=== PATIENT | male | born 1960 | race Caucasian/White ===

== ENCOUNTER 2024-07-13 08:33 | Outpatient (CLI) | payer MEDICARE, MEDICAID, SELFPAY ==
[2024-07-13 08:59] LABS: Hematocrit 37.2 % (37.0-46.0); Hemoglobin 11.9 g/dL (12.4-15.3); Mean Corpuscular Hemoglobin 30.4 pg (27.0-31.0); Mean Corpuscular Volume 95.1 fL (78.0-102.0); Mean Platelet Volume 9.7 fl (8.7-11.0); Platelet Count Result 242 K/mm3 (150-420); Red Blood Count 3.91 M/mm3 (4.70-6.10); Red Cell Distribution Width 12.3 % (11.6-14.4); White Blood Count 8.4 K/mm3 (4.8-10.8)
--- OUTSIDE RECORDS SUMMARY | 2024-07-13 08:59 | XMS_ITS | CONTINUITY OF CARE DOCUMENT ---
Author Name jalyn gunderson Address Unknown Organization [facility] Address [address] [place] [address] Phone [phone] Care Team Providers Care Veterinarian Small Animal Name Role Phone jalyn gunderson Unavailable Unavailable
--- OUTSIDE RECORDS SUMMARY | 2024-07-13 09:00 | XMS_ITS | Clinical Summary ---
Author Organization [facility] Address [address] [place] [address] Care Team Providers Care Senior It Architect Name Role Phone Ino Tracy MD Unavailable None, Provider Primary Care Provider Unavaila ble Allergies Active Allergy Reactions Criticality Noted Date Comments Aspirin Nausea and Vomiting 06/20/2018 Cephalexin Hives 06/20/2018 Penicillin V Anaphylaxis High 06/20/2018 Medications omeprazole 20 MG capsule Take 1 capsule (20 mg total) by mouth daily. 02/24/20 20 Active traZODone 150 MG tablet Take 1 tablet (150 mg total) by mouth nightly at bedtime. 02/24/20 20 Active glipiZIDE (GLUCOTROL) 5 MG tablet Take 1 tablet (5 mg total) by mouth every morning before breakfast. Active vitamin D3 (CHOLECALCIFEROL) 25 mcg tablet Take 3 tablets (75 mcg total) by mouth daily. Active isosorbide mononitrate ER (IMDUR) 30 MG 24 hr tablet Take 1 tablet (30 mg total) by mouth daily. Active latanoprost (XALATAN) 0.005 % ophthalmic solution Place 1 drop into both eyes nightly at bedtime. Active loratadine (CLARITIN) 10 MG tablet Take 1 tablet (10 mg total) by mouth daily. Active tiZANidine (ZANAFLEX) 4 MG tablet Take 1 tablet (4 mg total) by mouth nightly at bedtime. Active metoprolol succinate ER (TOPROL-XL) 25 MG 24 hr tablet Take 1 tablet (25 mg total) by mouth daily. 30 tablet 05/31/19 24 Active ipratropium-albut stacy (DUONEB) 0.5-2.5 (3) MG/3ML Solution Take 3 mLs by nebulization every 4 (four) hours as needed (shortness of breath). 360 mL 05/30/19 24 Active potassium chloride CR (KLOR-CON M) 10 MEQ tablet Take 1 tablet (10 mEq total) by mouth every other day. 05/31/19 24 Active atorvastatin (LIPITOR) 80 MG tablet Take 1 tablet (80 mg total) by mouth nightly at bedtime. 30 tablet 06/21/19 24 Active lisinopril (PRINIVIL) 10 MG tablet Take 1 tablet (10 mg total) by mouth daily. 30 tablet 06/22/19 24 Active nitroglycerin (NITROSTAT) 0.[address] 1 tablet (0.4 mg total) under the tongue every 5 (five) minutes as needed for Chest Pain. Maximum of 3 doses.THEN CALL 911 25 tablet 2 06/26/19 24 Active HUMALOG KWIKPEN 100 UNIT/ML injection (PEN) Inject 2 Units into the skin 3 (three) times daily before meals. 08/22/19 24 Active albuterol sulfate HFA (VENTOLIN HFA) 108 (90 Base) MCG/ACT inhalerIndication s:Chronic obstructive pulmonary disease, unspecified COPD type ([facility]) Inhale 2 puffs into the lungs every 6 (six) hours as needed for Wheezing. 18 g 5 12/18/19 24 Active ARIPiprazole (ABILIFY) 5 MG tabletIndications :Paranoid schizophrenia ([facility] HHS/HCC) Take 1 tablet (5 mg total) by mouth nightly at bedtime. 30 tablet 2 12/18/19 24 Active busPIRone (BUSPAR) 10 MG tabletIndications :Paranoid schizophrenia ([facility] HHS/HCC) Take 1 tablet (10 mg total) by mouth 2 (two) times daily. 90 tablet 3 12/18/19 24 Active calcium carbonate (TUMS) 500 MG chewable tabletIndications :Gastroesophageal reflux disease without esophagitis Chew 2 tablets (1,000 mg total) by mouth 2 (two) times daily as needed for Heartburn. 90 tablet 3 12/18/19 24 Active Additional Information Patient taking differently:2 tablet OralEvery 6 hours PRN, Heartburn, Reported on 02/22/2024 diclofenac sodium (VOLTAREN) 1 % gelIndications:Ch ronic right shoulder pain,Pain in joint, forearm, right Apply 4 g topically 4 (four) times daily as needed (pain). 100 g 2 12/18/19 24 Active DULoxetine (CYMBALTA) 20 MG capsuleIndication s:Paranoid schizophrenia (CMS/HCC HHS/HCC) Take 1 capsule (20 mg total) by mouth daily. Takes 20 mg + 60 mg = 80 mg TDD. 60 capsule 2 12/18/19 24 Active DULoxetine (CYMBALTA) 60 MG capsuleIndication s:Paranoid schizophrenia (CMS/HCC HHS/HCC) Take 1 capsule (60 mg total) by mouth daily. Takes 60 mg + 20 mg = 80 mg TDD 60 capsule 2 12/18/19 24 Active famotidine (PEPCID) 40 MG tabletIndications :Gastroesophageal reflux disease without esophagitis Take 1 tablet (40 mg total) by mouth nightly at bedtime. 90 tablet 3 12/18/19 24 Active Fluticasone-Umecl idin-Vilant (TRELEGY ELLIPTA) 200-62.5-25 MCG/ACT AEROSOL POWDER, BREATH ACTIVATEDIndicati ons:Chronic obstructive pulmonary disease, unspecified COPD type (CMS/HCC HHS/HCC) Inhale 1 puff into the lungs daily. Rinse and spit after use 90 each 3 12/18/19 24 Active furosemide (LASIX) 40 MG tabletIndications :Essential hypertension Take 1 tablet (40 mg total) by mouth daily. 30 tablet 12/31/19 24 Active guaiFENesin (ROBITUSSIN) 100 MG/5ML solution Take 10 mLs (200 mg total) by mouth every 6 (six) hours as needed for Cough. Active clopidogrel (PLAVIX) 75 MG tabletIndications :Hyperlipidemia, mixed TAKE 1 TABLET(75 MG) BY MOUTH DAILY 90 tablet 3 01/22/20 24 Active gabapentin (NEURONTIN) 600 MG tabletIndications :Chronic pain syndrome Take 1 tablet (600 mg total) by mouth 3 (three) times daily. 90 tablet 2 01/24/20 24 Active ondansetron (ZOFRAN) 4 MG tablet Take 1 tablet (4 mg total) by mouth every 8 (eight) hours as needed for Nausea. 20 tablet 02/08/20 24 Active dipyridamole-aspi rin (AGGRENOX) 25-200 MG 12 hr capsule Take 1 capsule by mouth 2 (two) times daily. Active HYDROcodone-aceta minophen (NORCO) 5-325 MG tabletIndications :Chronic Pain Indications: Chronic Pain TAKE 1 TABLET BY MOUTH FOUR TIMES DAILY AT 5AM, 12PM, 5PM, 11PM 12 tablet 02/25/20 24 Active LORazepam (ATIVAN) 0.5 MG tabletIndications :Anxiety Take 1 tablet (0.5 mg total) by mouth 2 (two) times daily as needed for Anxiety. 10 tablet 02/26/20 24 Active Active Problems Problem Noted Date Diagnosed Date Bipolar I disorder, most rec ent episode depressed ([facility]) 03/19/2024 Diastolic heart failure ([facility]) 2024 Paresis of lower extremity ([facility]) 11/2024 Sepsis ([facility]) 02/22/2024 COVID-19 01/15/2024 Erectile dysfunction, unspecified erectile dysfu nction type 10/22/2023 Primary osteoarthritis of right shoulder 024 Primary osteoarthritis of right wrist 10/07/2023 Nodule of lower lobe of right lung 10/07/2023 Pain in joint, forearm, right 10/01/2023 Chronic right shoulder pain 10/01/2023 Wheelchair dependence 10/01/2023 Hypertriglyceridemia 08/16/2023 Low HDL (under 40) 08/16/2023 Hypercalcemia 07/26/2023 Stage 3b chronic kidney disease (CKD) 07/26/2023 Acute sinusitis, recurrence not specified, unspecified location 07/19/2023 DAVID (acute kidney injury) 07/10/2023 Nicotine dependence, cigarettes, in remission Class 1 obesity due to exces s calories with serious comorbidity and body mass index (BMI) of 30.0 to 30.9 in adult 07/09/2023 Diabetic peripheral neuropathy ([facility]) 07/09/2023 Hyperlipidemia, mixed 06/26/2023 COPD (chronic obstructive pu lmonary disease) ([facility]) 06/19/2023 NSTEMI (non-ST elevated myoc ardial infarction) ([facility]) 05/27/2023 Acute respiratory failure with hypoxia ([facility]) 05/19/2023 Pancreatitis ([facility]) 05/06/2021 COPD exacerbation ([facility]) 09/25/2020 Chronic respiratory failure with hypoxia ([facility]) 06/28/2020 Atherosclerosis of aorta 01/06/2020 Moderate episode of recurrent major depressive d isorder 09/25/2018 History of stroke 09/25/2018 Paranoid schizophrenia ([facility]) 019 Tobacco user 01/16/2018 Anxiety 10/08/2017 Rheumatoid arthritis ([facility]) 8 Trochanteric bursitis of right hip 09/23/2017 Bipolar disorder ([facility]) 09/23/2017 Gastroesophageal reflux disease without esophagi tis 02/21/2017 Essential hypertension 02/15/2017 Hernia, inguinal 02/15/2017 Diabetes mellitus ([facility]) 02/15/2017 Fibromyalgia 02/15/2017 Chronic pain syndrome 02/15/2017 Arteriosclerosis of coronary artery 02/15/2017 Encounters Date Type Department Care Team Description 06/16/2024 Orders Only [facility] Family Medicine [address] [id number] Adeel Jones MD 04/28/2024 Scan [facility] HE[facility] INFO SRVCS Scanned, Doc Med Group from Last 3 Months Immunizations Immunization Administration Dates Next Due Fluzone High Dose (IIV, trivalent, 0.5mL) 2023 Influenza Adult (Generic) 12/15/2019,11/18/2018, 02/27/2018 MODERNA COVID-19 BIVALENT (1 2+), MRNA, LNP-S, PF 12/18/2021 PFIZER COVID-19 (ORIGINAL FO RMULATION, PURPLE CAP) mRNA, LNP-S, PF, 30 MCG/0.3 ML DOSE 11/02/2020,08/03/2020 Pneumococcal (Prevnar 20) 07/09/2023 Family History Medical History Relation Comments Heart Attack Father Heart Attack Maternal Grandmother COPD Mother Sleep Apnea Mother Heart Attack Paternal Grandmother Relation Status Comments Father (Age 38) Maternal Grandmother Mother Paternal Grandmother Social History Tobacco Use Types Packs/Day Years Used Date Smoking Tobacco: Former Cigarettes 0.5 50 Q uit: 06/04/2023 Smokeless Tobacco: Never Tobacco Cessation:Counseling Given: Yes Comments:Patient smoking 2-3 cigarettes a day 09/03/2023. Alcohol Use Standard Drinks/Week Comments No 0 (1 standard drink = 0.6 oz pur e alcohol) B1300 Health Literacy Answer Date Recor ded How often do you need to hav e someone help you when you read instructions, pamphlets, or other written material from your doctor or pharmacy? Never 01/15/2024 [facility] Utilities Answer Date Recorded In the past 12 months has e brands4friends, gas, oil, or water Runner threatened to shut off services in your home? No 02/22/2024 Humiliation, Afraid, Rape, and Kick questionnair e Answer Date Recorded Within the last year, have y ou been afraid of your partner or ex-partner? No 02/22/2024 Within the last year, have y ou been humiliated or emotionally abused in other ways by your partner or ex-partner? No Within the last year, have y ou been kicked, hit, slapped, or otherwise physically hurt by your partner or ex-partner? No 02/22/2024 Within the last year, have y ou been raped or forced to have any kind of sexual activity by your partner or ex-partner? No 02/22/2024 Social Connection and Isolation Panel [NHANES] A nswer Date Recorded In a typical week, how many times do you talk on the phone with family, friends, or neighbors? Twice a week 01/15/2024 How often do you get together with friends or re latives? Never 01/15/2024 How often do you attend buddhist or restorationist serv ices? Never 01/15/2024 Do you belong to any clubs o r organizations such as buddhist groups, unions, fraternal or athletic groups, or school groups? No 01/15/2024 How often do you attend meet ings of the clubs or organizations you belong to? Never 01/15/2024 Are you , , di vorced, , never , or living with a partner? 01/15/2024 AUDIT-C Answer Date Recorded Q1: How often do you have a drink containing alc ohol? Never 01/15/2024 Average Number of Drinks Not on file 024 Q3: How often do you have si x or more drinks on one occasion? Never 01/15/2024 Overall Financial Resource Strain (CARDIA) Answe r Date Recorded How hard is it for you to pa y for the very basics like food, housing, medical care, and heating? Not very hard 02/22/2024 PHQ-2 Answer Date Recorded Patient Health Questionnaire-2 Score 0 12/31/2023 [facility] [place] [facility] - Occupational Stress Questionnaire Answer Date Recorded Do you feel stress - tense, restless, nervous, or anxious, or unable to sleep at night because your mind is troubled all the time - these days? Only a little 01/15/2024 Exercise Vital Sign Answer Date Recorde d On average, how many days pe r week do you engage in moderate to strenuous exercise (like a brisk walk)? 0 days 09/26/2020 On average, how many minutes do you engage in exercise at this level? 0 min 09/26/2020 Hunger Vital Sign Answer Date Recorded Within the past 12 months, y ou worried that your food would run out before you got the money to buy more. Never true 02/22/20 24 Within the past 12 months, t he food you bought just didn't last and you didn't have money to get more. Never true 02/22/2024 PRAPARE - Transportation Answer Date Re corded In the past 12 months, has l ack of transportation kept you from medical appointments or from getting medications? No 02/08 In the past 12 months, has l ack of transportation kept you from meetings, work, or from getting things needed for daily living? No 02/22/2024 Housing Stability Vital Sign Answer Shahab e Recorded In the last 12 months, was t here a time when you were not able to pay the mortgage or rent on time? No 05/27/2023 In the last 12 months, how many places have you lived? 2 05/27/2023 In the last 12 months, was t here a time when you did not have a steady place to sleep or slept in a intermediate (including now)? No 05/27/2023 Housing Stability Vital Sign Answer Shahab e Recorded In the last 12 months, was t here a time when you were not able to pay the mortgage or rent on time? No 02/22/2024 In the past 12 months, how m any times have you moved where you were living? 2 02/22/2024 At any time in the past 12 [facility], were you homeless or living in a intermediate (including now)? No 02/22/2024 Sex and Gender Information Value Date Recorded Sex Assigned at Male 09/26/2020 2:43 AM CDT Legal Sex Male 11:34 PM CDT Gender Identity Male 09/26/2020 2:43 AM CDT Sexual Orientation Straight 09/26/2020 2: 43 AM CDT Last Filed Vital Signs Vital Sign Reading Time Taken Comments Blood Pressure 119/66 03/10/2024 1:46 PM COMPUTER NUMERICAL CONTROL MACHINIST Pulse 89 03/10/2024 1:46 PM COMPUTER NUMERICAL CONTROL MACHINIST Temperature 36.7 C (98 F) 03/10/2024 1:46 PM COMPUTER NUMERICAL CONTROL MACHINIST Respiratory Rate 20 03/10/2024 1:46 PM COMPUTER NUMERICAL CONTROL MACHINIST Oxygen Saturation 97% 03/10/2024 1:46 PM COMPUTER NUMERICAL CONTROL MACHINIST Inhaled Oxygen Concentration - - Weight 86.2 kg (190 lb) 03/10/2024 1:46 PM COMPUTER NUMERICAL CONTROL MACHINIST Height 172.7 cm (5' 8 ) 03/10/2024 1:46 PM COMPUTER NUMERICAL CONTROL MACHINIST Body Mass Index 28.89 03/10/2024 1:46 PM COMPUTER NUMERICAL CONTROL MACHINIST Plan of Treatment Upcoming Encounters Date Type Department Care Team (Late st Contact Info) Description 09/09/2024 2:00 PM CDT Office Visit [facility], [facility] [address] [place], [place] [phone] Sisi Woods MD [facility]. [facility] [address] [place], [place] [id number] Health Maintenance Due Date Last Done Comments Colorectal Cancer Screening Colonoscopy (10 Years) 1958 Diabetes: Retinopathy Eye Exam 1976 DTaP, Tdap and Td Vaccines (1 - Tdap) 1977 Zoster Vaccines (1 of 2) 2008 RSV Immunization or 60+ Years (1 - Risk 60-74 years 1-dose series) 2018 Annual Medicare Wellness Visit 2023 COVID-19 Vaccine (4 - season) 2023 12/18/2021, 11/02/2020, 08/03/2020 PHQ-2 (Physician [place]) 03/11/2024 12/31/2023 Hemoglobin A1C 05/11/2024 11/12/2023, 06/0 06/2023, 05/27/2023, Additional history exists Lipid Panel 09/23/2024 09/24/2023, 06/0 06/2023, 05/27/2023, Additional history exists Kidney Health Evaluation 09/30/2024 10/01/2023 Lung Cancer Screening 02/24/2025 02/25/2024 , 02/22/2024, 10/01/2023, Additional history exists Pneumococcal Vaccine: 50+ Years Completed 07/09/2023 Hepatitis C Completed 08/13/2023 AAA SCREENING Completed 02/25/2024, 02/08, 02/08/2024, Additional history exists Meningococcal B Vaccine Aged Out No l onger eligible based on patient's age to complete this topic Meningococcal Vaccine Aged Out No mecca lopez eligible based on patient's age to complete this topic RSV Immunizations Under 20 Months Aged Out No longer eligible based on patient's age to complete this topic Goals Goal Patient Goal Type Associated Problems Recent Progress Patient-Stated? 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 Procedure Name Priority Date/Time Associated Diagnosis Comments CT CHEST WO CON STAT 02/25/2024 3:02 PM COMPUTER NUMERICAL CONTROL MACHINIST HEMOGLOBIN, GLYCOSYLATED Routine 11/12/2023 11:24 AM CDT Type 2 diabetes mellitus with stage 3b chronic kidney disease, with long-term current use of insulin LIPID PANEL Routine 09/24/2023 HEPATITIS C ANTIBODY Routine 08/13/2023 11:56 AM CDT Encounter for hepatitis C screening test for low risk patient from Last 3 Months or Most Recently Relevant to Health Maintenance Results * CT CHEST WO CON (02/25/2024 3:02 PM COMPUTER NUMERICAL CONTROL MACHINIST) Anatomical Region Laterality Modality Chest Computed Tomogra phy 02/25/2024 3:43 PM COMPUTER NUMERICAL CONTROL MACHINIST Impressions 02/25/2024 4:02 PM COMPUTER NUMERICAL CONTROL MACHINIST IMPRESSION:===== 1. Increasing but minimal left pleural effusion with subtle left lower lobe consolidation suspected. Findings could be due to aspiration of secretions on mainstem bronchus are seen on present exam as was present on prior study. Slight increase in subtle nodular densities and groundglass opacities in the left lower lobe also likely due to inflammatory changes. 2. Subtle increase in size of solitary mediastinal lymph node which is still subcentimeter. Findings could be reactive. Follow-up could be considered however. 3. 2 right lower lobe pulmonary nodules warranting follow-up in 3 months. 4. Additional findings as described above. Referred By: Interpreted By: Don Stewart MD, 02/25/2024 3:43 PM Narrative 02/25/2024 4:02 PM COMPUTER NUMERICAL CONTROL MACHINIST [facility] [address], [place] [address] EXAMINATION: CT Chest without contrast EXAM DATE/TIME: 02/25/2024 2:57 PM REASON FOR EXAM: abnormal cxr COMPARISON: Chest x-ray from today state and multiple exams for 02/22/2024 TECHNIQUE: Computed tomography of the chest was obtained without administration of intravenous contrast according to routine protocol. A dose lowering technique was used for this procedure, which may include, but is not limited to, dose reduction technique, automated exposure control, iterative reconstruction, ALARA (As Low As Reasonably Achievable), or Image Gently techniques FINDINGS: Lung Parenchyma/Pleura: Minimal left pleural effusion is seen. Subtle atelectasis or consolidation left lower lobe is noted. These findings are new as compared with prior study. Slight decrease in right lower lobe pulmonary densities seen as compared prior exam. No evidence of right pleural effusion is noted. Secretions in the left mainstem bronchus are noted. Findings could be due to aspiration. Secretions left basilar markings are noted on prior study also. Subtle nodular densities in the left lower lobe such as on image 105 are seen. Minimal increased vague groundglass opacity in this area is also suspected. These findings are minimally increased as compared with prior study. 7 mm right lower lobe pulmonary nodule on image 99 is stable from most recent prior study. 8mm nodule on image 106 is also unchanged from prior exam. Continued follow-up in 3 months is recommended. Mediastinum/Kaylan: 8mm lymph node on image 41 of axial series 2 is intervally increased from prior study where it measures 6 mm. Vascular structures: Coronary artery calcifications are seen versus possible coronary stent. Aortic calcifications also noted. Pericardium effusion and/or thickening is unchanged from prior study. Thyroid gland and supraclavicular region: Unremarkable Axillae: No enlarged lymph nodes. Superficial tissues: Unremarkable Visualized Upper abdominal structures:Pancreatic calcifications are suggestive chronic pancreatitis. Ductal dilatation is seen similar prior exam. Musculoskeletal:Diffuse degenerative changes of the thoracic spine. Indwelling catheters: None ===== Procedure Note Don Stewart MD - 02/25/[address] [address] EXAMINATION: CT Chest without contrast EXAM DATE/TIME: 02/25/2024 2:57 PM REASON FOR EXAM: abnormal cxr COMPARISON: Chest x-ray from today state and multiple exams for02/22/2024 TECHNIQUE: Computed tomography of the chest was obtained withoutadministration of intravenous contrast according to routine protocol. Adose lowering technique was used for this procedure, which may include,but is not limited to, dose reduction technique, automated exposurecontrol, iterative reconstruction, ALARA (As Low As ReasonablyAchievable), or Image Gently techniques FINDINGS: Lung Parenchyma/Pleura: Minimal left pleural effusion is seen. Subtleatelectasis or consolidation left lower lobe is noted. These findings arenew as compared with prior study. Slight decrease in right lower lobepulmonary densities seen as compared prior exam. No evidence of rightpleural effusion is noted. Secretions in the left mainstem bronchus arenoted. Findings could be due to aspiration. Secretions left basilarmarkings are noted on prior study also. Subtle nodular densities in theleft lower lobe such as on image 105 are seen. Minimal increased vaguegroundglass opacity in this area is also suspected. These findings areminimally increased as compared with prior study. 7 mm right lower lobe pulmonary nodule on image 99 is stable from mostrecent prior study. 8mm nodule on image 106 is also unchanged from priorexam. Continued follow-up in 3 months is recommended. Mediastinum/Kaylan: 8mm lymph node on image 41 of axial series 2 isintervally increased from prior study where it measures 6 mm. Vascular structures: Coronary artery calcifications are seen versuspossible coronary stent. Aortic calcifications also noted. Pericardium effusion and/or thickening is unchanged from prior study. Thyroid gland and supraclavicular region: Unremarkable Axillae: No enlarged lymph nodes. Superficial tissues: Unremarkable Visualized Upper abdominal structures:Pancreatic calcifications aresuggestive chronic pancreatitis. Ductal dilatation is seen similar priorexam. Musculoskeletal:Diffuse degenerative changes of the thoracic spine. Indwelling catheters: None ===== IMPRESSION:===== 1. Increasing but minimal left pleural effusion with subtle left lowerlobe consolidation suspected. Findings could be due to aspiration ofsecretions on mainstem bronchus are seen on present exam as was present onprior study. Slight increase in subtle nodular densities and groundglassopacities in the left lower lobe also likely due to inflammatorychanges. 2. Subtle increase in size of solitary mediastinal lymph node which isstill subcentimeter. Findings could be reactive. Follow-up could beconsidered however. 3. 2 right lower lobe pulmonary nodules warranting follow-up in 3months. 4. Additional findings as described above. Referred By: Interpreted By: Don Stewart MD, 02/25/2024 3:43 PM us John T Cordero MD CT Final Result * A1C (BACK OFFICE) (11/12/2023 11:24 AM CDT) HGB A1C 6.6 % GREGORY MENDEZ 11/12/2023 11:2 4 AM CDT Adeel Jones MD LABORATORY Final Result Performing Organization Address City/State/[facility] Co de Phone Number GREGORY MENDEZ [address] [place] [address], * LIPID PANEL (09/24/2023) Pathologist [facility] CHOLESTEROL 120 HDL 30 TRIGLYCERIDES 175 LDL (CALCULATED) 55 09/24/2023 Default History Genericprovider LABORATORY Final Result * HEPATITIS C ANTIBODY ([facility] ONLY) (08/13/2023 11:56 AM CDT) Pathologist [facility] HEPATITIS C AB NON-REACTI VE NON-REACT SRINIVASAN 08/13/2023 9:58 PM CDT [facility] Comment: ANTIBODIES TO HCV NOT DETECTED. DOES NOT EXCLUDE THE POSSIBILITY OF EXPOSURE TO HCV. 08/13/2023 11:5 6 AM CDT Adeel Jones MD LABORATORY Final Result Performing Organization Address City/[facility] Co de Phone Number [facility] [address] [place] [address], [place] [phone] from Last 3 Months or Most Recently Relevant to Health Maintenance Insurance MEDICAID [facility] Advance Directives Documents on File Type Date Recorded Patient Responder Expl anation Advance Directives and Living Will 05/10/2021 09/30/20 SIGNED POLS T FORM Advance Directives and Living Will 10/10/2017 1:54 PM POLST FORM 05/24/17 Advance Directives and Living Will 10/07/2017 SADVANCE DIRECTIVES * Full Code (Latest Code Status on File) Date Activated Date Inactivated Comments 02/22/2024 12:35 PM 02/26/2024 5:21 PM * Full Code Date Activated Date Inactivated Comments 01/15/2024 4:03 AM 01/19/2024 5:00 PM * Full Code Date Activated Date Inactivated Comments 07/10/2023 4:04 AM 07/11/2023 1:47 PM * Full Code Date Activated Date Inactivated Comments 06/18/2023 10:15 PM 06/21/2023 2:07 PM * Full Code Date Activated Date Inactivated Comments 05/28/2023 2:56 PM 05/30/2023 3:13 PM Care Teams Senior It Architect Relationship Specialty Start Date End Date None, Provider, PCP - General UNKNOWN PHYSICIAN SPECIALTY 03/10/24 Ino Tracy MD [address] [place] [address] Nigel Backup Operator INTERVENTIONAL CARDIOLOGY 01/02/18
--- OUTSIDE RECORDS SUMMARY | 2024-07-13 09:00 | XMS_ITS | Encounter Summary ---
Author Organization [facility] Address [address] [place] [address] Care Team Providers Care Glazier Structural Glass Name Role Phone Ino Tracy MD Unavailable Adeel Jones MD Primary Care Provider [phone] None, Provider Primary Care Provider Unavaila ble Encounter Details Date Type Department Care Team (Late st Contact Info) Description 09/25/2023 [facility] [id number] Tash Nava MA Social History Tobacco Use Types Packs/Day Years Used Date Smoking Tobacco: Former Cigarettes 0.5 50 Q uit: 06/04/2023 Smokeless Tobacco: Never Comments:Patient smoking 2-3 cigarettes a day 09/03/2023. Alcohol Use Standard Drinks/Week Comments No 0 (1 standard drink = 0.6 oz pur e alcohol) [facility] Utilities Answer Date Recorded In the past 12 months has e electric, gas, oil, or water company threatened to shut off services in your home? No 07/10/2023 Humiliation, Afraid, Rape, and Kick questionnair e Answer Date Recorded Within the last year, have y ou been afraid of your partner or ex-partner? No 07/10/2023 Within the last year, have y ou been humiliated or emotionally abused in other ways by your partner or ex-partner? No Within the last year, have y ou been kicked, hit, slapped, or otherwise physically hurt by your partner or ex-partner? No 07/10/2023 Within the last year, have y ou been raped or forced to have any kind of sexual activity by your partner or ex-partner? No 07/10/2023 Social Connection and Isolation Panel [NHANES] A nswer Date Recorded In a typical week, how many times do you talk on the phone with family, friends, or neighbors? Twice a week 06/18/2023 How often do you get together with friends or re latives? Never 06/18/2023 How often do you attend christianity or voodoo serv ices? Never 06/18/2023 Do you belong to any clubs o r organizations such as christianity groups, unions, fraternal or athletic groups, or school groups? No 06/18/2023 How often do you attend meet ings of the clubs or organizations you belong to? Never 06/18/2023 Are you , , di vorced, , never , or living with a partner? 06/18/2023 AUDIT-C Answer Date Recorded Q1: How often do you have a drink containing alc ohol? Never 06/18/2023 Average Number of Drinks Not on file 024 Q3: How often do you have si x or more drinks on one occasion? Never 06/18/2023 Overall Financial Resource Strain (CARDIA) Answe r Date Recorded How hard is it for you to pa y for the very basics like food, housing, medical care, and heating? Not hard at all 07/10/2023 PHQ-2 Answer Date Recorded Patient Health Questionnaire-2 Score 0 08/13/2023 [employer] of Occupat ional Health - Occupational Stress Questionnaire Answer Date Recorded Do you feel stress - tense, restless, nervous, or anxious, or unable to sleep at night because your mind is troubled all the time - these days? Only a little 06/18/2023 Exercise Vital Sign Answer Date Recorde d [...] the money to buy more. Never true 07/10/19 24 Within the past 12 months, t he food you bought just didn't last and you didn't have money to get more. Never true 07/10/2023 PRAPARE - Transportation Answer Date Re corded In the past 12 months, has l ack of transportation kept you from medical appointments or from getting medications? Yes 03/2023 In the past 12 months, has l ack of transportation kept you from meetings, work, or from getting things needed for daily living? No 07/10/2023 Housing Stability Vital Sign Answer Shahab e [...] place to sleep or slept in a custodial (including now)? No 05/27/2023 Housing Stability Vital Sign Answer Shahab e Recorded In the last 12 months, was t here a time when you were not able to pay the mortgage or rent on time? No 07/10/2023 In the past 12 months, how m any times have you moved where you were living? 2 07/10/2023 At any time in the past 12 m [facility], were you homeless or living in a custodial (including now)? No 07/10/2023 Sex and Gender Information Value Date Recorded Sex Assigned at Male 09/26/2020 2:43 AM CDT Legal Sex Male 11:34 PM CDT Gender Identity Male 09/26/2020 2:43 AM CDT Sexual Orientation Straight 09/26/2020 2: 43 AM CDT documented as of this encounter Functional Status * Are you deaf or do you have serious difficulty hearing Answer Date of Assessment Author Status Yes 07/10/2023 1:54 PM CDT Elena Reed RN Active * Are you blind or do you have serious difficulty seeing, even when wearing glasses? Answer Date of Assessment Author Status No 07/10/2023 1:54 PM CDT Elena Reed RN Active * Do you have serious difficulty walking or climbing stairs? Answer Date of Assessment Author Status Yes 07/10/2023 1:54 PM CDT Elena Reed RN Active * Do you have difficulty dressing or bathing? Answer Date of Assessment Author Status No 07/10/2023 1:54 PM CDT Elena Reed RN Active * Because of a physical, mental, or emotional condition, do you have difficulty doing errands alone such as visiting a doctor's office or shopping? Answer Date of Assessment Author Status No 07/10/2023 1:54 PM CDT Elena Reed RN Active documented as of this encounter Mental Status * Because of a physical, mental, or emotional condition, do you have serious difficulty concentrating, remembering, or making decisions? Answer Entry Date Author Status No 07/10/2023 1:54 PM CDT Elena Reed RN Active documented in this encounter Plan of Treatment Upcoming Encounters Date Type Department Care Team (Late st Contact Info) Description 09/09/2024 2:00 PM CDT Office [facility] [address] [place], [place] [phone] Sisi Woods MD [facility]. [facility] [address] [place], [place] [phone] documented as of this encounter Goals Goal Patient Goal Type Associated Problems Recent Progress Patient-Stated? Author Discharge Patient/family verbalizes understanding regarding the need for SNF placement General No Kati Calhoun, PRINT PRODUCER Monitor - able to maintain pain control Lifestyle No Reno Hall, RN documented as of this encounter Procedures Procedure Name Priority Date/Time Associated Diagnosis Comments COMPREHENSIVE METABOLIC PANEL Routine 09/24/2023 LIPID PANEL Routine 09/24/2023 documented in this encounter Results * (ABNORMAL) COMPREHENSIVE METABOLIC PANEL (09/24/2023) SODIUM S/P/B 139 POTASSIUM S/P/B 4.9 CO2 23` CHLORIDE S/P/B 106 GLUCOSE 99 mg/dL CALCIUM S/P/B 10.3 BUN 45 CREATININE S/P/B 2.1(A) 0.7 - 1.3 GFR ESTIMATE 32 ALKALINE PHOSPHATASE S/P/B 85 ALT 20 AST 15 BILIRUBIN TOTAL S/P/B 0.3 ALBUMIN S/P/B 3.9 3.5 - 5.0 TOTAL PROTEIN S/P/B 6.2 09/24/2023 us Default History Genericprovider LABORATORY Edited Result - Final * LIPID PANEL (09/24/2023) CHOLESTEROL 120 HDL 30 TRIGLYCERIDES 175 LDL (CALCULATED) 55 09/24/2023 us Default History Genericprovider LABORATORY Final Result documented in this encounter Visit Diagnoses Not on filedocumented in this encounter Additional Health Concerns Infection Onset Date Last Indicated Resolved Time COVID-19 Rule Out 01/01/2024 01/01/2024 01/01/2024 8:18 AM CDT COVID-19 Rule Out 01/15/2024 01/15/2024 01/15/2024 1:30 AM SUPERINTENDENT METERS COVID-19 Confirmed 01/15/2024 01/15/2024 12:33 AM SUPERINTENDENT METERS COVID-19 Rule Out 02/22/2024 02/22/2024 02/22/2024 10:15 AM SUPERINTENDENT METERS COVID-19 Rule Out 02/25/2024 02/25/2024 02/25/2024 11:15 AM SUPERINTENDENT METERS documented as of this encounter Care Teams Glazier Structural Glass Relationship Specialty Start Date End Date Adeel Jones MD [address] [place] [phone] PCP - General FAMILY PRACTICE 05/19/23 03/09/24 None, Provider, PCP - General UNKNOWN PHYSICIAN SPECIALTY 03/10/24 Ino Tracy MD [facility]. [facility] [address] [place] [address] [place] INTERVENTIONAL CARDIOLOGY 01/02/18 documented as of this encounter
[2024-07-13 09:25] LABS: Hemoglobin A1C 6.6 % (<5.7)
[2024-07-13 10:05] LABS: Alanine Aminotransferase 28 U/L (16-63); Albumin Level 3.2 g/dL (3.4-5.0); Alkaline Phosphatase 162 U/L (46-116); Anion Gap 10 mmol/L (4-12); Aspartate Amino Transferase 14 U/L (15-37); Bilirubin Direct 0.1 mg/dL (0-0.2); Bilirubin,Total 0.4 mg/dL (0.00-1.00); Blood Urea Nitrogen 21 mg/dL (7-18); Calcium 9.8 mg/dL (8.5-10.1); Carbon Dioxide 26 mmol/L (21-32); Chloride 101 mmol/L (98-108); Cholesterol 120 mg/dL (0-200); Estimated Glomerular Filt Rate 44; Ferritin 83 ng/mL (26-388); Glucose 130 mg/dL (70-99); HDL Direct 49 mg/dL (40-60); Iron 34 ug/dL (65-175); LDL Cholesterol Calculated 62 mg/dL (<130); Osmolality Calculated 289 mOsm/kg (285-295); Percent Iron Saturation 13 % (12-57); Potassium 4.3 mmol/L (3.5-5.1); Sodium 137 mmol/L (136-145); Triglycerides 46 mg/dL (0-150)
== END 2024-07-13 08:34 | disposition home or self-care (01) ==
PROVIDERS: PCP Family Medicine; Visit Provider Family Medicine
DX: F20.9 Schizophrenia, unspecified (principal); M06.9 Rheumatoid arthritis, unspecified; M79.7 Fibromyalgia; E78.5 Hyperlipidemia, unspecified; I51.9 Heart disease, unspecified; I50.9 Heart failure, unspecified; J44.9 Chronic obstructive pulmonary disease, unspecified; E11.9 Type 2 diabetes mellitus without complications
CPT/HCPCS: 36415; 80048; 80061; 80076; 82728; 83036; 83540; 83550; 85027

== ENCOUNTER 2024-07-15 15:41 | Outpatient (NON) | payer MEDICARE, MEDICAID, SELFPAY ==
--- OUTSIDE RECORDS SUMMARY | 2024-07-15 15:45 | XMS_ITS | Clinical Summary ---
Author Organization [facility] Address [address] [place] [address] Care Team Providers Care Rn International Name Role Phone Ino Tracy MD Unavailable [...] s:Chronic obstructive pulmonary disease, unspecified COPD type ([facility]) Inhale 2 puffs into the lungs every 6 (six) hours as needed for Wheezing. 18 g 5 12/18/19 24 Active ARIPiprazole (ABILIFY) 5 MG tabletIndications :Paranoid schizophrenia ([facility] HHS/HCC) Take 1 tablet (5 mg total) by mouth nightly at bedtime. 30 tablet 2 12/18/19 24 Active busPIRone (BUSPAR) 10 MG tabletIndications :Paranoid schizophrenia ([facility] HHS/HCC) Take 1 tablet (10 mg total) [...] I disorder, most rec ent episode depressed ([facility]) 03/19/2024 Diastolic heart failure ([facility]) 2024 Paresis of lower extremity ([facility]) 11/2024 Sepsis ([facility]) 02/22/2024 COVID-19 01/15/2024 Erectile dysfunction, unspecified erectile [...] 30.9 in adult 07/09/2023 Diabetic peripheral neuropathy ([facility]) 07/09/2023 Hyperlipidemia, mixed 06/26/2023 COPD (chronic obstructive pu lmonary disease) ([facility]) 06/19/2023 NSTEMI (non-ST elevated myoc ardial infarction) ([facility]) 05/27/2023 Acute respiratory failure with hypoxia ([facility]) 05/19/2023 Pancreatitis ([facility]) 05/06/2021 COPD exacerbation ([facility]) 09/25/2020 Chronic respiratory failure with hypoxia ([facility]) 06/28/2020 Atherosclerosis of aorta 01/06/2020 Moderate episode of recurrent major depressive d isorder 09/25/2018 History of stroke 09/25/2018 Paranoid schizophrenia ([facility]) 019 Tobacco user 01/16/2018 Anxiety 10/08/2017 Rheumatoid arthritis ([facility]) 8 Trochanteric bursitis of right hip 09/23/2017 Bipolar disorder ([facility]) 09/23/2017 Gastroesophageal reflux disease without esophagi tis 02/21/2017 Essential hypertension 02/15/2017 Hernia, inguinal 02/15/2017 Diabetes mellitus ([facility]) 02/15/2017 Fibromyalgia 02/15/2017 Chronic pain syndrome 02/15/2017 Arteriosclerosis of coronary artery 02/15/2017 Encounters Date Type Department Care Team Description 06/16/[address] [facility] Family Medicine [address] [address] Adeel Jones MD 04/28/2024 [facility] [...] from your doctor or pharmacy? Never 01/15/2024 [facility] Utilities Answer Date Recorded In the past 12 months has e [employer], gas, oil, or water [employer] threatened to shut off services in your [...] Never 01/15/2024 How often do you attend anglican or anabaptist serv ices? Never 01/15/2024 Do you belong to any clubs o r organizations such as anglican groups, unions, fraternal or athletic groups, or [...] Recorded Patient Health Questionnaire-2 Score 0 12/31/2023 [facility] [place] [employer] of Occupat ional Health - Occupational Stress [...] place to sleep or slept in a longterm (including now)? No 05/27/2023 Housing Stability Vital Sign Answer Shahab e Recorded In the last 12 months, was t here a time when you were not able to pay the mortgage or rent on time? No 02/22/2024 In the past 12 months, how m any times have you moved where you were living? 2 02/22/2024 At any time in the past 12 m [facility], were you homeless or living in a longterm (including now)? No 02/22/2024 Sex and Gender Information Value Date Recorded Sex Assigned at Male 09/26/2020 2:43 AM CDT Legal Sex Male 11:34 PM CDT Gender Identity Male 09/26/2020 2:43 AM CDT Sexual Orientation Straight 09/26/2020 2: 43 AM CDT Last Filed Vital Signs Vital Sign Reading Time Taken Comments Blood Pressure 119/66 03/10/2024 1:46 PM SOUS CHEF KITCHEN MANAGER Pulse 89 03/10/2024 1:46 PM SOUS CHEF KITCHEN MANAGER Temperature 36.7 C (98 F) 03/10/2024 1:46 PM SOUS CHEF KITCHEN MANAGER Respiratory Rate 20 03/10/2024 1:46 PM SOUS CHEF KITCHEN MANAGER Oxygen Saturation 97% 03/10/2024 1:46 PM SOUS CHEF KITCHEN MANAGER Inhaled Oxygen Concentration - - Weight 86.2 kg (190 lb) 03/10/2024 1:46 PM SOUS CHEF KITCHEN MANAGER Height 172.7 cm (5' 8 ) 03/10/2024 1:46 PM SOUS CHEF KITCHEN MANAGER Body Mass Index 28.89 03/10/2024 1:46 PM SOUS CHEF KITCHEN MANAGER Plan of Treatment Upcoming Encounters Date Type Department Care Team (Late st Contact Info) Description 09/09/2024 2:00 PM CDT Office Visit [facility] [address] [place], [place] [phone] Sisi Woods MD [facility]. [facility] [address] [place], [place] [phone] Health Maintenance Due Date Last Done Comments Colorectal Cancer Screening Colonoscopy (10 Years) 1958 Diabetes: Retinopathy Eye Exam 1976 DTaP, Tdap and Td Vaccines (1 - Tdap) 1977 Zoster Vaccines (1 of 2) 2008 RSV Immunization or 60+ Years (1 - Risk 60-74 years 1-dose series) 2018 Annual Medicare Wellness Visit 2023 COVID-19 Vaccine (4 - season) 2023 12/18/2021, 11/02/2020, 08/03/2020 PHQ-2 (Physician Inupiat) 03/11/2024 12/31/2023 Hemoglobin A1C 05/11/2024 11/12/2023, 06/0 [...] at home upon discharge Lifestyle Reno Morrow, deposition reporter Procedure Name Priority Date/Time Associated Diagnosis Comments CT CHEST WO CON STAT 02/25/2024 3:02 PM SOUS CHEF KITCHEN MANAGER HEMOGLOBIN, GLYCOSYLATED Routine 11/12/2023 11:24 AM CDT [...] CT CHEST WO CON (02/25/2024 3:02 PM SOUS CHEF KITCHEN MANAGER) Anatomical Region Laterality Modality Chest Computed Tomogra phy 02/25/2024 3:43 PM SOUS CHEF KITCHEN MANAGER Impressions 02/25/2024 4:02 PM SOUS CHEF KITCHEN MANAGER IMPRESSION:===== 1. Increasing but minimal left pleural [...] 02/25/2024 3:43 PM Narrative 02/25/2024 4:02 PM SOUS CHEF KITCHEN MANAGER [facility] [address] [place], [place] [address] EXAMINATION: CT Chest without contrast EXAM DATE/TIME: [...] Procedure Note Don Stewart MD - 02/25/[address] [address] EXAMINATION: CT Chest without contrast EXAM DATE/TIME: [...] MD LABORATORY Final Result Performing Organization Address City/State/[facility] Co de Phone Number GREGORY MENDEZ [address] [place] [address], * LIPID PANEL (09/24/2023) Pathologist [facility] CHOLESTEROL 120 HDL 30 TRIGLYCERIDES 175 LDL (CALCULATED) 55 09/24/2023 Default History Genericprovider LABORATORY Final Result * HEPATITIS C ANTIBODY ([facility] ONLY) (08/13/2023 11:56 AM CDT) Pathologist [facility] HEPATITIS C AB NON-REACTI VE NON-REACT SRINIVASAN 08/13/2023 9:58 PM CDT [facility] Comment: ANTIBODIES TO HCV NOT DETECTED. DOES NOT EXCLUDE THE POSSIBILITY OF EXPOSURE TO HCV. 08/13/2023 11:5 6 AM CDT Adeel Jones MD LABORATORY Final Result Performing Organization Address City/[facility] Co de Phone Number [facility] [address] [place] [address], [place] [phone] from Last 3 Months or Most Recently Relevant to Health Maintenance Insurance MEDICAID [facility] Advance Directives Documents on File Type Date Recorded Patient Paste Up Artist Expl anation Advance Directives and Living Will [...] 2:56 PM 05/30/2023 3:13 PM Care Teams Rn International Relationship Specialty Start Date End Date None, Provider, PCP - General UNKNOWN PHYSICIAN SPECIALTY 03/10/24 Ino Tracy MD [address] [place] [address] Nigel Fuel Attendant INTERVENTIONAL CARDIOLOGY 01/02/18
--- OUTSIDE RECORDS SUMMARY | 2024-07-15 15:45 | XMS_ITS | Encounter Summary ---
Author Organization [facility] Address [address] [place] [address] Care Team Providers Care Pig Conveyor Operator Name Role Phone Ino Tracy MD Unavailable Adeel Jones MD Primary Care Provider [phone] None, Provider Primary Care Provider Unavaila ble Encounter Details Date Type Department Care Team (Late st Contact Info) Description 09/25/2023 Abstract [place] [facility] [id number] Tash Nava MA Social History Tobacco Use Types Packs/Day Years Used Date Smoking Tobacco: Former Cigarettes 0.5 50 Q uit: 06/04/2023 Smokeless Tobacco: Never Comments:Patient smoking 2-3 cigarettes a day 09/03/2023. Alcohol Use Standard Drinks/Week Comments No 0 (1 standard drink = 0.6 oz pur e alcohol) [facility] Utilities Answer Date Recorded In the [...] Never 06/18/2023 How often do you attend yazdanism or gnosticism serv ices? Never 06/18/2023 Do you belong to any clubs o r organizations such as yazdanism groups, unions, fraternal or athletic groups, or [...] Recorded Patient Health Questionnaire-2 Score 0 08/13/2023 [facility] of Occupat ional Health - Occupational Stress [...] place to sleep or slept in a residential (including now)? No 05/27/2023 Housing Stability Vital Sign Answer Shahab e Recorded In the last 12 months, was t here a time when you were not able to pay the mortgage or rent on time? No 07/10/2023 In the past 12 months, how m any times have you moved where you were living? 2 07/10/2023 At any time in the past 12 m [facility], were you homeless or living in a residential (including now)? No 07/10/2023 Sex and Gender [...] Description 09/09/2024 2:00 PM CDT Office Visit [facility] [address] [place], [place] [phone] Sisi Woods MD [facility]. [facility] [address] [place], [place] [phone] documented as of this encounter Goals Goal Patient Goal Type Associated Problems Recent Progress Patient-Stated? Author Discharge Patient/family verbalizes understanding regarding the need for SNF placement General No Kati Calhoun, ROADMASTER Monitor - able to maintain pain control [...] Rule Out 01/15/2024 01/15/2024 01/15/2024 1:30 AM SEMI CONDUCTOR ASSEMBLER COVID-19 Confirmed 01/15/2024 01/15/2024 12:33 AM SEMI CONDUCTOR ASSEMBLER COVID-19 Rule Out 02/22/2024 02/22/2024 02/22/2024 10:15 AM SEMI CONDUCTOR ASSEMBLER COVID-19 Rule Out 02/25/2024 02/25/2024 02/25/2024 11:15 AM SEMI CONDUCTOR ASSEMBLER documented as of this encounter Care Teams Pig Conveyor Operator Relationship Specialty Start Date End Date Adeel Jones MD [address] [place] [phone] PCP - General FAMILY PRACTICE 05/19/23 03/09/24 None, Provider, PCP - General UNKNOWN PHYSICIAN SPECIALTY 03/10/24 Ino Tracy MD [facility]. [facility] [address] [place] [address] [place] [employer] INTERVENTIONAL CARDIOLOGY 01/02/18 documented as of this encounter
--- OUTSIDE RECORDS SUMMARY | 2024-07-15 15:45 | XMS_ITS | CONTINUITY OF CARE DOCUMENT ---
Author Name jalyn gunderson Address Unknown Organization [facility] Address [address] [facility] [place] [address] Phone [phone] Care Team Providers Care Upholstery Cutter Name Role Phone jalyn gunderson Unavailable Unavailable
[2024-07-15 16:10] LABS: Creatinine Urine 128.11 mg/dL (40-278); MALB Creatinine Ratio 10.1 mg/g (0-30); Microalbumin Urine Random < 13.0 mg/L
== END 2024-07-15 15:42 | disposition home or self-care (01) ==
LOC: CHSLAB 15:43
PROVIDERS: PCP Family Medicine; Visit Provider Family Medicine
DX: F20.9 Schizophrenia, unspecified (principal); M06.9 Rheumatoid arthritis, unspecified; M79.7 Fibromyalgia; E78.5 Hyperlipidemia, unspecified; I51.9 Heart disease, unspecified
CPT/HCPCS: 82043

== ENCOUNTER 2024-07-19 18:02 | Emergency (ER) | payer MEDICARE, MEDICAID, SELFPAY ==
[2024-07-19] VITALS (15 sets, daily range): BP systolic 113–147; BP diastolic 52–91; PULSE 80–98; RESP 20; TEMP 38.2; O2SAT 97–100
--- NOTE | ~2024-07-19 | CT_ITS ---
CT diagnostic chest wo con Ordering provider: Amos Reese MD History: 64 years Male with . cough. SHORTNESS OF BREATH, FEVER, HX OF COPD. . Comparison: None. Technique: CT chest without IV contrast.Radiation reduction technique utilized. The dose-length produ ct was 219.76 mGy-cm FINDINGS: VISUALIZED THORACIC INLET: Normal. MEDIASTINUM: Aorta/coronary arteries: Mild atheromatous disease. Heart/other: The heart is not enlarged. Trace of pericardial effusion is noted. Lymph nodes: No mediastinal or hilar adenopathy. LUNGS: 7 mm nodule in the right lower lobe medially. 6 months follow-up CT advised. No pulmonary mass es. No infiltrates or effusions. No pneumothorax. Underlying emphysematous changes. VISUALIZED UPPER ABDOMEN: the visualized upper abdomen is normal. MUSCULOSKELETAL: Soft tissues: The superficial soft tissues are normal. Bones: Age appropriate degenerative changes of the spine. IMPRESSION: 1. No acute cardiopulmonary pathology. 2. 7 mm Nodule in the right lower lobe medially. [address] follow-up advised. 3. Underlying emphysematous changes. Reviewed, dictated and finalized at location A. IMPRESSION: 1. No acute cardiopulmonary pathology. 2. 7 mm Nodule in the right lower lobe medially. [address] follow-up advised . 3. Underlying emphysematous changes.
--- NOTE | ~2024-07-19 | XR_ITS ---
XR chest 1V portable Ordering provider: Amos Reese MD History: 64 years Male with . Fever/cough . Comparison: None. FINDINGS: MEDIASTINUM: The cardiac silhouette is not enlarged. Prominent fiorella. LUNGS: No infiltrates, effusions or pneumothorax. emphysematous changes. OTHER: No free air under the diaphragm. Degenerative changes of the spine. IMPRESSION: No acute cardiopulmonary pathology. Underlying emphysematous changes. Reviewed, dictated and finalized at location A.
--- OUTSIDE RECORDS SUMMARY | 2024-07-19 18:05 | XMS_ITS | Clinical Summary ---
Author Organization [facility] Address [address] [place] [address] Care Team Providers Care Sheet Tailer Name Role Phone Ino Tracy MD Unavailable [...] daily. 30 tablet 05/31/19 24 Active ipratropium-albut stcay (DUONEB) 0.5-2.5 (3) MG/3ML Solution Take 3 [...] s:Chronic obstructive pulmonary disease, unspecified COPD type ([facility]) Inhale 2 puffs into the lungs every 6 (six) hours as needed for Wheezing. 18 g 5 12/18/19 24 Active ARIPiprazole (ABILIFY) 5 MG tabletIndications :Paranoid schizophrenia ([facility] HHS/HCC) Take 1 tablet (5 mg total) by mouth nightly at bedtime. 30 tablet 2 12/18/19 24 Active busPIRone (BUSPAR) 10 MG tabletIndications :Paranoid schizophrenia ([facility] HHS/HCC) Take 1 tablet (10 mg total) [...] I disorder, most rec ent episode depressed ([facility]) 03/19/2024 Diastolic heart failure ([facility]) 2024 Paresis of lower extremity ([facility]) 11/2024 Sepsis ([facility]) 02/22/2024 COVID-19 01/15/2024 Erectile dysfunction, unspecified erectile [...] 30.9 in adult 07/09/2023 Diabetic peripheral neuropathy ([facility]) 07/09/2023 Hyperlipidemia, mixed 06/26/2023 COPD (chronic obstructive pu lmonary disease) ([facility]) 06/19/2023 NSTEMI (non-ST elevated myoc ardial infarction) ([facility]) 05/27/2023 Acute respiratory failure with hypoxia ([facility]) 05/19/2023 Pancreatitis ([facility]) 05/06/2021 COPD exacerbation ([facility]) 09/25/2020 Chronic respiratory failure with hypoxia ([facility]) 06/28/2020 Atherosclerosis of aorta 01/06/2020 Moderate episode of recurrent major depressive d isorder 09/25/2018 History of stroke 09/25/2018 Paranoid schizophrenia ([facility]) 019 Tobacco user 01/16/2018 Anxiety 10/08/2017 Rheumatoid arthritis ([facility]) 8 Trochanteric bursitis of right hip 09/23/2017 Bipolar disorder ([facility]) 09/23/2017 Gastroesophageal reflux disease without esophagi tis 02/21/2017 Essential hypertension 02/15/2017 Hernia, inguinal 02/15/2017 Diabetes mellitus ([facility]) 02/15/2017 Fibromyalgia 02/15/2017 Chronic pain syndrome 02/15/2017 Arteriosclerosis of coronary artery 02/15/2017 Encounters Date Type Department Care Team Description 06/16/2024 Orders Only [facility] Family Medicine [address] [id number] Adeel Jones MD 04/28/2024 Scan [facility] [...] from your doctor or pharmacy? Never 01/15/2024 [facility] Utilities Answer Date Recorded In the past 12 months has e [place], gas, oil, or water [employer] threatened to shut off services in your [...] Never 01/15/2024 How often do you attend religion or buddhism serv ices? Never 01/15/2024 Do you belong to any clubs o r organizations such as religion groups, unions, fraternal or athletic groups, or [...] Recorded Patient Health Questionnaire-2 Score 0 12/31/2023 [facility] of Occupat ional Health - Occupational Stress [...] place to sleep or slept in a [place] facility (including now)? No 05/27/2023 Housing Stability Vital Sign Answer Shahab e Recorded In the last 12 months, was t here a time when you were not able to pay the mortgage or rent on time? No 02/22/2024 In the past 12 months, how m any times have you moved where you were living? 2 02/22/2024 At any time in the past 12 m [facility], were you homeless or living in a [place] health [place] facility (including now)? No 02/22/2024 Sex and Gender Information Value Date Recorded Sex Assigned at Male 09/26/2020 2:43 AM CDT Legal Sex Male 11:34 PM CDT Gender Identity Male 09/26/2020 2:43 AM CDT Sexual Orientation Straight 09/26/2020 2: 43 AM CDT Last Filed Vital Signs Vital Sign Reading Time Taken Comments Blood Pressure 119/66 03/10/2024 1:46 PM DIE TRIPPER Pulse 89 03/10/2024 1:46 PM DIE TRIPPER Temperature 36.7 C (98 F) 03/10/2024 1:46 PM DIE TRIPPER Respiratory Rate 20 03/10/2024 1:46 PM DIE TRIPPER Oxygen Saturation 97% 03/10/2024 1:46 PM DIE TRIPPER Inhaled Oxygen Concentration - - Weight 86.2 kg (190 lb) 03/10/2024 1:46 PM DIE TRIPPER Height 172.7 cm (5' 8 ) 03/10/2024 1:46 PM DIE TRIPPER Body Mass Index 28.89 03/10/2024 1:46 PM DIE TRIPPER Plan of Treatment Upcoming Encounters Date Type Department Care Team (Late st Contact Info) Description 09/09/2024 2:00 PM CDT Office Visit [facility], [facility] [address] [place], [place] [phone] Sisi Woods MD [facility]. 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 Increasing but minimal left pleural [...] 02/25/2024 3:43 PM Narrative 02/25/2024 4:02 PM DIE TRIPPER [facility] [address] [place], [place] [address] EXAMINATION: CT Chest without contrast EXAM DATE/TIME: [...] Procedure Note Don Stewart MD - 02/25/[address] [address] EXAMINATION: CT Chest without contrast EXAM DATE/TIME: [...] MD LABORATORY Final Result Performing Organization Address City/State/[facility] Co de Phone Number GREGORY MENDEZ [address] [place] [address], * LIPID PANEL (09/24/2023) Pathologist [facility] CHOLESTEROL 120 HDL 30 TRIGLYCERIDES 175 LDL (CALCULATED) 55 09/24/2023 Default History Genericprovider LABORATORY Final Result * HEPATITIS C ANTIBODY ([facility] ONLY) (08/13/2023 11:56 AM CDT) Pathologist [facility] HEPATITIS C AB NON-REACTI VE NON-REACT SRINIVASAN 08/13/2023 9:58 PM CDT [facility] Comment: ANTIBODIES TO HCV NOT DETECTED. DOES NOT EXCLUDE THE POSSIBILITY OF EXPOSURE TO HCV. 08/13/2023 11:5 6 AM CDT Adeel Jones MD LABORATORY Final Result Performing Organization Address City/[facility] Co de Phone Number [facility] [address] [place] [address], [place] [phone] from Last 3 Months or Most Recently Relevant to Health Maintenance Insurance MEDICAID [facility] Advance Directives Documents on File Type Date Recorded Patient Fire Regulator Expl anation Advance Directives and Living Will [...] 2:56 PM 05/30/2023 3:13 PM Care Teams Sheet Tailer Relationship Specialty Start Date End Date None, Provider, PCP - General UNKNOWN PHYSICIAN SPECIALTY 03/10/24 Ino Tracy MD [id number] [place] [address] Nigel Wet Room Supervisor INTERVENTIONAL CARDIOLOGY 01/02/18
--- OUTSIDE RECORDS SUMMARY | 2024-07-19 18:05 | XMS_ITS | CONTINUITY OF CARE DOCUMENT ---
Author Name jalyn gunderson Address Unknown Organization [facility] Address [address] [place] [address] Phone [phone] Care Team Providers Care Land Leases And Rentals Manager Name Role Phone jalyn gunderson Unavailable Unavailable
--- OUTSIDE RECORDS SUMMARY | 2024-07-19 18:05 | XMS_ITS | Encounter Summary ---
Author Organization [facility] Address [address] [place] [address] Care Team Providers Care Curtain Cutter Hand Name Role Phone Ino Tracy MD Unavailable Adeel Jones MD Primary Care Provider [phone] None, Provider Primary Care Provider Unavaila ble Encounter Details Date Type Department Care Team (Late st Contact Info) Description 09/25/2023 Abstract [facility] [phone] Tash Nava MA Social History Tobacco Use Types Packs/Day Years Used Date Smoking Tobacco: Former Cigarettes 0.5 50 Q uit: 06/04/2023 Smokeless Tobacco: Never Comments:Patient smoking 2-3 cigarettes a day 09/03/2023. Alcohol Use Standard Drinks/Week Comments No 0 (1 standard drink = 0.6 oz pur e alcohol) [facility] Utilities Answer Date Recorded In the [...] How often do you attend christianity or amish serv ices? Never 06/18/2023 Do you belong [...] Recorded Patient Health Questionnaire-2 Score 0 08/13/2023 [facility] of Occupat ional Health - Occupational Stress [...] place to sleep or slept in a assisted (including now)? No 05/27/2023 Housing Stability Vital Sign Answer Shahab e Recorded In the last 12 months, was t here a time when you were not able to pay the mortgage or rent on time? No 07/10/2023 In the past 12 months, how m any times have you moved where you were living? 2 07/10/2023 At any time in the past 12 m [facility], were you homeless or living in a assisted (including now)? No 07/10/2023 Sex and Gender [...] Description 09/09/2024 2:00 PM CDT Office Visit [facility] [address] [place], [place] [phone] Sisi Woods MD [facility]. [facility] [address] [place], [place] [phone] documented as of this encounter Goals Goal Patient Goal Type Associated Problems Recent Progress Patient-Stated? Author Discharge Patient/family verbalizes understanding regarding the need for SNF placement General No Kati Calhoun, CUTTER OUT Monitor - able to maintain pain control [...] Rule Out 01/15/2024 01/15/2024 01/15/2024 1:30 AM EDGER LINER COVID-19 Confirmed 01/15/2024 01/15/2024 12:33 AM EDGER LINER COVID-19 Rule Out 02/22/2024 02/22/2024 02/22/2024 10:15 AM EDGER LINER COVID-19 Rule Out 02/25/2024 02/25/2024 02/25/2024 11:15 AM EDGER LINER documented as of this encounter Care Teams Curtain Cutter Hand Relationship Specialty Start Date End Date Adeel Jones MD [address] [place] [phone] PCP - General FAMILY PRACTICE 05/19/23 03/09/24 None, Provider, PCP - General UNKNOWN PHYSICIAN SPECIALTY 03/10/24 Ino Tracy MD [facility]. [facility] [address] [place] [address] [place] Hand Fur Cleaner INTERVENTIONAL CARDIOLOGY 01/02/18 documented as of this encounter
--- NOTE | 2024-07-19 18:08 | ED_ITS ---
HPI - Fever General Chief Complaint: Fever Stated Complaint: uri Time Seen by Provider: 07/19/24 18:07 Source: patient Mode of arrival: EMS Limitations: no limitations History of Present Illness HPI Narrative: Patient is a 64-year-old male with fever and not feeling well with arthralgias and myalgias but did have a COVID vaccine 2 days ago. He has COPD and is having some cough and congestion as well. He is on 2-3 L of nasal cannula oxygen chronically. MD elicited complaint: fever and malaise Pertinent past history: other ( COPD, diabetes, GERD, hypertension, CAD) Onset (ago): day(s) ( 1) Context: other ( [facility] and recently got a COVID vaccine 2 days ago and now having fever and myalgias and a cough and congestion.) Exacerbating factors: nothing Relieving factors: nothing Associated symptoms: chills, rigors, myalgias, cough and shortness of breath Treatments prior to arrival fever: none Related Data Home Medications ?Medication ?Instructions ?Recorded ?Confirmed ?Last Taken ?Type albuterol 90 mcg-budesonide 80 2 inh inhalation 6XD PRN shortness 07/19/24 Unknown History mcg/actuation HFA aerosol inhaler of breath (Airsupra) aripiprazole 10 mg tablet (Abilify) 10 mg PO DAILY 07/19/24 Unknown History aspirin 81 mg tablet,delayed 81 mg PO DAILY 07/19/24 Unknown History release (Ecotrin Low Strength) atorvastatin 80 mg tablet (Lipitor) 80 mg PO DAILY 07/19/24 Unknown History buspirone 10 mg tablet 10 mg PO BID 07/19/24 Unknown History clopidogrel 75 mg tablet 75 mg PO DAILY 07/19/24 Unknown History duloxetine 20 mg capsule,delayed 20 mg PO DAILY 07/19/24 Unknown History release (Cymbalta) duloxetine 60 mg capsule,delayed 60 mg PO DAILY 07/19/24 Unknown History release (Cymbalta) ferrous sulfate 325 mg (65 mg 325 mg PO DAILY 07/19/24 Unknown History iron) tablet (Feosol) fluticasone fur. 200 mcg-umeclid 1 inh inhalation DAILY 07/19/24 Unknown History 62.5 mcg-vilant 25 mcg inhalat.powder (Trelegy Ellipta) fluticasone propionate 50 2 spray intranasal DAILY 07/19/24 Unknown History mcg/actuation nasal spray,suspension (24 Hour Allergy Relief) furosemide 40 mg tablet 40 mg PO BID 07/19/24 Unknown History gabapentin 600 mg tablet 1,200 mg PO TID 07/19/24 Unknown History glipizide 10 mg tablet 10 mg PO DAILY 07/19/24 Unknown History insulin glargine 100 unit/mL (3 18 unit subcut QPM 07/19/24 Unknown History mL) subcutaneous pen (Basaglar KwikPen U-100 Insulin) insulin lispro 100 unit/mL 4 unit subcut QACBREAK 07/19/24 Unknown History subcutaneous solution (Humalog U-100 Insulin) ipratropium 0.5 mg-albuterol 3 mg 3 ml inhalation Q6H PRN shortness 07/19/24 Unknown History (2.5 mg base)/3 mL nebulization of breath or wheezing soln isosorbide dinitrate 30 mg tablet 30 mg PO DAILY 07/19/24 Unknown History latanoprost 0.005 % eye drops 1 drp EACH EYE QPM 07/19/24 Unknown History lisinopril 10 mg tablet 10 mg PO DAILY 07/19/24 Unknown History loratadine 10 mg tablet (Allergy 10 mg PO DAILY 07/19/24 Unknown History Relief (loratadine)) lorazepam 0.5 mg tablet (Ativan) 0.5 mg PO Q12H PRN anxiety 07/19/24 Unknown History pantoprazole 20 mg tablet,delayed 20 mg PO QAM 07/19/24 Unknown History release roflumilast 500 mcg tablet 500 mcg PO DAILY 07/19/24 Unknown History (Daliresp) tizanidine 4 mg tablet 4 mg PO DAILY 07/19/24 Unknown History tramadol 50 mg tablet 50 mg PO Q6H PRN pain 07/19/24 Unknown History trazodone 100 mg tablet 200 mg PO HS 07/19/24 Unknown History Allergies Allergy/AdvReac Type Severity Reaction Status Date / Time cephalexin Allergy Mild Unknown Verified 07/19/24 18:36 Penicillins Allergy Mild Unknown Verified 07/19/24 18:36 Review of Systems 2 Review of Systems: All systems reviewed & are unremarkable except as noted in HPI and below Constitutional: Constitutional: Reports no additional constitutional complaints Eyes: Eyes: Reports no additional eye complaints ENT: Reports system reviewed and no additional complaints, except as documented Cardiovascular: Cardiovascular: Reports no additional cardiovascular complaints Respiratory: Respiratory: Reports no additional respiratory complaints Gastrointestinal: Gastrointestinal: Reports no additional gastrointestinal complaints Genitourinary: Genitourinary: Reports no additional male genitourinary complaints Musculoskeletal: Musculoskeletal: Reports no additional musculoskeletal complaints Integumentary/Breasts: Skin/Breast: Reports system reviewed and no additional complaints, except as docu Neurologic: Reports system reviewed and no additional complaints, except as documented Psychiatric: Psychiatric: Reports no additional psychiatric complaints Endocrine: Endocrine: Reports no additional endocrine complaints Hematologic/Lymphatic: Hematologic/Lymphatic: Reports no additional hematologic/lymphatic complaints Allergic/Immunologic: Allergic/Immunologic: Reports no additional allergic/immunologic complaints Exam 2 Const: General: healthy appearing Nutritional Appearance: well nourished Orientation/consciousness: patient oriented x3 Limitations: no limitations HENMT: Head: normal to inspection Ears: external ears normal F kasey/Nose/Sinus: Normal external nose present Eyes: Conjunctivae: conjunctivae normal Pupils: Equal, round and reactive pupils present EOM: EOMs intact bilaterally Neck: Neck: normal visual inspection Chest: Chest palpation & inspection: normal inspection of the chest Resp: Effort & Inspection: normal respiratory effort and not labored A uscultation: clear to auscultation bilaterally, rhonchi and diminished lung sounds Cardio: Rate: regular rate Rhythm: regular rhythm Heart sounds: no murmurs GI: Inspection: non-distended GI Palp: Yes Soft to palpation and No Tenderness to palpation present (GI) Auscultation: normal bowel sounds : General: Yes bladder normal to palpation Back/Spine/Pelvis: Back: no CVA tenderness Skin: General skin exam: normal color Rashes: no rashes Wounds: no wounds Neuro: General: patient oriented x3 Cranial nerves: Yes Nystagmus not present Speech: normal speech Gait exam (Neuro): Normal gait present Extrem: General: normal to inspection Psych: Appearance: grossly normal Mental Status: mental status grossly normal Affect: normal affect Attitude: cooperative Course Vital Signs Vital signs: Vital Signs Temperature 38.2 C H 07/19/24 18:03 Pulse Rate 80 07/19/24 18:03 Respiratory Rate 20 07/19/24 18:03 Blood Pressure 147/76 H 07/19/24 18:03 Pulse Oximetry 98 07/19/24 18:03 Oxygen Delivery Nasal Cannula 07/19/24 18:03 Oxygen Flow Rate 3 07/19/24 18:03 Temperature 38.2 C H 07/19/24 18:03 Pulse Rate 91 07/19/24 19:01 Respiratory Rate 20 07/19/24 19:01 Blood Pressure 113/52 L 07/19/24 19:01 Pulse Oximetry 97 07/19/24 19:01 Oxygen Delivery Nasal Cannula 07/19/24 19:01 Oxygen Flow Rate 2 07/19/24 19:01 MDM - Fever MDM Narrative Medical decision making narrative: Patient is a 64-year-old male [facility] with fever and myalgias and arthralgias as well as a cough and congestion. COVID shot vaccine 2 days ago. Lab Data Attestation: I reviewed the patient's lab results. 07/19/24 18:47 07/19/24 18:47 Labs: Lab Results 07/19/24 Range/Units 18:47 WBC 10.8 (4.8-10.8) K/mm3 RBC 3.96 L (4.70-6.10) M/mm3 Hgb 12.2 L (12.4-15.3) g/dL Hct 37.4 (37.0-46.0) % MCV 94.4 (78.0-102.0) fL MCH 30.8 (27.0-31.0) pg MCHC 32.6 (32-36) g/dL RDW 12.1 (11.6-14.4) % Plt Count 182 (150-420) K/mm3 MPV 10.1 (8.7-11.0) fl Immature Gran % (Auto) 0.4 H (0.0-0.0) % Neut % (Auto) 88.4 H (50.0-70.0) % Lymph % (Auto) 5.2 L (18.0-42.0) % [place] % (Auto) 5.3 (2.0-11.0) % Eos % (Auto) 0.1 L (1.0-6.0) % Baso % (Auto) 0.6 (0.0-1.0) % Lymph # (Auto) 0.56 L (1.10-4.50) K/mm3 [place] # (Auto) 0.57 (0.10-0.90) K/mm3 Eos # (Auto) 0.01 L (0.02-0.50) K/mm3 Baso # (Auto) 0.06 (0.00-0.10) K/mm3 Abs Immat Gran (auto) 0.04 H (0.00-0.00) K/mm3 Absolute Neuts (auto) 9.59 H (1.70-7.20) K/mm3 Absolute Nucleated RBC 0.00 (0.00-0.00) K/mm3 Nucleated RBC % 0.0 (0-0.0) % Sodium 135 L (136-145) mmol/L Potassium 4.2 (3.5-5.1) mmol/L Chloride 98 (98-108) mmol/L Carbon Dioxide 28 (21-32) mmol/L Anion Gap 9 (4-12) mmol/L BUN 17 (7-18) mg/dL Creatinine 1.63 H (0.70-1.30) mg/dL Estim Creat Clear Calc 39 ml/min Estimated GFR 43 L (59 - ) Glucose 167 H (70-99) mg/dL Calculated Osmolality 285 (285-295) mOsm/kg Lactic Acid 1.8 (0.4-2.0) mmol/L Calcium 9.5 (8.5-10.1) mg/dL Total Bilirubin 0.3 (0.00-1.00) mg/dL AST 13 L (15-37) U/L ALT 23 (16-63) U/L Alkaline Phosphatase 133 H (46-116) U/L Total Protein 7.2 (6.4-8.2) g/dL Albumin 3.2 L (3.4-5.0) g/dL Urine Color Light yellow (Yellow) Urine Appearance Clear (Clear) Urine pH 6.5 (5.0-8.0) Ur Specific [place] 1.010 (1.010-1.020) Urine Protein Negative (Negative) Urine Glucose (UA) Negative (Negative) Urine Ketones Negative (Negative) Ur Blood (Man) Negative (Negative) Urine Nitrate Negative (Negative) Urine Bilirubin Negative (Negative) Urine Urobilinogen 0.2 (0.2-1.0) mg/dL Leukocyte Esterase Rfl Negative (Negative) [place]INGA/UL Influenza A (RT-PCR) Negative (Negative) Influenza B (RT-PCR) Negative (Negative) RSV (RT-PCR) Negative (Negative) SARS-CoV-2 RNA (RT-PCR) Negative (Negative) Imaging Data Attestation: I personally reviewed and interpreted this imaging study as follows: Radiologist's impression: chest x-ray is negative for acute process and shows chronic COPD CT scan of the chest shows IMPRESSION: 1. No acute cardiopulmonary pathology. 2. 7 mm Nodule in the right lower lobe medially. [address] follow-up advised. 3. Underlying emphysematous changes. Discharge Plan Discharge Clinical Impression: Fever after COVID-19 vaccination COPD (chronic obstructive pulmonary disease) Qualifiers: COPD type: unspecified COPD Qualified Code(s): J44.9 - Chronic obstructive pulmonary disease, unspecified CRI (chronic renal insufficiency) Qualifiers: Chronic kidney disease stage: unspecified stage Qualified Code(s): N18.9 - Chronic kidney disease, unspecified Patient Disposition: Home Condition: Stable Instructions: SARS-COV-2 (By injection), Fever in Adults (ED) Patient Language: Amharic Prescriptions: No Action Airsupra 90-80 mcg/actuation HFA aerosol inhaler 2 inh inhalation 6XD PRN (Reason: shortness of breath) aripiprazole [Abilify] 10 mg tablet 10 mg PO DAILY aspirin [Ecotrin Low Strength] 81 mg tablet,delayed release (DR/EC) 81 mg PO DAILY atorvastatin [Lipitor] 80 mg tablet 80 mg PO DAILY buspirone 10 mg tablet 10 mg PO BID clopidogrel 75 mg tablet 75 mg PO DAILY duloxetine [Cymbalta] 20 mg capsule,delayed release(DR/EC) 20 mg PO DAILY duloxetine [Cymbalta] 60 mg capsule,delayed release(DR/EC) 60 mg PO DAILY ferrous sulfate [Feosol] 325 mg (65 mg iron) tablet 325 mg PO DAILY fluticasone propionate [24 Hour Allergy Relief] 50 mcg/actuation spray,suspension 2 spray intranasal DAILY Rx Instructions: administer into each nostril furosemide 40 mg tablet 40 mg PO BID gabapentin 600 mg tablet 1,200 mg PO TID glipizide 10 mg tablet 10 mg PO DAILY insulin lispro [Humalog U-100 Insulin] 100 unit/mL solution 4 unit subcut QACBREAK Patient Comments: BEFORE MEALS HOLD IF BS LESS THAN 100 insulin glargine [Basaglar KwikPen U-100 Insulin] 100 unit/mL (3 mL) insulin pen 18 unit subcut QPM ipratropium-albuterol 0.5 mg-3 mg(2.5 mg base)/3 mL solution for nebulization 3 ml inhalation Q6H PRN (Reason: shortness of breath or wheezing) isosorbide dinitrate 30 mg tablet 30 mg PO DAILY Rx Instructions: allow nitrate-free interval of 12-14 hrs per 24-hr period latanoprost 0.005 % drops 1 drp EACH EYE QPM lisinopril 10 mg tablet 10 mg PO DAILY loratadine [Allergy Relief (loratadine)] 10 mg tablet 10 mg PO DAILY lorazepam [Ativan] 0.5 mg tablet 0.5 mg PO Q12H PRN (Reason: anxiety) pantoprazole 20 mg tablet,delayed release (DR/EC) 20 mg PO QAM roflumilast [Daliresp] 500 mcg tablet 500 mcg PO DAILY tizanidine 4 mg tablet 4 mg PO DAILY tramadol 50 mg tablet 50 mg PO Q6H PRN (Reason: pain) trazodone 100 mg tablet 200 mg PO HS Trelegy Ellipta 200-62.5-25 mcg blister with device 1 inh inhalation DAILY Follow-up/Referrals: Jamarcus Solis MD [Primary Care Provider] - Time of Disposition: 22:28
--- OUTSIDE RECORDS SUMMARY | 2024-07-19 18:33 | XMS_ITS | CONTINUITY OF CARE DOCUMENT ---
Author Name jalyn gunderson Address Unknown Organization [facility] Address [address] [place] [address] Phone [phone] Care Team Providers Care Risk Analyst Name Role Phone jalyn gunderson Unavailable Unavailable
--- OUTSIDE RECORDS SUMMARY | 2024-07-19 18:33 | XMS_ITS | Encounter Summary ---
Author Organization [facility] Address [address] [place] [address] Care Team Providers Care Packaging Operator Name Role Phone Ino Tracy MD Unavailable Adeel Jones MD Primary Care Provider [phone] None, Provider Primary Care Provider Unavaila ble Encounter Details Date Type Department Care Team (Late st Contact Info) Description 09/25/2023 Abstract [facility] [id number] Tash Nava MA Social History Tobacco Use Types Packs/Day Years Used Date Smoking Tobacco: Former Cigarettes 0.5 50 Q uit: 06/04/2023 Smokeless Tobacco: Never Comments:Patient smoking 2-3 cigarettes a day 09/03/2023. Alcohol Use Standard Drinks/Week Comments No 0 (1 standard drink = 0.6 oz pur e alcohol) [facility] Utilities Answer Date Recorded In the past [...] Never 06/18/2023 How often do you attend confucianism or pentecostal serv ices? Never 06/18/2023 Do you belong to any clubs o r organizations such as confucianism groups, unions, fraternal or athletic groups, or [...] Recorded Patient Health Questionnaire-2 Score 0 08/13/2023 [facility] of Occupat ional Health - Occupational Stress [...] place to sleep or slept in a half-way (including now)? No 05/27/2023 Housing Stability Vital Sign Answer Shahab e Recorded In the last 12 months, was t here a time when you were not able to pay the mortgage or rent on time? No 07/10/2023 In the past 12 months, how m any times have you moved where you were living? 2 07/10/2023 At any time in the past 12 m [facility], were you homeless or living in a half-way (including now)? No 07/10/2023 Sex and Gender [...] Description 09/09/2024 2:00 PM CDT Office Visit [facility], [facility] [address] [place], [place] [phone] Sisi Woods MD [facility]. [facility] [address] [place], [place] [phone] documented as of this encounter Goals Goal Patient Goal Type Associated Problems Recent Progress Patient-Stated? Author Discharge Patient/family verbalizes understanding regarding the need for SNF placement General No Kati Calhoun, AWARD MACHINE OPERATOR Monitor - able to maintain pain control [...] Rule Out 01/15/2024 01/15/2024 01/15/2024 1:30 AM MAINTENANCE CLERK COVID-19 Confirmed 01/15/2024 01/15/2024 12:33 AM MAINTENANCE CLERK COVID-19 Rule Out 02/22/2024 02/22/2024 02/22/2024 10:15 AM MAINTENANCE CLERK COVID-19 Rule Out 02/25/2024 02/25/2024 02/25/2024 11:15 AM MAINTENANCE CLERK documented as of this encounter Care Teams Packaging Operator Relationship Specialty Start Date End Date Adeel Jones MD [address] [place] [phone] PCP - General FAMILY PRACTICE 05/19/23 03/09/24 None, Provider, PCP - General UNKNOWN PHYSICIAN SPECIALTY 03/10/24 Ino Tracy MD [facility]. [facility] [address] [place] [address] [employer] Technician INTERVENTIONAL CARDIOLOGY 01/02/18 documented as of this encounter
--- OUTSIDE RECORDS SUMMARY | 2024-07-19 18:33 | XMS_ITS | Clinical Summary ---
Author Organization [facility] Address [address] [place] [address] Care Team Providers Care Vocational Nurse Name Role Phone Ino Tracy MD Unavailable [...] s:Chronic obstructive pulmonary disease, unspecified COPD type ([facility]) Inhale 2 puffs into the lungs every 6 (six) hours as needed for Wheezing. 18 g 5 12/18/19 24 Active ARIPiprazole (ABILIFY) 5 MG tabletIndications :Paranoid schizophrenia ([facility] HHS/HCC) Take 1 tablet (5 mg total) by mouth nightly at bedtime. 30 tablet 2 12/18/19 24 Active busPIRone (BUSPAR) 10 MG tabletIndications :Paranoid schizophrenia ([facility] HHS/HCC) Take 1 tablet (10 mg [...] I disorder, most rec ent episode depressed ([facility]) 03/19/2024 Diastolic heart failure ([facility]) 2024 Paresis of lower extremity ([facility]) 11/2024 Sepsis ([facility]) 02/22/2024 COVID-19 01/15/2024 Erectile dysfunction, unspecified [...] 30.9 in adult 07/09/2023 Diabetic peripheral neuropathy ([facility]) 07/09/2023 Hyperlipidemia, mixed 06/26/2023 COPD (chronic obstructive pu lmonary disease) ([facility]) 06/19/2023 NSTEMI (non-ST elevated myoc ardial infarction) ([facility]) 05/27/2023 Acute respiratory failure with hypoxia ([facility]) 05/19/2023 Pancreatitis ([facility]) 05/06/2021 COPD exacerbation ([facility]) 09/25/2020 Chronic respiratory failure with hypoxia ([facility]/ [facility]) 06/28/2020 Atherosclerosis of aorta 01/06/2020 Moderate episode of recurrent major depressive d isorder 09/25/2018 History of stroke 09/25/2018 Paranoid schizophrenia ([facility]) 019 Tobacco user 01/16/2018 Anxiety 10/08/2017 Rheumatoid arthritis ([facility]) 8 Trochanteric bursitis of right hip 09/23/2017 Bipolar disorder ([facility]) 09/23/2017 Gastroesophageal reflux disease without esophagi tis 02/21/2017 Essential hypertension 02/15/2017 Hernia, inguinal 02/15/2017 Diabetes mellitus ([facility]) 02/15/2017 Fibromyalgia 02/15/2017 Chronic pain syndrome 02/15/2017 Arteriosclerosis of coronary artery 02/15/2017 Encounters Date Type Department Care Team Description 06/16/2024 Orders Only [facility] Family Medicine [address] [phone] Adeel Jones MD 04/28/2024 Scan [facility] [...] from your doctor or pharmacy? Never 01/15/2024 [facility] Utilities Answer Date Recorded In the past 12 months has e [employer], gas, oil, or water [employer] threatened to shut off services in your [...] Never 01/15/2024 How often do you attend islam or islam serv ices? Never 01/15/2024 Do you belong to any clubs o r organizations such as islam groups, unions, fraternal or athletic groups, or [...] Recorded Patient Health Questionnaire-2 Score 0 12/31/2023 [facility] of Occupat ional Health - Occupational Stress [...] place to sleep or slept in a jail (including now)? No 05/27/2023 Housing Stability Vital Sign Answer Shahab e Recorded In the last 12 months, was t here a time when you were not able to pay the mortgage or rent on time? No 02/22/2024 In the past 12 months, how m any times have you moved where you were living? 2 02/22/2024 At any time in the past 12 m [facility], were you homeless or living in a jail (including now)? No 02/22/2024 Sex and Gender Information Value Date Recorded Sex Assigned at Male 09/26/2020 2:43 AM CDT Legal Sex Male 11:34 PM CDT Gender Identity Male 09/26/2020 2:43 AM CDT Sexual Orientation Straight 09/26/2020 2: 43 AM CDT Last Filed Vital Signs Vital Sign Reading Time Taken Comments Blood Pressure 119/66 03/10/2024 1:46 PM SWITCHING CLERK Pulse 89 03/10/2024 1:46 PM SWITCHING CLERK Temperature 36.7 C (98 F) 03/10/2024 1:46 PM SWITCHING CLERK Respiratory Rate 20 03/10/2024 1:46 PM SWITCHING CLERK Oxygen Saturation 97% 03/10/2024 1:46 PM SWITCHING CLERK Inhaled Oxygen Concentration - - Weight 86.2 kg (190 lb) 03/10/2024 1:46 PM SWITCHING CLERK Height 172.7 cm (5' 8 ) 03/10/2024 1:46 PM SWITCHING CLERK Body Mass Index 28.89 03/10/2024 1:46 PM SWITCHING CLERK Plan of Treatment Upcoming Encounters Date Type Department Care Team (Late st Contact Info) Description 09/09/2024 2:00 PM CDT Office Visit [facility], [facility] [address] [place], [place] [phone] Sisi Woods MD [facility]. 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 Increasing but minimal left pleural [...] 02/25/2024 3:43 PM Narrative 02/25/2024 4:02 PM SWITCHING CLERK [facility] [address] [place], [place] [address] EXAMINATION: CT Chest without contrast EXAM DATE/TIME: [...] Procedure Note Don Stewart MD - 02/25/[address] [address] EXAMINATION: CT Chest without contrast EXAM DATE/TIME: [...] MD LABORATORY Final Result Performing Organization Address City/State/[facility] Co de Phone Number GREGORY MENDEZ [address] [place] [address], * LIPID PANEL (09/24/2023) Pathologist [facility] CHOLESTEROL 120 HDL 30 TRIGLYCERIDES 175 LDL (CALCULATED) 55 09/24/2023 Default History Genericprovider LABORATORY Final Result * HEPATITIS C ANTIBODY ([facility] ONLY) (08/13/2023 11:56 AM CDT) Pathologist [facility] HEPATITIS C AB NON-REACTI VE NON-REACT SRINIVASAN 08/13/2023 9:58 PM CDT [facility] Comment: ANTIBODIES TO HCV NOT DETECTED. DOES NOT EXCLUDE THE POSSIBILITY OF EXPOSURE TO HCV. 08/13/2023 11:5 6 AM CDT Adeel Jones MD LABORATORY Final Result Performing Organization Address City/[facility] Co de Phone Number [facility] [address] [place] [address], [place] [phone] from Last 3 Months or Most Recently Relevant to Health Maintenance Insurance MEDICAID [facility] Advance Directives Documents on File Type Date Recorded Patient Box Lining Machine Operator Expl anation Advance Directives and Living Will [...] 2:56 PM 05/30/2023 3:13 PM Care Teams Vocational Nurse Relationship Specialty Start Date End Date None, Provider, PCP - General UNKNOWN PHYSICIAN SPECIALTY 03/10/24 Ino Tracy MD [address] [place] [address] [employer] Occupational Therapist INTERVENTIONAL CARDIOLOGY 01/02/18
[2024-07-19 19:07] LABS: Basophils Absolute Auto 0.06 K/mm3 (0.00-0.10); Basophils Percent Auto 0.6 % (0.0-1.0); Eosinophils Absolute Auto 0.01 K/mm3 (0.02-0.50); Eosinophils Percent Auto 0.1 % (1.0-6.0); Hematocrit 37.4 % (37.0-46.0); Hemoglobin 12.2 g/dL (12.4-15.3); Immature Granulocyte Absolute 0.04 K/mm3 (0.00-0.00); Immature Granulocyte Percent A 0.4 % (0.0-0.0); Lymphocytes Absolute Auto 0.56 K/mm3 (1.10-4.50); Lymphocytes Percent Auto 5.2 % (18.0-42.0); Mean Corpuscular HGB Conc 32.6 g/dL (32-36); Mean Corpuscular Hemoglobin 30.8 pg (27.0-31.0); Mean Corpuscular Volume 94.4 fL (78.0-102.0); Mean Platelet Volume 10.1 fl (8.7-11.0); Monocytes Absolute Auto 0.57 K/mm3 (0.10-0.90); Monocytes Percent Auto 5.3 % (2.0-11.0); Neutrophils Absolute Auto 9.59 K/mm3 (1.70-7.20); Neutrophils Percent Auto 88.4 % (50.0-70.0); Platelet Count Result 182 K/mm3 (150-420); Red Blood Count 3.96 M/mm3 (4.70-6.10); Red Cell Distribution Width 12.1 % (11.6-14.4); White Blood Count 10.8 K/mm3 (4.8-10.8)
[2024-07-19 19:25] LABS: Lactic Acid Reflex 1.8 mmol/L (0.4-2.0)
[2024-07-19] MEDS: traMADol HCL (*CRX) 50 MG TABLET 100 MG PO (19:26)
[2024-07-19 19:28] LABS: Alanine Aminotransferase 23 U/L (16-63); Albumin Level 3.2 g/dL (3.4-5.0); Alkaline Phosphatase 133 U/L (46-116); Anion Gap 9 mmol/L (4-12); Aspartate Amino Transferase 13 U/L (15-37); Bilirubin,Total 0.3 mg/dL (0.00-1.00); Blood Urea Nitrogen 17 mg/dL (7-18); Calcium 9.5 mg/dL (8.5-10.1); Carbon Dioxide 28 mmol/L (21-32); Chloride 98 mmol/L (98-108); Estimated CRCL calculation 39 ml/min; Estimated Glomerular Filt Rate 43; Glucose 167 mg/dL (70-99); Osmolality Calculated 285 mOsm/kg (285-295); Potassium 4.2 mmol/L (3.5-5.1); Sodium 135 mmol/L (136-145); Total Protein 7.2 g/dL (6.4-8.2)
[2024-07-19 19:44] LABS: Influenza A QL RT-PCR Negative (Negative); Influenza B QL RT-PCR Negative (Negative); RSV RNA, RT-PCR Negative (Negative); SARS-CoV-2 RNA PCR Negative (Negative)
[2024-07-19 19:56] LABS: Add Urine Microscopic? NO; Appearance Urine Clear (Clear); Bilirubin Urine Negative (Negative); Blood Urine Negative (Negative); Color Urine Light Yellow (Yellow); Glucose Urine UA Negative (Negative); Ketones Urine Negative (Negative); Leukocyte Esterase Ur Negative LEU/UL (Negative); Nitrate Urine Negative (Negative); Protein Urine Negative (Negative); Urobilinogen Urine 0.2 mg/dL (0.2-1.0); pH Urine 6.5 (5.0-8.0)
--- NOTE | 2024-07-19 22:42 | PC.NURSE ---
Called report to pt's nurse, Aixa, at [facility]. Tech will be over to take pt back.
== END 2024-07-19 23:03 | disposition home or self-care (01) ==
PROVIDERS: Emergency Provider Emergency Medicine; PCP Family Medicine
DX: R50.83 Postvaccination fever (principal); T50.B95A Adverse effect of other viral vaccines, initial encounter; E11.22 Type 2 diabetes mellitus with diabetic chronic kidney disease; I12.9 Hypertensive chronic kidney disease with stage 1 through stage 4 chronic kidney disease, or unspecified chronic kidney disease; N18.9 Chronic kidney disease, unspecified; J44.9 Chronic obstructive pulmonary disease, unspecified; I25.10 Atherosclerotic heart disease of native coronary artery without angina pectoris; Z20.822 Contact with and (suspected) exposure to COVID-19; Z79.899 Other long term (current) drug therapy; Z79.82 Long term (current) use of aspirin; Z79.4 Long term (current) use of insulin
CPT/HCPCS: 36415; 71045; 71250; 80053; 81003; 83605; 85025; 87040; 87637; 99284; A9270

== ENCOUNTER 2024-07-27 08:58 | Outpatient (CLI) | payer MEDICARE, MEDICAID, SELFPAY ==
--- OUTSIDE RECORDS SUMMARY | 2024-07-27 09:16 | XMS_ITS | CONTINUITY OF CARE DOCUMENT ---
Author Name jalyn gunderson Address Unknown Organization [facility] Address [address] [place] [address] Phone [phone] Care Team Providers Care Flatwork Ironer Name Role Phone jalyn gunderson Unavailable Unavailable
--- OUTSIDE RECORDS SUMMARY | 2024-07-27 09:16 | XMS_ITS | Continuity of Care Document ---
Author Organization [facility] Address [address] [place] [address] Phone Care Team Providers Care Coding Validator Name Role Phone Maame Becerra Unavailable Unavailable Procedures Procedure Date Eye Exam & Treatment Optic Nerve Head Eval Advance Directives Directive Yes / No Effective Date File Name No Information Encounters Encounter Description Practice Location Reason(s) For Visit Diagnoses Date Provider Providers Copied on Encounter [facility], [address] [place], [place], [id number], [place] tel:[phone] [address] [facility] No Information [address] Mariam Isabel. [address] [address] , [address], [place], [address], [place]. tel:[phone] Family History Family Member Type Diagnosis Age At Onset No Information Payers Payer name Insurance type Covered constitution party ID Authoriza tion(s) Medicare [facility] [id number] Social History Type Description Quantity Date Captured [...]
--- OUTSIDE RECORDS SUMMARY | 2024-07-27 09:16 | XMS_ITS | Encounter Summary ---
Author Organization [facility] Address [address] [place] [address] Care Team Providers Care Assisted Living Executive Director Name Role Phone Ino Tracy MD Unavailable Adeel Jones MD Primary Care Provider [phone] None, Provider Primary Care Provider Unavaila ble Encounter Details Date Type Department Care Team (Late st Contact Info) Description 09/25/2023 Abstract [facility] [phone] Tash Nava MA Social History Tobacco Use Types Packs/Day Years Used Date Smoking Tobacco: Former Cigarettes 0.5 50 Q uit: 06/04/2023 Smokeless Tobacco: Never Comments:Patient smoking 2-3 cigarettes a day 09/03/2023. Alcohol Use Standard Drinks/Week Comments No 0 (1 standard drink = 0.6 oz pur e alcohol) [facility] Utilities Answer Date Recorded In the [...] Never 06/18/2023 How often do you attend baptist or sabianist serv ices? Never 06/18/2023 Do you belong to any clubs o r organizations such as baptist groups, unions, fraternal or athletic groups, or [...] Recorded Patient Health Questionnaire-2 Score 0 08/13/2023 [facility] of Occupat ional Health - Occupational [...] place to sleep or slept in a skilled nursing (including now)? No 05/27/2023 Housing Stability Vital Sign Answer Shahab e Recorded In the last 12 months, was t here a time when you were not able to pay the mortgage or rent on time? No 07/10/2023 In the past 12 months, how m any times have you moved where you were living? 2 07/10/2023 At any time in the past [address] [facility], were you homeless or living in a skilled nursing (including now)? No 07/10/2023 Sex and Gender [...] Description 09/09/2024 2:00 PM CDT Office Visit [facility], [facility] [address] [place], [place] [phone] Sisi Woods MD [facility]. [facility] [address] [place], [place] [phone] documented as of this encounter Goals Goal Patient Goal Type Associated Problems Recent Progress Patient-Stated? Author Discharge Patient/family verbalizes understanding regarding the need for SNF placement General No Kati Calhoun, STEMMER MACHINE Monitor - able to maintain pain control [...] Rule Out 01/15/2024 01/15/2024 01/15/2024 1:30 AM SUPERVISOR SEWING DEPARTMENT COVID-19 Confirmed 01/15/2024 01/15/2024 12:33 AM SUPERVISOR SEWING DEPARTMENT COVID-19 Rule Out 02/22/2024 02/22/2024 02/22/2024 10:15 AM SUPERVISOR SEWING DEPARTMENT COVID-19 Rule Out 02/25/2024 02/25/2024 02/25/2024 11:15 AM SUPERVISOR SEWING DEPARTMENT documented as of this encounter Care Teams Assisted Living Executive Director Relationship Specialty Start Date End Date Adeel Jones MD [address] [place] [phone] PCP - General FAMILY PRACTICE 05/19/23 03/09/24 None, Provider, PCP - General UNKNOWN PHYSICIAN SPECIALTY 03/10/24 Ino Tracy MD [facility]. [facility] [address] [place] [address] [facility] Representative INTERVENTIONAL CARDIOLOGY 01/02/18 documented as of this encounter
--- OUTSIDE RECORDS SUMMARY | 2024-07-27 09:17 | XMS_ITS | Clinical Summary ---
Author Organization [facility] Address [address] [place] [address] Care Team Providers Care Fork Lift Truck Operator Name Role Phone Ino Tracy MD [...] s:Chronic obstructive pulmonary disease, unspecified COPD type ([facility]) Inhale 2 puffs into the lungs every 6 (six) hours as needed for Wheezing. 18 g 5 12/18/19 24 Active ARIPiprazole (ABILIFY) 5 MG tabletIndications :Paranoid schizophrenia ([facility] HHS/HCC) Take 1 tablet (5 mg total) by mouth nightly at bedtime. 30 tablet 2 12/18/19 24 Active busPIRone (BUSPAR) 10 MG tabletIndications :Paranoid schizophrenia ([facility] HHS/HCC) Take 1 tablet (10 mg total) [...] I disorder, most rec ent episode depressed ([facility]) 03/19/2024 Diastolic heart failure ([facility]) 2024 Paresis of lower extremity ([facility]) 11/2024 Sepsis ([facility]) 02/22/2024 COVID-19 01/15/2024 Erectile dysfunction, unspecified erectile [...] 30.9 in adult 07/09/2023 Diabetic peripheral neuropathy ([facility]) 07/09/2023 Hyperlipidemia, mixed 06/26/2023 COPD (chronic obstructive pu lmonary disease) ([facility]) 06/19/2023 NSTEMI (non-ST elevated myoc ardial infarction) ([facility]) 05/27/2023 Acute respiratory failure with hypoxia ([facility]) 05/19/2023 Pancreatitis ([facility]) 05/06/2021 COPD exacerbation ([facility]) 09/25/2020 Chronic respiratory failure with hypoxia ([facility]/ [facility]) 06/28/2020 Atherosclerosis of aorta 01/06/2020 Moderate episode of recurrent major depressive d isorder 09/25/2018 History of stroke 09/25/2018 Paranoid schizophrenia ([facility]) 019 Tobacco user 01/16/2018 Anxiety 10/08/2017 Rheumatoid arthritis ([facility]) 8 Trochanteric bursitis of right hip 09/23/2017 Bipolar disorder ([facility]) 09/23/2017 Gastroesophageal reflux disease without esophagi tis 02/21/2017 Essential hypertension 02/15/2017 Hernia, inguinal 02/15/2017 Diabetes mellitus ([facility]) 02/15/2017 Fibromyalgia 02/15/2017 Chronic pain syndrome 02/15/2017 Arteriosclerosis of coronary artery 02/15/2017 Encounters Date Type Department Care Team Description 06/16/2024 Orders Only [facility] Family Medicine - [address] [id number] Adeel Jones MD from Last 3 Months Immunizations Immunization Administration [...] from your doctor or pharmacy? Never 01/15/2024 [facility] Utilities Answer Date Recorded In the past 12 months has [employer], gas, oil, or water [employer] threatened to shut off services in your [...] Never 01/15/2024 How often do you attend quaker or sikh serv ices? Never 01/15/2024 Do you belong to any clubs o r organizations such as quaker groups, unions, fraternal or athletic groups, or [...] Recorded Patient Health Questionnaire-2 Score 0 12/31/2023 [facility] of Occupat ional Health - Occupational Stress [...] any time in the past 12 m [facility], were you homeless or living in a residential (including now)? No 02/22/2024 Sex and Gender Information Value Date Recorded Sex Assigned at Male 09/26/2020 2:43 AM CDT Legal Sex Male 11:34 PM CDT Gender Identity Male 09/26/2020 2:43 AM CDT Sexual Orientation Straight 09/26/2020 2: 43 AM CDT Last Filed Vital Signs Vital Sign Reading Time Taken Comments Blood Pressure 119/66 03/10/2024 1:46 PM MANAGER MAC Pulse 89 03/10/2024 1:46 PM MANAGER MAC Temperature 36.7 C (98 F) 03/10/2024 1:46 PM MANAGER MAC Respiratory Rate 20 03/10/2024 1:46 PM MANAGER MAC Oxygen Saturation 97% 03/10/2024 1:46 PM MANAGER MAC Inhaled Oxygen Concentration - - Weight 86.2 kg (190 lb) 03/10/2024 1:46 PM MANAGER MAC Height 172.7 cm (5' 8 ) 03/10/2024 1:46 PM MANAGER MAC Body Mass Index 28.89 03/10/2024 1:46 PM MANAGER MAC Plan of Treatment Upcoming Encounters Date Type Department Care Team (Late st Contact Info) Description 09/09/2024 2:00 PM CDT Office Visit [facility], [facility] [address] [place], [place] [phone] Sisi Woods MD [facility]. [facility] [address], [place] [phone] Health Maintenance Due Date Last Done Comments Colorectal Cancer Screening Colonoscopy (10 Years) 1958 Diabetes: Retinopathy Eye Exam 1976 DTaP, Tdap and Td Vaccines (1 - Tdap) 1977 Zoster Vaccines (1 of 2) 2008 RSV Immunization or 60+ Years (1 - Risk 60-74 years 1-dose series) 2018 Annual Medicare Wellness Visit 2023 COVID-19 Vaccine ( - season) 2023 12/18/2021, 11/02/2020, 08/03/2020 PHQ-2 (Physician [place]) 03/11/2024 12/31/2023 Hemoglobin A1C 05/11/2024 11/12/2023, 06/0 06/2023, 05/27/2023, Additional history exists Lipid Panel 09/23/2024 09/24/2023, 060 06/2023, 05/27/2023, Additional history exists Kidney Health [...] for SNF placement General No Kati Calhoun, GR[employer] STORE ASSOCIATE Monitor - able to maintain pain control Lifestyle No [place], RN Safety Patient/family will have appropriate support at home upon discharge Lifestyle [place] 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 Increasing but minimal left pleural [...] 02/25/2024 3:43 PM Narrative 02/25/2024 4:02 PM MANAGER MAC [address] [address] EXAMINATION: CT Chest without contrast EXAM DATE/TIME: [...] Procedure Note Don Stewart MD - 02/25/[address] [address] EXAMINATION: CT Chest without contrast EXAM DATE/TIME: [...] Stewart MD, 02/25/2024 3:43 PM us John Cordero MD CT Final Result * A1C (BACK OFFICE) (11/12/2023 11:24 AM CDT) HGB A1C 6.6 % GREGORY MENDEZ 11/12/2023 11:2 4 AM CDT Adeel Jones MD LABORATORY Final Result Performing Organization Address City/[facility] Co de Phone Number GREGORY MENDEZ [address] [place] [address], * LIPID PANEL (09/24/2023) Pathologist [facility] CHOLESTEROL 120 HDL 30 TRIGLYCERIDES 175 LDL (CALCULATED) 55 09/24/2023 Default History Genericprovider LABORATORY Final Result * HEPATITIS C ANTIBODY ([facility] ONLY) (08/13/2023 11:56 AM CDT) Pathologist [facility] HEPATITIS C AB NON-REACTI VE NON-REACT SRINIVASAN 08/13/2023 9:58 PM CDT [facility] Comment: ANTIBODIES TO HCV NOT DETECTED. DOES NOT EXCLUDE THE POSSIBILITY OF EXPOSURE TO HCV. 08/13/2023 11:5 6 AM CDT Adeel Jones MD LABORATORY Final Result Performing Organization Address City/[facility] Co de Phone Number [facility] [address] [place] [address], [phone] from Last 3 Months or Most Recently Relevant to Health Maintenance Insurance [place] [id number] MEDICAID [facility] Advance Directives Documents on File Type Date Recorded Patient Environmental Health Technician Expl anation Advance Directives and Living Will [...] 2:56 PM 05/30/2023 3:13 PM Care Teams F[employer] Lift Truck Operator Relationship Specialty Start Date End Date None, Provider, PCP - General UNKNOWN PHYSICIAN SPECIALTY 03/10/24 Ino Tracy MD [facility]. [facility] [address] [place], [place] [phone] Nigel Steak Sauce Maker INTERVENTIONAL CARDIOLOGY 01/02/18
--- OUTSIDE RECORDS SUMMARY | 2024-07-27 09:17 | XMS_ITS | Continuity of Care Document ---
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 Name Role Phone Bethel Leon DO Unavailable Unava ilable Allergies, Adverse Reactions, Alerts Substance Reaction Status Criticality CEPHALEXIN MONOHYDRATE Active No In formation aspirin Active No Information PENICILLIN Active No Information Medications Medication Instructions Dosage Effective Dates (start - stop) Status Comments DALIRESP 500MCG TAKE 1 TABLET BY MOUTH DAILY - Active TRELEGY AER ELLIPTA INHALE 1 PUFF BY MOUTH EVERY DAY AT THE SAME TIME EACH DAY - Active LABETALOL 100MG TAKE 1 TABLET BY MOUTH TWICE DAILY 100 MG - Active ASA/DIPYRIDA 25-200MG TAKE 1 CAPSULE BY MOUTH TWICE DAILY - Active TRAZODONE 150MG TAKE 1 TABLET BY MOUTH EVERY DAY 150 MG - Active ALBUTEROL HFA 18GM INHALE 2 PUFFS BY MOUTH EVERY FOUR HOURS NEEDED FOR WHEEZING OR SHORTNESS OF BREATH - Active hydrocodone 10 mg-acetaminophen 325 mg tablet take 1 tablet by oral route every 4-6 hours as needed for pain, max 4 tablets a day - Active M15.9 Dr. Manjeet Leger collaborating physician please fill when eligible ONDANSETRON 4MG TAKE 1 TABLET BY MOUTH TWICE DAILY NEEDED FOR NAUSEA - Active CELECOXIB 200MG TAKE 1 CAPSULE BY MOUTH TWICE DAILY - Active Lyrica 100 mg capsule take 1 capsule by oral route 2 times every day 100 MG - Active M79.7 lorazepam 0.5 mg tablet take 1 tablet by oral route 3 times every day as needed 1 tablet - Active fill when eligible, F33.1, M15.9 CLONIDINE 0.1MG TAKE 1 TABLET BY MOUTH TWICE DAILY - Active ipratropium 0.5 mg-albuterol 3 mg (2.5 mg base)/3 mL nebulization soln 1 neb every 4-6 hours as needed for cough/SOB. - Active omeprazole 20 mg tablet,delayed release Take 2 caps twice a day - Active new dose 4.6.202 1 furosemide 20 mg tablet take 1 tablet by oral route every day as needed for swelling 20 MG - Active CYCLOBENZAPR 10MG TAKE 1 TABLET BY MOUTH EVERY 8 HOURS NEEDED FOR MUSCULAR PAIN 10 MG - Active Abilify 5 mg tablet take 1 tablet by oral route every day 5 MG - Active ROSUVASTATIN 5MG TAKE 1 TABLET BY MOUTH EVERY DAY - Active duloxetine 20 mg capsule,delayed release take one tablet daily - Active new dose 04/11/2020 multivitamin tablet take 1 tablet by oral route every day 1 tablet - Active mirtazapine 30 mg tablet take 1 tablet by oral route every day before bedtime 30 MG - Active amlodipine 5 mg tablet take 1 tablet by oral route every day 5 MG - Active melatonin 3 mg tablet One tablet at bedtime - Active Procedures Procedure Date [facility]CHRG MED/CURRENT MED MERGE BASIC METABOLIC PANEL(BMP) ROUTINE VENIPUNCTURE OFFICE [id number] BODY MASS INDEX DOCD SYST BP GE 130 - 139MM HG DIAST BP 80-89 MM HG Pt inelig neg scrn depres CBC, INC PLATELETS AND DIFFERENTIAL COMPREHEN METABOLIC PANEL CMP 1 BRAIN NATRIURETIC PEPTIDE (BNP) Apr-20-2 021 THYROID STIMULATION HORMONE(TSH) 2020 ROUTINE VENIPUNCTURE OFFICE [id number] BODY MASS INDEX DOCD SYST BP LT 130 MM HG DIAST BP 80-89 MM HG CBC, INC PLATELETS AND DIFFERENTIAL COMPREHEN METABOLIC PANEL CMP BRAIN NATRIURETIC PEPTIDE (BNP) ROUTINE VENIPUNCTURE Chest Xray, 2 Views OFFICE [id number] BODY MASS INDEX DOCD SYST BP GE 130 - 139MM HG DIAST BP 80-89 MM HG Kept Appointment No Charge Encounter Apr CBC, INC PLATELETS AND DIFFERENTIAL COMPREHEN METABOLIC PANEL CMP LIPID PANEL ROUTINE VENIPUNCTURE OFFICE [id number] BODY MASS INDEX DOCD SYST BP LT 130 MM HG DIAST BP < 80 MM HG PULSE OXIMETRY, MULTIPLE DSCHRG MED/CURRENT MED MERGE OFFICE [id number] BODY MASS INDEX DOCD SYST BP LT 130 MM HG DIAST BP < 80 MM HG DSCHRG MED/CURRENT MED MERGE CBC, INC PLATELETS AND DIFFERENTIAL COMPREHEN METABOLIC PANEL CMP 0 CREATINE KINASE, TOTAL (CPK,CK) ROUTINE VENIPUNCTURE AMYLASE C-REACTIVE PROTEIN (CRP) CBC, INC PLATELETS AND DIFFERENTIAL COMPREHEN METABOLIC PANEL CMP 0 CREATINE KINASE, TOTAL (CPK,CK) LIPASE ROUTINE VENIPUNCTURE Transitional Care- First 7 Days Of Disch arge BODY MASS INDEX DOCD SYST BP LT 130 MM HG DIAST BP < 80 MM HG DSCHRG MED/CURRENT MED MERGE FALL RISK ASSESSMENT DOC'D PRES/ABSN URINE INCON ASSESS Brief Emotional/Behavioral A ssessment, With Scoring/Doct, Per Stndrd Instrument Clin depression screen doc CBC, INC PLATELETS AND DIFFERENTIAL HEMOGLOBIN A1C HGA1C, GLYCO ROUTINE VENIPUNCTURE Admin influenza virus vac FLU VACC 4 MIRYAM 0.5mL DOSAGE OFFICE [id number] BODY MASS INDEX DOCD SYST BP LT 130 MM HG DIAST BP 80-89 MM HG TELEPHONE E&M BY A PHYSICIAN; 01-28 LILLIAN ESTEE TELEPHONE E&M BY A PHYSICIAN; 01-28 LILLIAN ESTEE OFFICE [id number]-[id number]-DIBIDFOZ OFFICE [id number]-[id number] Depression screen annual Clin depression screen doc CBC, INC PLATELETS AND DIFFERENTIAL COMPREHEN METABOLIC PANEL CMP 9 HEMOGLOBIN A1C HGA1C, GLYCO LIPID PANEL THYROID STIMULATION HORMONE(TSH) 2018 URINALYSIS, REFLEX (UA) DRUG TEST (ANY NUMBER OF DRUG CLASSES) N ROUTINE VENIPUNCTURE [place] OFFICE [id number] SYST BP LT 130 MM HG DIAST BP < 80 MM HG Advance Directives Directive Yes / No Effective Date File Name Life Support Not Answered N/A N/A Intubation [...] Diagnoses Date Provider Providers Copied on Encounter [facility], [address], [place], [place], [address] , tel: [phone] [facility] No Information 4 Marcelle Hugo. [address] [place] [address], [id number], [place]. tel:[phone] [facility], [address], [place], [place], [address] , [place] tel: [phone] [facility] No Information 1 Marcelle Hugo. [address] [place] [address], [id number], [place]. tel:[phone] Referring Provider: Bethel richardson, [address] [place] [address], [address] . tel:[phone] [facility], [address], [place], [place], [address] , [place] tel: [phone] [facility] No Information 1 Marcelle Hugo. [address] [place] [address], [id number], [place]. tel:[phone] [facility], [address], [place], [place], [address] , [place] tel: [phone] [facility] No Information 1 Marcelle Hugo. [address] [place] [address], [id number], [place]. tel:[phone] [facility], [address], [place], [place], [address] , tel: [phone] [facility] No Information 1 Marcelle Hugo. [address] [place] [address], [id number], . tel:[phone] [facility], [address], [place], [place], [address] , tel: [phone] [facility] No Information 1 Christa Friedman. [address] [place] [address], [address], . tel:[phone] [facility], [address], [place], [place], [address] , tel: [phone] [facility] No Information 1 Marcelle Hugo. [address] [place] [address], [id number], [place]. tel:[phone] [facility], [address], [place], [place], [address] , tel: [phone] [facility] No Information 1 Mesfinsam Tracey. [address] [place] [address], [id number], [place]. tel:[phone] OFFICE EUNPE-KNH-PMB SALMA [facility], [address], [place], [place], [address] , tel: [phone] [facility] Major depressive disorder (chief complaint)Hea rt failure (chief complaint)oth er (chief complaint)Chr onic Conditions (chief complaint) Chronic respiratory failure with hypoxiaChroni c HFpEFNicotine dependence, cigarettes, uncomplicated Polyosteoarth ritis, unspecifiedAt risk for polypharmacyB karie mass index (BMI) 26.0-26.9, adultMajor depressive disorder, recurrent, in partial remission 1 Marcelle Hugo. [address] [place] [address], [id number], [place]. tel:[phone] Referring Provider: Bethel richardson, [address] [place] [address], [address] . tel:[phone] [facility], [address], [place], [place], [address] , tel: [phone] [facility] No Information 1 Marcelle Hugo. [address] [place] [address], [id number], . tel:[phone] OFFICE DQIOW-GBX-ITW SALMA [facility], [address], [place], [place], [address] , tel: [phone] [facility] acute visit (chief complaint)Chr onic Conditions (chief complaint) Emphysema, unspecifiedCh ronic HFpEFPolyoste oarthritis, unspecifiedMu scle weakness (generalized) Major depressive disorder, recurrent, in partial remissionBipo lar disorder, unspecifiedWe ight lossFecal urgencyChroni c respiratory failure with hypoxia Jun-2 1 Marcelle Hugo. [address] [place] [address], [id number], . tel:[phone] Referring Provider: Bethel richardson, [address] [place] [address], [address] . tel:[phone] [facility], [address], [place], [place], [address] , tel:[phone] [facility] No Information 1 Marcelle Hugo. [address] [place] [address], [id number], [place]. tel:[phone] [facility], [address], [place], [place], [address] , [place] tel:[phone] [facility] No Information 0 1 Marcelle Hugo. [address] [place] [address], [id number], [place]. tel:[phone] OFFICE [id number]-[id number]-MNC SALMA [facility], [address], [place], [address] , tel:[phone] [facility] acute visit (chief complaint)Chr onic Conditions (chief complaint) Chronic obstructive pulmonary disease, unspecifiedLo w back painChronic pain syndromeAcute diastolic (congestive) heart failureBody mass index (BMI) 26.0-26.9, adult 1 Marcelle Hugo. [address] [place] [address], [id number], [place]. tel:[phone] Referring Provider: Bethel richardson, [address] [place] [address], [address] . tel:[phone] [facility], [address], [place], [place], [address] , tel: [phone] [facility] No Information 1 Marcelle Hugo. [address] [place] [address], [id number], [place]. tel:[phone] [facility], [address], [place], [place], [address] , [place] tel: [phone] [facility] No Information 1 Marcelle Hugo. [address] [place] [address], [id number], [place]. [phone] [facility], [address], [place], [address] , [place] tel: [phone] [facility] No Information 1 Marcelle Hugo. [address] [place] [address], [id number], [place]. tel:[phone] [facility], [address], [place], [place], [address] , [place] tel: [phone] [facility] o2 tank (chief complaint) No Information 1 Marcelle Hugo. [address] [place] [address], [id number], [place]. tel:[phone] Referring Provider: Bethel richardson, [address] [place] [address], [address] . tel:[phone] OFFICE [id number]-DUA-VFW [facility], [address], [place], [place], [address] , tel: [phone] [facility] Emphysema (chief complaint)Chr onic pain syndrome (chief complaint)Hx of acute pancreatitis (chief complaint)oth er (chief complaint)Chr onic Conditions (chief complaint) Body mass index (BMI) 27.0-27.9, adultEmphysem a, unspecifiedCh ronic obstructive pulmonary disease, unspecifiedNi cotine dependence, cigarettes, uncomplicated Bipolar disorder, unspecifiedCh ronic pain syndromePolyo steoarthritis , unspecifiedAt herosclerotic heart disease of craig coronary artery without angina pectorisMixed hyperlipidemi aHypoxemiaBod y mass index (BMI) 26.0-26.9, adult 1 Marcelle Hugo. [address] [place] [address], [id number], [place]. tel:[phone] Referring Provider: Bethel richardson, [address] [place] [address], [address] . tel:[phone] [facility], [address], [place], [place], [address] , [place] tel: [phone] [facility] No Information 1 Marcelle Hugo. [address] [place] [address], [id number], [place]. tel:[phone] OFFICE [id number]-AGI-LSO [facility], [address], [place], [place], [address] , [place] tel: [phone] [facility] Hosp. 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 [address] [place] [address], [place], [address], [place]. [phone] Referring Provider: Marsha Brock, [address] [place] [address], [place], [address] . tel:[phone] [facility], [address], [place], [place], [address] , tel: [phone] [facility] No Information 0 Marcelle Hugo. [address] [place] [address], [id number], [place]. [phone] Referring Provider: Bethel richardson, [address] [place] [address], [place], [address] . tel:[phone] [facility], [address], [place], [place], [address] , tel: [phone] [facility] No Information 0 Marcelle Hugo. [address] [place] [address], [id number], [place]. tel:[phone] [facility], [address], [place], [place], [address] , tel: [phone] [facility] Essential hypertensionA cute pancreatitis, unspecified complication status, unspecified pancreatitis typeMixed hyperlipidemi a 0 Christa Gaylin. [address] [place] [address], [place], [address], [place]. tel:[phone] Referring Provider: Bethel richardson, [address] [place] [address], [address] . tel:[phone] Transitional Care- First 7 Days Of Discharge [facility], [address], [place], [place], [address] , tel: [phone] [facility] pancreatitis (chief complaint)Chr onic Conditions (chief complaint) Body mass index (BMI) 24.0-24.9, adultAcute pancreatitis, unspecified complication status, unspecified pancreatitis typeAKI (acute kidney injury)Elevat ed LFTsPulmonary emphysema, unspecified emphysema typeIngrown toenail of both feetEssential hypertension 0 Marjorie Tracey. [address] [place] [address], [place], [place], [id number], [place]. tel:[phone] Referring Provider: Bethel richardson, [address] [place] [address], [place], [address] . tel:[phone] [facility], [address], [place], [address] , tel: [phone] [facility] No Information 0 Marcelle Hugo. [address] [place] [address], [id number], [place]. tel:[phone] Referring Provider: Bethel richardson, [address] [place] [address], [place], [address] . tel:[phone] OFFICE QULGA-GVJ-EOF SALMA [facility], [address], [place], [place], [address] , tel: [phone] [facility] acute problem (chief complaint)Chr onic Conditions (chief complaint) Chronic obstructive pulmonary disease, unspecifiedNi cotine dependence, cigarettes, uncomplicated Mixed hyperlipidemi aAtherosclero tic heart disease of craig coronary artery without angina pectorisFibro myalgiaGastro -esophageal reflux disease without esophagitisMa kobe depressive disorder, recurrent, moderatePolyo steoarthritis , unspecified 0 Marcelle Hugo. [address] [place] [address], [id number], [place]. tel:[phone] Referring Provider: Bethel richardson, [address] [place] [address], [place], [address] . tel:[phone] [facility], [address], [place], [place], [address] , [place] tel: [phone] [facility] Chronic obstructive pulmonary disease, unspecified 0 Marcelle Hugo. [address] [place] [address], [place], [place], [id number], [place]. tel:[phone] TELEPHONE E&M BY A PHYSICIAN; 11-20 MINUTES [facility], [address], [place], [place], [address] , [place] tel: [phone] [facility] Telehealth (chief complaint) Chronic obstructive pulmonary disease, unspecifiedDe pendence on wheelchair 0 Marcelle Hugo. [address] [place] [address], [place], [place], [id number], [place]. tel:[phone] Referring Provider: Bethel richardson, [address] [place] [address], [address] . tel:[phone] TELEPHONE E&M BY A PHYSICIAN; 11-20 MINUTES [facility], [address], [place], [place], [address] , [place] tel: [phone] [facility] Chronic obstructive pulmonary disease, unspecified 0 Marcelle Hugo. [address] [place] [address], [place], [place], [id number], [place]. tel:[phone] Referring Provider: Bethel richardson, [address] [place] [address], [place], [address] . tel:[phone] [facility], [address], [place], [place], [address] , [place] tel: [phone] [facility] Chronic obstructive pulmonary disease, unspecifiedAt hscl heart disease of craig coronary artery w/o ang pctrs 0 Marcelle Hugo. [address] [place] [address], [place], [place], [id number], [place]. tel:[phone] [facility], [address], [place], [address] , [place] tel: [phone] [facility] Chronic obstructive pulmonary disease, unspecified Fe- 0 Marcelle Hugo. [address] [place] [address], [id number], [place]. tel:[phone] OFFICE MQWLW-VIN-AFZ [facility], [address], [place], [place], [address] , tel: [phone] [facility] Mattress and Trapeze (chief complaint)Chr onic Conditions (chief complaint) Low back painChronic pain syndromeChron ic obstructive pulmonary disease, unspecifiedFi bromyalgiaDep endence on wheelchairMus brianda weakness (generalized) 0 Marcelle Hugo. [address] [place] [address], [id number], [place]. tel:[phone] Referring Provider: Bethel richardson, [address] [place] [address], [address] . tel:[phone] OFFICE DZIPD-AKV-ZKX [facility], [address], [place], [place], [address] , tel: [phone] [facility] 1 Month (chief complaint)Chr onic Conditions (chief complaint) Dependence on wheelchairLow back painChronic pain syndromeNicot ine dependence, cigarettes, uncomplicated Chronic obstructive pulmonary disease, unspecified Dec-2 6-201 9 Marcelle Hugo. [address] [place] [address], [id number], [place]. tel:[phone] Referring Provider: Bethel richardson, [address] [place] [address], [address] . tel:[phone] [facility], [address], [place], [place], [address] , tel: [phone] [facility] Low back pain Dec-0 2-201 9 Marcelle Hugo. [address] [place] [address], [id number], [place]. tel:[phone] OFFICE [id number]-[id number]-AEP SALMA [facility], [address], [place], [address] , tel: [phone] [facility] Chronic Pain (chief complaint)Chr onic Conditions (chief complaint) Low back painChronic pain syndromeDepen dence on wheelchairChr onic obstructive pulmonary disease, unspecifiedNi cotine dependence, cigarettes, uncomplicated shelter (current) use of opiate analgesicMixe d hyperlipidemi aGastro-esoph ageal reflux disease without esophagitisPo lyosteoarthri tis, unspecified 9 Marcelle Hugo. [address] [place] [address], [id number], [place]. tel:[phone] Referring Provider: Bethel richardson, [address] [place] [address], [address] . tel:[phone] [facility], [address], [place], [address] , tel: [phone] [facility] Chronic obstructive pulmonary disease, unspecifiedCh ronic pain syndromeLow back painDependenc e on wheelchairPer roxy history of other endocrine, nutritional and metabolic diseaseFecal urgencyAthero sclerotic heart disease of craig coronary artery without angina pectorisMild epistaxisCell ulitis of finger, rightNeed for influenza vaccination 8 Marcelle Hugo. [address] [place] [address], [id number], [place]. tel:[phone] Referring Provider: Bethel richardson, [address] [place] [address], [address] . tel:[phone] [facility], [address], [place], [place], [address] , tel: [phone] [facility] follow up (chief complaint)Chr onic Conditions (chief complaint) Atherosclerot ic heart disease of craig coronary artery without angina pectorisLow back painChronic pain syndromeFibro myalgiaMixed hyperlipidemi aGastro-esoph ageal reflux disease without esophagitisPo lyosteoarthri tis, unspecifiedTo bacco useChronic obstructive pulmonary disease, unspecified Marcelle Hugo. [address] [place] [address], [id number], . tel:[phone] Referring Provider: Bethel richardson, [address] [place] [address], [address] . tel:[phone] [facility], [address], [place], [place], [address] , tel: [phone] [facility] No Information Marcelle Hugo. [address] [place] [address], [id number], . tel:[phone] [facility], [address], [place], [place], [address] , tel: [phone] [facility] Chronic pain syndromePain of right hip jointChronic sinusitis, unspecified locationTobac co useChronic obstructive pulmonary disease, unspecified COPD typeGeneraliz ed osteoarthriti s Marcelle Hugo. [address] [place] [address], [id number], . tel:[phone] Referring Provider: Bethel richardson, [address] [place] [address], [address] . tel:[phone] Family History Family Member Type Diagnosis Age At Onset Mother Problem (finding) osteoarthritis Mother Problem (finding) hypercholesterolemia Mother Problem (finding) Diabetes mellitus Father Problem (finding) Cardiovascular disease Mother Problem (finding) hypertension Mother Problem (finding) Obesity Immunizations Vaccine Date Status Comments Fluzone Quad, split virus, 0.5mL dosage administered Source: New Immuniza tion Record Flublok, quadrivalent, preservative free, 0.5mL dosage administered Source: Other Regist ry Fluzone Quad, preservative free, split virus, 0.5mL dosage administered Source: New Immuniza tion Record Payers Payer name Insurance type Covered green party ID Rona morataya(s) [employer] MDCR PPO PLANS [id number] [place] [employer] [id number] MEDICARE [facility] [id number] [place] [facility] [id number] Social History Type Description Quantity Date Captured Comments Alcohol Use Details No Caffeine Use Details No Tobacco Use Status Ex-cigarette smoker Smoking Status Former smoker Smoking Tobacco Use Details Cigarette: Age Stopped: 63 Cigarette: 2 Cigarettes per day Sex Male Sexual Orientation Straight or heterosexual Gender Identity Male Chief Complaint And Reason For Visit No Information Reason For Referral Reason For Referral No Information Plan Of Treatment Date Type Action Status Goal Dietary management education , guidance, and counseling completed Goal Dietary management education , guidance, and counseling completed Goal Dietary management education , guidance, and counseling completed Goal Dietary management education , guidance, and counseling completed Goal Dietary management education , guidance, and counseling completed Referral Referred To: NIKI [id number] Ordered: Chest Xray, 2 Views ordered Referral Referred To: Light Weight Manual Wheelchair Ordered: Referrals: Light Weight Manual Wheelchair Appointment date/timeframe: 07/08/2020 ordered Referral Referred To: Portable Oxygen Concentrator [place], [phone] Ordered: Referrals: [facility] Appointment date/timeframe: 05/26/2020 ordered Referral Referred To: Samuel Jiménez Ordered: Referrals: Podiatry. Samuel Jiménez. Evaluation/diagnostic/treatment - Level 3 Appointment date/timeframe: 05/26/2020 ordered Referral Referred To: Shen Minor MD [facility]
[address] [place], [address] [phone] Ordered: Referrals: Pulmonology. Shen Minor MD. Evaluation/diagnostic/treatment - Level 3 ordered Referral Referred To: Home Care [phone] Ordered: Referrals: Home Care. Location: [facility]. Evaluate and treat - Level 2 ordered Referral Referred To: Nebulizer Ordered: Referrals: Referrals: Nebulizer ordered Referral Referred To: Nebulizer Ordered: Referrals: Nebulizer ordered Referral Referred To: Occupational Therapy [address] [facility] [address] [place], [phone] Ordered: Referrals: Occupational Therapy. Location: [facility]. Evaluation/diagnostic/treatment - Level 3 ordered Referral Referred To: Physical Therapy [address] [facility] [place], [address] [phone] Ordered: Referrals: Physical Therapy. Location: [facility] Physical [facility]. Evaluation/diagnostic/treatment - Level 3 ordered History Of Present Illness Encounter Date Complaint History Of Prese nt Illness Chronic Conditions *See Chronic Conditions HPI Major depressive disorder States mood has improved.Is finding ways to help his community.has a new caregiver, ivania, who is much more helpful no SI or HIstates that he is going to postpone moving for 2 weeks Heart failure Denies swelling in lower extremitiesStates breathing is at baselineno oxygen use today, states that he can go short times without oxygen other Pfizer 08/03, sec ond dose scheduled[facility] power wheelchair repaired soon.Has been taking the hydrocodone once in the morning and then around 4-5pmForgets to take evening meds about 3-4 days out of the week. acute visit Chief complaint: progressive illnesses. Not able to get himself in the showerForgetting to take his meds occasionally3-4 falls since last visit, denies injury Lack of appetite over past 1-2 weeks, difficulty cooking for himself has health worker several days a week but states that he is unable to care for himself the rest of the timehe was resistant to senior care care in the past because he did not want to sacrifice all of his income, but he states that this is what he needs to do now for his health and well beingMid back pain x2 daysBilateral hip pain, worse in rightRadiating down legsrelatively well controlled on current medicationsPrefers to stay at [facility] Denies swelling in lower extremitiesShortness of breath worse in the morningsIncreased urination Has not been taking furosemide for awhile Would like to know if he should restart furosemideDeclines COVID vaccine. Chronic Conditions *See Chronic Conditions HPI Chronic Conditions *See Chronic Conditions HPI acute visit Chief complaint: leg swelling. Symptoms started 1 weeks ago; are moderate; are improving. This is a recurrent problem. Swelling in lower extremitiesWorsening shortness of breathHas been taking furosemide as directed, ran out two days ago.Has been elevating legs at home. Avoiding salt. since he was on higher dose of furosemide he was doing better and has started to diureseLeft sided chest/rib pain x2 daysWorse with coughingClear sputum productionHas been using 2-3 liters of oxygen Oxygen at home has been around 97%discussed again that there is no need to be on this all the time since saul has normal oxygen at restHaving difficulty finding someone to repair power wheelchair.Narcotic contract signed. o2 tank pt. came in to y to check is oxygen tank that he received yesterday. He said, the tank is almost empty. Pt. had the setting on continuos 2liter. it should be on 2 litter only, Dr. Leger explain to the pt. how his tank work. He need to breath thru his nose. Pt. stated he understand. pt. said, they going to bring out more oxygen when he gets home. I walk pt. about 200 feet his heart rate was 99 and his o2 100% with 2 litter of oxygen. We walk him on our oxygen tank to save his when he gets home> I told his Aid and him if they have any problems to give us a call. They both stated they understand. other Hoarseness Chronic Conditions *See Chronic Conditions HPI Chronic pain syndrome duloxetine was decreased to 20mgLyrica 100mg bidthese were decreased due to hospitalization for AMS and suspected over-medicationStates pain is worse. Hx of acute pancreatitis Denies abdominal pain or abnormal bowel movements. Emphysema Shortness of [place] with daily activities.Light-headedness.Frequent falls. Denies injury.States home oxygen levels will drop to low 70s with minimal activity.this was demonstrated today with sudden drop in oxygen when walking with fast recoveryHas been using Proventil regularly.Smoking 4-5 cigarettes/day Hosp. F/U Pt is here with new home care worker, P[facility] for [facility]03 [facility] 03/04Admitted due to altered mental status/encephalopathyhistory of bipolar, COPD/emphysema, tobacco abuse, CAD, HTN, chronic pain/fibromyalgiaHe was walking down his apartment complex hallway confused and holding a knife. Brought to ER.CVA ruled out. No acute process on brain imaging.Neurology thought to be likely bipolar disorder with fluctuation of symptoms.Encouraged adjustment of meds to reduce risk of dizziness and confusion.Has motorized wheelchair from earlier last year and states it has broken down. [facility] wants $300 for it to be fixed. Using wheeled walker todayShelley states she will be with him 4 days a week for a few hours each day. He is wanting 1 more day of help. Chronic Conditions *See Chronic Conditions HPI Chronic Conditions *See Chronic Conditions HPI pancreatitis pt presented for hospital f/u admission : 12/29-01/01dx pancreatitis, DAVID, emphysema, elevated LFT, HTNpt arrived in ER for c/o n/v/abd pain, dx pancreatitis per [facility] : started amlodipine, labetalol changed to clonidine while in hospital, pt has been taking all at nd, will continue as bp is stableAKI: cr up to 5.2 while in hospital, down to 1.8 at dcLFT: improved prior to dcemphysema: per CT, today pt reports chronic sob, willing to return to pul, we reviewed neb use; he says compliant with trelegy, and says he was also taking another inhaler, advised to only take trelegy along with nebs and inhalerpt felt better prior to dclabs todayno other f/u planned acute problem Requests being t burak for COVID. States he is having sinus issues. Easily chilled but denies fever. Shortness of breath with mild exertion. Denies chest tightness or wheezing.Ran out of Vraylar about 3-4 weeks ago. States he has been feeling depressed since.comes in with new aide Natalie Chronic Conditions *See Chronic Conditions [facility] Telehealth This visit was c ompleted via telephone due to the restrictions of the COVID-19 pandemic. All issues as below were discussed and addressed but no physical exam was performed. If it was felt that the patient should be evaluated in clinic then they were directed there. The patient verbally consented to visit.patient still having some increased cough. has not started levaquin yet, set to be delivered today. upon further discussion, found that he has not been taking spiriva, only duonebs and serevent. restarted spiriva to take with serevent for LABA/LAMA treatment. continue duonebs. EMS eval yesterday showed clear lungs and normal oxygenation and patient has no SOB talking to me today.in regards to his wheelchair, it was picked up today and he has a loaner while they work on his. they will return his once they have repaired itPhone Time Documentation:Spent 8 minutes with patient on phone discussing health concerns.Spent 5 minutes in chart review. Mattress and Trapeze Here to dis cuss mattress and trapeze face to face. Also states his wheelchair is constantly breaking down. Patient also states he's in a lot of pain, usually in the morning. Chronic Conditions *See Chronic Conditions [facility] Chronic Conditions *See Chronic Conditions [facility] 1 Month Here for a one m [facility] follow up. Patient states he hasn't been feeling good lately. Around 3-4pm he's been hurting and in pain. Would like his 4th pain pill back. Also wondering if you think medical marijuana would help his chronic pain. Also would like a letter to get him 5 hours a day with an aid and 2 hours on Saturday and Sundays. Also states he would like a DME for a recliner chair for his apartment. States he also thinks he has some open sores in his nose. Also states he needs a good administrative and program specialist and psychiatrist. Chronic Conditions *See Chronic Conditions [facility] Chronic Pain Here today for c hronic pain. Also patient would like something for his right elbow to not use it as much.pt comes back into my care. was seen by home care - Kristi Figueroa as well as [facility] [employer] Ami Rich. did not like [facility] because they wanted to order CT for lung cancer screening and he was being threatened to be fired. since he has been seeing Kristi, he has been on TID hydrocodone and he states that this is not controlling his pain as well as QID. he had been on this with me prior. he had also had duloxetine decreased and vraylar added with little relief. he continues to smoke and does not want to quit, did not understand why they wanted to do lung cancner screening.other medications have been controlling his COPD and other systemic illnesses well. follow up Patient returns to office for follow up. Patient currently lives on hi own in independent living. He has been seen by home health and PT.I have signed for him to get assistance devices but he has not gotten these yet. He states that [facility] [employer] states insurance will not pay. I told patient that he will need to call them and have them request information from our office.In regards to his pain, he continues to have chronic pain, particularly in the right hip and low back. He states that he has seen ortho for this but they have not taken him to surgery for this. He states that he has been qualified for a power chair but has not received. He states that this was done by previous PCP Marcos Marley. I do not have these records yet.In regards to his COPD, he has only been taking the serevent once a day when he should have been taking it 2 times a day. He continues to smoke ~1ppd but states that he has gotten patches from [employer] and is planning on quitting soon. Discussed with him that he should not use other nicotine products if he is using the patches. Chronic Conditions *See Chronic Conditions HPI Functional Status Date Functional Assessmen t No Information Instructions Date Instruction Additional Infor mation Urinary Incontinence Fall Risk Prevention at this time we will continue the same medications. please work on taking them every day Status: Meeting treatment plan goals. Goals: Your goal is identify and build support systems. No barriers to goal achievement have been identified. Related to Major depressive disorder, recurrent, in partial remission Please check your me dications at home and compare to our list and let us know what is missing Related to At risk for polypharmacy Please work on a hea rt healthy, balanced diet and regular physical activity Related to Body mass index (BMI) 26.0-26.9, adult Please continue curr ent pain medications and we will follow up in a few months. Please use a cane or walker if outside the house Related to Polyosteoarthritis, unspecified Your goal is to chec k your weight daily and to avoid salty, fried, or processed foods. If your weight increases by 1-2 lbs in 24 hours or 3-5 lbs in 5 days, call the office. Monitor your legs for swelling and keep an eye on your breathing, if there are changes call the office.Status: Meeting treatment plan goals. Goals: Your goal is to check for edema or swelling in your legs. Barriers: No barriers to goal achievement have been identified. Related to Chronic HFpEF I recommend you quit smoking. If you have trouble affording the medications, you can call 3-292-CZUW-YES as they may be able to provide some at a low to no cost. Related to Nicotine dependence, cigarettes, uncomplicated Your oxygen level is good today. Please keep oxygen close by in case you get short of breath. Follow up in 2 months, sooner if needed Related to Chronic respiratory failure with hypoxia Dietary management e ducation, guidance, and counseling Related to Body mass index (BMI) 26.0-26.9, adult We will check labs for acute steve nges Related to Weight loss At this time we will continue the same medications and we may restart low dose furosemide. WStatus: Meeting treatment plan goals. Goals: Your goal is to check for edema or swelling in your legs. Barriers: No barriers to goal achievement have been identified.We will work on seeing if we can have you admitted to [facility] [place] Related to Chronic HFpEF We will continue alberto lify and mirtazepine Related to Bipolar disorder, unspecified We will continue the same inhalers and nebulizer treatments at this time. You should call if there are any changes in your lung function such as: increased cough from baseline, increased sputum production or increased shortness of breath. Related to Emphysema, unspecified Continue current pain medication s Related to Polyosteoarthritis, unspecified At this time I would like you to continue abilify 5mg and we will restart 20mg duloxetine. Please call when you get home to let me know what dose you have. Status: Not meeting treatment plan goals. Goals: Your goal is to manage your medicine. Barriers: No barriers to goal achievement have been identified. Related to Major depressive disorder, recurrent, in partial remission At this time I would like you to continue use of a cane or walker at all times Related to Muscle weakness (generalized) continue use of adult diapers Re lated to Fecal urgency Please work on using oxygen with activity Related to Chronic respiratory failure with hypoxia Please work on heart healthy t Related to Body mass index (BMI) 26.0-26.9, adult We will continue hyd rocodone at this time Related to Chronic pain syndrome At this time we will continue the same pain medications. We have decreased duloxetine and lyrica due to confusion you had in the hospital a few months ago Related to Low back pain We will continue the same inhalers and nebulizer treatments at this time. You should call if there are any changes in your lung function such as: increased cough from baseline, increased sputum production or increased shortness of breath.Continue oxygen at this time, please use 2L with activity and when at rest please try to decrease to 0 or 1LStatus: Not meeting treatment plan goals. Goals: Your goal is to live in a smoke free environment. Barriers: No barriers to goal achievement have been identified. Related to Chronic obstructive pulmonary disease, unspecified At this time we will check labs and we will continue furosemide 20mg a day. We will plan to order an echocardiogram to evaluate your heart function. We will plan to follow up in 3 months as scheduled, sooner if needed Related to Acute diastolic (congestive) heart failure Dietary management e ducation, guidance, and counseling Related to Body mass index (BMI) 26.0-26.9, adult Please work on a hea rt healthy, balanced diet Related to Body mass index (BMI) 27.0-27.9, adult At this time we will work on ordering an oxygen concentrator to use with exertion Related to Hypoxemia Continue rosuvastatin Related to Mixed hyperlipidemia You are tolerating m edications without any adverse effects. At this time we will continue current regimen. 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 You should call if there are any changes in your lung function such as: increased cough from baseline, increased sputum production or increased shortness of breath.We will work on ordering a home oxygen concentrator to use as needed Related to Chronic obstructive pulmonary disease, unspecified At this time we will continue current inhalers and nebulizer treatments. Follow up in 3 months, sooner if needed. Please continue to follow COVID precautions including: wearing a mask or face covering in public, washing your hands frequently and remaining socially distant when in public. Please do not go out unless you need to. Please contact your local health department about registering for vaccination. Related to Emphysema, unspecified I recommend you quit smoking. If you have trouble affording the medications, you can call [phone]-DTHR-YES as they may be able to provide some at a low to no cost. Related to Nicotine dependence, cigarettes, uncomplicated At this time we will continue current medications and we will continue to work on decreasing duloxetine and pregabalin Related to Bipolar disorder, unspecified At this time we will continue current medications and we will order a manual wheelchair Related to Polyosteoarthritis, unspecified At this time we will continue hydrocodone Related to Chronic pain syndrome Giving encouragement to exercise Related to Body mass index (BMI) 27.0-27.9, adult Dietary management e ducation, guidance, and counseling Related to Body mass index (BMI) 27.0-27.9, adult continue on rosuvastatin Related to Atherosclerotic heart disease of craig coronary artery without angina pectoris no change in other m edicationscall with any worsening of symptoms Related to Bipolar disorder, unspecified work on smoking less I recommend you quit smoking. If you have trouble affording the medications, you can call [phone]-CACJ-YESThey may be able to provide some at a little to no costCall with any questions or concernsno labs todayreturn as scheduled to see Dr. Leger Continue with social distancing.AVOID CROWDS, STAY 6 FEET APART FROM OTHERS OUTSIDE YOUR HOUSEHOLD, WEAR A MASK, AVOID TOUCHING YOUR FACE, AVOID UNNECESSARY TRAVEL. WASH HANDS OFTEN. CALL WITH QUESTIONS/CONCERNS Related to Nicotine dependence, cigarettes, uncomplicated as above Related to Polyo steoarthritis, unspecified we need to find a ba bon between your medications and your alertness.We to optimize your medications while also controlling your pain.I will send refill of the hydrocodoneplease let us know of any issues with feeling lethargicI will decrease the duloxetine to 40mg once a day and the lyrica to 100mg twice a daycontinue with the walker/wheelchair as needed Related to Chronic pain syndrome work on smoking less use your inhaler as prescribedif you are using your walker next visit we can complete a 6 minute walk to see if you qualify for oxygen Related to Emphysema, unspecified Giving encouragement to exercise Related to Body mass index (BMI) 25.0-25.9, adult Dietary management e ducation, guidance, and counseling Related to Body mass index (BMI) 25.0-25.9, adult Disease process continue amlodipine, clonidine and labetolol Related to Essential hypertension will send you to the foot doctorDr Jiménez: call to schedule: Related to Ingrown toenail of both feet found on CT scanstop smokinguse trelegy inhaler every daynebulizers every 4-6 hoursproventil as needed also every 4-6 hours for shortness of breathwill send you to the lung doctor at [facility] [address] [facility] to schedule an appointment Related to Pulmonary emphysema, unspecified emphysema type will recheck liver tests Related to Elevated LFTs will recheck kidney labs todaystay hydratedavoid advil, aleve, ibuprofen, motrin Related to DAVID (acute kidney injury) will recheck pancrea s labs todaycontinue clear liquids and slowly advance diet to regular foodcall if you get more nausea, vomiting, diarrhea, fever, chillscall with questionsreturn as scheduled AVOID CROWDS - REMAIN 6 FEET APART FROM PEOPLE. WEAR A MASK. AVOID TOUCHING YOUR FACE. AVOID UNNECESSARY TRAVEL. WASH HANDS OFTEN. CALL WITH QUESTIONS/CONCERNS Related to Acute pancreatitis, unspecified complication status, unspecified pancreatitis type Dietary management e ducation, guidance, and counseling Related to Body mass index (BMI) 24.0-24.9, adult Disease process Weight monitoring Related to Bod y mass index (BMI) 24.0-24.9, adult Continue use of cane and we will continue the same medications at this time Related to Polyosteoarthritis, unspecified At this time we will continue duloxetine, mirtazepine and we will start low dose aripiprazole. Follow up in 3 months, sooner if needed. Please continue to follow COVID precautions including: wearing a mask or face covering in public, washing your hands frequently and remaining socially distant when in public. Please do not go out unless you need to. Related to Major depressive disorder, recurrent, moderate You are tolerating m edications without any adverse effects. At this time we will continue current regimen. Related to Atherosclerotic heart disease of craig coronary artery without angina pectoris At this time we will continue the same medications Related to Fibromyalgia continue omeprazole Related to G jean paul-esophageal reflux disease without esophagitis continue simvastatin Related to Mixed hyperlipidemia I recommend you quit smoking. If you have trouble affording the medications, you can call [phone]-YES as they may be able to provide some at a low to no cost. Related to Nicotine dependence, cigarettes, uncomplicated We will continue the same inhalers and nebulizer treatments at this time. You should call if there are any changes in your lung function such as: increased cough from baseline, increased sputum production or increased shortness of breath.I recommend you establish care with pulmonology Related to Chronic obstructive pulmonary disease, unspecified At this time we will restart Spiriva and will continue with levofloxacin. Please continue Serevent and DuoNeb nebulizers. Related to Chronic obstructive pulmonary disease, unspecified Continue follow up w [facility] for chair maintenance. Related to Dependence on wheelchair Continue to work on home exercises as given to you by PT in the past. Related to Muscle weakness (generalized) At this time continu e using chair and we will contact [facility] about repair/replacement. Related to Dependence on wheelchair At this time we will continue the same medications Related to Fibromyalgia We will continue the same inhalers and nebulizer treatments at this time. You should call if there are any changes in your lung function such as: increased cough from baseline, increased sputum production or increased shortness of breath. Related to Chronic obstructive pulmonary disease, unspecified At this time we will continue the same medications mentioned above as well as celebrex and cyclobenzaprine. Related to Chronic pain syndrome At this time we will continue current medications - gabapentin 3600mg daily- lyrica 300mg daily- hydrocodone 10mg three times a day at this time, will increase to four times a day at next fill. Related to Low back pain Continue hydrocodone , celebrex and lyrica. Please work on daily stretching. Related to Low back pain At this time we will continue the same medications and in one month we will increase to 4 tabs a day for better control of pain. Related to Chronic pain syndrome At this time we will continue with OT evaluation at home for assessment of additional equipment in your bed for movement. Please consider moving to a home with more care provided. Related to Dependence on wheelchair I recommend you quit smoking. If you have trouble affording the medications, you can call 3-214-CRWI-YES as they may be able to provide some at a low to no cost. Related to Nicotine dependence, cigarettes, uncomplicated We will continue the same inhalers and nebulizer treatments at this time. You should call if there are any changes in your lung function such as: increased cough from baseline, increased sputum production or increased shortness of breath. Related to Chronic obstructive pulmonary disease, unspecified Continue omeprazole Related to G jean paul-esophageal reflux disease without esophagitis At this time we will continue ce lebrex Related to Polyosteoarthritis, unspecified I recommend you quit smoking. If you have trouble affording the medications, you can call 4-526-ZDAJ-YES as they may be able to provide some at a low to no cost. Related to Nicotine dependence, cigarettes, uncomplicated Continue use of wheelchair Relat ed to Dependence on wheelchair We will check urine drug screen today Related to shelter (current) use of opiate analgesic We will continue the same inhalers and nebulizer treatments at this time. You should call if there are any changes in your lung function such as: increased cough from baseline, increased sputum production or increased shortness of breath. Related to Chronic obstructive pulmonary disease, unspecified Please take all medi cations as prescribed. We will check liver function & lipid panel today. Please call if you develop myalgias. Related to Mixed hyperlipidemia As above, will obtai n records. Will not fill medications until follow up Related to Chronic pain syndrome At this time we will obtain records from the last several months and follow up in 1 month. Related to Low back pain Encouraged patient t o have a specific quit date. He is to use patches and no other nicotine replacements along with this as he will risk nicotine toxicity. Related to Tobacco use Continue celebrex at this time. Related to Polyosteoarthritis, unspecified Continue simvastatin Related to Mixed hyperlipidemia Continue omeprazole. Related to Gastro-esophageal reflux disease without esophagitis Continue duloxetine and gabapent in. Related to Fibromyalgia At this time, will c ontinue gabapentin and duloxetine. Related to Chronic pain syndrome Will continue curren t regimen. Patient is to talk to insurance about why things are not getting covered. Will discuss getting hospital bed in the future. Related to Low back pain Continue current reg imen. Patient is to have cardiology send notes. Related to Atherosclerotic heart disease of craig coronary artery without angina pectoris Fall Risk Prevention Urinary Incontinence Assessments Type Assessment Date No Information Patient Care Teams Name Effective Dates (start - stop) Status Members No Information
--- OUTSIDE RECORDS SUMMARY | 2024-07-27 09:17 | XMS_ITS | Continuity of Care Document ---
[facility] Address [address] [place] [address] Care Team Providers Care Digital Content Manager Name Role Phone Jahaira HALL, Kristin Unavailable [...] tablet (81MG) by oral route every day - Active Seroquel 400 mg Tab take [...] Date Antiplatelet Therapy Prescribed 011 [facility] Certified EMR Most Recent Systolic BP < 140 1 Most Recent Diastolic BP < 90 1 Lipid Profile Not Performed LDL Not Performed Pt Screened/Identified Tobacco User, Pt Counseled Offic/outpt [facility] Advance Directives Directive Yes / No [...] [facility], [address], [place], [place], [facility], [place] CV[facility] [place] Tobacco AbuseCAD - Council VesselHistory Of PTCA/Coronary AtherectomyBen ign HypertensionHy percholesterol emia IIa 1 Jahaira Gregorio [address], [address], [facility], [place], [place], [facility], [place]. tel:[phone] Referring Provider: Petra Rosas MD, [address] , [place], [address]. tel:[phone] Family History Family Member Type Diagnosis Age At Onset Father Problem (finding) Father Problem (finding) Myocardial infarction ( Cause Of ) Payers Payer name Insurance type Covered democrat ID Authoriza tion(s) Medicare [address] [place] [address] [id number] IDPA [id number] Social History Type Description Quantity Date Captured [...]
== END 2024-07-27 08:59 | disposition home or self-care (01) ==
LOC: CHSAUDIO 09:01
PROVIDERS: PCP Family Medicine; Visit Provider Family Medicine
DX: H90.A21 Sensorineural hearing loss, unilateral, right ear, with restricted hearing on the contralateral side (principal); H90.A32 Mixed conductive and sensorineural hearing loss, unilateral, left ear with restricted hearing on the contralateral side
CPT/HCPCS: 92557; 92567

== ENCOUNTER 2024-09-12 10:18 | Emergency (ER) | payer MEDICARE, MEDICAID, SELFPAY ==
--- NOTE | ~2024-09-12 | XR_ITS ---
CHEST RADIOGRAPH CLINICAL HISTORY: volume overload . COMPARISON: 07/19/2024 TECHNIQUE: Single portable view of the chest. FINDINGS The cardiomediastinal silhouette is unremarkable. Right basilar atelectasis is demonstrated. The remainder the lungs are clear. IMPRESSION: Right basilar atelectasis, without focal infiltrate or effusion. Reviewed, dictated and finalized at location A.
[2024-09-12 10:21] VITALS: BP 107/65; PULSE 91; RESP 20; TEMP 36.7; O2SAT 94
--- OUTSIDE RECORDS SUMMARY | 2024-09-12 10:21 | XMS_ITS | Encounter Summary ---
Author Organization [facility] Address [facility] [place] [address] Care Team Providers Care Auriculotherapist Name Role Phone Ino Tracy MD Unavailable Adeel Jones MD Primary Care Provider [phone] None, Provider Primary Care Provider Unavaila Ria Barnes MD Primary Care Provider [phone] Encounter Details Date Type Department Care Team (Late st Contact Info) Description 09/25/2023 Abstract [facility] [address] Tash Nava MA Social History Tobacco Use Types Packs/Day Years Used Date Smoking Tobacco: Former Cigarettes 0.5 50 Q uit: 06/04/2023 Smokeless Tobacco: Never Comments:Patient smoking 2-3 cigarettes a day 09/03/2023. Alcohol Use Standard Drinks/Week Comments No 0 (1 standard drink = 0.6 oz pur e alcohol) [facility] Utilities Answer Date Recorded In the past [...] Never 06/18/2023 How often do you attend methodist or bahai serv ices? Never 06/18/2023 Do you belong to any clubs o r organizations such as methodist groups, unions, fraternal or athletic groups, or [...] Recorded Patient Health Questionnaire-2 Score 0 08/13/2023 [facility] - Occupational Stress [...] place to sleep or slept in a long term (including now)? No 05/27/2023 Housing Stability Vital Sign Answer Shahab e Recorded In the last 12 months, was t here a time when you were not able to pay the mortgage or rent on time? No 07/10/2023 In the past 12 months, how m any times have you moved where you were living? 2 07/10/2023 At any time in the past 12 m [facility], were you homeless or living in a long term (including now)? No 07/10/2023 Sex and Gender [...] Status Yes 07/10/2023 1:54 PM CDT Elena Reed, RN Active * Are you blind or do you have serious difficulty seeing, even when wearing glasses? Answer Date of Assessment Author Status No 07/10/2023 1:54 PM Elena Carvajal RN Active * Do you have serious difficulty walking or climbing stairs? Answer Date of Assessment Author Status Yes 07/10/2023 1:54 PM Elena Carvajal RN Active * Do you have difficulty dressing or bathing? Answer Date of Assessment Author Status No 07/10/2023 1:54 PM Elena Carvajal RN Active * Because of a physical, mental, or emotional condition, do you have difficulty doing errands alone such as visiting a doctor's office or shopping? Answer Date of Assessment Author Status No 07/10/2023 1:54 PM Elena Carvajal RN Active documented as of this encounter Mental Status * Because of a physical, mental, or emotional condition, do you have serious difficulty concentrating, remembering, or making decisions? Answer Entry Date Author Status No 07/10/2023 1:54 PM Elena Carvajal RN Active documented in this encounter Plan of Treatment Not on file documented as of this encounter Goals Goal Patient Goal Type Associated Problems Recent Progress Patient-Stated? Author Discharge Patient/family verbalizes understanding regarding the need for SNF placement General No Kati Calhoun, WIRE GALVANIZER Monitor - able to maintain pain control Lifestyle No Reno Hall RN documented as of this encounter Procedures [...] Rule Out 01/15/2024 01/15/2024 01/15/2024 1:30 AM METAL DRESSER COVID-19 Confirmed 01/15/2024 01/15/2024 12:33 AM METAL DRESSER COVID-19 Rule Out 02/22/2024 02/22/2024 02/22/2024 10:15 AM METAL DRESSER COVID-19 Rule Out 02/25/2024 02/25/2024 02/25/2024 11:15 AM METAL DRESSER documented as of this encounter Care Teams Auriculotherapist Relationship Specialty Start Date End Date Adeel Jones MD [facility] [place] [id number] PCP - General FAMILY PRACTICE 05/19/23 03/09/24 None, MD Tulio PCP - General UNKNOWN PHYSICIAN SPECIALTY 03/10/24 09/08/24 Ria Topete MD [address] [place] [id number] PCP - General INTERNAL MEDICINE 09/09/24 Ino Tracy MD [address] [address] Nigel Music Worker INTERVENTIONAL CARDIOLOGY 01/02/18 documented as of this encounter
--- OUTSIDE RECORDS SUMMARY | 2024-09-12 10:21 | XMS_ITS | Clinical Summary ---
Author Organization [facility] Address [address] [place] [address] Care Team Providers Care Brand Strategist Name Role Phone Ino Tracy MD Unavailable Ria Topete MD Primary Care Provider [phone] Allergies Active Allergy Reactions Criticality Noted Date Comments Aspirin Nausea and Vomiting 06/20/2018 Cephalexin Hives 06/20/2018 Lisinopril Cough,Other (see comment) 09/09/2024 LOW BP Penicillin V Anaphylaxis High 06/20/2018 Medications glipiZIDE (GLUCOTROL) 5 MG tablet Take 1 tablet (5 mg total) by mouth every morning before breakfast. Active vitamin D3 (CHOLECALCIFEROL ) 25 mcg tablet Take 3 tablets (75 [...] total) by mouth nightly at bedtime. Active ipratropium-albu terol (DUONEB) 0.5-2.5 (3) MG/3ML Solution Take 3 mLs by nebulization every 4 (four) hours as needed (shortness of breath). 360 mL Active atorvastatin (LIPITOR) 80 MG tablet Take 1 tablet (80 mg total) by mouth nightly at bedtime. 30 tablet Active HUMALOG KWIKPEN 100 UNIT/ML injection (PEN) Inject 2 Units into the skin 3 (three) times daily before meals. Active albuterol sulfate HFA (VENTOLIN HFA) 108 (90 Base) MCG/ACT inhalerIndicatio ns:Chronic obstructive pulmonary disease, unspecified COPD type ([facility]CC) Inhale 2 puffs into the lungs every 6 (six) hours as needed for Wheezing. 18 g 5 Active busPIRone (BUSPAR) 10 MG tabletIndication s:Paranoid schizophrenia ([facility]/HCC) Take 1 tablet (10 mg total) by mouth 2 (two) times daily. 90 tablet 3 Active calcium carbonate (TUMS) 500 MG chewable tabletIndication s:Gastroesophage al reflux disease without esophagitis Chew 2 tablets (1,000 mg total) by mouth 2 (two) times daily as needed for Heartburn. 90 tablet 3 Active Additional Information Patient taking differently:2 tablet OralEvery 6 hours PRN, Heartburn, Reported on 02/22/2024 diclofenac sodium (VOLTAREN) 1 % gelIndications:C hronic right shoulder pain,Pain in joint, forearm, right Apply 4 g topically 4 (four) times daily as needed (pain). 100 g 2 Active DULoxetine (CYMBALTA) 20 MG capsuleIndicatio ns:Paranoid schizophrenia ([facility] H[facility]/HCC) Take 1 capsule (20 mg total) by mouth daily. Takes 20 mg + 60 mg = 80 mg TDD. 60 capsule 2 Active DULoxetine (CYMBALTA) 60 MG capsuleIndicatio ns:Paranoid schizophrenia ([facility] H[facility]/HCC) Take 1 capsule (60 mg total) by mouth daily. Takes 60 mg + 20 mg = 80 mg TDD 60 capsule 2 Active furosemide (LASIX) 40 MG tabletIndication s:Essential hypertension Take 1 tablet (40 mg total) by mouth daily. 30 tablet 024 Active clopidogrel (PLAVIX) 75 MG tabletIndication s:Hyperlipidemia , mixed TAKE 1 TABLET(75 MG) BY MOUTH DAILY 90 tablet 3 024 Active gabapentin (NEURONTIN) 600 MG tabletIndication s:Chronic pain syndrome Take 1 tablet (600 mg total) by mouth 3 (three) times daily. 90 tablet 2 024 Active ondansetron (ZOFRAN) 4 MG tablet Take 1 tablet (4 mg total) by mouth every 8 (eight) hours as needed for Nausea. 20 tablet 024 Active LORazepam (ATIVAN) 0.5 MG tabletIndication s:Anxiety Take 1 tablet (0.5 mg total) by mouth 2 (two) times daily as needed for Anxiety. 10 tablet 024 Active aspirin EC 81 MG tablet Take 1 tablet (81 mg total) by mouth daily. Active ferrous sulfate EC 325 (65 Fe) MG tablet Take 1 tablet (325 mg total) by mouth daily. Active pantoprazole EC (PROTONIX) 20 MG tablet Take 1 tablet (20 mg total) by mouth daily. Active traMADol (ULTRAM) 50 MG tablet Take 1 tablet (50 mg total) by mouth every 6 (six) hours as needed. Active ARIPiprazole (ABILIFY) 10 MG tablet Take 1 tablet (10 mg total) by mouth daily. 025 2025 Active traZODone (DESYREL) 100 MG tablet Take 2 tablets (200 mg total) by mouth nightly at bedtime. 025 Active losartan (COZAAR) 25 MG tablet Take 0.5 tablets (12.5 mg total) by mouth daily. 30 tablet 1 Active omeprazole 20 MG capsule Take 1 capsule (20 mg total) by mouth daily. 2024 Discontinued traZODone 150 MG tablet Take 1 tablet (150 mg total) by mouth nightly at bedtime. 2024 Discontinued metoprolol succinate ER (TOPROL-XL) 25 MG 24 hr tablet Take 1 tablet (25 mg total) by mouth daily. 30 tablet 024 2024 Discontinued potassium chloride CR (KLOR-CON M) 10 MEQ tablet Take 1 tablet (10 mEq total) by mouth every other day. 024 2024 Discontinued lisinopril (PRINIVIL) 10 MG tablet Take 1 tablet (10 mg total) by mouth daily. 30 tablet 024 2024 Discontinued(O rdering Physician) nitroglycerin (NITROSTAT) 0.[address] 1 tablet (0.4 mg total) under the tongue every 5 (five) minutes as needed for Chest Pain. Maximum of 3 doses.THEN CALL 911 25 tablet 2 2024 Discontinued ARIPiprazole (ABILIFY) 5 MG tabletIndication s:Paranoid schizophrenia ([facility]) Take 1 tablet (5 mg total) by mouth nightly at bedtime. 30 tablet 2 2024 Discontinued famotidine (PEPCID) 40 MG tabletIndication s:Gastroesophage al reflux disease without esophagitis Take 1 tablet (40 mg total) by mouth nightly at bedtime. 90 tablet 3 2024 Discontinued Fluticasone-Umec lidin-Vilant (TRELEGY ELLIPTA) 200-62.5-25 MCG/ACT AEROSOL POWDER, BREATH ACTIVATEDIndicat ions:Chronic obstructive pulmonary disease, unspecified COPD type ([facility]) Inhale 1 puff into the lungs daily. Rinse and spit after use 90 each 3 024 2024 Discontinued guaiFENesin (ROBITUSSIN) 100 MG/5ML solution Take 10 mLs (200 mg total) by mouth every 6 (six) hours as needed for Cough. 2024 Discontinued dipyridamole-asp irin (AGGRENOX) 25-200 MG 12 hr capsule Take 1 capsule by mouth 2 (two) times daily. 2024 Discontinued HYDROcodone-acet aminophen (NORCO) 5-325 MG tabletIndication s:Chronic Pain Indications: Chronic Pain TAKE 1 TABLET BY MOUTH FOUR TIMES DAILY AT 5AM, 12PM, 5PM, 11PM 12 tablet 2024 Discontinued Active Problems Problem Noted Date Diagnosed Date Bipolar I disorder, most rec ent episode depressed ([facility]) 03/19/2024 Diastolic heart failure ([facility]) 2024 Paresis of lower extremity ([facility]) 11/2024 Sepsis ([facility]) 02/22/2024 COVID-19 01/15/2024 Erectile dysfunction, unspecified [...] 30.9 in adult 07/09/2023 Diabetic peripheral neuropathy ([facility]) 07/09/2023 Hyperlipidemia, mixed 06/26/2023 COPD (chronic obstructive pu lmonary disease) ([facility]) 06/19/2023 NSTEMI (non-ST elevated myoc ardial infarction) ([facility]) 05/27/2023 Acute respiratory failure with hypoxia ([facility]) 05/19/2023 Pancreatitis ([facility]) 05/06/2021 COPD exacerbation ([facility]) 09/25/2020 Chronic respiratory failure with hypoxia ([facility]) 06/28/2020 Atherosclerosis of aorta 01/06/2020 Moderate episode of recurrent major depressive d isorder 09/25/2018 History of stroke 09/25/2018 Paranoid schizophrenia ([facility]) 019 Tobacco user 01/16/2018 Anxiety 10/08/2017 Rheumatoid arthritis ([facility]) 8 Trochanteric bursitis of right hip 09/23/2017 Bipolar disorder ([facility]) 09/23/2017 Gastroesophageal reflux disease without esophagi tis 02/21/2017 Essential hypertension 02/15/2017 Hernia, inguinal 02/15/2017 Diabetes mellitus ([facility]) 02/15/2017 Fibromyalgia 02/15/2017 Chronic pain syndrome 02/15/2017 Arteriosclerosis of coronary artery 02/15/2017 Encounters Date Type Department Care Team Description 09/09/2024 2:00 PM CDT Office [facility], [address] [address] Sisi Woods MD CHF; Coronary Artery Disease (Last seen 2023) 09/09/2024 Travel 06/16/2024 Orders Only [facility] - [id number] [place] [address] Adeel Jones MD from Last 3 [...] In the past 12 months has e [employer], gas, oil, or water company threatened to [...] Never 01/15/2024 How often do you attend spiritism or rastafarian serv ices? Never 01/15/2024 Do you belong to any clubs o r organizations such as spiritism groups, unions, fraternal or athletic groups, or [...] Recorded Patient Health Questionnaire-2 Score 0 12/31/2023 [facility] - Occupational Stress Questionnaire Answer Date Recorded [...] place to sleep or slept in a fci (including now)? No 05/27/2023 Housing Stability Vital Sign Answer Shahab e Recorded In the last 12 months, was t here a time when you were not able to pay the mortgage or rent on time? No 02/22/2024 In the past 12 months, how m any times have you moved where you were living? 2 02/22/2024 At any time in the past 12 m [facility], were you homeless or living in a fci (including now)? No 02/22/2024 Sex and Gender Information Value Date Recorded Sex Assigned at Male 09/26/2020 2:43 AM CDT Legal Sex Male 11:34 PM CDT Gender Identity Male 09/26/2020 2:43 AM CDT Sexual Orientation Straight 09/26/2020 2: 43 AM CDT Last Filed Vital Signs Vital Sign Reading Time Taken Comments Blood Pressure 92/50 09/09/2024 2:25 PM CDT Pulse 77 09/09/2024 1:55 PM CDT Temperature 36.7 C (98 F) 03/10/2024 1:46 PM INSIDE SALES ENGINEER Respiratory Rate 20 03/10/2024 1:46 PM INSIDE SALES ENGINEER Oxygen Saturation 99% 09/09/2024 1:55 PM CDT Inhaled Oxygen Concentration - - Weight 86.2 kg (190 lb) 03/10/2024 1:46 PM INSIDE SALES ENGINEER Height 172.7 cm (5' 8) 09/09/2024 1:55 PM CDT Body Mass Index 28.89 03/10/2024 1:46 PM INSIDE SALES ENGINEER Plan of Treatment Health Maintenance Due Date Last Done Comments Colorectal Cancer Screening Colonoscopy (10 Years) 1958 Diabetes: Retinopathy Eye Exam 1976 DTaP, Tdap and Td Vaccines (1 - Tdap) 1977 Zoster Vaccines (1 of 2) 2008 RSV Immunization or 60+ Years (1 - Risk 60-74 years 1-dose series) 2018 Annual Medicare Wellness Visit 2023 COVID-19 Vaccine ( season) 2023 12/18/2021, 11/02/2020, 08/03/2020 PHQ-2 (Physician [place]) 03/11/2024 12/31/2023 Hemoglobin A1C 05/11/2024 11/12/2023, 06/0 06/2023, 05/27/2023, Additional history exists Lipid Panel 09/23/2024 09/24/2023, 06/0 06/2023, 05/27/2023, Additional history exists Kidney Health Evaluation 09/30/2024 10/01/2023 Lung Cancer Screening 03/25/2025 03/25/2024 , 02/25/2024, 02/22/2024, Additional history exists Pneumococcal Vaccine: 50+ Years Completed 07/09/2023 Hepatitis C Completed 08/13/2023 AAA SCREENING Completed 03/25/2024, 03/11, 02/25/2024, Additional history exists Meningococcal B Vaccine Aged [...] regarding the need for SNF placement General Kati Jorgensen LCSW Monitor - able to maintain pain control Lifestyle Reno Morrow, RN Safety Patient/family will have appropriate support at home upon discharge Lifestyle Reno Morrow, radiology orderly Procedure Name Priority Date/Time Associated Diagnosis Comments CT CHEST WO CON STAT 02/25/2024 3:02 PM INSIDE SALES ENGINEER HEMOGLOBIN, GLYCOSYLATED Routine 11/12/2023 11:24 AM CDT [...] CT CHEST WO CON (02/25/2024 3:02 PM INSIDE SALES ENGINEER) Anatomical Region Laterality Modality Chest Computed Tomogra phy 02/25/2024 3:43 PM INSIDE SALES ENGINEER Impressions 02/25/2024 4:02 PM INSIDE SALES ENGINEER IMPRESSION:===== 1. Increasing but minimal left pleural [...] 02/25/2024 3:43 PM Narrative 02/25/2024 4:02 PM INSIDE SALES ENGINEER [address] [address] EXAMINATION: CT Chest without contrast EXAM DATE/TIME: 02/25/2024 2:57 PM REASON FOR EXAM: abnormal cxr COMPARISON: Chest x-ray from [facility] and multiple exams for 02/22/2024 TECHNIQUE: Computed [...] Procedure Note Don Stewart MD - 02/25/2024 [facility] [address] [place], [place] [address] EXAMINATION: CT Chest without contrast EXAM DATE/TIME: 02/25/2024 2:57 PM REASON FOR EXAM: abnormal cxr COMPARISON: Chest x-ray from [facility] and multiple exams for02/22/2024 TECHNIQUE: Computed tomography [...] By: Don Stewart MD, 02/25/2024 3:43 PM John Cordero MD CT Final Result * A1C (BACK OFFICE) (11/12/2023 11:24 AM CDT) HGB A1C 6.6 % LAURAGARNICAGREGORY MCKEON 11/12/2023 11:2 4 AM CDT Adeel Jones MD LABORATORY Final Result [facility] [address] [place] [address], * LIPID PANEL (09/24/2023) CHOLESTEROL 120 HDL 30 TRIGLYCERIDES 175 LDL (CALCULATED) 55 09/24/2023 us Default History Genericprovider LABORATORY Final Result * HEPATITIS C ANTIBODY ([facility] ONLY) (08/13/2023 11:56 AM CDT) HEPATITIS C AB NON-REACTI VE NON-REACT SRINIVASAN 08/13/2023 9:58 PM CDT [facility] Comment: ANTIBODIES TO HCV NOT DETECTED. DOES NOT EXCLUDE THE POSSIBILITY OF EXPOSURE TO HCV. 08/13/2023 11:5 6 AM CDT Adeel Jones MD LABORATORY Final Result [facility] [address] [place] [address], [id number] from Last 3 Months or Most Recently Relevant to Health Maintenance Insurance MEDICAID [facility] Advance Directives Documents on File Type Date Recorded Patient Public Health Professor Expl anation Advance Directives and Living Will [...] 2:56 PM 05/30/2023 3:13 PM Care Teams Brand Strategist Relationship Specialty Start Date End Date Ria Topete MD [address] [place] [id number] PCP - General INTERNAL MEDICINE 09/09/24 Ino Tracy MD [facility]. [facility] [address] [place] [address] [employer] Analyst INTERVENTIONAL CARDIOLOGY 01/02/18
--- NOTE | 2024-09-12 10:30 | ED_ITS ---
HPI - General Adult General Chief complaint: Unspecified Stated complaint: shaking Time Seen by Provider: 09/12/24 10:30 Source: patient Mode of arrival: wheelchair Limitations: no limitations History of Present Illness HPI narrative: 64-year-old male with a history of smoking, hypertension, COPD, chronic respiratory failure on 2 liters/minute continuous oxygen, GERD, dyslipidemia, anemia, rheumatoid arthritis, CAD/ CHF, diabetes mellitus, bipolar on aripiprazole presents to the ED with -- low blood sugars. He was noted to have a blood sugar of 57 this morning and a repeat blood sugar was noted to be 45. He got glucagon following which his blood sugar increased to 220. The patient had been on Lantus, sliding scale insulin and glipizide. Recently his glipizide has been discontinued secondary to low sugars. His blood sugar on arrival to the ED is noted to be 197. -- Tremor off and on for the past 2-3 weeks. No history of recent strokes. The patient is on aripiprazole for bipolar disorder. Onset (ago): day(s) ( Low sugars for the past 1 or 2 days) Relieving factors: none Exacerbating factors: none Associated symptoms: denies other symptoms and other ( tremor) Treatments prior to arrival: none Related Data Home Medications ?Medication ?Instructions ?Recorded ?Confirmed ?Last Taken ?Type albuterol 90 mcg-budesonide 80 2 inh inhalation 6XD PRN shortness 07/19/24 Unknown History mcg/actuation HFA aerosol inhaler of breath (Airsupra) aripiprazole 10 mg tablet (Abilify) 10 mg PO DAILY 07/19/24 Unknown History aspirin 81 mg tablet,delayed 81 mg PO DAILY 07/19/24 Unknown History release (Ecotrin Low Strength) atorvastatin 80 mg tablet (Lipitor) 80 mg PO DAILY 07/19/24 Unknown History buspirone 10 mg tablet 10 mg PO BID 07/19/24 Unknown History clopidogrel 75 mg tablet 75 mg PO DAILY 07/19/24 Unknown History duloxetine 20 mg capsule,delayed 20 mg PO DAILY 07/19/24 Unknown History release (Cymbalta) duloxetine 60 mg capsule,delayed 60 mg PO DAILY 07/19/24 Unknown History release (Cymbalta) ferrous sulfate 325 mg (65 mg 325 mg PO DAILY 07/19/24 Unknown History iron) tablet (Feosol) fluticasone fur. 200 mcg-umeclid 1 inh inhalation DAILY 07/19/24 Unknown History 62.5 mcg-vilant 25 mcg inhalat.powder (Trelegy Ellipta) fluticasone propionate 50 2 spray intranasal DAILY 07/19/24 Unknown History mcg/actuation nasal spray,suspension (24 Hour Allergy Relief) furosemide 40 mg tablet 40 mg PO BID 07/19/24 Unknown History gabapentin 600 mg tablet 1,200 mg PO TID 07/19/24 Unknown History glipizide 10 mg tablet 10 mg PO DAILY 07/19/24 Unknown History insulin glargine 100 unit/mL (3 18 unit subcut QPM 07/19/24 Unknown History mL) subcutaneous pen (Basaglar KwikPen U-100 Insulin) insulin lispro 100 unit/mL 4 unit subcut QACBREAK 07/19/24 Unknown History subcutaneous solution (Humalog U-100 Insulin) ipratropium 0.5 mg-albuterol 3 mg 3 ml inhalation Q6H PRN shortness 07/19/24 Unknown History (2.5 mg base)/3 mL nebulization of breath or wheezing soln isosorbide dinitrate 30 mg tablet 30 mg PO DAILY 07/19/24 Unknown History latanoprost 0.005 % eye drops 1 drp EACH EYE QPM 07/19/24 Unknown History lisinopril 10 mg tablet 10 mg PO DAILY 07/19/24 Unknown History loratadine 10 mg tablet (Allergy 10 mg PO DAILY 07/19/24 Unknown History Relief (loratadine)) lorazepam 0.5 mg tablet (Ativan) 0.5 mg PO Q12H PRN anxiety 07/19/24 Unknown History pantoprazole 20 mg tablet,delayed 20 mg PO QAM 07/19/24 Unknown History release roflumilast 500 mcg tablet 500 mcg PO DAILY 07/19/24 Unknown History (Daliresp) tizanidine 4 mg tablet 4 mg PO DAILY 07/19/24 Unknown History tramadol 50 mg tablet 50 mg PO Q6H PRN pain 07/19/24 Unknown History trazodone 100 mg tablet 200 mg PO HS 07/19/24 Unknown History Allergies Allergy/AdvReac Type Severity Reaction Status Date / Time cephalexin Allergy Mild Unknown Verified 09/12/24 10:21 Penicillins Allergy Mild Unknown Verified 09/12/24 10:21 Review of Systems 2 Review of Systems: All systems reviewed & are unremarkable except as noted in HPI and below Constitutional: Constitutional: Reports as per HPI and Reports no additional constitutional complaints Eyes: Eyes: Reports as per HPI and Reports no additional eye complaints ENT: Reports system reviewed and no additional complaints, except as documented and Reports as per HPI Cardiovascular: Cardiovascular: Reports as per HPI and Reports no additional cardiovascular complaints Respiratory: Respiratory: Reports as per HPI, Reports no additional respiratory complaints, Reports dyspnea on exertion and Reports wheezing Gastrointestinal: Gastrointestinal: Reports as per HPI and Reports no additional gastrointestinal complaints Genitourinary: Genitourinary: Reports no additional male genitourinary complaints and Reports as per HPI Musculoskeletal: Musculoskeletal: Reports no additional musculoskeletal complaints and Reports as per HPI Integumentary/Breasts: Skin/Breast: Reports system reviewed and no additional complaints, except as docu and Reports as per HPI Neurologic: Reports system reviewed and no additional complaints, except as documented, Reports as per HPI and Reports other ( tremor) Psychiatric: Psychiatric: Reports no additional psychiatric complaints and Reports as per HPI Endocrine: Endocrine: Reports no additional endocrine complaints and Reports as per HPI Hematologic/Lymphatic: Hematologic/Lymphatic: Reports no additional hematologic/lymphatic complaints and Reports as per HPI Allergic/Immunologic: Allergic/Immunologic: Reports no additional allergic/immunologic complaints and Reports as per HPI [facility] Past Medical History Medical History (Updated 09/12/24 @ 14:49 by Curly Mckeon MD) Rheumatoid arthritis Dyslipidemia Diabetes mellitus COPD (chronic obstructive pulmonary disease) Hypertension Bipolar 1 disorder Exam 2 Narrative: vitals stable. Const: General: cooperative and comfortable Nutritional Appearance: average body habitus Orientation/consciousness: oriented to person, oriented to place and oriented to time HENMT: Head: normal to inspection, No palpable skull fracture present, normocephalic and atraumatic Ears: hearing grossly normal bilaterally F kasey/Nose/Sinus: Normal external nose present Face and sinus: normal facial exam, sinuses nontender and face symmetric Mouth: Yes Normal oral and palatal mucosa present, Yes lip normal and Yes tongue normal Throat: posterior oropharynx normal Eyes: General: appearance normal, both eyes and all related structures V isual Diaz: normal visual diaz by confrontation Neck: Neck: normal visual inspection and full ROM Chest: Chest palpation & inspection: normal inspection of the chest Resp: Effort & Inspection: audible wheezes and prolonged expiratory phase Cardio: Jugular venous distension: no JVD Palpation: normal PMI Rate: r egular rate Rhythm: regular rhythm Heart sounds: S1 normal heart sound present and S2 normal heart sound present GI: Inspection: normal to inspection GI Palp: Yes Other GI palpation findings present ( No tenderness/rigidity /rebound.) Auscultation: normal bowel sounds : General: Yes no CVA tenderness Back/Spine/Pelvis: Back: no CVA tenderness Skin: General skin exam: normal color, no rashes or lesions noted and elasticity normal Neuro: General: oriented to person, oriented to place and oriented to time Cranial nerves: Yes CN's II-XII intact bilaterally and Yes Other cranial nerve findings present ( Tremor) Extrem: General: normal to inspection, full ROM and capillary refill normal Psych: Appearance: grossly normal and well kempt Course Course Emergency Course: recurrent hypoglycemia tremors most likely secondary to aripiprazole acute on chronic renal failure. Patient has a BUN/creatinine of 58/5.6 which is up his from his baseline of 17/1.6. secondary to diuretics hyperkalemia with a potassium of 5.1 leukocytosis with a white cell count of 15.7. Patient is afebrile with a normal lactate. UA is negative. Chest x-ray revealed CAD status post stents many years ago. Currently the patient has a normal troponin and EKG does not show any acute findings. COPD/chronic respiratory failure on home oxygen 2 liters/minute Vital Signs Vital signs: Vital Signs Temperature 36.7 C 09/12/24 10:21 Pulse Rate 91 09/12/24 10:21 Respiratory Rate 09/12/24 10:21 Blood Pressure 107/65 09/12/24 10:21 Pulse Oximetry 94 09/12/24 10:21 Oxygen Delivery Nasal Cannula 09/12/24 10:21 Oxygen Flow Rate 3 09/12/24 10:21 Temperature 36.7 C 09/12/24 10:21 Pulse Rate 91 09/12/24 10:21 Respiratory Rate 20 09/12/24 10:21 Blood Pressure 107/65 09/12/24 10:21 Pulse Oximetry 94 09/12/24 10:21 Oxygen Delivery Nasal Cannula 09/12/24 10:21 Oxygen Flow Rate 3 09/12/24 10:21 Medical Decision Making [facility] Narrative Medical decision making narrative: recurrent hypoglycemia acute on chronic renal failure drug-induced parkinsonism with tremor leukocytosis without an obvious focus of infection-- chest x-rays negative. UA is marginal. COPD/chronic respiratory failure CAD Vital Signs Vital Signs: Vital Signs Temperature 36.7 C 09/12/24 10:21 Pulse Rate 91 09/12/24 10:21 Respiratory Rate 20 09/12/24 10:21 Blood Pressure 107/65 09/12/24 10:21 Pulse Oximetry 94 09/12/24 10:21 Oxygen Delivery Nasal Cannula 09/12/24 10:21 Oxygen Flow Rate 3 09/12/24 10:21 Temperature 36.7 C 09/12/24 10:21 Pulse Rate 91 09/12/24 10:21 Respiratory Rate 20 09/12/24 10:21 Blood Pressure 107/65 09/12/24 10:21 Pulse Oximetry 94 09/12/24 10:21 Oxygen Delivery Nasal Cannula 09/12/24 10:21 Oxygen Flow Rate 3 09/12/24 10:21 Lab Data 09/12/24 11:07 09/12/24 11:07 Labs: Lab Results 09/12/24 09/12/24 09/12/24 Range/Units 10:33 11:07 12:01 WBC 15.7 H (4.8-10.8) K/mm3 RBC 3.65 L (4.70-6.10) M/mm3 Hgb 11.3 L (12.4-15.3) g/dL Hct 34.2 L (37.0-46.0) % MCV 93.7 (78.0-102.0) fL MCH 31.0 (27.0-31.0) pg MCHC 33.0 (32-36) g/dL RDW 13.0 (11.6-14.4) % Plt Count 196 (150-420) K/mm3 MPV 9.7 (8.7-11.0) fl Immature Gran % (Auto) 0.4 H (0.0-0.0) % Neut % (Auto) 85.4 H (50.0-70.0) % Lymph % (Auto) 8.5 L (18.0-42.0) % [place] % (Auto) 4.5 (2.0-11.0) % Eos % (Auto) 0.6 L (1.0-6.0) % Baso % (Auto) 0.6 (0.0-1.0) % Lymph # (Auto) 1.34 (1.10-4.50) K/mm3 [place] # (Auto) 0.70 (0.10-0.90) K/mm3 Eos # (Auto) 0.09 (0.02-0.50) K/mm3 Baso # (Auto) 0.10 (0.00-0.10) K/mm3 Abs Immat Gran (auto) 0.06 H (0.00-0.00) K/mm3 Absolute Neuts (auto) 13.39 H (1.70-7.20) K/mm3 Absolute Nucleated RBC 0.00 (0.00-0.00) K/mm3 Nucleated RBC % 0.0 (0-0.0) % Sodium 135 L (137-145) mmol/L Potassium 5.1 H (3.4-5.0) mmol/L Chloride 103 (98-107) mmol/L Carbon Dioxide 26 (22-30) mmol/L Anion Gap 6 (4-12) mmol/L BUN 58 H (9-20) mg/dL Creatinine 5.57 H (0.7-1.3) mg/dL Estim Creat Clear Calc 12 ml/min Estimated GFR 10 L (59 - ) Glucose 172 H (65-110) mg/dL POC Capillary Glucose 175 H (65-105) mg/dl Calculated Osmolality 300 H (285-295) mOsm/kg Lactic Acid 0.9 (0.4-2.0) mmol/L Calcium 9.4 (8.4-10.2) mg/dL Total Bilirubin 0.5 (0.2-1.3) mg/dL AST 19 (17-59) U/L ALT 17 (6-50) U/L Alkaline Phosphatase 112 (38-126) U/L Troponin I < 0.012 (0.000-0.034) ng/mL NT-Pro-B Natriuret Pep (19.9-100) pg/mL Total Protein 6.4 (6.3-8.2) g/dL Albumin 3.7 (3.5-5.1) g/dL Urine Color Light yellow (Yellow) Urine Appearance Clear (Clear) Urine pH 6.0 (5.0-8.0) Ur Specific K[place] 1.010 (1.010-1.020) Urine Protein Negative (Negative) Urine Glucose (UA) Negative (Negative) Urine Ketones Negative (Negative) Ur Blood (Man) Negative (Negative) Urine Nitrate Negative (Negative) Urine Bilirubin Negative (Negative) Urine Urobilinogen 0.2 (0.2-1.0) mg/dL Leukocyte Esterase Rfl 1+ H (Negative) KINGA/UL Urine RBC None seen (0-2) /hpf Urine WBC 4-6 H (0-3) /hpf Ur Squamous Epith Cells Rare (Few) /hpf Urine Bacteria None seen (None) /hpf Ur Oval Fat Bodies None (None) /lpf 09/12/24 Range/Units 12:15 WBC (4.8-10.8) K/mm3 RBC (4.70-6.10) M/mm3 Hgb (12.4-15.3) g/dL Hct (37.0-46.0) % MCV (78.0-102.0) fL MCH (27.0-31.0) pg MCHC (32-36) g/dL RDW (11.6-14.4) % Plt Count (150-420) K/mm3 MPV (8.7-11.0) fl Immature Gran % (Auto) (0.0-0.0) % Neut % (Auto) (50.0-70.0) % Lymph % (Auto) (18.0-42.0) % [place] % (Auto) (2.0-11.0) % Eos % (Auto) (1.0-6.0) % Baso % (Auto) (0.0-1.0) % Lymph # (Auto) (1.10-4.50) K/mm3 [place] # (Auto) (0.10-0.90) K/mm3 Eos # (Auto) (0.02-0.50) K/mm3 Baso # (Auto) (0.00-0.10) K/mm3 Abs Immat Gran (auto) (0.00-0.00) K/mm3 Absolute Neuts (auto) (1.70-7.20) K/mm3 Absolute Nucleated RBC (0.00-0.00) K/mm3 Nucleated RBC % (0-0.0) % Sodium (137-145) mmol/L Potassium (3.4-5.0) mmol/L Chloride (98-107) mmol/L Carbon Dioxide (22-30) mmol/L Anion Gap (4-12) mmol/L BUN (9-20) mg/dL Creatinine (0.7-1.3) mg/dL Estim Creat Clear Calc ml/min Estimated GFR (59 - ) Glucose (65-110) mg/dL POC Capillary Glucose (65-105) mg/dl Calculated Osmolality (285-295) mOsm/kg Lactic Acid (0.4-2.0) mmol/L Calcium (8.4-10.2) mg/dL Total Bilirubin (0.2-1.3) mg/dL AST (17-59) U/L ALT (6-50) U/L Alkaline Phosphatase (38-126) U/L Troponin I (0.000-0.034) ng/mL NT-Pro-B Natriuret Pep 303 H (19.9-100) pg/mL Total Protein (6.3-8.2) g/dL Albumin (3.5-5.1) g/dL Urine Color (Yellow) Urine Appearance (Clear) Urine pH (5.0-8.0) Ur Specific Kinde (1.010-1.020) Urine Protein (Negative) Urine Glucose (UA) (Negative) Urine Ketones (Negative) Ur Blood (Man) (Negative) Urine Nitrate (Negative) Urine Bilirubin (Negative) Urine Urobilinogen (0.2-1.0) mg/dL Leukocyte Esterase Rfl (Negative) KINGA/UL Urine RBC (0-2) /hpf Urine WBC (0-3) /hpf Ur Squamous Epith Cells (Few) /hpf Urine Bacteria (None) /hpf Ur Oval Fat Bodies (None) /lpf ECG Data EKG #1: ECG completion date: 09/12/24 ECG completion time: 12:11 Interpretation: normal sinus rhythm. Right axis deviation. Right bundle-branch block pattern. No ST elevation. Discharge Plan Discharge Clinical Impression: Acute on chronic renal failure, Hypoglycemia, Drug-induced tremor Patient Disposition: Still a Patient Condition: Stable Instructions: Antibiotic Form Patient Language: Citizen Of [place] Prescriptions: No Action Airsupra 90-80 mcg/actuation HFA aerosol inhaler 2 inh inhalation 6XD PRN (Reason: shortness of breath) aripiprazole [Abilify] 10 mg tablet 10 mg PO DAILY aspirin [Ecotrin Low Strength] 81 mg tablet,delayed release (DR/EC) 81 mg PO DAILY atorvastatin [Lipitor] 80 mg tablet 80 mg PO DAILY buspirone 10 mg tablet 10 mg PO BID clopidogrel 75 mg tablet 75 mg PO DAILY duloxetine [Cymbalta] 20 mg capsule,delayed release(DR/EC) 20 mg PO DAILY duloxetine [Cymbalta] 60 mg capsule,delayed release(DR/EC) 60 mg PO DAILY ferrous sulfate [Feosol] 325 mg (65 mg iron) tablet 325 mg PO DAILY fluticasone propionate [24 Hour Allergy Relief] 50 mcg/actuation spray,suspension 2 spray intranasal DAILY Rx Instructions: administer into each nostril furosemide 40 mg tablet 40 mg PO BID gabapentin 600 mg tablet 1,200 mg PO TID glipizide 10 mg tablet 10 mg PO DAILY insulin lispro [Humalog U-100 Insulin] 100 unit/mL solution 4 unit subcut QACBREAK Patient Comments: BEFORE MEALS HOLD IF BS LESS THAN 100 insulin glargine [Basaglar KwikPen U-100 Insulin] 100 unit/mL (3 mL) insulin pen 18 unit subcut QPM ipratropium-albuterol 0.5 mg-3 mg(2.5 mg base)/3 mL solution for nebulization 3 ml inhalation Q6H PRN (Reason: shortness of breath or wheezing) isosorbide dinitrate 30 mg tablet 30 mg PO DAILY Rx Instructions: allow nitrate-free interval of 12-14 hrs per 24-hr period latanoprost 0.005 % drops 1 drp EACH EYE QPM lisinopril 10 mg tablet 10 mg PO DAILY loratadine [Allergy Relief (loratadine)] 10 mg tablet 10 mg PO DAILY lorazepam [Ativan] 0.5 mg tablet 0.5 mg PO Q12H PRN (Reason: anxiety) pantoprazole 20 mg tablet,delayed release (DR/EC) 20 mg PO QAM roflumilast [Daliresp] 500 mcg tablet 500 mcg PO DAILY tizanidine 4 mg tablet 4 mg PO DAILY tramadol 50 mg tablet 50 mg PO Q6H PRN (Reason: pain) trazodone 100 mg tablet 200 mg PO HS Trelegy Ellipta 200-62.5-25 mcg blister with device 1 inh inhalation DAILY tramadol 50 mg tablet 50 mg PO Q8H PRN (Reason: pain) Qty: 20 0RF Rx Instructions: 1-2 tabs per dose Follow-up/Referrals: UNKNOWN,DOCTOR [Non-Staff] - Time of Disposition: 14:51
--- OUTSIDE RECORDS SUMMARY | 2024-09-12 11:00 | XMS_ITS | Encounter Summary ---
Author Organization [facility] Address [facility] [place] [address] Care Team Providers Care Calibration Checker Name Role Phone Ino Tracy MD Unavailable Adeel Jones MD Primary Care Provider [phone] None, Provider Primary Care Provider Unavaila Ria Barnes MD Primary Care Provider [phone] Encounter Details Date Type Department Care Team (Late st Contact Info) Description 09/25/2023 Abstract [facility] [address] Tash Nava MA Social History Tobacco Use Types Packs/Day Years Used Date Smoking Tobacco: Former Cigarettes 0.5 50 Q uit: 06/04/2023 Smokeless Tobacco: Never Comments:Patient smoking 2-3 cigarettes a day 09/03/2023. Alcohol Use Standard Drinks/Week Comments No 0 (1 standard drink = 0.6 oz pur e alcohol) [facility] Utilities Answer Date Recorded In the [...] Never 06/18/2023 How often do you attend protestant or episcopal serv ices? Never 06/18/2023 Do you belong to any clubs o r organizations such as protestant groups, unions, fraternal or athletic groups, or [...] Recorded Patient Health Questionnaire-2 Score 0 08/13/2023 [facility] [place] [facility] Occup[facility] - Occupational Stress [...] place to sleep or slept in a penitentiary (including now)? No 05/27/2023 Housing Stability Vital [...] in the past [address] [facility], were you homeless or living in a penitentiary (including now)? No 07/10/2023 Sex and Gender [...] Author Status No 07/10/2023 1:54 PM Elena aCrvajal RN Active * Because of a physical, [...] for SNF placement General No Kati Calhoun, WINE BOTTLE INSPECTOR Monitor - able to maintain pain control [...] Rule Out 01/15/2024 01/15/2024 01/15/2024 1:30 AM PHLEBOTOMIST ASSOCIATE COVID-19 Confirmed 01/15/2024 01/15/2024 12:33 AM PHLEBOTOMIST ASSOCIATE COVID-19 Rule Out 02/22/2024 02/22/2024 02/22/2024 10:15 AM PHLEBOTOMIST ASSOCIATE COVID-19 Rule Out 02/25/2024 02/25/2024 02/25/2024 11:15 AM PHLEBOTOMIST ASSOCIATE documented as of this encounter Care Teams Calibration Checker Relationship Specialty Start Date End Date Adeel Jones MD [facility] [place] [id number] PCP - General FAMILY PRACTICE 05/19/23 03/09/24 None, MD Tulio PCP - General UNKNOWN PHYSICIAN SPECIALTY 03/10/24 09/08/24 Ria Topete MD [address] [place] [id number] PCP - General INTERNAL MEDICINE 09/09/24 Ino Tracy MD [address] [address] [employer] INTERVENTIONAL CARDIOLOGY 01/02/18 documented as of this encounter
--- OUTSIDE RECORDS SUMMARY | 2024-09-12 11:00 | XMS_ITS | Clinical Summary ---
Author Organization [facility] Address [address] [place] [address] Care Team Providers Care Skiver Heel Tap Name Role Phone Ino Tracy MD Unavailable Ria Topete MD Primary Care Provider [phone] Allergies Active Allergy Reactions Criticality Noted Date [...] ns:Chronic obstructive pulmonary disease, unspecified COPD type ([facility] HHS/HCC) Inhale 2 puffs into the lungs every 6 (six) hours as needed for Wheezing. 18 g 5 Active busPIRone (BUSPAR) 10 MG tabletIndication s:Paranoid schizophrenia ([facility] HHS/HCC) Take 1 tablet (10 mg [...] DULoxetine (CYMBALTA) 20 MG capsuleIndicatio ns:Paranoid schizophrenia ([facility] HHS/HCC) Take 1 capsule (20 mg total) by mouth daily. Takes 20 mg + 60 mg = 80 mg TDD. 60 capsule 2 Active DULoxetine (CYMBALTA) 60 MG capsuleIndicatio ns:Paranoid schizophrenia ([facility] HHS/HCC) Take 1 capsule (60 mg total) [...] ARIPiprazole (ABILIFY) 5 MG tabletIndication s:Paranoid schizophrenia ([facility] HHS/[facility]) Take 1 tablet (5 mg total) by mouth nightly at bedtime. 30 tablet 2 2024 Discontinued famotidine (PEPCID) 40 MG tabletIndication s:Gastroesophage al reflux disease without esophagitis Take 1 tablet (40 mg total) by mouth nightly at bedtime. 90 tablet 3 2024 Discontinued Fluticasone-Umec lidin-Vilant (TRELEGY ELLIPTA) 200-62.5-25 MCG/ACT AEROSOL POWDER, BREATH ACTIVATEDIndicat ions:Chronic obstructive pulmonary disease, unspecified COPD type ([facility] HHS/[facility]) Inhale 1 puff into the lungs daily. [...] I disorder, most rec ent episode depressed ([facility]) 03/19/2024 Diastolic heart failure ([facility]) 2024 Paresis of lower extremity ([facility]) 11/2024 Sepsis ([facility]) 02/22/2024 COVID-19 01/15/2024 Erectile dysfunction, unspecified erectile [...] 30.9 in adult 07/09/2023 Diabetic peripheral neuropathy ([facility]) 07/09/2023 Hyperlipidemia, mixed 06/26/2023 COPD (chronic obstructive pu lmonary disease) ([facility]) 06/19/2023 NSTEMI (non-ST elevated myoc ardial infarction) ([facility]) 05/27/2023 Acute respiratory failure with hypoxia ([facility]) 05/19/2023 Pancreatitis ([facility]) 05/06/2021 COPD exacerbation ([facility]) 09/25/2020 Chronic respiratory failure with hypoxia ([facility] 06/28/2020 Atherosclerosis of aorta 01/06/2020 Moderate episode of recurrent major depressive d isorder 09/25/2018 History of stroke 09/25/2018 Paranoid schizophrenia ([facility]) 019 Tobacco user 01/16/2018 Anxiety 10/08/2017 Rheumatoid arthritis ([facility]) 8 Trochanteric bursitis of right hip 09/23/2017 Bipolar disorder ([facility]) 09/23/2017 Gastroesophageal reflux disease without esophagi tis 02/21/2017 Essential hypertension 02/15/2017 Hernia, inguinal 02/15/2017 Diabetes mellitus ([facility]) 02/15/2017 Fibromyalgia 02/15/2017 Chronic pain syndrome 02/15/2017 Arteriosclerosis of coronary artery 02/15/2017 Encounters Date Type Department Care Team Description 09/09/2024 2:00 PM CDT [facility], [address] [address] Sisi Woods MD CHF; Coronary Artery Disease (Last seen 2023) 09/09/2024 Travel 06/16/2024 Orders Only [facility] - [address] [place] [address] Adeel Jones MD from Last [...] from your doctor or pharmacy? Never 01/15/2024 [facility] Utilities Answer Date Recorded In the past 12 months has e [employer], gas, oil, or water company threatened to [...] Never 01/15/2024 How often do you attend yazdanism or uatsdin serv ices? Never 01/15/2024 Do you belong [...] Recorded Patient Health Questionnaire-2 Score 0 12/31/2023 [facility] - Occupational Stress Questionnaire Answer Date [...] place to sleep or slept in a detention (including now)? No 05/27/2023 Housing Stability Vital Sign Answer Shahab e Recorded In the last 12 months, was t here a time when you were not able to pay the mortgage or rent on time? No 02/22/2024 In the past 12 months, how m any times have you moved where you were living? 2 02/22/2024 At any time in the past 12 m [facility], were you homeless or living in a detention (including now)? No 02/22/2024 Sex and Gender [...] 36.7 C (98 F) 03/10/2024 1:46 PM POWERTRAIN ENGINEER Respiratory Rate 20 03/10/2024 1:46 PM POWERTRAIN ENGINEER Oxygen Saturation 99% 09/09/2024 1:55 PM CDT Inhaled Oxygen Concentration - - Weight 86.2 kg (190 lb) 03/10/2024 1:46 PM POWERTRAIN ENGINEER Height 172.7 cm (5' 8) 09/09/2024 1:55 PM CDT Body Mass Index 28.89 03/10/2024 1:46 PM POWERTRAIN ENGINEER Plan of Treatment Health Maintenance Due [...] season) 2023 12/18/2021, 11/02/2020, 08/03/2020 PHQ-2 (Physician [place]) 03/11/2024 12/31/2023 Hemoglobin A1C 05/11/2024 11/12/2023, 06/0 [...] at home upon discharge 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 Increasing but minimal left [...] 02/25/2024 3:43 PM Narrative 02/25/2024 4:02 PM POWERTRAIN ENGINEER [address] [address] EXAMINATION: CT Chest without contrast EXAM DATE/TIME: 02/25/2024 2:57 PM REASON FOR EXAM: abnormal cxr COMPARISON: Chest x-ray from [facility] and multiple exams for 02/22/2024 TECHNIQUE: Computed [...] Procedure Note Don Stewart MD - 02/25/2024 [facility] [address] [place], [place] [address] EXAMINATION: CT Chest without contrast EXAM DATE/TIME: 02/25/2024 2:57 PM REASON FOR EXAM: abnormal cxr COMPARISON: Chest x-ray from [facility] and multiple exams for02/22/2024 TECHNIQUE: Computed tomography [...] Jones MD LABORATORY Final Result [facility] [address] [place] [address], * LIPID PANEL (09/24/2023) CHOLESTEROL 120 HDL 30 TRIGLYCERIDES 175 LDL (CALCULATED) 55 09/24/2023 us Default History Genericprovider LABORATORY Final Result * HEPATITIS C ANTIBODY ([facility] ONLY) (08/13/2023 11:56 AM CDT) HEPATITIS C AB NON-REACTI VE NON-REACT SRINIVASAN 08/13/2023 9:58 PM CDT [facility] Comment: ANTIBODIES TO HCV NOT DETECTED. DOES NOT EXCLUDE THE POSSIBILITY OF EXPOSURE TO HCV. 08/13/2023 11:5 6 AM CDT Adeel Jones MD LABORATORY Final Result [facility] [address] [place] [address], [id number] from Last 3 Months or Most Recently Relevant to Health Maintenance Insurance MEDICAID [facility] Advance Directives Documents on File Type Date Recorded Patient Pocket Secretary Assembler Expl anation Advance Directives and Living Will [...] 2:56 PM 05/30/2023 3:13 PM Care Teams Skiver Heel Tap Relationship Specialty Start Date End Date Ria Topete MD [address] [place] [id number] PCP - General INTERNAL MEDICINE 09/09/24 Ino Tracy MD [facility]. [facility] [address] [place] [address] [place] Head Of Design INTERVENTIONAL CARDIOLOGY 01/02/18
[2024-09-12 11:12] LABS: Hematocrit 34.2 % (37.0-46.0); Hemoglobin 11.3 g/dL (12.4-15.3); Immature Granulocyte Percent A 0.4 % (0.0-0.0); Lymphocytes Absolute Auto 1.34 K/mm3 (1.10-4.50); Mean Corpuscular HGB Conc 33.0 g/dL (32-36); Mean Corpuscular Hemoglobin 31.0 pg (27.0-31.0); Mean Corpuscular Volume 93.7 fL (78.0-102.0); Nucleated Red Blood Cells Absolute Auto 0.00 K/mm3 (0.00-0.00); Nucleated Red Blood Cells Perc 0.0 % (0-0.0); Platelet Count Result 196 K/mm3 (150-420); Red Blood Count 3.65 M/mm3 (4.70-6.10); White Blood Count 15.7 K/mm3 (4.8-10.8)
[2024-09-12 11:24] LABS: Albumin Level 3.7 g/dL (3.5-5.1); Blood Urea Nitrogen 58 mg/dL (9-20); Calcium 9.4 mg/dL (8.4-10.2); Carbon Dioxide 26 mmol/L (22-30); Estimated CRCL calculation 12 ml/min; Estimated Glomerular Filt Rate 10; Glucose 172 mg/dL (65-110); Potassium 5.1 mmol/L (3.4-5.0); Total Protein 6.4 g/dL (6.3-8.2)
[2024-09-12 11:25] LABS: Alanine Aminotransferase 17 U/L (6-50); Alkaline Phosphatase 112 U/L (38-126); Anion Gap 6 mmol/L (4-12); Aspartate Amino Transferase 19 U/L (17-59); Bilirubin,Total 0.5 mg/dL (0.2-1.3); Chloride 103 mmol/L (98-107); Osmolality Calculated 300 mOsm/kg (285-295); Sodium 135 mmol/L (137-145)
[2024-09-12 11:50] LABS: Add Urine Microscopic? YES; Appearance Urine Clear (Clear); Glucose Urine UA Negative (Negative); Leukocyte Esterase Ur 1+ LEU/UL (Negative); Nitrate Urine Negative (Negative); Specific Grav Ur 1.010 (1.010-1.020)
--- NOTE | 2024-09-12 12:01 | ECG_ITS ---
Test Date: 2024-09-12 12:11:07 Measurements Intervals [place] Rate: 72 P: 31 [place]: 168 QRS: 95 QRSD: 145 T: 54 QT: 390 QTc: 427 Interpretive Statements SINUS RHYTHM RIGHT BUNDLE BRANCH BLOCK [120+ ms QRS DURATION, UPRIGHT V1, 40+ ms S IN I/aVL/V4/V5/V6] No previous ECG available for comparison Electronically Signed On 09-14-2024 22:35:31 CDT by Angie Stapleton M.D.
[2024-09-12] MEDS: CALCIUM GLUCONATE 1,000 MG/10 ML VIAL 1000 MG IV PUSH (12:15)
[2024-09-12] MEDS: SODIUM CHLORIDE 0.9% IV 1,000 ML 999 ML IV CONT (12:15)
[2024-09-12 12:32] LABS: NT Pro B Type Natriuretic Pept 303 pg/mL (19.9-100)
[2024-09-12 12:35] LABS: Troponin I < 0.012 ng/mL (0.000-0.034)
--- NOTE | 2024-09-12 16:06 | ED_ITS ---
HPI - General Adult General Chief complaint: Unspecified Stated complaint: shaking Time Seen by Provider: 09/12/24 10:30 Source: patient Mode of arrival: wheelchair Limitations: no limitations History of Present Illness HPI narrative: XR CHEST 1V PORTABLE ORDERING PROVIDER: NADIA JARRETT DO HISTORY: 3 YEARS FEMALE WITH . SHORTNESS OF BREATH, COUGH. . COMPARISON: NONE. FINDINGS: MEDIASTINUM: THE CARDIAC SILHOUETTE IS NOT ENLARGED Relieving factors: none Exacerbating factors: none Associated symptoms: denies other symptoms and other ( tremor) Treatments prior to arrival: none Related Data Home Medications ?Medication ?Instructions ?Recorded ?Confirmed ?Last Taken ?Type albuterol 90 mcg-budesonide 80 2 inh inhalation 6XD PRN shortness 07/19/24 Unknown History mcg/actuation HFA aerosol inhaler of breath (Airsupra) aripiprazole 10 mg tablet (Abilify) 10 mg PO DAILY 07/19/24 Unknown History aspirin 81 mg tablet,delayed 81 mg PO DAILY 07/19/24 Unknown History release (Ecotrin Low Strength) atorvastatin 80 mg tablet (Lipitor) 80 mg PO DAILY 07/19/24 Unknown History buspirone 10 mg tablet 10 mg PO BID 07/19/24 Unknown History clopidogrel 75 mg tablet 75 mg PO DAILY 07/19/24 Unknown History duloxetine 20 mg capsule,delayed 20 mg PO DAILY 07/19/24 Unknown History release (Cymbalta) duloxetine 60 mg capsule,delayed 60 mg PO DAILY 07/19/24 Unknown History release (Cymbalta) ferrous sulfate 325 mg (65 mg 325 mg PO DAILY 07/19/24 Unknown History iron) tablet (Feosol) fluticasone fur. 200 mcg-umeclid 1 inh inhalation DAILY 07/19/24 Unknown History 62.5 mcg-vilant 25 mcg inhalat.powder (Trelegy Ellipta) fluticasone propionate 50 2 spray intranasal DAILY 07/19/24 Unknown History mcg/actuation nasal spray,suspension (24 Hour Allergy Relief) furosemide 40 mg tablet 40 mg PO BID 07/19/24 Unknown History gabapentin 600 mg tablet 1,200 mg PO TID 07/19/24 Unknown History glipizide 10 mg tablet 10 mg PO DAILY 07/19/24 Unknown History insulin glargine 100 unit/mL (3 18 unit subcut QPM 07/19/24 Unknown History mL) subcutaneous pen (Basaglar KwikPen U-100 Insulin) insulin lispro 100 unit/mL 4 unit subcut QACBREAK 07/19/24 Unknown History subcutaneous solution (Humalog U-100 Insulin) ipratropium 0.5 mg-albuterol 3 mg 3 ml inhalation Q6H PRN shortness 07/19/24 Unknown History (2.5 mg base)/3 mL nebulization of breath or wheezing soln isosorbide dinitrate 30 mg tablet 30 mg PO DAILY 07/19/24 Unknown History latanoprost 0.005 % eye drops 1 drp EACH EYE QPM 07/19/24 Unknown History lisinopril 10 mg tablet 10 mg PO DAILY 07/19/24 Unknown History loratadine 10 mg tablet (Allergy 10 mg PO DAILY 07/19/24 Unknown History Relief (loratadine)) lorazepam 0.5 mg tablet (Ativan) 0.5 mg PO Q12H PRN anxiety 07/19/24 Unknown History pantoprazole 20 mg tablet,delayed 20 mg PO QAM 07/19/24 Unknown History release roflumilast 500 mcg tablet 500 mcg PO DAILY 07/19/24 Unknown History (Daliresp) tizanidine 4 mg tablet 4 mg PO DAILY 07/19/24 Unknown History tramadol 50 mg tablet 50 mg PO Q6H PRN pain 07/19/24 Unknown History trazodone 100 mg tablet 200 mg PO HS 07/19/24 Unknown History Allergies Allergy/AdvReac Type Severity Reaction Status Date / Time cephalexin Allergy Mild Unknown Verified 09/12/24 10:21 Penicillins Allergy Mild Unknown Verified 09/12/24 10:21 [facility] Past Medical History Medical History (Updated 09/12/24 @ 14:49 by Curly Mckeon MD) Rheumatoid arthritis Dyslipidemia Diabetes mellitus COPD (chronic obstructive pulmonary disease) Hypertension Bipolar 1 disorder Course Vital Signs Vital signs: Vital Signs Temperature 36.7 C 09/12/24 10:21 Pulse Rate 91 09/12/24 10:21 Respiratory Rate 20 09/12/24 10:21 Blood Pressure 107/65 09/12/24 10:21 Pulse Oximetry 94 09/12/24 10:21 Oxygen Delivery Nasal Cannula 09/12/24 10:21 Oxygen Flow Rate 3 09/12/24 10:21 Temperature 36.7 C 09/12/24 10:21 Pulse Rate 91 09/12/24 10:21 Respiratory Rate 20 09/12/24 10:21 Blood Pressure 107/65 09/12/24 10:21 Pulse Oximetry 94 09/12/24 10:21 Oxygen Delivery Nasal Cannula 09/12/24 10:21 Oxygen Flow Rate 3 09/12/24 10:21 Medical Decision Making Vital Signs Vital Signs: Vital Signs Temperature 36.7 C 09/12/24 10:21 Pulse Rate 91 09/12/24 10:21 Respiratory Rate 20 09/12/24 10:21 Blood Pressure 107/65 09/12/24 10:21 Pulse Oximetry 94 09/12/24 10:21 Oxygen Delivery Nasal Cannula 09/12/24 10:21 Oxygen Flow Rate 3 09/12/24 10:21 Temperature 36.7 C 09/12/24 10:21 Pulse Rate 91 09/12/24 10:21 Respiratory Rate 20 09/12/24 10:21 Blood Pressure 107/65 09/12/24 10:21 Pulse Oximetry 94 09/12/24 10:21 Oxygen Delivery Nasal Cannula 09/12/24 10:21 Oxygen Flow Rate 3 09/12/24 10:21 Lab Data 09/12/24 11:07 09/12/24 11:07 Labs: Lab Results 09/12/24 09/12/24 09/12/24 Range/Units 10:33 11:07 12:01 WBC 15.7 H (4.8-10.8) K/mm3 RBC 3.65 L (4.70-6.10) M/mm3 Hgb 11.3 L (12.4-15.3) g/dL Hct 34.2 L (37.0-46.0) % MCV 93.7 (78.0-102.0) fL MCH 31.0 (27.0-31.0) pg MCHC 33.0 (32-36) g/dL RDW 13.0 (11.6-14.4) % Plt Count 196 (150-420) K/mm3 MPV 9.7 (8.7-11.0) fl Immature Gran % (Auto) 0.4 H (0.0-0.0) % Neut % (Auto) 85.4 H (50.0-70.0) % Lymph % (Auto) 8.5 L (18.0-42.0) % [place] % (Auto) 4.5 (2.0-11.0) % Eos % (Auto) 0.6 L (1.0-6.0) % Baso % (Auto) 0.6 (0.0-1.0) % Lymph # (Auto) 1.34 (1.10-4.50) K/mm3 [place] # (Auto) 0.70 (0.10-0.90) K/mm3 Eos # (Auto) 0.09 (0.02-0.50) K/mm3 Baso # (Auto) 0.10 (0.00-0.10) K/mm3 Abs Immat Gran (auto) 0.06 H (0.00-0.00) K/mm3 Absolute Neuts (auto) 13.39 H (1.70-7.20) K/mm3 Absolute Nucleated RBC 0.00 (0.00-0.00) K/mm3 Nucleated RBC % 0.0 (0-0.0) % Sodium 135 L (137-145) mmol/L Potassium 5.1 H (3.4-5.0) mmol/L Chloride 103 (98-107) mmol/L Carbon Dioxide 26 (22-30) mmol/L Anion Gap 6 (4-12) mmol/L BUN 58 H (9-20) mg/dL Creatinine 5.57 H (0.7-1.3) mg/dL Estim Creat Clear Calc 12 ml/min Estimated GFR 10 L (59 - ) Glucose 172 H (65-110) mg/dL POC Capillary Glucose 175 H (65-105) mg/dl Calculated Osmolality 300 H (285-295) mOsm/kg Lactic Acid 0.9 (0.4-2.0) mmol/L Calcium 9.4 (8.4-10.2) mg/dL Total Bilirubin 0.5 (0.2-1.3) mg/dL AST 19 (17-59) U/L ALT 17 (6-50) U/L Alkaline Phosphatase 112 (38-126) U/L Troponin I < 0.012 (0.000-0.034) ng/mL NT-Pro-B Natriuret Pep (19.9-100) pg/mL Total Protein 6.4 (6.3-8.2) g/dL Albumin 3.7 (3.5-5.1) g/dL Urine Color Light yellow (Yellow) Urine Appearance Clear (Clear) Urine pH 6.0 (5.0-8.0) Ur Specific [place] 1.010 (1.010-1.020) Urine Protein Negative (Negative) Urine Glucose (UA) Negative (Negative) Urine Ketones Negative (Negative) Ur Blood (Man) Negative (Negative) Urine Nitrate Negative (Negative) Urine Bilirubin Negative (Negative) Urine Urobilinogen 0.2 (0.2-1.0) mg/dL Leukocyte Esterase Rfl 1+ H (Negative) KINGA/UL Urine RBC None seen (0-2) /hpf Urine WBC 4-6 H (0-3) /hpf Ur Squamous Epith Cells Rare (Few) /hpf Urine Bacteria None seen (None) /hpf Ur Oval Fat Bodies None (None) /lpf 09/12/24 Range/Units 12:15 WBC (4.8-10.8) K/mm3 RBC (4.70-6.10) M/mm3 Hgb (12.4-15.3) g/dL Hct (37.0-46.0) % MCV (78.0-102.0) fL MCH (27.0-31.0) pg MCHC (32-36) g/dL RDW (11.6-14.4) % Plt Count (150-420) K/mm3 MPV (8.7-11.0) fl Immature Gran % (Auto) (0.0-0.0) % Neut % (Auto) (50.0-70.0) % Lymph % (Auto) (18.0-42.0) % [place] % (Auto) (2.0-11.0) % Eos % (Auto) (1.0-6.0) % Baso % (Auto) (0.0-1.0) % Lymph # (Auto) (1.10-4.50) K/mm3 [place] # (Auto) (0.10-0.90) K/mm3 Eos # (Auto) (0.02-0.50) K/mm3 Baso # (Auto) (0.00-0.10) K/mm3 Abs Immat Gran (auto) (0.00-0.00) K/mm3 Absolute Neuts (auto) (1.70-7.20) K/mm3 Absolute Nucleated RBC (0.00-0.00) K/mm3 Nucleated RBC % (0-0.0) % Sodium (137-145) mmol/L Potassium (3.4-5.0) mmol/L Chloride (98-107) mmol/L Carbon Dioxide (22-30) mmol/L Anion Gap (4-12) mmol/L BUN (9-20) mg/dL Creatinine (0.7-1.3) mg/dL Estim Creat Clear Calc ml/min Estimated GFR (59 - ) Glucose (65-110) mg/dL POC Capillary Glucose (65-105) mg/dl Calculated Osmolality (285-295) mOsm/kg Lactic Acid (0.4-2.0) mmol/L Calcium (8.4-10.2) mg/dL Total Bilirubin (0.2-1.3) mg/dL AST (17-59) U/L ALT (6-50) U/L Alkaline Phosphatase (38-126) U/L Troponin I (0.000-0.034) ng/mL NT-Pro-B Natriuret Pep 303 H (19.9-100) pg/mL Total Protein (6.3-8.2) g/dL Albumin (3.5-5.1) g/dL Urine Color (Yellow) Urine Appearance (Clear) Urine pH (5.0-8.0) Ur Specific Row[place] (1.010-1.020) Urine Protein (Negative) Urine Glucose (UA) (Negative) Urine Ketones (Negative) Ur Blood (Man) (Negative) Urine Nitrate (Negative) Urine Bilirubin (Negative) Urine Urobilinogen (0.2-1.0) mg/dL Leukocyte Esterase Rfl (Negative) KINGA/UL Urine RBC (0-2) /hpf Urine WBC (0-3) /hpf Ur Squamous Epith Cells (Few) /hpf Urine Bacteria (None) /hpf Ur Oval Fat Bodies (None) /lpf Discharge Plan Discharge Clinical Impression: Hypoglycemia, Drug-induced tremor Acute on chronic renal failure Qualifiers: Acute renal failure type: unspecified Chronic kidney disease stage: stage 3 (moderate) Chronic kidney disease stage 3 subtype: stage 3a (GFR 45-59) Q ualified Code(s): N17.9 - Acute kidney failure, unspecified Patient Disposition: Still a Patient Condition: Stable Instructions: Antibiotic Form Patient Language: Austrian Prescriptions: No Action Airsupra 90-80 mcg/actuation HFA aerosol inhaler 2 inh inhalation 6XD PRN (Reason: shortness of breath) aripiprazole [Abilify] 10 mg tablet 10 mg PO DAILY aspirin [Ecotrin Low Strength] 81 mg tablet,delayed release (DR/EC) 81 mg PO DAILY atorvastatin [Lipitor] 80 mg tablet 80 mg PO DAILY buspirone 10 mg tablet 10 mg PO BID clopidogrel 75 mg tablet 75 mg PO DAILY duloxetine [Cymbalta] 20 mg capsule,delayed release(DR/EC) 20 mg PO DAILY duloxetine [Cymbalta] 60 mg capsule,delayed release(DR/EC) 60 mg PO DAILY ferrous sulfate [Feosol] 325 mg (65 mg iron) tablet 325 mg PO DAILY fluticasone propionate [24 Hour Allergy Relief] 50 mcg/actuation spray,suspension 2 spray intranasal DAILY Rx Instructions: administer into each nostril furosemide 40 mg tablet 40 mg PO BID gabapentin 600 mg tablet 1,200 mg PO TID glipizide 10 mg tablet 10 mg PO DAILY insulin lispro [Humalog U-100 Insulin] 100 unit/mL solution 4 unit subcut QACBREAK Patient Comments: BEFORE MEALS HOLD IF BS LESS THAN 100 insulin glargine [Basaglar KwikPen U-100 Insulin] 100 unit/mL (3 mL) insulin pen 18 unit subcut QPM ipratropium-albuterol 0.5 mg-3 mg(2.5 mg base)/3 mL solution for nebulization 3 ml inhalation Q6H PRN (Reason: shortness of breath or wheezing) isosorbide dinitrate 30 mg tablet 30 mg PO DAILY Rx Instructions: allow nitrate-free interval of 12-14 hrs per 24-hr period latanoprost 0.005 % drops 1 drp EACH EYE QPM lisinopril 10 mg tablet 10 mg PO DAILY loratadine [Allergy Relief (loratadine)] 10 mg tablet 10 mg PO DAILY lorazepam [Ativan] 0.5 mg tablet 0.5 mg PO Q12H PRN (Reason: anxiety) pantoprazole 20 mg tablet,delayed release (DR/EC) 20 mg PO QAM roflumilast [Daliresp] 500 mcg tablet 500 mcg PO DAILY tizanidine 4 mg tablet 4 mg PO DAILY tramadol 50 mg tablet 50 mg PO Q6H PRN (Reason: pain) trazodone 100 mg tablet 200 mg PO HS Trelegy Ellipta 200-62.5-25 mcg blister with device 1 inh inhalation DAILY tramadol 50 mg tablet 50 mg PO Q8H PRN (Reason: pain) Qty: 20 0RF Rx Instructions: 1-2 tabs per dose Follow-up/Referrals: UNKNOWN,DOCTOR [Non-Staff] - Time of Disposition: 14:51
--- NOTE | 2024-09-12 16:26 | PC.NURSE ---
Hospitalist and Group Fitness Instructor accepted Pt at [facility]. Awaiting room assignment. Pt requesting pain medication, saying he has pain in his legs.
[2024-09-12] MEDS: HYDROcodone/acetaminophen (*CRX) 5-325 MG TABLET 1 TAB PO (16:32)
--- NOTE | 2024-09-12 17:23 | PC.NURSE ---
[facility] called saying they are still in [place] and will not be available for about an hour. ERP would like Pt transferred sooner than that. [facility] called for transport.
--- NOTE | 2024-09-12 18:35 | PC.NURSE ---
Report called to EZEQUIEL Roach at 17:07. Awaiting EMS transport.
--- NOTE | 2024-09-12 19:21 | PC.NURSE ---
[facility] aware of transfer. Staff will come pick pack worker Pt's wheelchair from ER.
--- NOTE | 2024-09-15 13:09 | PC.NURSE ---
final urine,, no growth
== END 2024-09-12 19:25 | disposition short-term general hospital (02) ==
PROVIDERS: Emergency Provider Internal Medicine Critical Care Medicine
DX: I13.0 Hypertensive heart and chronic kidney disease with heart failure and stage 1 through stage 4 chronic kidney disease, or unspecified chronic kidney disease (principal); E11.22 Type 2 diabetes mellitus with diabetic chronic kidney disease; I50.9 Heart failure, unspecified; N18.9 Chronic kidney disease, unspecified; E11.649 Type 2 diabetes mellitus with hypoglycemia without coma; G25.1 Drug-induced tremor; T43.595A Adverse effect of other antipsychotics and neuroleptics, initial encounter; J44.9 Chronic obstructive pulmonary disease, unspecified; I25.10 Atherosclerotic heart disease of native coronary artery without angina pectoris; Z79.899 Other long term (current) drug therapy
CPT/HCPCS: 36415; 71045; 80053; 81001; 82948; 83605; 83880; 84484; 85025; 87086; 93005; 96360; 96361; 96374; 99285; A9270; J0612; J7030

== ENCOUNTER 2024-09-23 08:10 | Outpatient (CLI) | payer MEDICARE, MEDICAID, SELFPAY ==
--- OUTSIDE RECORDS SUMMARY | 2024-09-23 08:16 | XMS_ITS | Encounter Summary ---
Author Organization [facility] Address [facility]ly [facility] [place] [address] Care Team Providers Care Administrative Support Technician Name Role Phone Ino Tracy MD Unavailable Adeel Jones MD Primary Care Provider [phone] None, Provider Primary Care Provider Unavaila Ria Barnes MD Primary Care Provider [phone] Encounter Details Date Type Department Care Team (Late st Contact Info) Description 09/25/2023 [facility] [address] Tash Nava MA Social History Tobacco Use Types Packs/Day Years Used Date Smoking Tobacco: Former Cigarettes 0.5 50 Q uit: 06/04/2023 Smokeless Tobacco: Never Comments:Patient smoking 2-3 cigarettes a day 09/03/2023. Alcohol Use Standard Drinks/Week Comments No 0 (1 standard drink = 0.6 oz pur e alcohol) [facility] Utilities Answer Date Recorded In [...] Never 06/18/2023 How often do you attend mormon or buddhism serv ices? Never 06/18/2023 Do you belong to any clubs o r organizations such as mormon groups, unions, fraternal or athletic groups, or [...] Recorded Patient Health Questionnaire-2 Score 0 08/13/2023 [facility] [place] [facility] Occupat ional Health - Occupational Stress [...] place to sleep or slept in a long-term (including now)? No 05/27/2023 Housing Stability Vital Sign Answer Shahab e Recorded In the last 12 months, was t here a time when you were not able to pay the mortgage or rent on time? No 07/10/2023 In the past 12 months, how m any times have you moved where you were living? 2 07/10/2023 At any time in the past 12 m [facility], were you homeless or living in a long-term (including now)? 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 COVID-19 Confirmed 01/15/2024 01/15/2024 12:33 AM DIESEL TRUCK CRANE OPERATOR COVID-19 Rule Out 02/22/2024 02/22/2024 02/22/2024 10:15 AM DIESEL TRUCK CRANE OPERATOR COVID-19 Rule Out 02/25/2024 02/25/2024 02/25/2024 11:15 AM DIESEL TRUCK CRANE OPERATOR documented as of this encounter Care Teams Administrative Support Technician Relationship Specialty Start Date End Date Adeel Jones MD [facility] [place] [id number] PCP - General FAMILY PRACTICE 05/19/23 03/09/24 None, MD Tulio PCP - General UNKNOWN PHYSICIAN SPECIALTY 03/10/24 09/08/24 Ria Topete MD [address] [place] [id number] PCP - General INTERNAL MEDICINE 09/09/24 Ino Tracy MD [address] [address] [address] INTERVENTIONAL CARDIOLOGY 01/02/18 documented as of this encounter
--- OUTSIDE RECORDS SUMMARY | 2024-09-23 08:16 | XMS_ITS | Clinical Summary ---
Author Organization [facility] Tabatha briseno Address [address], [place] [address] Phone Care Team Providers Care Certified Family Mediator Name Role Phone Unavailable Primary Care Provider Unavailabl e Social History Tobacco Use Types Packs/Day Years Used Date Smoking Tobacco: Never Assessed Sex and Gender Information Value Date Recorded Sex Assigned at Not on file Legal Sex Male 8:00 AM MDT Gender Identity Not on file Sexual Orientation Not on file Plan of Treatment Upcoming Encounters Date Type Department Care Team ([facility] st Contact Info) Description 09/30/2024 2:00 PM CDT Office Visit [facility] [address] [facility] [address] [place], [place] [id number] Ron Shane MD [address] [phone] Health Maintenance Due Date Last Done Comments Pneumococcal PPSV23/PCV13 65 + Years / Low and Medium Risk (1 of 2 - PCV) 2008 Influenza Vaccine (#1) 2024
--- OUTSIDE RECORDS SUMMARY | 2024-09-23 08:16 | XMS_ITS | Clinical Summary ---
Author Organization [facility] Address [address] [place] [address] Care Team Providers Care Steel Roller Name Role Phone Ino Tracy MD Unavailable Ria Topete MD Primary Care Provider [phone] Allergies Active Allergy Reactions Criticality Noted Date Comments Aspirin Nausea and Vomiting 06/20/2018 Cephalexin Hives 06/20/2018 Lisinopril Cough,Other (see comment) 09/09/2024 LOW BP Penicillin V Anaphylaxis High 06/20/2018 Medications vitamin D3 (CHOLECALCIFEROL ) 25 mcg tablet [...] as needed (shortness of breath). 360 mL 024 Active atorvastatin (LIPITOR) 80 MG tablet Take 1 tablet (80 mg total) by mouth nightly at bedtime. 30 tablet Active HUMALOG KWIKPEN 100 UNIT/ML injection (PEN) Inject 2 Units into the skin 3 (three) times daily before meals. Active albuterol sulfate HFA (VENTOLIN HFA) 108 (90 Base) MCG/ACT inhalerIndicatio ns:Chronic obstructive pulmonary disease, unspecified COPD type (CMS/HCC HHS/HCC) Inhale 2 puffs into the lungs every 6 (six) hours as needed for Wheezing. 18 g 5 Active busPIRone (BUSPAR) 10 MG tabletIndication s:Paranoid schizophrenia (CMS/HCC HHS/HCC) Take 1 tablet (10 mg total) [...] DULoxetine (CYMBALTA) 20 MG capsuleIndicatio ns:Paranoid schizophrenia (CMS/HCC HHS/HCC) Take 1 capsule (20 mg total) by mouth daily. Takes 20 mg + 60 mg = 80 mg TDD. 60 capsule 2 Active DULoxetine (CYMBALTA) 60 MG capsuleIndicatio ns:Paranoid schizophrenia (CMS/HCC HHS/HCC) Take 1 capsule (60 mg total) by mouth daily. Takes 60 mg + 20 mg = 80 mg TDD 60 capsule 2 Active clopidogrel (PLAVIX) 75 MG tabletIndication s:Hyperlipidemia , mixed TAKE 1 TABLET(75 MG) BY MOUTH DAILY 90 tablet 3 Active gabapentin (NEURONTIN) 600 MG tabletIndication s:Chronic pain syndrome Take 1 tablet (600 mg total) by mouth 3 (three) times daily. 90 tablet 2 Active ondansetron (ZOFRAN) 4 MG tablet Take 1 tablet (4 mg total) by mouth every 8 (eight) hours as needed for Nausea. 20 tablet Active LORazepam (ATIVAN) 0.5 MG tabletIndication s:Anxiety Take 1 tablet (0.5 mg total) by mouth 2 (two) times daily as needed for Anxiety. 10 tablet Active aspirin EC 81 MG tablet Take [...] tablet (10 mg total) by mouth daily. 2025 Active traZODone (DESYREL) 100 MG tablet Take 2 tablets (200 mg total) by mouth nightly at bedtime. Active omeprazole 20 MG capsule Take 1 capsule (20 mg total) by mouth daily. 2024 Discontinued traZODone 150 MG tablet Take 1 tablet (150 mg total) by mouth nightly at bedtime. 2024 Discontinued glipiZIDE (GLUCOTROL) 5 MG tablet Take 1 tablet (5 mg total) by mouth every morning before breakfast. 2024 Discontinued(S top Taking at Discharge) metoprolol succinate ER (TOPROL-XL) 25 MG 24 hr tablet Take 1 tablet (25 mg total) by mouth daily. 30 tablet 2024 Discontinued potassium chloride CR (KLOR-CON M) 10 MEQ tablet Take 1 tablet (10 mEq total) by mouth every other day. 2024 Discontinued lisinopril (PRINIVIL) 10 MG tablet Take 1 tablet (10 mg total) by mouth daily. 30 tablet 024 2024 Discontinued(O ering Physician) nitroglycerin (NITROSTAT) 0.[address] 1 tablet (0.4 mg total) under the tongue every 5 (five) minutes as needed for Chest Pain. Maximum of 3 doses.THEN CALL 911 25 tablet 2 024 2024 Discontinued ARIPiprazole (ABILIFY) 5 MG tabletIndication s:Paranoid schizophrenia ([facility]) Take 1 tablet (5 mg total) by mouth nightly at bedtime. 30 tablet 2 024 2024 Discontinued famotidine (PEPCID) 40 MG tabletIndication s:Gastroesophage al reflux disease without esophagitis Take 1 tablet (40 mg total) by mouth nightly at bedtime. 90 tablet 3 024 2024 Discontinued Fluticasone-Umec lidin-Vilant (TRELEGY ELLIPTA) 200-62.5-25 MCG/ACT AEROSOL POWDER, BREATH ACTIVATEDIndicat ions:Chronic obstructive pulmonary disease, unspecified COPD type ([facility]) Inhale 1 puff into the lungs daily. Rinse and spit after use 90 each 3 024 2024 Discontinued furosemide (LASIX) 40 MG tabletIndication s:Essential hypertension Take 1 tablet (40 mg total) by mouth daily. 30 tablet 024 2024 Discontinued(S top Taking at Discharge) guaiFENesin (ROBITUSSIN) 100 MG/5ML solution Take 10 [...] AT 5AM, 12PM, 5PM, 11PM 12 tablet 024 2024 Discontinued losartan (COZAAR) 25 MG tablet Take 0.5 tablets (12.5 mg total) by mouth daily. 30 tablet 1 025 2024 Discontinued(S top Taking at Discharge) Active Problems Problem Noted Date Diagnosed Date Acute on chronic renal failure 09/12/2024 Bipolar I disorder, most rec ent episode depressed ([facility]) 03/19/2024 Diastolic heart failure ([facility]) 2024 Paresis of lower extremity ([facility]) 11/2024 Sepsis ([facility]) 02/22/2024 COVID-19 01/15/2024 Erectile dysfunction, unspecified [...] location 07/19/2023 DAVID (acute kidney injury) 07/10/2023 Cigarette nicotine dependence without complicati on 07/09/2023 Class 1 obesity due to exces s calories with serious comorbidity and body mass index (BMI) of 30.0 to 30.9 in adult 07/09/2023 Diabetic peripheral neuropathy ([facility]) 07/09/2023 Hyperlipidemia, mixed 06/26/2023 COPD (chronic obstructive pu lmonary disease) ([facility]) 06/19/2023 NSTEMI (non-ST elevated myoc ardial infarction) ([facility]) 05/27/2023 Acute respiratory failure with hypoxia ([facility]) 05/19/2023 Pancreatitis ([facility]) 05/06/2021 COPD exacerbation ([facility]) 09/25/2020 Chronic respiratory failure with hypoxia ([facility]) 06/28/2020 Atherosclerosis of aorta 01/06/2020 Moderate episode of recurrent major depressive d isorder 09/25/2018 History of stroke 09/25/2018 Paranoid schizophrenia ([facility]) 019 Tobacco user 01/16/2018 Anxiety 10/08/2017 Rheumatoid arthritis ([facility]) 8 Trochanteric bursitis of right hip 09/23/2017 Bipolar disorder ([facility]) 09/23/2017 Gastroesophageal reflux disease without esophagi tis 02/21/2017 Essential hypertension 02/15/2017 Hernia, inguinal 02/15/2017 Diabetes mellitus ([facility]) 02/15/2017 Fibromyalgia 02/15/2017 Chronic pain syndrome 02/15/2017 Arteriosclerosis of coronary artery 02/15/2017 Encounters Date Type Department Care Team Description 09/14/[address] [facility], [address] [address] Sisi Woods MD Information (Provider Request) 09/13/2024 Travel 09/12/2024 8:28 PM CDT - 09/18/2024 10:15 AM CDT Hospital Encounter [facility] [place] [address] Marie Lester MD Alexander, Kaci M, DO McHale, Sara A, MD Lamonica, MD Aftab Faulkner Stephanie L, Discharge Disposition: Alf Facility 09/09/2024 2:00 PM CDT Office Visit [facility], [address] [address] Sisi Woods MD CHF; Coronary Artery Disease (Last seen 2023) 09/09/2024 Travel from Last 3 Months Immunizations Immunization Administration [...] from your doctor or pharmacy? Never 01/15/2024 [employer] Answer Date Recorded In the past 12 months has e [employer] gas, oil, or water [employer] threatened to shut off services in your home? No 09/13/2024 Humiliation, Afraid, Rape, and Kick questionnair e Answer Date Recorded Within the last year, have y ou been afraid of your partner or ex-partner? No 09/13/2024 Within the last year, have y ou been humiliated or emotionally abused in other ways by your partner or ex-partner? No Within the last year, have y ou been kicked, hit, slapped, or otherwise physically hurt by your partner or ex-partner? No 09/13/2024 Within the last year, have y ou been raped or forced to have any kind of sexual activity by your partner or ex-partner? No 09/13/2024 Social Connection and Isolation Panel [NHANES] A nswer Date Recorded In a typical week, how many times do you talk on the phone with family, friends, or neighbors? Twice a week 01/15/2024 How often do you get together with friends or re latives? Never 01/15/2024 How often do you attend hinduism or congregation serv ices? Never 01/15/2024 Do you belong to any clubs o r organizations such as hinduism groups, unions, fraternal or athletic groups, or [...] medical care, and heating? Not very hard 09/13/2024 PHQ-2 Answer Date Recorded Patient Health Questionnaire-2 Score 0 12/31/2023 [facility] - Occupational [...] the money to buy more. Never true 09/14/19 25 Within the past 12 months, t he food you bought just didn't last and you didn't have money to get more. Never true 09/13/2024 PRAPARE - Transportation Answer Date Re corded In the past 12 months, has l ack of transportation kept you from medical appointments or from getting medications? No 08/2024 In the past 12 months, has l ack of transportation kept you from meetings, work, or from getting things needed for daily living? No 09/13/2024 Housing Stability Vital Sign Answer Shahab e [...] the mortgage or rent on time? No 09/13/2024 In the past 12 months, how m any times have you moved where you were living? 2 09/13/2024 At any time in the past 12 m [facility], were you homeless or living in a assisted (including now)? No 09/13/2024 Sex and Gender Information Value Date Recorded Sex Assigned at Male 09/26/2020 2:43 AM CDT Legal Sex Male 11:34 PM CDT Gender Identity Male 09/26/2020 2:43 AM CDT Sexual Orientation Straight 09/26/2020 2: 43 AM CDT Last Filed Vital Signs Vital Sign Reading Time Taken Comments Blood Pressure 144/80 09/18/2024 7:44 AM CDT Pulse 68 09/18/2024 7:44 AM CDT Temperature 36.8 C (98.2 F) 09/18/2024 7:44 AM CDT Respiratory Rate 17 09/18/2024 7:44 AM CDT Oxygen Saturation 100% 09/18/2024 7:44 AM CDT Inhaled Oxygen Concentration - - Weight 80.3 kg (177 lb) 09/18/2024 4:41 AM CDT Height 172.7 cm (5' 7.99) 09/12/2024 9:00 PM CD T Body Mass Index 26.92 09/12/2024 9:00 PM CDT Plan of Treatment Health Maintenance Due Date Last Done Comments ASCVD Statin 1960 Diabetes: Retinopathy Eye Exam 1976 DTaP, Tdap and Td Vaccines (1 - Tdap) 1977 Zoster Vaccines (1 of 2) 2008 RSV Immunization or 60+ Years (1 - Risk 60-74 years 1-dose series) 2018 Annual Medicare Wellness Visit 2023 COVID-19 Vaccine ( season) 2023 12/18/2021, 11/02/2020, 08/03/2020 PHQ-2 (Physician [place]) 03/11/2024 12/31/2023 Hemoglobin A1C 05/11/2024 11/12/2023, 06/0 06/2023, 05/27/2023, Additional history exists Lipid Panel 09/23/2024 09/24/2023, 06/0 06/2023, 05/27/2023, Additional history exists Kidney Health Evaluation 09/30/2024 10/01/2023 Lung Cancer Screening 03/25/2025 03/25/2024 , 02/25/2024, 02/22/2024, Additional history exists Colorectal Cancer Screening FIT/FOBT (1 Year) 09/14/2025 09/14/2024 Pneumococcal Vaccine: 50+ Years Completed 07/09/2023 Hepatitis C Completed 08/13/2023 AAA SCREENING Completed 09/13/2024, 03/11, 03/25/2024, Additional history exists Meningococcal B Vaccine Aged [...] at home upon discharge 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[place], 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 Procedure Name Priority Date/Time Associated Diagnosis Comments CBC W/DIFF AUTOMATED BHAVIN 09/18/2024 7:06 AM CDT BASIC METABOLIC PANEL Routine 09/18/2024 5:57 AM CDT POCT GLUCOSE - DOCKED DEVICE Routine 09/17/2024 11:17 AM CDT CBC W/DIFF AUTOMATED Routine 09/17/2024 6:19 AM CDT BASIC METABOLIC PANEL Routine 09/17/2024 6:19 AM CDT POCT GLUCOSE - DOCKED DEVICE Routine 09/16/2024 7:35 PM CDT POCT GLUCOSE - DOCKED DEVICE Routine 09/16/2024 5:00 PM CDT POCT GLUCOSE - DOCKED DEVICE Routine 09/16/2024 10:57 AM CDT CBC W/DIFF AUTOMATED Routine 09/16/2024 6:12 AM CDT BASIC METABOLIC PANEL Routine 09/16/2024 6:12 AM CDT POCT GLUCOSE - DOCKED DEVICE Routine 09/16/2024 6:00 AM CDT POCT GLUCOSE - DOCKED DEVICE Routine 09/15/2024 7:31 PM CDT POCT GLUCOSE - DOCKED DEVICE Routine 09/15/2024 3:12 PM CDT POCT GLUCOSE - DOCKED DEVICE Routine 09/15/2024 11:09 AM CDT CBC W/DIFF AUTOMATED Routine 09/15/2024 6:21 AM CDT BASIC METABOLIC PANEL Routine 09/15/2024 6:21 AM CDT POCT GLUCOSE - DOCKED DEVICE Routine 09/15/2024 5:57 AM CDT POCT GLUCOSE - DOCKED DEVICE Routine 09/14/2024 8:36 PM CDT OCCULT BLOOD, FECES Routine 09/14/2024 8 :32 PM CDT POCT GLUCOSE - DOCKED DEVICE Routine 09/14/2024 3:56 PM CDT POTASSIUM, SERUM TIMED 09/14/2024 1:54 PM CDT POCT GLUCOSE - DOCKED DEVICE Routine 09/14/2024 11:32 AM CDT ECG 12-LEAD STAT 09/14/2024 9:53 AM CDT BASIC METABOLIC PANEL Routine 09/14/2024 6:40 AM CDT CBC W/DIFF AUTOMATED Routine 09/14/2024 6:40 AM CDT POCT GLUCOSE - DOCKED DEVICE Routine 09/14/2024 6:12 AM CDT POCT GLUCOSE - DOCKED DEVICE Routine 09/13/2024 8:20 PM CDT POCT GLUCOSE - DOCKED DEVICE Routine 09/13/2024 3:38 PM CDT POCT GLUCOSE - DOCKED DEVICE Routine 09/13/2024 11:35 AM CDT COMPREHENSIVE METABOLIC PANEL Routine 09/13/2024 6:45 AM CDT CBC W/DIFF AUTOMATED Routine 09/13/2024 6:45 AM CDT POCT GLUCOSE - DOCKED DEVICE Routine 09/13/2024 5:44 AM CDT SODIUM URINE RANDOM Routine 09/13/2024 1 :44 AM CDT HC URINALYSIS AUTO W/O MICRO Routine 09/13/2024 1:[address] ABD+PEL WO CON STAT 09/13/2024 1:1 5 AM CDT POCT GLUCOSE - DOCKED DEVICE Routine 09/12/2024 10:31 PM CDT TROPONIN, QUANT STAT 09/12/2024 10:15 PM CDT PRO-BRAIN NATRIURETIC PEPTIDE STAT 09/12/2024 10:15 PM CDT MAGNESIUM STAT 09/12/2024 10:15 PM CDT PARTIAL THROMBOPLASTIN TIME,PTT STAT 09/12/2024 10:15 PM CDT PROTHROMBIN TIME, VENOUS STAT 09/12/2024 10:15 PM CDT CK (CPK) STAT 09/12/2024 10:15 PM CDT CBC W/DIFF AUTOMATED STAT 09/12/2024 10:15 PM CDT COMPREHENSIVE METABOLIC PANEL STAT 09/12/2024 10:15 PM CDT XR CHEST PORTABLE Today 09/12/2024 9:5 0 PM CDT POCT GLUCOSE - DOCKED DEVICE Routine 09/12/2024 9:43 PM CDT POCT GLUCOSE - DOCKED DEVICE Routine 09/12/2024 8:[address] CHEST WO CON STAT 02/25/2024 3:02 PM CONSTRUCTION TECH HEMOGLOBIN, GLYCOSYLATED Routine 11/12/2023 11:24 AM CDT Type 2 diabetes mellitus with stage 3b chronic kidney disease, with long-term current use of insulin LIPID PANEL Routine 09/24/2023 HEPATITIS C ANTIBODY Routine 08/13/2023 11:56 AM CDT Encounter for hepatitis C screening test for low risk patient from Last 3 Months or Most Recently Relevant to Health Maintenance Results * (ABNORMAL) CBC W/DIFF AUTOMATED (09/18/2024 7:06 AM CDT) Only the most recent of7 resultswithin the time period is included. [employer] Signature WBC 9.17 4.5 - 11.0 x10'3/uL 09/18/2024 7:39 AM CDT [facility] RBC 3.64(L) 4.70 - 6.10 x10'6/uL 09/18/2024 7:39 AM CDT [facility] HGB 11.0(L) 14.0 - 18.0 G/DL 09/18/2024 7:39 AM CDT [facility] HCT 33.5(L) 43.0 - 54.0 % 09/18/2024 7:39 AM CDT [facility] MCV 92.0 80.0 - 94.0 FL 09/18/2024 7:39 AM CDT [facility] MCH 30.2 27.0 - 31.0 PG 09/18/2024 7:39 AM CDT [facility] MCHC 32.8 32.0 - 36.0 G/DL 09/18/2024 7:39 AM CDT [facility] RDW 12.4 11.5 - 14.5 % 09/18/2024 7:39 AM CDT [facility] PLT 163 130 - 400 x10'3/uL 09/18/2024 7:39 AM CDT [facility] MPV 10.3 9.3 - 12.2 FL 09/18/2024 7:39 AM CDT [facility] DIFFERENTIAL TYPE AUTOMATED DIFFERENTIAL 09/18/2024 7:39 AM CDT [facility] NEUTROPHILS % 72.7 % 09/18/2024 7:39 AM CDT [facility] LYMPHOCYTES % 17.4 % 09/18/2024 7:39 AM CDT [facility] MONOCYTES % 6.3 % 09/18/2024 7:39 AM CDT [facility] EOSINOPHILS 2.6 % 09/18/2024 7:39 AM CDT [facility] BASOPHILS 0.8 % 09/18/2024 7:39 AM CDT [facility] IMMATURE GRANS % 0.2 % 09/19/19 7:39 AM CDT [facility] ABS. NEUTROPHILS 6.66 1.80 - 7.70 x10'3/uL 09/18/2024 7:39 AM CDT [facility] ABS. LYMPHOCYTES 1.60 1.00 - 4.80 x10'3/uL 09/18/2024 7:39 AM CDT [facility] ABS. MONOCYTES 0.58 0.30 - 0.82 x10'3/uL 09/18/2024 7:39 AM CDT [facility] ABS. EOSINOPHILS 0.24 0.04 - 0.54 x10'3/uL 09/18/2024 7:39 AM CDT [facility] ABS. BASOPHILS 0.07 0.01 - 0.08 x10'3/uL 09/18/2024 7:39 AM CDT [facility] ABS. IMMATURE GRANULOCYTES 0.02 0.00 - 0.49 x10'3/uL 09/18/2024 7:39 AM CDT [facility] 09/18/2024 7:06 AM CDT us Shana Ugalde DO LABORATORY Final Res ult [facility] [address] [place] [address], * (ABNORMAL) BASIC METABOLIC PANEL (09/18/2024 5:57 AM CDT) Only the most recent of5 resultswithin the time period is included. [employer] Signature GLUCOSE 195(H) 70 - 99 MG/DL 09/18/2024 7:12 AM CDT [facility] BUN 15 7 - 18 MG/DL 09/18/2024 7:12 AM T [facility] CREATININE S/P/B 0.59(L) 0.7 - 1.3 MG/DL 09/18/2024 7:12 AM T [facility] SODIUM S/P/B 136 136 - 145 MMOL/L 09/18/2024 7:12 AM T [facility] POTASSIUM S/P/B 3.6 3.5 - 5.1 MMOL/L 09/18/2024 7:12 AM T [facility] CHLORIDE S/P/B 105 97 - 115 MMOL/L 09/18/2024 7:12 AM CDT [facility] CO2 25.9 21 - 32 MMOL/L 09/18/2024 7:12 AM T [facility] CALCIUM S/P/B 8.7 8.5 - 10.1 MG/DL 09/18/2024 7:12 AM T [facility] ANION GAP 5.1 2 - 10 MMOL/L 09/18/2024 7:12 AM T [facility] BUN CREATININE RATIO 25.3 6 - 26 09/18/2024 7:12 AM T [facility] GFR ESTIMATE >90 >90 ML/MIN/1.7 3 M2 09/18/2024 7:12 AM T [facility] Comment: NOTE: eGFR is not calculated for patients <18 years of age or gender unknown. This is an estimated GFR calculation using the new CKD EPI creatinine equation without race and so does not require a correction factor for race. This estimated GFR should not be used for calculating drug doses. 09/18/2024 5:57 AM CDT Shana Ugalde DO LABORATORY Final Res ult Performing Organization Address [facility] Co de Phone Number [facility] [address] [place] [phone], * (ABNORMAL) POCT glucose (09/17/2024 11:17 AM CDT) Only the most recent of20 resultswithin the time period is included. GLUCOSE POC 124(H) 70 - 99 mg/dL 09/17/2024 11:18 AM CDT [facility] 09/17/2024 11:1 7 AM CDT Shana Ugalde DO POCT ORDERABLES - DEVICE Final Result Performing Organization Address [facility] Co de Phone Number [facility] [address] [place] [phone], * OCCULT BLOOD, FECES (09/14/2024 8:32 PM CDT) OCCULT BLOOD FECAL NEGATIVE NEGATIVE 09/14/2024 9:44 PM CDT [facility] STOOL SPECIMEN / Unknown 09/14/2024 8:32 PM CDT Kristi Melgar SURFACE HYDROLOGIST BODY FLUIDS AND STOOLS ORDE RABANDREEA Final Result Performing Organization Address City/[facility]/ZIP Co de Phone Number [facility] [address] [place] [phone], [place] [phone] * (ABNORMAL) POTASSIUM, SERUM (09/14/2024 1:54 PM CDT) POTASSIUM S/P/B 5.3(H) 3.5 - 5.1 MMOL/L 09/14/2024 2:26 PM CDT [facility] 09/14/2024 1:54 PM CDT Jo Tucker MD LABORATORY Final Resu lt [facility] [address] [place] [address], [place] [phone] * ECG 12 lead (09/14/2024 9:53 AM CDT) 09/14/2024 9:53 AM CDT Narrative [facility] - 09/15/2024 1:16 PM CDT [address] Test Date: 2024-09-14 Pat Name: LUIS ALBERTO GARBER Department: 40 Room: [facility] 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: James thomas : 1960 Requested By: JO TUCKER Order Number: [id number] Reading MD: Carlos Ku Measurements Intervals [place] Rate: 61 P: 19 AK: 171 QRS: 103 QRSD: 148 T: 18 QT: 389 QTc: 393 Interpretive Statements SINUS RHYTHM MARKED RIGHT AXIS DEVIATION [QRS AXIS > 100] RIGHT BUNDLE BRANCH BLOCK [120+ ms QRS DURATION, UPRIGHT V1, 40+ ms S IN I/aVL/V4/V5/V6] Compared to ECG 02/23/2024 10:45:20 No significant changes Procedure Note Carlos Ku MD - 09/15/[address] Test Date: 2024-09-14 Pat Name: LUIS ALBERTO GARBER Department: 40 Room: [id number] 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 RAD * (ABNORMAL) COMPREHENSIVE METABOLIC PANEL (09/13/2024 6:45 AM CDT) Only the most recent of2 resultswithin the time period is included. GLUCOSE 80 70 - 99 MG/DL 09/13/2024 7:42 AM CDT [facility] BUN 58(H) 7 - 18 MG/DL 09/13/2024 7:42 AM CDT [facility] CREATININE S/P/B 4.86(H) 0.7 - 1.3 MG/DL 09/13/2024 7:42 AM CDT [facility] SODIUM S/P/B 139 136 - 145 MMOL/L 09/13/2024 7:42 AM CDT [facility] POTASSIUM S/P/B 5.4(H) 3.5 - 5.1 MMOL/L 09/13/2024 7:42 AM CDT [facility] CHLORIDE S/P/B 111 97 - 115 MMOL/L 09/13/2024 7:42 AM CDT [facility] CO2 24.4 21 - 32 MMOL/L 09/13/2024 7:42 AM T [facility] CALCIUM S/P/B 9.6 8.5 - 10.1 MG/DL 09/13/2024 7:42 AM CDT [facility] BILIRUBIN TOTAL S/P/B 0.3 0.2 - 1.2 MG/DL 09/13/2024 7:42 AM CDT [facility] Comment: THIS ASSAY IS NOT RECOMMENDED FOR PATIENTS UNDERGOING TREATMENT WITH ELTROMBOPAG DUE TO THE POTENTIAL FOR FALSELY ELEVATED RESULTS. TOTAL PROTEIN S/P/B 6.4 6.4 - 8.2 G/DL 09/13/2024 7:42 AM T [facility] ALBUMIN S/P/B 2.9(L) 3.4 - 5.0 G/DL 09/13/2024 7:42 AM CDT [facility] AST 13(L) 15 - 37 U/L 09/13/2024 7:42 AM T [facility] ALT 23 16 - 60 U/L 09/13/2024 7:42 AM T [facility] ALKALINE PHOSPHATASE S/P/B 127 50 - 136 U/L 09/13/2024 7:42 AM T [facility] ANION GAP 3.6 2 - 10 MMOL/L 09/13/2024 7:42 AM T [facility] BUN CREATININE RATIO 11.9 6 - 26 09/13/2024 7:42 AM T [facility] A/G RATIO 0.8(L) 1.0 - 2.0 RATIO 09/13/2024 7:42 AM T [facility] GFR ESTIMATE 12(L) >90 ML/MIN/1.7 3 M2 09/13/2024 7:42 AM CDT [facility] Comment: NOTE: eGFR is not calculated for patients <18 years of age or gender unknown. This is an estimated GFR calculation using the new CKD EPI creatinine equation without race and so does not require a correction factor for race. This estimated GFR should not be used for calculating drug doses. 09/13/2024 6:45 AM CDT Kristi Melgar APRN LABORATORY Final Resul t Performing Organization Address [facility] Co de Phone Number [facility] [address] [place] [address], [place] [phone] * SODIUM URINE RANDOM (09/13/2024 1:44 AM CDT) NA RANDOM (U) 60 MMOL/L 09/13/2024 5:45 AM CDT [facility] Comment: NOTE: The reference range and other method performance specifications have not been determined for chemistry testing in this type of body fluid. Results should be integrated into clinical context for interpretation. URINE SPECIMEN / Unknown 09/13/2024 1:44 AM CDT us Amara Herr MD URINE ORDERABLES Final Result Performing Organization Address [facility] Co de Phone Number [facility] [address] [place] [address], [place] [phone] * URINALYSIS (09/13/2024 1:44 AM CDT) SPECIMEN TYPE URINE CLEAN CATCH 09/13/2024 3:38 AM CDT [facility] COLOR (U) LIGHT YELLOW 09/13/2024 4:07 AM CDT [facility] TRANSPARENCY CLEAR 09/13/2024 4:07 AM CDT [facility] SPECIFIC GRAVITY (U) 1.012 1.001 - 1.030 09/13/2024 4:07 AM CDT [facility] U PH 6.0 5.0 - 9.0 09/13/2024 4:07 AM CDT [facility] LEUKOCYTES (U) NEGATIVE NEGATIVE 09/13/2024 4:07 AM CDT [facility] NITRITES NEGATIVE NEGATIVE 09/13/2024 4:07 AM CDT [facility] PROTEIN RANDOM (U) NEGATIVE <30 MG/DL 09/13/2024 4:07 AM CDT [facility] GLUCOSE (U) NORMAL NORMAL MG/DL 09/13/2024 4:07 AM CDT [facility] KETONES MG/DL (U) NEGATIVE NEGATIVE MG/DL 09/13/2024 4:07 AM CDT [facility] UROBILINOGEN NORMAL NORMAL MG/DL 09/13/2024 4:07 AM CDT [facility] BILIRUBIN (U) NEGATIVE NEGATIVE MG/DL 09/13/2024 4:07 AM CDT [facility] BLOOD (U) NEGATIVE NEGATIVE 09/13/2024 4:07 AM CDT [facility] URINE SPECIMEN OBTAINED BY CLEAN CATCH PROCEDURE / Unknown 09/13/2024 1:44 AM CDT us Kristi Melgar SURFACE HYDROLOGIST URINE ORDERABLES Final Resu lt [facility] [address] [place] [address], [place] [phone] * CT ABD+PEL WO CON (09/13/2024 1:15 AM CDT) Anatomical Region Laterality Modality Abdomen Computed Tomogra phy 09/13/2024 1:16 AM CDT Impressions 09/13/2024 1:27 AM CDT Impression: 1. No nephrolithiasis, ureteral stone or hydronephrosis. 2. Bilateral perinephric stranding, nonspecific. Renal infection is not excluded. 3. Atherosclerotic calcifications of the abdominal aorta and iliac vasculature without aneurysm. There is likely hemodynamically significant stenosis of the right common iliac artery and proximal SMA related to calcific plaque. 4. Left inguinal hernia containing only fat. 5. Other chronic and nonemergent findings as above. Referred By: OCHOA GRAY Interpreted By: Dandre Tai MD, 09/13/2024 1:16 AM Narrative 09/13/2024 1:27 AM CDT [place] [address] Examination: CT abdomen and pelvis without IV contrast. Clinical Information: Renal failure. Comparison: CT 02/22/2024 and 02/08/2024. Technique: IV contrast: None Oral contrast: None. Technical comments: Standard technique. Dose reduction: This CT exam was performed using one or more of the following dose reduction techniques: Automated exposure control, adjustment of the mA and/or kV according to patient size, and/or use of iterative reconstruction technique. Findings: LOWER CHEST Heart is normal in size. Bibasilar atelectasis. No pleural or pericardial effusions. UPPER ABDOMEN Liver and bile ducts: Normal in size and contour. No biliary dilatation. Gallbladder: No gallbladder wall thickening or pericholecystic fluid. Pancreas: Extensive calcification of the pancreas with ductal dilation, appearing similar to prior studies and consistent with chronic pancreatitis. No acute inflammatory changes identified at this time. Spleen: Negative. RETROPERITONEUM Adrenals: Negative. Kidneys: No nephrolithiasis, ureteral stone or hydronephrosis. Bilateral perinephric stranding, nonspecific. Lymph nodes: No lymphadenopathy in the abdomen or pelvis. BOWEL AND PERITONEUM Bowel: Normal in caliber and wall thickness. The appendix is normal. Free air or fluid: None. VASCULATURE Atherosclerotic calcifications of the abdominal aorta and iliac vasculature without aneurysm. There is likely hemodynamically significant stenosis of the right common iliac artery related to calcific plaque. There is also likely hemodynamically significant stenosis involving the proximal SMA related to calcific plaque. PELVIS No abnormality. BONES/SOFT TISSUES Left inguinal hernia containing only fat. Mild multilevel spondylosis. Procedure Note Dandre Tai MD - 09/13/2024 [facility] [address] [place], [place] [address] Examination: CT abdomen and pelvis without IV contrast. Clinical Information: Renal failure. Comparison: CT 02/22/2024 and 02/08/2024. Technique: IV contrast: None Oral contrast: None. Technical comments: Standard technique. Dose reduction: This CT exam was performed using one or more of thefollowing dose reduction techniques: Automated exposure control,adjustment of the mA and/or kV according to patient size, and/or use ofiterative reconstruction technique. Findings: LOWER CHEST Heart is normal in size. Bibasilar atelectasis. No pleural or pericardialeffusions. UPPER ABDOMEN Liver and bile ducts: Normal in size and contour. No biliary dilatation. Gallbladder: No gallbladder wall thickening or pericholecystic fluid. Pancreas: Extensive calcification of the pancreas with ductal dilation,appearing similar to prior studies and consistent with chronicpancreatitis. No acute inflammatory changes identified at this time. Spleen: Negative. RETROPERITONEUM Adrenals: Negative. Kidneys: No nephrolithiasis, ureteral stone or hydronephrosis. Bilateralperinephric stranding, nonspecific. Lymph nodes: No lymphadenopathy in the abdomen or pelvis. BOWEL AND PERITONEUM Bowel: Normal in caliber and wall thickness. The appendix is normal. Free air or fluid: None. VASCULATURE Atherosclerotic calcifications of the abdominal aorta and iliacvasculature without aneurysm. There is likely hemodynamically significantstenosis of the right common iliac artery related to calcific plaque.There is also likely hemodynamically significant stenosis involving theproximal SMA related to calcific plaque. PELVIS No abnormality. BONES/SOFT TISSUES Left inguinal hernia containing only fat. Mild multilevel spondylosis. Impression: 1. No nephrolithiasis, ureteral stone or hydronephrosis. 2. Bilateral perinephric stranding, nonspecific. Renal infection is notexcluded. 3. Atherosclerotic calcifications of the abdominal aorta and iliacvasculature without aneurysm. There is likely hemodynamically significantstenosis of the right common iliac artery and proximal SMA related tocalcific plaque. 4. Left inguinal hernia containing only fat. 5. Other chronic and nonemergent findings as above. Referred By: OCHOA GRAY Interpreted By: Dandre Tai MD, 09/13/2024 1:16 AM Kristi Melgar SURFACE HYDROLOGIST CT Final Resul t * (ABNORMAL) PRO-BRAIN NATRIURETIC PEPTIDE (09/12/2024 10:15 PM CDT) PRO-B TYPE NATRIURETIC PEPTIDE 484(H) <125 PG/ML 09/12/2024 11:09 PM CDT [facility] Comment: CUT POINTS ESTABLISHED BY [employer] ON NT PROBNP (ICON) STUDY (2006). AGE INDEPENDENT: <300 PG/ML HAS A 99% NEGATIVE PREDICTIVE VALUE FOR EXCLUDING ACUTE CHF <50 YEARS: >450 PG/ML IS CONSISTENT WITH ACUTE CHF 50-75 YEARS: >900 PG/ML IS CONSISTENT WITH ACUTE CHF >75 YEARS: >1800 PG/ML IS CONSISTENT WITH ACUTE CHF IN PATIENTS WITH RENAL INSUFFICIENCY (GFR <60), >1200 PG/ML YIELDS A DIAGNOSTIC SENSITIVITY AND SPECIFICITY OF 89% AND 72% FOR ACUTE CHF. 09/12/2024 10:1 5 PM CDT Kristi Melgar APRN LABORATORY Final Resul t [facility] [address] [place] [address], [place] [phone] * (ABNORMAL) PARTIAL THROMBOPLASTIN TIME,PTT (09/12/2024 10:15 PM CDT) PTT 24.4(L) 25.1 - 36.5 SEC 09/12/2024 11:06 PM CDT [facility] 09/12/2024 10:1 5 PM CDT Kristi Melgar SURFACE HYDROLOGIST LABORATORY Final Resul t [facility] [address] [place] [address], [place] [phone] * PROTIME/INR, VENOUS (09/12/2024 10:15 PM CDT) PROTIME 11.3 10.2 - 12.9 SEC 09/12/2024 11:06 PM CDT [facility] INR 1.0 09/12/2024 11:06 PM CDT [facility] Comment: Recommended INR Therapeutic Goals: 2.0-3.0 Routine Therapy 2.5-3.5 Mechanical Prosthetic Valves (High Risk) 09/12/2024 10:1 5 PM CDT Kristi Melgar SURFACE HYDROLOGIST LABORATORY Final Resul t Performing Organization Address [facility]/ZIP Co de Phone Number [facility] [address] [place] [address], [place] [phone] * TROPONIN, QUANT (09/12/2024 10:15 PM CDT) TROPONIN I HIGH SENSITIVITY 16 <79 ng/L 09/12/2024 10:47 PM CDT [facility] Comment: HIGH DOSES OF BIOTIN, TROPONIN-SPECIFIC AUTOANTIBODIES, AND ANTIBODY THERAPY CONTAINING HAMA MAY INTERFERE WITH THIS TEST RESULT. CORRELATION TO CLINICAL HISTORY AND PRESENTATION RECOMMENDED. 09/12/2024 10:1 5 PM CDT us Kristi Melgar SURFACE HYDROLOGIST LABORATORY Final Resul t [facility] [address] [place] [address], [place] [phone] * MAGNESIUM (09/12/2024 10:15 PM CDT) MAGNESIUM 2.3 1.8 - 2.4 MG/DL 09/12/2024 11:09 PM CDT [facility] 09/12/2024 10:1 5 PM CDT Kristi Melgar SURFACE HYDROLOGIST LABORATORY Final Resul t Performing Organization Address City/[facility] Co de Phone Number [facility] [address] [place] [address], [place] [phone] * CK (CPK) (09/12/2024 10:15 PM CDT) CPK 181 35 - 232 U/L 09/12/2024 11:09 PM CDT [facility] 09/12/2024 10:1 5 PM CDT us Kristi Melgar SACHA LABORATORY Final Resul t Performing Organization Address [facility] de Phone Number [address] [address], [place] [phone] * XR CHEST PORTABLE (09/12/2024 9:50 PM CDT) Anatomical Region Laterality Modality Chest Radiographic Anna ging 09/13/2024 1:10 AM CDT Impressions 09/13/2024 1:13 AM CDT IMPRESSION: No acute chest disease identified. Referred By: OCHOA GRAY Interpreted By: Dandre Tai MD, 09/13/2024 1:10 AM Narrative 09/13/2024 1:13 AM CDT [facility] [employer] [address] Examination: XR CHEST PORTABLE Exam time: 09/12/2024 9:32 PM Clinical history: Dyspnea. Comparison: Radiographs 02/25/2024 and 02/22/2024. Technique: AP image of the chest. Findings: The heart appears normal in size. Coronary artery stents are noted. Calcifications are present within the thoracic aorta. No vascular congestion or sizable pleural effusion. No consolidative airspace opacities or pneumothorax. Procedure Note Dandre Tai MD - 09/13/[address] [address] Examination: XR CHEST PORTABLE Exam time: 09/12/2024 9:32 PM Clinical history: Dyspnea. Comparison: Radiographs 02/25/2024 and 02/22/2024. Technique: AP image of the chest. Findings: The heart appears normal in size. Coronary artery stents arenoted. Calcifications are present within the thoracic aorta. No vascularcongestion or sizable pleural effusion. No consolidative airspaceopacities or pneumothorax. IMPRESSION: No acute chest disease identified. Referred By: OCHOA GRAY Interpreted By: Dandre Tai MD, 09/13/2024 1:10 AM Kristi Melgar SURFACE HYDROLOGIST GENERAL IMAGING Final Resul t * CT CHEST WO CON (02/25/2024 3:02 PM CONSTRUCTION TECH) Anatomical Region Laterality Modality Chest Computed Tomogra phy 02/25/2024 3:43 PM CONSTRUCTION TECH Impressions 02/25/2024 4:02 PM CONSTRUCTION TECH IMPRESSION:===== 1. Increasing but minimal left pleural [...] as described above. Referred By: Interpreted By: Luis Alberto Stewart MD, 02/25/2024 3:43 PM Narrative 02/25/2024 4:02 PM CONSTRUCTION TECH [facility] [address] [place], [place] [address] EXAMINATION: CT Chest without contrast EXAM DATE/TIME: 02/25/2024 2:57 PM REASON FOR EXAM: abnormal cxr COMPARISON: Chest x-ray from [facility] and multiple exams for 02/22/2024 [...] spine. Indwelling catheters: None ===== Procedure Note Luis Alberto Stewart MD - 02/25/2024 [facility] [address] [place], [place] [address] EXAMINATION: CT Chest without contrast EXAM DATE/TIME: 02/25/2024 2:57 PM REASON FOR EXAM: abnormal cxr COMPARISON: Chest x-ray from [facility] and multiple exams for02/22/2024 TECHNIQUE: [...] as described above. Referred By: Interpreted By: Luis Alberto Stewart MD, 02/25/2024 3:43 PM John Cordero MD CT Final Result * A1C (BACK OFFICE) (11/12/2023 11:24 AM CDT) HGB A1C 6.6 % GREGORY MENDEZ 11/12/2023 11:2 4 AM CDT Adeel Jones MD LABORATORY Final Result [facility] [address] [place] [address], * LIPID PANEL (09/24/2023) CHOLESTEROL 120 HDL 30 TRIGLYCERIDES 175 LDL (CALCULATED) 55 09/24/2023 Default History Genericprovider LABORATORY Final Result * HEPATITIS C ANTIBODY ([facility] ONLY) (08/13/2023 11:56 AM CDT) HEPATITIS C AB NON-REACTI VE NON-REACT SRINIVASAN 08/13/2023 9:58 PM CDT [facility] Comment: ANTIBODIES TO HCV NOT DETECTED. DOES NOT EXCLUDE THE POSSIBILITY OF EXPOSURE TO HCV. 08/13/2023 11:5 6 AM CDT us Adeel Jones MD LABORATORY Final Result [facility] [address] [place] [address], [phone] from Last 3 Months or Most Recently Relevant to Health Maintenance Insurance MEDICAID [facility] Advance Directives Documents on File Type Date Recorded Patient Comfort Station Supervisor Expl anation Advance Directives and Living Will 05/10/2021 09/30/20 SIGNED POLS T FORM Advance Directives and Living Will 10/10/2017 1:54 PM POLST FORM 05/24/17 Advance Directives and Living Will 10/07/2017 SADVANCE DIRECTIVES * Full Code (Latest Code Status on File) Date Activated Date Inactivated Comments 09/12/2024 9:25 PM 09/18/2024 12:20 PM * Full Code Date Activated Date Inactivated Comments 02/22/2024 12:35 PM 02/26/2024 5:21 PM * Full Code Date Activated Date Inactivated Comments 01/15/2024 4:03 AM 01/19/2024 5:00 PM * Full Code Date Activated Date Inactivated Comments 07/10/2023 4:04 AM 07/11/2023 1:47 PM * Full Code Date Activated Date Inactivated Comments 06/18/2023 10:15 PM 06/21/2023 2:07 PM Care Teams Steel Roller Relationship Specialty Start Date End Date Ria Topete MD [address] [place] [address] PCP - General INTERNAL MEDICINE 09/09/24 Ino Tracy MD [facility] [address] [place] [address] Gerber Pivot Maker INTERVENTIONAL CARDIOLOGY 01/02/18
--- OUTSIDE RECORDS SUMMARY | 2024-09-23 08:16 | XMS_ITS | Patient Health Record ---
Author Organization [facility] As NXTM Address [address] [facility] [address] [place] [address] Care Team Providers Care Condenser Tester Name Role Phone Junaid Painter Unavailable [phone] Reason For Referral No Information Medications Medication SIG (Take, Route, Frequency, Duration) Notes Start Date End Date Status Mirtazapine 45 MG Oral Ac tive LORazepam 0.5 MG Oral Act jason Celecoxib 200 MG Oral Act jason Simvastatin 40 MG Oral Ac tive Daliresp 500 MCG Oral Act jason traZODone HCl 150 MG Oral Active Triamcinolone Acetonide 0.1% External Active Spiriva HandiHaler 18 MCG Inhalation Active QUEtiapine Fumarate 50 MG Oral Active Gabapentin 600 MG Oral Ac tive Aspirin-Dipyridamole ER 25-200 mg Oral Active Acetaminophen-Codeine #3 300-30 MG Oral Active cloNIDine HCl 0.1 MG Oral Active Mirtazapine 30 MG Oral Ac tive Latanoprost 0.005 % Ophthalmic Active ProAir HFA 108 (90 Base) MCG/ACT Inhalation Active HYDROcodone-Acetaminoph en 10-325 MG Oral Active DULoxetine HCl 60 MG Oral Active LORazepam 1 MG Oral Activ e Nicotrol 10 mg Inhalation Acti ve Melatonin *Pick strength-form from [employer] for eRX* Active Fluticasone Propionate Diskus 50 MCG/ACT Inhalation *Reorder from [employer] for eRx and Interaction Alerts* Active Sulfamethoxazole-Trimet hoprim 800-160 MG Oral Active levoFLOXacin 500 MG Oral Active Gabapentin 300 MG Oral Ac tive Gabapentin 400 MG Oral Ac tive Omeprazole 20 MG Oral Act jason Serevent Diskus 50 MCG/DOSE Inhalation Active Daliresp 250 mcg ORAL Act jason Cyclobenzaprine HCl 10 MG Oral Active DULoxetine HCl 30 MG Oral Active Plan Of Treatment No Information Insurance Providers Payer Name Payer Address Payer Phone Subscriber Number Group Number Insured Name Patient Relationship to Insured Coverage Start Date Coverage End Date Medicare-I l Medicare [address] [place] [address] [id number] LUIS ALBERTO DENNY Self - patient is the insured Medicaid-I l Medicaid [address] [address] [place] [address] [id number] LUIS ALBERTO DENNY Self - patient is the insured
[2024-09-23 08:47] LABS: Anion Gap 7 mmol/L (4-12); Blood Urea Nitrogen 21 mg/dL (9-20); Calcium 9.6 mg/dL (8.4-10.2); Carbon Dioxide 24 mmol/L (22-30); Chloride 112 mmol/L (98-107); Estimated Glomerular Filt Rate 36; Osmolality Calculated 297 mOsm/kg (285-295); Potassium 4.6 mmol/L (3.4-5.0); Sodium 143 mmol/L (137-145)
[2024-09-23 09:14] LABS: Glucose 54 mg/dL (65-110)
== END 2024-09-23 08:11 | disposition home or self-care (01) ==
LOC: CHSLAB 08:14
DX: N17.9 Acute kidney failure, unspecified (principal)
CPT/HCPCS: 36415; 80048

== ENCOUNTER 2024-09-25 06:44 | Outpatient (NON) | payer MEDICARE, MEDICAID, SELFPAY ==
--- OUTSIDE RECORDS SUMMARY | 2024-09-25 06:50 | XMS_ITS | Clinical Summary ---
Author Organization [facility] briseno Address [address] [place] [address] Phone Care Team Providers Care Applications Project Manager Name Role Phone Unavailable Primary Care Provider Unavailabl e Social History Tobacco Use Types Packs/Day Years Used Date Smoking Tobacco: Never Assessed Sex and Gender Information Value Date Recorded Sex Assigned at Not on file Legal Sex Male 8:00 AM MDT Gender Identity Not on file Sexual Orientation Not on file Plan of Treatment Upcoming Encounters Date Type Department Care Team ([facility] Contact Info) Description 09/30/2024 2:00 PM CDT Office Visit [facility] [address] [facility] [address] [place], [place] [id number] Ron Shane MD [address] [id number] Health Maintenance Due Date Last Done Comments Pneumococcal PPSV23/PCV13 65 + Years / Low and Medium Risk (1 of 2 - PCV) 2008 Influenza Vaccine (#1) 2024 Insurance [employer] MEDICARE [facility]
--- OUTSIDE RECORDS SUMMARY | 2024-09-25 06:50 | XMS_ITS | Patient Health Record ---
Author Organization [facility] As YouTube Address [address] [facility] [address] [place] [address] Care Team Providers Care Professor Of Family Medicine Name Role Phone Junaid Painter Unavailable [phone] Reason For Referral No Information Medications Medication [...] Inhalation Acti ve Melatonin *Pick strength-form from [employer] for eRX* Active Fluticasone Propionate Diskus 50 MCG/ACT Inhalation *Reorder from [employer] for eRx and Interaction Alerts* Active Sulfamethoxazole-Trimet [...] Date Medicare-I l Medicare [address] [place] [address] [id number] LUIS ALBERTO DENNY Self - patient is the insured Medicaid-I l Medicaid [address] [address] [place] [id number] LUIS ALBERTO DENNY Self - patient is the insured
--- OUTSIDE RECORDS SUMMARY | 2024-09-25 06:50 | XMS_ITS | Encounter Summary ---
Author Organization [facility] Address [facility] [place] [address] Care Team Providers Care Stunt Driver Name Role Phone Ino Tracy MD Unavailable Adeel Jones MD Primary Care Provider [phone] None, Provider Primary Care Provider Unavaila Ria Barnes MD Primary Care Provider [phone] Encounter Details Date Type Department Care Team (Late st Contact Info) Description 09/25/2023 Abstract [facility] [address] Tash Nava MA Social History Tobacco Use Types Packs/Day Years Used Date Smoking Tobacco: Former Cigarettes 0.5 50 Q uit: 06/04/2023 Smokeless Tobacco: Never Comments:Patient smoking 2-3 cigarettes a day 09/03/2023. Alcohol Use Standard Drinks/Week Comments No 0 (1 standard drink = 0.6 oz pur e alcohol) [facility] Utilities Answer Date Recorded In the [...] Never 06/18/2023 How often do you attend jewish or zoroastrian serv ices? Never 06/18/2023 Do you belong to any clubs o r organizations such as jewish groups, unions, fraternal or athletic groups, or [...] Recorded Patient Health Questionnaire-2 Score 0 08/13/2023 [facility] [place] of Occupat ional Health - Occupational Stress [...] any time in the past 12 m [facility], were you homeless or living [...] for SNF placement General No Kati Calhoun, MEDICAL REPRESENTATIVE Monitor - able to maintain pain control [...] Rule Out 01/15/2024 01/15/2024 01/15/2024 1:30 AM MEDICAL COORDINATOR PESTICIDE USE COVID-19 Confirmed 01/15/2024 01/15/2024 12:33 AM MEDICAL COORDINATOR PESTICIDE USE COVID-19 Rule Out 02/22/2024 02/22/2024 02/22/2024 10:15 AM MEDICAL COORDINATOR PESTICIDE USE COVID-19 Rule Out 02/25/2024 02/25/2024 02/25/2024 11:15 AM MEDICAL COORDINATOR PESTICIDE USE documented as of this encounter Care Teams Stunt Driver Relationship Specialty Start Date End Date Adeel Jones MD [facility] [place] [id number] PCP - General FAMILY PRACTICE 05/19/23 03/09/24 None, MD Tulio PCP - General UNKNOWN PHYSICIAN SPECIALTY 03/10/24 09/08/24 Ria Topete MD [address] [place] [address] PCP - General INTERNAL MEDICINE 09/09/24 Ino Tracy MD [address] [address] Nigel Stitcher Set Up Operator Automatic INTERVENTIONAL CARDIOLOGY 01/02/18 documented as of this encounter
--- OUTSIDE RECORDS SUMMARY | 2024-09-25 06:50 | XMS_ITS | Clinical Summary ---
Author Organization [facility] Address [address] [place] [address] Care Team Providers Care Green Pipefitter Name Role Phone Ino Tracy MD Unavailable Ria Topete MD Primary Care Provider Allergies Active Allergy Reactions Criticality Noted Date [...] ARIPiprazole (ABILIFY) 5 MG tabletIndication s:Paranoid schizophrenia ([facility]) Take 1 tablet (5 mg [...] ions:Chronic obstructive pulmonary disease, unspecified COPD type ([facility]) Inhale 1 puff into the [...] I disorder, most rec ent episode depressed ([facility]) 03/19/2024 Diastolic heart failure ([facility]) 2024 Paresis of lower extremity ([facility]) 11/2024 Sepsis ([facility]) 02/22/2024 COVID-19 01/15/2024 Erectile dysfunction, unspecified erectile [...] 30.9 in adult 07/09/2023 Diabetic peripheral neuropathy ([facility]) 07/09/2023 Hyperlipidemia, mixed 06/26/2023 COPD (chronic obstructive pu lmonary disease) ([facility]) 06/19/2023 NSTEMI (non-ST elevated myoc ardial infarction) ([facility]) 05/27/2023 Acute respiratory failure with hypoxia ([facility]) 05/19/2023 Pancreatitis ([facility]) 05/06/2021 COPD exacerbation ([facility]) 09/25/2020 Chronic respiratory failure with hypoxia ([facility]) 06/28/2020 Atherosclerosis of aorta 01/06/2020 Moderate episode of recurrent major depressive d isorder 09/25/2018 History of stroke 09/25/2018 Paranoid schizophrenia ([facility]) 019 Tobacco user 01/16/2018 Anxiety 10/08/2017 Rheumatoid arthritis ([facility]) 8 Trochanteric bursitis of right hip 09/23/2017 Bipolar disorder ([facility]) 09/23/2017 Gastroesophageal reflux disease without esophagi tis 02/21/2017 Essential hypertension 02/15/2017 Hernia, inguinal 02/15/2017 Diabetes mellitus ([facility]) 02/15/2017 Fibromyalgia 02/15/2017 Chronic pain syndrome 02/15/2017 Arteriosclerosis of coronary artery 02/15/2017 Encounters Date Type Department Care Team Description 09/14/2024 [facility], [address] [address] Sisi Woods MD Information (Provider Request) 09/13/2024 Travel 09/12/2024 8:28 PM CDT - 09/18/2024 10:15 AM CDT Hospital Encounter [facility] [place] [address] Marie Lester MD Alexander, Kaci M, DO McHale, Sara A, MD Lamonica, MD Aftab Faulkner Stephanie L, Discharge Disposition: Long-Term Facility 09/09/2024 2:00 PM CDT Office Visit [facility], [address] [address] Sisi Woods MD CHF; Coronary Artery Disease [...] from your doctor or pharmacy? Never 01/15/2024 [employer] Answer Date Recorded In the past 12 months has e [employer] gas, oil, or water [employer] threatened to shut off services in your [...] Never 01/15/2024 How often do you attend sikhism or pentecostalism serv ices? Never 01/15/2024 Do you belong to any clubs o r organizations such as sikhism groups, unions, fraternal or athletic groups, or [...] any time in the past 12 m [facility], were you homeless or living in a penitentiary (including now)? No 09/13/2024 Sex and Gender [...] season) 2023 12/18/2021, 11/02/2020, 08/03/2020 PHQ-2 (Physician [place]) 03/11/2024 12/31/2023 Hemoglobin A1C 05/11/2024 11/12/2023, 06/0 [...] at home upon discharge [employer] [place] Morrow, transactional paralegal Procedure Name Priority Date/Time Associated Diagnosis Comments [...] CHEST WO CON STAT 02/25/2024 3:02 PM PHARMACY TECH CUSTOMER SERVICE HEMOGLOBIN, GLYCOSYLATED Routine 11/12/2023 11:24 AM CDT [...] of7 resultswithin the time period is included. [facility] Signature WBC 9.17 4.5 - 11.0 x10'3/uL 09/18/2024 7:[address] [facility] RBC 3.64(L) 4.70 - 6.10 x10'6/uL 09/18/2024 7:[address] [facility] HGB 11.0(L) 14.0 - 18.0 G/DL 09/18/2024 7:[address] [facility] HCT 33.5(L) 43.0 - 54.0 % 09/18/2024 7:[address] [facility] MCV 92.0 80.0 - 94.0 FL 09/18/2024 7:[address] [facility] MCH 30.2 27.0 - 31.0 PG 09/18/2024 7:[address] [facility] MCHC 32.8 32.0 - 36.0 G/DL 09/18/2024 7:[address] [facility] RDW 12.4 11.5 - 14.5 % 09/18/2024 7:[address] [facility] PLT 163 130 - 400 x10'3/uL 09/18/2024 7:[address] [facility] MPV 10.3 9.3 - 12.2 FL 09/18/2024 7:[address] [facility] DIFFERENTIAL TYPE AUTOMATED DIFFERENTIAL 09/18/2024 7:[address] [facility] NEUTROPHILS % 72.7 % 09/18/2024 7:[address] [facility] LYMPHOCYTES % 17.4 % 09/18/2024 7:[address] [facility] MONOCYTES % 6.3 % 09/18/2024 7:[address] [facility] EOSINOPHILS 2.6 % 09/18/2024 7:[address] [facility] BASOPHILS 0.8 % 09/18/2024 7:[address] [facility] IMMATURE GRANS % 0.2 % 09/19/19 7:[address] [facility] ABS. NEUTROPHILS 6.66 1.80 - 7.70 x10'3/uL 09/18/2024 7:[address] [facility] ABS. LYMPHOCYTES 1.60 1.00 - 4.80 x10'3/uL 09/18/2024 7:[address] [facility] ABS. MONOCYTES 0.58 0.30 - 0.82 x10'3/uL 09/18/2024 7:[address] [facility] ABS. EOSINOPHILS 0.24 0.04 - 0.54 x10'3/uL 09/18/2024 7:[address] [facility] ABS. BASOPHILS 0.07 0.01 - 0.08 x10'3/uL 09/18/2024 7:[address] [facility] ABS. IMMATURE GRANULOCYTES 0.02 0.00 - 0.49 x10'3/uL 09/18/2024 7:[address] [facility] 09/18/2024 7:06 AM CDT us Shana Ugalde DO LABORATORY Final Res ult [facility] [address] [place] [address], * (ABNORMAL) BASIC METABOLIC PANEL (09/18/2024 5:57 AM CDT) Only the most recent of5 resultswithin the time period is included. [facility] Signature GLUCOSE 195(H) 70 - 99 MG/DL 09/18/2024 7:[address] [facility] BUN 15 7 - 18 MG/DL 09/18/2024 7:[address] [facility] CREATININE S/P/B 0.59(L) 0.7 - 1.3 MG/DL 09/18/2024 7:[address] [facility] SODIUM S/P/B 136 136 - 145 MMOL/L 09/18/2024 7:[address] [facility] POTASSIUM S/P/B 3.6 3.5 - 5.1 MMOL/L 09/18/2024 7:[address] [facility] CHLORIDE S/P/B 105 97 - 115 MMOL/L 09/18/2024 7:[address] [facility] CO2 25.9 21 - 32 MMOL/L 09/18/2024 7:[address] [facility] CALCIUM S/P/B 8.7 8.5 - 10.1 MG/DL 09/18/2024 7:[address] [facility] ANION GAP 5.1 2 - 10 MMOL/L 09/18/2024 7:[address] [facility] BUN CREATININE RATIO 25.3 6 - 26 09/18/2024 7:[address] [facility] GFR ESTIMATE >90 >90 ML/MIN/1.7 3 M2 09/18/2024 7:[address] [facility] Comment: NOTE: eGFR is not calculated [...] LABORATORY Final Res ult Performing Organization Address [facility] Co de Phone Number [facility] [address] [place] [address], * (ABNORMAL) POCT glucose (09/17/2024 11:17 AM CDT) Only the most recent of20 resultswithin the time period is included. GLUCOSE POC 124(H) 70 - 99 mg/dL 09/17/2024 11:[address] [facility] 09/17/2024 11:1 7 AM CDT Shana Ugalde DO POCT ORDERABLES - DEVICE Final Result Performing Organization Address [facility] Co de Phone Number [facility] [address] [place] [address], * OCCULT BLOOD, FECES (09/14/2024 8:32 PM CDT) OCCULT BLOOD FECAL NEGATIVE NEGATIVE 09/14/2024 9:[address] [facility] STOOL SPECIMEN / Unknown 09/14/2024 8:32 PM CDT Kristi Melgar UNDERWEAR HEMMER BODY FLUIDS AND STOOLS ORDE RABANDREEA Final Result Performing Organization Address City/[facility]/ZIP Co de Phone Number [facility] [address] [place] [address], [place] [phone] * (ABNORMAL) POTASSIUM, SERUM (09/14/2024 1:54 PM CDT) POTASSIUM S/P/B 5.3(H) 3.5 - 5.1 MMOL/L 09/14/2024 2:[address] [facility] 09/14/2024 1:54 PM CDT Jo Tucker MD LABORATORY Final Resu lt 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: James thomas : 1960 Requested By: JO TUCKER Order Number: [id number] Reading MD: Carlos Ku Measurements Intervals [place] Rate: 61 P: 19 NH: 171 QRS: 103 QRSD: 148 T: 18 QT: 389 QTc: 393 Interpretive Statements SINUS RHYTHM MARKED RIGHT AXIS DEVIATION [QRS AXIS > 100] RIGHT BUNDLE BRANCH BLOCK [120+ ms QRS DURATION, UPRIGHT V1, 40+ ms S IN I/aVL/V4/V5/V6] Compared to ECG 02/23/2024 10:45:20 No significant changes Procedure Note Carlos Ku MD - 09/15/[address] Test Date: 2024-09-14 Pat Name: LUIS ALBERTO GARBER Department: 40 Room: [id number] Gender: Male Securities Lending Trader: James thomas : 1960 Requested By: JO TUCKER Order Number: [id number] Reading MD: Carlos Ku Measurements Intervals [place] Rate: 61 P: 19 NH: 171 QRS: 103 QRSD: 148 T: 18 QT: 389 QTc: 393 Interpretive Statements SINUS RHYTHM MARKED RIGHT AXIS DEVIATION [QRS AXIS > 100] RIGHT BUNDLE BRANCH BLOCK [120+ ms QRS DURATION, UPRIGHT V1, 40+ ms S IN I/aVL/V4/V5/V6] Compared to ECG 02/23/2024 10:45:20 No significant changes us Jo Tucker MD ECG ORDERABLES Final Resu lt [facility] ([facility]) RAD * (ABNORMAL) COMPREHENSIVE METABOLIC PANEL (09/13/2024 6:45 AM CDT) Only the most recent of2 resultswithin the time period is included. GLUCOSE 80 70 - 99 MG/DL 09/13/2024 7:[address] [facility] BUN 58(H) 7 - 18 MG/DL 09/13/2024 7:[address] [facility] CREATININE S/P/B 4.86(H) 0.7 - 1.3 MG/DL 09/13/2024 7:[address] [facility] SODIUM S/P/B 139 136 - 145 MMOL/L 09/13/2024 7:[address] [facility] POTASSIUM S/P/B 5.4(H) 3.5 - 5.1 MMOL/L 09/13/2024 7:[address] [facility] CHLORIDE S/P/B 111 97 - 115 MMOL/L 09/13/2024 7:[address] [facility] CO2 24.4 21 - 32 MMOL/L 09/13/2024 7:[address] [facility] CALCIUM S/P/B 9.6 8.5 - 10.1 MG/DL 09/13/2024 7:[address] [facility] BILIRUBIN TOTAL S/P/B 0.3 0.2 - 1.2 MG/DL 09/13/2024 7:[address] [facility] Comment: THIS ASSAY IS NOT RECOMMENDED FOR PATIENTS UNDERGOING TREATMENT WITH ELTROMBOPAG DUE TO THE POTENTIAL FOR FALSELY ELEVATED RESULTS. TOTAL PROTEIN S/P/B 6.4 6.4 - 8.2 G/DL 09/13/2024 7:[address] [facility] ALBUMIN S/P/B 2.9(L) 3.4 - 5.0 G/DL 09/13/2024 7:[address] [facility] AST 13(L) 15 - 37 U/L 09/13/2024 7:[address] [facility] ALT 23 16 - 60 U/L 09/13/2024 7:[address] [facility] ALKALINE PHOSPHATASE S/P/B 127 50 - 136 U/L 09/13/2024 7:[address] [facility] ANION GAP 3.6 2 - 10 MMOL/L 09/13/2024 7:[address] [facility] BUN CREATININE RATIO 11.9 6 - 26 09/13/2024 7:[address] [facility] A/G RATIO 0.8(L) 1.0 - 2.0 RATIO 09/13/2024 7:[address] [facility] GFR ESTIMATE 12(L) >90 ML/MIN/1.7 3 M2 09/13/2024 7:[address] [facility] Comment: NOTE: eGFR is not calculated [...] LABORATORY Final Resul t Performing Organization Address [facility] Co de Phone Number [facility] [address] [place] [address], [place] [phone] * SODIUM URINE RANDOM (09/13/2024 1:44 AM CDT) NA RANDOM (U) 60 MMOL/L 09/13/2024 5:[address] [facility] Comment: NOTE: The reference range and other method performance specifications have not been determined for chemistry testing in this type of body fluid. Results should be integrated into clinical context for interpretation. URINE SPECIMEN / Unknown 09/13/2024 1:44 AM CDT us Amara Herr MD URINE ORDERABLES Final Result Performing Organization Address [facility] Co de Phone Number [facility] [address] [place] [address], [place] [phone] * URINALYSIS (09/13/2024 1:44 AM CDT) SPECIMEN TYPE URINE CLEAN CATCH 09/13/2024 3:[address] [facility] COLOR (U) LIGHT YELLOW 09/13/2024 4:[address] [facility] TRANSPARENCY CLEAR 09/13/2024 4:[address] [facility] SPECIFIC GRAVITY (U) 1.012 1.001 - 1.030 09/13/2024 4:[address] [facility] U PH 6.0 5.0 - 9.0 09/13/2024 4:[address] [facility] LEUKOCYTES (U) NEGATIVE NEGATIVE 09/13/2024 4:[address] [facility] NITRITES NEGATIVE NEGATIVE 09/13/2024 4:[address] [facility] PROTEIN RANDOM (U) NEGATIVE <30 MG/DL 09/13/2024 4:[address] [facility] GLUCOSE (U) NORMAL NORMAL MG/DL 09/13/2024 4:[address] [facility] KETONES MG/DL (U) NEGATIVE NEGATIVE MG/DL 09/13/2024 4:[address] [facility] UROBILINOGEN NORMAL NORMAL MG/DL 09/13/2024 4:[address] [facility] BILIRUBIN (U) NEGATIVE NEGATIVE MG/DL 09/13/2024 4:[address] [facility] BLOOD (U) NEGATIVE NEGATIVE 09/13/2024 4:[address] [facility] URINE SPECIMEN OBTAINED BY CLEAN CATCH PROCEDURE / Unknown 09/13/2024 1:44 AM CDT us Kristi Melgar UNDERWEAR HEMMER URINE ORDERABLES Final Resu lt [facility] [address] [place] [address], [place] [phone] * CT ABD+PEL WO CON (09/13/2024 1:15 [...] 1:16 AM Narrative 09/13/2024 1:27 AM CDT [place] [address] Examination: CT abdomen and pelvis without IV [...] Procedure Note Dandre Tai MD - 09/13/2024 [facility] [address] [place], [place] [address] Examination: CT abdomen and pelvis without IV [...] Tai MD, 09/13/2024 1:16 AM Kristi Melgar UNDERWEAR HEMMER CT Final Resul t * (ABNORMAL) PRO-BRAIN NATRIURETIC PEPTIDE (09/12/2024 10:15 PM CDT) PRO-B TYPE NATRIURETIC PEPTIDE 484(H) <125 PG/ML 09/12/2024 11:[address] [facility] Comment: CUT POINTS ESTABLISHED BY INTERNATIONAL [...] Kristi Melgar APRN LABORATORY Final Resul t [facility] [address] [place] [address], [place] [phone] * (ABNORMAL) PARTIAL THROMBOPLASTIN TIME,PTT (09/12/2024 10:15 PM CDT) PTT 24.4(L) 25.1 - 36.5 SEC 09/12/2024 11:[address] [facility] 09/12/2024 10:1 5 PM CDT Kristi Melagr UNDERWEAR HEMMER LABORATORY Final Resul t [facility] [address] [place] [address], [place] [phone] * PROTIME/INR, VENOUS (09/12/2024 10:15 PM CDT) PROTIME 11.3 10.2 - 12.9 SEC 09/12/2024 11:[address] [facility] INR 1.0 09/12/2024 11:[address] [facility] Comment: Recommended INR Therapeutic Goals: 2.0-3.0 Routine Therapy 2.5-3.5 Mechanical Prosthetic Valves (High Risk) 09/12/2024 10:1 5 PM CDT Kristi Melgar UNDERWEAR HEMMER LABORATORY Final Resul t Performing Organization Address [facility]/ZIP Co de Phone Number [facility] [address] [place] [address], [place] [phone] * TROPONIN, QUANT (09/12/2024 10:15 PM CDT) TROPONIN I HIGH SENSITIVITY 16 <79 ng/L 09/12/2024 10:[address] [facility] Comment: HIGH DOSES OF BIOTIN, TROPONIN-SPECIFIC AUTOANTIBODIES, AND ANTIBODY THERAPY CONTAINING HAMA MAY INTERFERE WITH THIS TEST RESULT. CORRELATION TO CLINICAL HISTORY AND PRESENTATION RECOMMENDED. 09/12/2024 10:1 5 PM CDT us Kristi Melgar UNDERWEAR HEMMER LABORATORY Final Resul t [facility] [address] [place] [address], [place] [phone] * MAGNESIUM (09/12/2024 10:15 PM CDT) MAGNESIUM 2.3 1.8 - 2.4 MG/DL 09/12/2024 11:[address] [facility] 09/12/2024 10:1 5 PM CDT Kristi Melgar UNDERWEAR HEMMER LABORATORY Final Resul t Performing Organization Address City/[facility] Co de Phone Number [facility] [address] [place] [address], [place] [phone] * CK (CPK) (09/12/2024 10:15 PM CDT) CPK 181 35 - 232 U/L 09/12/2024 11:[address] [facility] 09/12/2024 10:1 5 PM CDT us Kristi Melgar SACHA LABORATORY Final Resul t Performing Organization Address [facility] de Phone Number [address] [address], [place] [phone] * XR CHEST PORTABLE (09/12/2024 9:50 PM CDT) Anatomical Region Laterality Modality Chest Radiographic Anna ging 09/13/2024 1:10 AM CDT Impressions 09/13/2024 1:13 AM CDT IMPRESSION: No acute chest disease identified. Referred By: OCHOA GRAY Interpreted By: Dandre Tai MD, 09/13/2024 1:10 AM Narrative 09/13/2024 1:13 AM CDT [facility] [address] Examination: XR CHEST PORTABLE Exam time: 09/12/2024 9:32 PM Clinical history: Dyspnea. Comparison: Radiographs 02/25/2024 and 02/22/2024. Technique: AP image of the chest. Findings: The heart appears normal in size. Coronary artery stents are noted. Calcifications are present within the thoracic aorta. No vascular congestion or sizable pleural effusion. No consolidative airspace opacities or pneumothorax. Procedure Note Dandre Tai MD - 09/13/[address] [address] Examination: XR CHEST PORTABLE Exam time: 09/12/2024 [...] Tai MD, 09/13/2024 1:10 AM Kristi Melgar UNDERWEAR HEMMER GENERAL IMAGING Final Resul t * CT CHEST WO CON (02/25/2024 3:02 PM PHARMACY TECH CUSTOMER SERVICE) Anatomical Region Laterality Modality Chest Computed Tomogra phy 02/25/2024 3:43 PM PHARMACY TECH CUSTOMER SERVICE Impressions 02/25/2024 4:02 PM PHARMACY TECH CUSTOMER SERVICE IMPRESSION:===== 1. Increasing but minimal left pleural [...] 02/25/2024 3:43 PM Narrative 02/25/2024 4:02 PM PHARMACY TECH CUSTOMER SERVICE [facility] [address] [place], [place] [address] EXAMINATION: CT Chest without contrast EXAM DATE/TIME: 02/25/2024 2:57 PM REASON FOR EXAM: abnormal cxr COMPARISON: Chest x-ray from [facility] and multiple exams for 02/22/2024 TECHNIQUE: [...] Note Luis Alberto Stewart MD - 02/25/2024 [facility] [address] [place], [place] [address] EXAMINATION: CT Chest without contrast EXAM DATE/TIME: 02/25/2024 2:57 PM REASON FOR EXAM: abnormal cxr COMPARISON: Chest x-ray from [facility] and multiple exams for02/22/2024 TECHNIQUE: Computed [...] LABORATORY Final Result [facility] [address] [place] [address], * LIPID PANEL (09/24/2023) CHOLESTEROL 120 HDL 30 TRIGLYCERIDES 175 LDL (CALCULATED) 55 09/24/2023 Default History Genericprovider LABORATORY Final Result * HEPATITIS C ANTIBODY ([facility] ONLY) (08/13/2023 11:56 AM CDT) HEPATITIS C AB NON-REACTI VE NON-REACT SRINIVASAN 08/13/2023 9:58 PM CDT [facility] Comment: ANTIBODIES TO HCV NOT DETECTED. DOES NOT EXCLUDE THE POSSIBILITY OF EXPOSURE TO HCV. 08/13/2023 11:5 6 AM CDT us Adeel Jones MD LABORATORY Final Result [facility] [address] [place] [address], [id number] from Last 3 Months or Most Recently Relevant to Health Maintenance Insurance MEDICAID [id number] Advance Directives Documents on File Type Date Recorded Patient Operations General Agent Expl anation Advance Directives and Living Will [...] 10:15 PM 06/21/2023 2:07 PM Care Teams Green Pipefitter Relationship Specialty Start Date End Date Ria Topete MD [address] [place] [id number] PCP - General INTERNAL MEDICINE 09/09/24 Ino Tracy MD [facility] [address] [place] [address] Drasco Test Manager INTERVENTIONAL CARDIOLOGY 01/02/18
[2024-09-25 07:39] LABS: Add Urine Microscopic? YES; Appearance Urine Clear (Clear); Glucose Urine UA Negative (Negative); Leukocyte Esterase Ur Negative LEU/UL (Negative); Nitrate Urine Negative (Negative); Specific Grav Ur 1.020 (1.010-1.020)
[2024-09-26 07:09] LABS: Add Urine Microscopic? YES; Appearance Urine Clear (Clear); Glucose Urine UA Negative (Negative); Leukocyte Esterase Ur Negative LEU/UL (Negative); Nitrate Urine Negative (Negative); Specific Grav Ur 1.025 (1.010-1.020)
== END 2024-09-25 06:45 | disposition home or self-care (01) ==
DX: R35.0 Frequency of micturition (principal)
CPT/HCPCS: 81001

== ENCOUNTER 2024-11-04 07:18 | Outpatient (NON) | payer MEDICARE, MEDICAID, SELFPAY ==
--- OUTSIDE RECORDS SUMMARY | 2007-05-22 08:33 | XMS_ITS | Continuity of Care Document ---
Author Organization [facility] Address [address] [place] [address] Phone Care Team Providers Care Parachute Cushion Installer Name Role Phone Maame Becerra Unavailable Unavailable Procedures Procedure Date Eye Exam & Treatment Optic Nerve Head Eval Advance Directives Directive Yes / No Effective Date File Name No Information Encounters Encounter Description Practice Location Reason(s) For Visit Diagnoses Date Provider Providers Copied on Encounter [facility], [address], [place], [place], [id number], [place] tel:[phone] [address] [facility] No Information 3-[address] Mariam Isabel. [address] , [address], [place], [address], [place]. tel:[phone] Family History Family Member Type Diagnosis Age At Onset No Information Payers Payer name Insurance type Covered libertarian ID Authoriza tion(s) Medicare [facility] [id number] Social History Type Description Quantity Date Captured [...]
--- OUTSIDE RECORDS SUMMARY | 2010-06-23 08:40 | XMS_ITS | Continuity of Care Document ---
Author Organization [facility] Address [address] [place] [address] Care Team Providers Care Ems Director Name Role Phone Jahaira HALL, Kristin Unavailable [...] Screened/Identified Tobacco User, Pt Counseled Offic/outpt E&m [facility] Advance Directives Directive Yes / No [...] E[facility], [address] [facility], [place], [place], [facility], [place] [facility] [place] Tobacco AbuseCAD - [place] VesselHistory Of PTCA/Coronary AtherectomyBen ign HypertensionHy percholesterol emia IIa 201 1 Jahaira Gregorio [address] [facility], [address], [facility], [place], [place], [facility], . tel:[phone] Referring Provider: Petra Rosas MD, [address] , [place], [address]. tel:[phone] Family History Family Member Type Diagnosis Age At Onset Father Problem (finding) Father Problem (finding) Myocardial infarction ( Cause Of ) Payers Payer name Insurance type Covered alliance party ID Authoriza tion(s) Medicare [address] [place] [id number] IDPA [id number] Social History Type Description Quantity Date Captured [...]
--- OUTSIDE RECORDS SUMMARY | 2024-08-11 05:10 | XMS_ITS | Continuity of Care Document ---
Author Organization [employer] [place] Address [address] [place] [address] Phone Care Team Providers Care Engine Lathe Set Up Operator Name Role Phone Bethel Leon DO Unavailable [...] MERGE BASIC METABOLIC PANEL(BMP) ROUTINE VENIPUNCTURE OFFICE [id number] BODY MASS INDEX DOCD SYST BP GE 130 - 139MM HG DIAST BP 80-89 MM HG Pt inelig neg scrn depres CBC, INC PLATELETS AND DIFFERENTIAL COMPREHEN METABOLIC PANEL CMP 1 BRAIN NATRIURETIC PEPTIDE (BNP) Apr-20-2 021 THYROID STIMULATION HORMONE(TSH) 2020 ROUTINE VENIPUNCTURE OFFICE [id number] BODY MASS INDEX DOCD SYST BP LT 130 MM HG DIAST BP 80-89 MM HG CBC, INC PLATELETS AND DIFFERENTIAL COMPREHEN METABOLIC PANEL CMP BRAIN NATRIURETIC PEPTIDE (BNP) ROUTINE VENIPUNCTURE Chest Xray, 2 Views OFFICE [id number] BODY MASS INDEX DOCD SYST BP GE 130 - 139MM HG DIAST BP 80-89 MM HG Kept Appointment No Charge Encounter Apr CBC, INC PLATELETS AND DIFFERENTIAL COMPREHEN METABOLIC PANEL CMP LIPID PANEL ROUTINE VENIPUNCTURE OFFICE [id number] BODY MASS INDEX DOCD SYST BP LT 130 MM HG DIAST BP < 80 MM HG PULSE OXIMETRY, MULTIPLE DSCHRG MED/CURRENT MED MERGE OFFICE [id number] BODY MASS INDEX DOCD SYST BP LT [...] FLU VACC 4 MIRYAM 0.5mL DOSAGE OFFICE [id number]-JJV-[id number] BODY MASS INDEX DOCD SYST BP LT 130 MM HG DIAST BP 80-89 MM HG TELEPHONE E&M BY A PHYSICIAN; 01-28 LILLIAN ESTEE TELEPHONE E&M BY A PHYSICIAN; 01-28 LILLIAN ESTEE OFFICE OJZRI-AEG-SAVHTLSG OFFICE FXCRL-UOF-HGADIDKE Depression screen annual Clin depression screen doc CBC, INC PLATELETS AND DIFFERENTIAL COMPREHEN METABOLIC PANEL CMP 9 HEMOGLOBIN A1C HGA1C, GLYCO LIPID PANEL THYROID STIMULATION HORMONE(TSH) 2018 URINALYSIS, REFLEX (UA) DRUG TEST (ANY NUMBER OF DRUG CLASSES) N ROUTINE VENIPUNCTURE [place] OFFICE [id number] SYST BP LT 130 MM HG DIAST [...] Diagnoses Date Provider Providers Copied on Encounter [facility], [address], [place], [place], [address] , tel: [phone] [facility] No Information 5 Marcelle Hugo. [address] [place] [address], [id number], [place]. tel:[phone] [facility], [address], [place], [place], [address] , [place] tel: [phone] [facility] No Information 1 Marcelle Hugo. [address] [place] [address], [id number], [place]. tel:[phone] Referring Provider: Bethel richardson, [address] [place] [address], [address] . tel:[phone] [facility], [address], [place], [place], [address] , [place] tel: [phone] [facility] No Information 1 Marcelle Hugo. [address] [place] [address], [id number], [place]. tel:[phone] [facility], [address], [place], [place], [address] , [place] tel: [phone] [facility] No Information 1 Marcelle Hugo. [address] [place] [address], [id number], [place]. tel:[phone] [facility], [address], [place], [place], [address] , tel: [phone] [facility] No Information 1 Marcelle Hugo. [address] [place] [address], [id number], . tel:[phone] [facility], [address], [place], [place], [address] , tel: [phone] [facility] No Information 1 Christa Friedman. [address] [place] [address], [address], . tel:[phone] [facility], [address], [place], [place], [address] , tel: [phone] [facility] No Information 1 Marcelle Hugo. [address] [place] [address], [id number], [place]. tel:[phone] [facility], [address], [place], [place], [address] , tel: [phone] [facility] No Information 1 Mesfinsam Tracey. [address] [place] [address], [id number], [place]. tel:[phone] OFFICE AUUFQ-UOB-JCU SALMA [facility], [address], [place], [place], [address] , tel: [phone] [facility] Major depressive disorder (chief complaint)Hea rt failure (chief complaint)oth er (chief complaint)Chr onic Conditions (chief complaint) Chronic respiratory failure with hypoxiaChroni c HFpEFNicotine dependence, cigarettes, uncomplicated Polyosteoarth ritis, unspecifiedAt risk for polypharmacyB karie mass index (BMI) 26.0-26.9, adultMajor depressive disorder, recurrent, in partial remission 1 Marcelle Hugo. [address] [place] [address], [id number], [place]. tel:[phone] Referring Provider: Bethel richardson, [address] [place] [address], [address] . tel:[phone] [facility], [address], [place], [place], [address] , tel: [phone] [facility] No Information 1 Marcelle Hugo. [address] [place] [address], [id number], . tel:[phone] OFFICE ITCMK-PSK-KSJ SALMA [facility], [address], [place], [place], [address] , tel: [phone] [facility] acute visit (chief complaint)Chr onic Conditions (chief complaint) Emphysema, unspecifiedCh ronic HFpEFPolyoste oarthritis, unspecifiedMu scle weakness (generalized) Major depressive disorder, recurrent, in partial remissionBipo lar disorder, unspecifiedWe ight lossFecal urgencyChroni c respiratory failure with hypoxia Jun-2 1 Marcelle Hugo. [address] [place] [address], [id number], . tel:[phone] Referring Provider: Bethel richardson, [address] [place] [address], [address] . tel:[phone] [facility], [address], [place], [place], [address] , tel:[phone] [facility] No Information 1 Marcelle Hugo. [address] [place] [address], [id number], [place]. tel:[phone] [facility], [address], [place], [place], [address] , [place] tel:[phone] [facility] No Information 0 1 Marcelle Hugo. [address] [place] [address], [id number], [place]. tel:[phone] OFFICE REAHH-IWC-MUZ SALMA [facility], [address], [place], [place], [address] , tel:[phone] [facility] acute visit (chief complaint)Chr onic Conditions (chief complaint) Chronic obstructive pulmonary disease, unspecifiedLo w back painChronic pain syndromeAcute diastolic (congestive) heart failureBody mass index (BMI) 26.0-26.9, adult 1 Marcelle Hugo. [address] [place] [address], [id number], [place]. tel:[phone] Referring Provider: Bethel richardson, [address] [place] [address], [address] . tel:[phone] [facility], [address], [place], [place], [address] , tel: [phone] [facility] No Information 1 Marcelle Hugo. [address] [place] [address], [id number], [place]. tel:[phone] [facility], [address], [place], [place], [address] , [place] tel: [phone] [facility] No Information 1 Marcelle Hugo. [address] [place] [address], [id number], [place]. [phone] [facility], [address], [place], [place], [address] , [place] tel: [phone] [facility] No Information 1 Marcelle Hugo. [address] [place] [address], [id number], [place]. tel:[phone] [facility], [address], [place], [place], [address] , [place] tel: [phone] [facility] o2 tank (chief complaint) No Information 1 Marcelle Hugo. [address] [place] [address], [id number], [place]. tel:[phone] Referring Provider: Bethel richardson, [address] [place] [address], [address] . tel:[phone] OFFICE UJFLT-NOF-KGC [facility], [address], [place], [place], [address] , tel: [phone] [facility] Emphysema (chief complaint)Chr onic pain syndrome (chief complaint)Hx of acute pancreatitis (chief complaint)oth er (chief complaint)Chr onic Conditions (chief complaint) Body mass index (BMI) 27.0-27.9, adultEmphysem a, unspecifiedCh ronic obstructive pulmonary disease, unspecifiedNi cotine dependence, cigarettes, uncomplicated Bipolar disorder, unspecifiedCh ronic pain syndromePolyo steoarthritis , unspecifiedAt herosclerotic heart disease of solomon coronary artery without angina pectorisMixed hyperlipidemi aHypoxemiaBod y mass index (BMI) 26.0-26.9, adult 1 Marcelle Hugo. [address] [place] [address], [id number], [place]. tel:[phone] Referring Provider: Behtel richardson, [address] [place] [address], [address] . tel:[phone] [facility], [address], [place], [place], [address] , [place] tel: [phone] [facility] No Information 1 Marcelle Hugo. [address] [place] [address], [id number], [place]. tel:[phone] OFFICE VVOKX-VMR-RJU [facility], [address], [place], [place], [address] , [place] tel: [phone] [facility] Hosp. 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 [address] [place] [address], [place], [address], [place]. [phone] Referring Provider: Marsha Brock, [address] [place] [address], [place], [address] . tel:[phone] [facility], [address], [place], [place], [address] , tel: [phone] [facility] No Information 0 Marcelle Hugo. [address] [place] [address], [id number], [place]. [phone] Referring Provider: Bethel richardson, [address] [place] [address], [place], [address] . tel:[phone] [facility], [address], [place], [place], [address] , tel: [phone] [facility] No Information 0 Marcelle Hugo. [address] [place] [address], [id number], [place]. tel:[phone] [facility], [address], [place], [place], [address] , tel: [phone] [facility] Essential hypertensionA cute pancreatitis, unspecified complication status, unspecified pancreatitis typeMixed hyperlipidemi a 0 Christa Gaylin. [address] [place] [address], [place], [address], [place]. tel:[phone] Referring Provider: Bethel richardson, [address] [place] [address], [address] . tel:[phone] Transitional Care- First 7 Days Of Discharge [facility], [address], [place], [place], [address] , tel: [phone] [facility] pancreatitis (chief complaint)Chr onic Conditions (chief complaint) Body mass index (BMI) 24.0-24.9, adultAcute pancreatitis, unspecified complication status, unspecified pancreatitis typeAKI (acute kidney injury)Elevat ed LFTsPulmonary emphysema, unspecified emphysema typeIngrown toenail of both feetEssential hypertension 0 Marjorie Tracey. [address] [place] [address], [place], [place], [address], [place]. tel:[phone] Referring Provider: eBthel richardson, [address] [place] [address], [place], [address] . tel:[phone] [facility], [address], [place], [place], [address] , tel: [phone] [facility] No Information 0 Marcelle Hugo. [address] [place] [address], [id number], [place]. tel:[phone] Referring Provider: Bethel richardson, [address] [place] [address], [place], [address] . tel:[phone] OFFICE PCOKI-EDB-HPS SALMA [facility], [address], [place], [place], [address] , tel: [phone] [facility] acute problem (chief complaint)Chr onic Conditions (chief complaint) Chronic obstructive pulmonary disease, unspecifiedNi cotine dependence, cigarettes, uncomplicated Mixed hyperlipidemi aAtherosclero tic heart disease of solomon coronary artery without angina pectorisFibro myalgiaGastro -esophageal reflux disease without esophagitisMa kobe depressive disorder, recurrent, moderatePolyo steoarthritis , unspecified 0 Marcelle Hugo. [address] [place] [address], [id number], [place]. tel:[phone] Referring Provider: Bethel richardson, [address] [place] [address], [place], [address] . tel:[phone] [facility], [address], [place], [place], [address] , [place] tel: [phone] [facility] Chronic obstructive pulmonary disease, unspecified 0 Marcelle Hugo. [address] [place] [address], [place], [place], [id number], [place]. tel:[phone] TELEPHONE E&M BY A PHYSICIAN; 11-20 MINUTES [facility], [address], [place], [place], [address] , [place] tel: [phone] [facility] Telehealth (chief complaint) Chronic obstructive pulmonary disease, unspecifiedDe pendence on wheelchair 0 Marcelle Hugo. [address] [place] [address], [place], [place], [id number], [place]. tel:[phone] Referring Provider: Bethel richardson, [address] [place] [address], [address] . tel:[phone] TELEPHONE E&M BY A PHYSICIAN; 11-20 MINUTES [facility], [address], [place], [place], [address] , [place] tel: [phone] [facility] Chronic obstructive pulmonary disease, unspecified 0 Marcelle Hugo. [address] [place] [address], [place], [place], [id number], [place]. tel:[phone] Referring Provider: Bethel richardson, [address] [place] [address], [place], [address] . tel:[phone] [facility], [address], [place], [place], [address] , [place] tel: [phone] [facility] Chronic obstructive pulmonary disease, unspecifiedAt hscl heart disease of solomon coronary artery w/o ang pctrs 0 Marcelle Hugo. [address] [place] [address], [place], [place], [address], [place]. tel:[phone] [facility], [address], [place], [place], [address] , [place] tel: [phone] [facility] Chronic obstructive pulmonary disease, unspecified Fe- 0 Marcelle Hugo. [address] [place] [address], [id number], [place]. tel:[phone] OFFICE VKAEY-QXF-TZN [facility], [address], [place], [place], [address] , tel: [phone] [facility] Mattress and Trapeze (chief complaint)Chr onic Conditions (chief complaint) Low back painChronic pain syndromeChron ic obstructive pulmonary disease, unspecifiedFi bromyalgiaDep endence on wheelchairMus brianda weakness (generalized) 0 Marcelle Hugo. [address] [place] [address], [id number], [place]. tel:[phone] Referring Provider: Bethel richardson, [address] [place] [address], [address] . tel:[phone] OFFICE BIGTG-APO-ERV [facility], [address], [place], [place], [address] , tel: [phone] [facility] 1 Month (chief complaint)Chr onic Conditions (chief complaint) Dependence on wheelchairLow back painChronic pain syndromeNicot ine dependence, cigarettes, uncomplicated Chronic obstructive pulmonary disease, unspecified Dec-2 6-201 9 Marcelle Hugo. [address] [place] [address], [id number], [place]. tel:[phone] Referring Provider: Bethel richardson, [address] [place] [address], [address] . tel:[phone] [facility], [address], [place], [place], [address] , tel: [phone] [facility] Low back pain Dec-0 2-201 9 Marclele Hugo. [address] [place] [address], [id number], [place]. 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 [address] [place] [address], [id number], [place]. tel:[phone] Referring Provider: Bethel richardson, [address] [place] [address], [address] . tel:[phone] [facility], [address], [place], [place], [address] , tel: [phone] [facility] Chronic obstructive pulmonary disease, unspecifiedCh ronic pain syndromeLow back painDependenc e on wheelchairPer roxy history of other endocrine, nutritional and metabolic diseaseFecal urgencyAthero sclerotic heart disease of solomon coronary artery without angina pectorisMild epistaxisCell ulitis of finger, rightNeed for influenza vaccination 8 Marcelle Hugo. [address] [place] [address], [id number], [place]. tel:[phone] Referring Provider: Bethel richardson, [address] [place] [address], [address] . tel:[phone] [facility], [address], [place], [place], [address] , tel: [phone] [facility] follow up (chief complaint)Chr onic Conditions (chief complaint) Atherosclerot ic heart disease of solomon coronary artery without angina pectorisLow back painChronic pain syndromeFibro myalgiaMixed hyperlipidemi aGastro-esoph ageal reflux disease without esophagitisPo lyosteoarthri tis, unspecifiedTo bacco useChronic obstructive pulmonary disease, unspecified Marcelle Hugo. [address] [place] [address], [id number], . tel:[phone] Referring Provider: Bethel richardson, [address] [place] [address], [address] . tel:[phone] [facility], [address], [place], [place], [address] , tel: [phone] [facility] No Information Marcelle Hugo. [address] [place] [address], [id number], . tel:[phone] [facility], [address], [place], [place], [address] , tel: [phone] [facility] Chronic pain syndromePain of right hip jointChronic sinusitis, unspecified locationTobac co useChronic obstructive pulmonary disease, unspecified COPD typeGeneraliz ed osteoarthriti s Marcelle Hugo. [address] [place] [address], [id number], . tel:[phone] Referring Provider: Bethel richardson, [address] [place] [address], [address] . tel:[phone] Family History Family Member Type Diagnosis Age [...] Record Payers Payer name Insurance type Covered democrat ID Authoradalberto morataya(s) [employer] MDCR PPO PLANS [id number] [place] [employer] [id number] [facility] [id number] [place] [facility] [id number] Social History Type Description Quantity Date Captured [...] and counseling completed Referral Referred To: NIKI [id number] Ordered: Chest Xray, 2 Views ordered Referral Referred To: Light Weight Manual Wheelchair Ordered: Referrals: Light Weight Manual Wheelchair Appointment date/timeframe: 07/08/2020 ordered Referral Referred To: Portable Oxygen Concentrator NIKI [id number] Ordered: Referrals: Portable Oxygen Concentrator Appointment date/timeframe: 05/26/2020 ordered Referral Referred To: Samuel Jiménez Ordered: Referrals: Podiatry. Samuel Jiménez. Evaluation/diagnostic/treatment - Level 3 Appointment date/timeframe: 05/26/2020 ordered Referral Referred To: Shen Minor MD [address] [facility]
[address] [place], [phone] Ordered: Referrals: Pulmonology. Shen Minor MD. Evaluation/diagnostic/treatment - Level 3 ordered Referral Referred To: Home Care [id number] Ordered: Referrals: Home Care. Location: [facility]. Evaluate and treat - Level 2 ordered Referral Referred To: Nebulizer Ordered: Referrals: Referrals: Nebulizer ordered Referral Referred To: Nebulizer Ordered: Referrals: Nebulizer ordered Referral Referred To: Occupational Therapy [facility] [facility] [address] [place], [phone] Ordered: Referrals: Occupational Therapy. Location: [facility]. Evaluation/diagnostic/treatment - Level 3 ordered Referral Referred To: Physical Therapy [address] [facility] [place], [phone] Ordered: Referrals: Physical Therapy. Location: [facility] Physical Therapy. 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 but states that he is unable to care for himself the rest of the timehe was resistant to snf care in the past because he did not want to sacrifice all of his income, but he states that this is what he needs to do now for his health and well beingMid back pain x2 daysBilateral hip pain, worse in rightRadiating down legsrelatively well controlled on current medicationsPrefers to stay at [facility] Camille Denies swelling in lower extremitiesShortness of [...] with new home care worker, Patti for [facility] 03/03 [facility] 03/04Admitted due to altered mental status/encephalopathyhistory [...] hospital, pt has been taking all at [place], will continue as bp is stableAKI: cr [...] aide Natalie Chronic Conditions *See Chronic Conditions [facility] Telehealth This visit was c ompleted [...] the morning. Chronic Conditions *See Chronic Conditions [facility] Chronic Conditions *See Chronic Conditions [facility] 1 Month [facility] a [facility] follow [facility]. Patient states he hasn't been [...] nose. Also states he needs a good professional services specialist and psychiatrist. Chronic Conditions *See Chronic Conditions [facility] Chronic Pain Here today for c hronic pain. Also patient would like something for his right elbow to not use it as much.pt comes back into my care. was seen by home care - Kristi Figueroa as well as [facility] MANAGER DRUG Ami Rich. did not like [facility] because [...] trouble affording the medications, you can call [phone] as they may be able to provide [...] if we can have you admitted to [facility] in [place] Related to Chronic HFpEF We will continue [...] regimen. Related to Atherosclerotic heart disease of solomon coronary artery without angina pectoris Continue rosuvastatin [...] trouble affording the medications, you can call [phone] as they may be able to provide [...] rosuvastatin Related to Atherosclerotic heart disease of solomon coronary artery without angina pectoris no change in other m edicationscall with any worsening of symptoms Related to Bipolar disorder, unspecified work on smoking less I recommend you quit smoking. If you have trouble affording the medications, you can call [phone] may be able to provide some at [...] send you to the lung doctor at [facility] Dr Woods to schedule an appointment [...] regimen. Related to Atherosclerotic heart disease of solomon coronary artery without angina pectoris At this time we will continue the same medications Related to Fibromyalgia continue omeprazole Related to G jean paul-esophageal reflux disease without esophagitis continue simvastatin Related to Mixed hyperlipidemia I recommend you quit smoking. If you have trouble affording the medications, you can call [phone] as they may be able to provide [...] pulmonary disease, unspecified Continue [facility] for chair maintenance. 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 Related to Atherosclerotic heart disease of solomon coronary artery without angina pectoris Fall Risk Prevention Urinary Incontinence Assessments Type Assessment Date No Information Patient Care Teams Name Effective Dates (start - stop) Status Members No Information
--- OUTSIDE RECORDS SUMMARY | 2024-11-04 07:28 | XMS_ITS | Patient Health Record ---
Author Organization [facility] [employer] Address [address] [facility] [address] [place] [address] Care Team Providers Care Television Maintenance Worker Name Role Phone Junaid Painter Unavailable [phone] Reason For Referral No Information Medications Medication SIG (Take, Route, Frequency, Duration) Notes Start Date End Date Status Mirtazapine 45 MG Tablet Oral Active LORazepam 0.5 MG Tablet Oral Active Celecoxib 200 MG Capsule Oral Active Simvastatin 40 MG Tablet Oral Active Daliresp 500 MCG Tablet Oral Active traZODone HCl 150 MG Tablet Oral Active Triamcinolone Acetonide 0.1% Cream External Active Spiriva HandiHaler 18 MCG Capsule Inhalation Active QUEtiapine Fumarate 50 MG Tablet Oral Active Gabapentin 600 MG Tablet Oral Active Aspirin-Dipyridamole ER 25-200 mg Capsule Extended Release 12 Hour Oral Active Acetaminophen-Codeine #3 300-30 MG Tablet Oral Active cloNIDine HCl 0.1 MG Tablet Oral Active Mirtazapine 30 MG Tablet Oral Active Latanoprost 0.005 % Solution Ophthalmic Active ProAir HFA 108 (90 Base) MCG/ACT Aerosol Solution Inhalation Active HYDROcodone-Acetaminoph en 10-325 MG Tablet Oral Active DULoxetine HCl 60 MG Capsule Delayed Release Particles Oral Active LORazepam 1 MG Tablet Oral Active Nicotrol 10 mg Inhaler Inhalation Active Melatonin *Pick strength-form from [employer] for eRX* Active Fluticasone Propionate Diskus 50 MCG/ACT Aerosol Powder Breath Activated Inhalation *Reorder from [employer] for eRx and Interaction Alerts* Active Sulfamethoxazole-Trimet hoprim 800-160 MG Tablet Oral Active levoFLOXacin 500 MG Tablet Oral Active Gabapentin 300 MG Capsule Oral Active Gabapentin 400 MG Capsule Oral Active Omeprazole 20 MG Capsule Delayed Release Oral Acti ve Serevent Diskus 50 MCG/DOSE Aerosol Powder Breath Activated Inhalation Active Daliresp 250 mcg TABLET ORAL Active Cyclobenzaprine HCl 10 MG Tablet Oral Active DULoxetine HCl 30 MG Capsule Delayed Release Particles Oral Active Social History Social History Additional Details Category Social Info Options Details Migrated Social History Migrated Social History Tobacco Years: Smoker - current status unknown 12/20/2017 Plan Of Treatment No Information Insurance Providers Payer Name Payer Address Payer Phone Subscriber Number Group Number Insured Name Patient Relationship to Insured Coverage Start Date Coverage End Date Medicare-I l Medicare [address] [place] [address] [id number] LUIS ALBERTO DENNY Self - patient is the insured Medicaid-I l Medicaid [address] [address] [place] [id number] LUIS ALBERTO DENNY Self - patient is the insured
--- OUTSIDE RECORDS SUMMARY | 2024-11-04 07:28 | XMS_ITS | Clinical Summary ---
Author Organization [facility] Tabatha briseno Address [address] [place] [phone] Phone Care Team Providers Care Home Economist Name Role Phone Unavailable Primary Care Provider Unavailabl e Allergies Active Allergy Reactions Criticality Noted Date Comments Aspirin 09/29/2024 Cephalexin 09/29/2024 Lisinopril 09/29/2024 Penicillins 09/29/2024 Medications albuterol HFA (PROVENTIL HFA) 108 (90 Base) MCG/ACT inhaler Inhale 2 puffs every 6 (six) hours if needed for wheezing Active ARIPiprazole (ABILIFY) 10 MG tablet Take 10 mg by mouth 1 (one) time each day Active aspirin (ST BJ) 81 MG EC tablet Take 81 mg by mouth 1 (one) time each day Active atorvastatin (LIPITOR) 80 MG tablet Take 80 mg by mouth 1 (one) time each day Active busPIRone (BUSPAR) 10 MG tablet Take 10 mg by mouth in the morning and 10 mg in the evening. Active clopidogrel (PLAVIX) 75 MG tablet Take 75 mg by mouth 1 (one) time each day Active Diclofenac Sodium 1 % gel Apply 4 g topically 4 (four) times a day if needed Active DULoxetine (CYMBALTA) [address] capsule Take 80 mg by mouth 1 (one) time each day Active ferrous sulfate 325 (65 Fe) MG tablet Take 325 mg by mouth 1 (one) time each day with breakfast Active gabapentin (NEURONTIN) 600 MG tablet Take 1,200 mg by mouth in the morning and 1,200 mg in the evening and 1,200 mg before bedtime. Active Insulin Lispro (HUMALOG IJ) Inject 4 Units as directed in the morning and 4 Units at noon and 4 Units in the evening. Active Ipratropium-Albu terol (DUONEB IN) Inhale 4 (four) times a day if needed Active isosorbide mononitrate (IMDUR) 30 MG 24 hr tablet Take 30 mg by mouth 1 (one) time each day Active latanoprost (XALATAN) 0.005 % ophthalmic solution 1 drop every night Active loratadine (CLARITIN) 10 MG tablet Take 10 mg by mouth 1 (one) time each day Active LORazepam (ATIVAN) 0.5 MG tablet Take 0.5 mg by mouth 2 (two) times a day if needed for anxiety Active ondansetron (ZOFRAN) 4 MG tablet Take 4 mg by mouth every 6 (six) hours if needed for nausea or vomiting Active pantoprazole (PROTONIX) 20 MG EC tablet Take 20 mg by mouth 1 (one) time each day before breakfast Active tiZANidine (ZANAFLEX) 4 MG tablet Take 4 mg by mouth at bed time Active traMADol (ULTRAM) 50 MG tablet Take 50 mg by mouth every 6 (six) hours if needed for moderate pain Active traZODone (DESYREL) 100 MG tablet Take 200 mg by mouth every night Active insulin glargine (LANTUS) 100 UNIT/ML injection Inject 18 Units under the skin every night Active eszopiclone (LUNESTA) 1 MG tablet Take 1 mg by mouth every night Take immediately before bedtime Active acetaminophen (TYLENOL) 325 MG tablet Take 650 mg by mouth every 4 (four) hours if needed for mild pain Active Roflumilast 500 MCG tablet Take 1 tablet by mouth every morning Active Fluticasone-Umec lidin-Vilant (Trelegy Ellipta) 200-62.5-25 MCG/ACT aerosol powder Inhale 1 puff 1 (one) time each day in the morning Active lisinopril (PRINIVIL) 10 MG tablet Take 10 mg by mouth 1 (one) time each day Active glipiZIDE (GLUCOTROL) 10 MG tablet Take 10 mg by mouth 1 (one) time each day Active fluticasone (FLONASE) 50 MCG/ACT nasal spray Administer 1 spray into each nostril 1 (one) time each day Shake gently. Before first use, prime pump. After use, clean tip and replace cap. Active Active Problems Problem Noted Date Diagnosed Date Acute nontraumatic kidney injury 09/29/2024 Stage 3 chronic kidney disease 09/29/2024 Hyperkalemia 09/29/2024 Anemia in chronic kidney disease 09/29/2024 Hypertensive renal disease 09/29/2024 Hyperlipidemia 09/29/2024 Encounters Date Type Department Care Team Description 09/30/2024 2:00 PM CDT Office Visit [facility] [address] [facility] [address] [place] [address] Ron Shane MD Retention of urine, not otherwise specified (Primary Dx); Stage 3 chronic kidney disease, not otherwise specified (CMS-HCC); Hypertensive renal disease from Last 3 Months Family History Medical History Relation Comments Heart attack Maternal Grandmother COPD Mother Heart attack Mother Sleep apnea Mother Heart attack Paternal Grandfather Relation Status Comments Maternal Grandmother Alive Mother Paternal Grandfather Alive Social History Tobacco Use Types Packs/Day Years Used Date Smoking Tobacco: Former Cigarettes Smokeless Tobacco: Never Alcohol Use Standard Drinks/Week Comments Never 0 (1 standard drink = 0.6 oz pur e alcohol) Sex and Gender Information Value Date Recorded Sex Assigned at Not on file Legal Sex Male 8:00 AM MDT Gender Identity Not on file Sexual Orientation Not on file Last Filed Vital Signs Vital Sign Reading Time Taken Comments Blood Pressure 106/69 09/30/2024 2:17 PM CDT Pulse 73 09/30/2024 2:17 PM CDT Temperature - - Respiratory Rate - - Oxygen Saturation - - Inhaled Oxygen Concentration - - Weight 83.9 kg (185 lb) 09/30/2024 2:17 PM CDT Height - - Body Mass Index - - Plan of Treatment Upcoming Encounters Date Type Department Care Team ([facility] st Contact Info) Description 11/11/2024 11:40 AM CDT Office Visit [facility] [address] [facility] [address] [place] [address] Ron Shane MD [address] [place] [phone] Health Maintenance Due Date Last Done Comments Pneumococcal PPSV23/PCV13 65 + Years / High and Highest Risk (1 of 5 - PCV) 1979 Influenza Vaccine (#1) 2024 Insurance [employer] MEDICARE [facility]
[2024-11-04 09:17] LABS: Alanine Aminotransferase 19 U/L (6-50); Albumin Level 3.6 g/dL (3.5-5.1); Alkaline Phosphatase 113 U/L (38-126); Anion Gap 7 mmol/L (4-12); Aspartate Amino Transferase 17 U/L (17-59); Bilirubin,Total 0.3 mg/dL (0.2-1.3); Blood Urea Nitrogen 11 mg/dL (9-20); Calcium 10.3 mg/dL (8.4-10.2); Carbon Dioxide 28 mmol/L (22-30); Chloride 105 mmol/L (98-107); Cholesterol 115 mg/dL (0-200); Estimated Glomerular Filt Rate > 60; Glucose 131 mg/dL (65-110); HDL Direct 48 mg/dL; Osmolality Calculated 291 mOsm/kg (285-295); Potassium 4.8 mmol/L (3.4-5.0); Sodium 140 mmol/L (137-145); Total Protein 6.0 g/dL (6.3-8.2); Triglycerides 78 mg/dL (<150)
[2024-11-04 09:21] LABS: Hematocrit 35.7 % (37.0-46.0); Hemoglobin 11.4 g/dL (12.4-15.3); Mean Corpuscular HGB Conc 31.9 g/dL (32-36); Mean Corpuscular Hemoglobin 30.5 pg (27.0-31.0); Mean Corpuscular Volume 95.5 fL (78.0-102.0); Platelet Count Result 221 K/mm3 (150-420); Red Blood Count 3.74 M/mm3 (4.70-6.10); White Blood Count 9.6 K/mm3 (4.8-10.8)
[2024-11-04 09:27] LABS: Hemoglobin A1C 6.4 % (<5.7)
[2024-11-04 09:48] LABS: Thyroid Stimulating Hormone 0.653 uIU/mL (0.465-4.680)
[2024-11-04 10:23] LABS: Vitamin B12 377.0 pg/mL (239-931)
== END 2024-11-04 07:19 | disposition home or self-care (01) ==
LOC: CHSLAB 07:22
DX: N17.9 Acute kidney failure, unspecified (principal); J44.9 Chronic obstructive pulmonary disease, unspecified; E11.649 Type 2 diabetes mellitus with hypoglycemia without coma; J96.01 Acute respiratory failure with hypoxia; G62.9 Polyneuropathy, unspecified
CPT/HCPCS: 36415; 80053; 80061; 82607; 82746; 83036; 84436; 84443; 85027

== ENCOUNTER 2024-11-10 13:25 | Outpatient (CLI) | payer MEDICARE, MEDICAID, SELFPAY ==
--- OUTSIDE RECORDS SUMMARY | 2007-05-22 08:33 | XMS_ITS | Continuity of Care Document ---
Author Organization [facility] Address [address] [place] [address] Phone Care Team Providers Care Director Of Perioperative Services Name Role Phone Maame Becerra Unavailable Unavailable Procedures Procedure Date Eye Exam & Treatment Optic Nerve Head Eval Advance Directives Directive Yes / No Effective Date File Name No Information Encounters Encounter Description Practice Location Reason(s) For Visit Diagnoses Date Provider Providers Copied on Encounter [facility], [address], [place], [place], [id number], [place] tel:[phone] SEC [facility] No Information 3-200 8 Mariam Isabel. [address] , [address], [place], [address], [place]. tel:[phone] Family History Family Member Type Diagnosis Age At Onset No Information Payers Payer name Insurance type Covered green party ID Authoriza tion(s) Medicare [facility] [id number] Social History Type Description Quantity Date Captured Comments Sex Male Smoking Status No Information Chief Complaint And Reason For Visit No Information Reason For Referral Reason For Referral No Information History Of Present Illness Encounter Date Complaint History Of Prese nt Illness No Information Functional Status Date Functional Assessmen t No Information Instructions Date Instruction Additional Infor mation No Information Assessments Type Assessment Date No Information Patient Care Teams Name Effective Dates (start - stop) Status Members No Information
--- OUTSIDE RECORDS SUMMARY | 2010-06-23 08:40 | XMS_ITS | Continuity of Care Document ---
Author Organization [facility] Address [address] [place] [address] Care Team Providers Care Recovery Auditor Name Role Phone Jahaira HALL, Kristin Unavailable Unavailable Allergies, Adverse Reactions, Alerts Substance Reaction Status Criticality CEPHALEXIN MONOHYDRATE Unknown Active No In formation aspirin Nausea/Vomiting Active No Informati on Penicillins Hives Active No Information Medications Medication Instructions Dosage Effective Dates (start - stop) Status Comments metformin 500 mg Tab take 1 tablet (500M G) by mouth every morning - Active ProAir HFA 90 mcg/Actuation Aerosol Inhaler inhale 1 puff by inhalation route every 4 hours as needed - Active tramadol 50 mg Tab take 1 tablet (50MG) by mouth 3 times every day as needed - Active divalproex ER 500 mg 24 hr Tab take 1 tablet (500MG) by oral route 4 times every day 500 MG - Active Oysco 500/D 500 mg (1,250 mg)-200 unit Tab take 1 tablet by mouth two times daily - Active gabapentin 400 mg Cap take 1 capsule (40 0MG) by oral route 3 times every day 400 MG - Active Lyrica 25 mg Cap take 2 capsule (50MG ) by oral route 2 times every day 50 MG - Active ALBUTEROL 90 MCGAEROSOL inhale 1 puff by inhalation route every 4 hours as needed - Active Travatan 0.004 % Eye Drops instill 1 drop by ophthalmic route every day into affected eye(s)in the evening - Active metoprolol tartrate 25 mg Tab take 1/2 tablet (12.5MG) by oral route 2 times every day - Active folic acid 1 mg Tab take 1 tablet (1MG) by oral route every day 1 MG - Active aspirin 81 mg Tab take 1 tablet (81MG) by oral route every day 81 MG - Active Seroquel 400 mg Tab take 1 tablet (400MG ) by mouth at bedtime - Active Altace 1.25 mg Tab take 1 tablet (1.25M G) by mouth daily - Active Seroquel 50 mg Tab take 1 tablet (50MG) by mouth at bedtime - Active mirtazapine 30 mg Tab take 1 tablet (30M G) by mouth every day before bedtime - Active benztropine 1 mg Tab take 1 tablet (1MG) by oral route 2 times every day 1 MG - Active fluphenazine 5 mg Tab take 1 tablet (5MG ) by mouth 4 times per day - Active Vitamin B-1 50 mg Tab take 2 Tablet by m outh every day - Active simvastatin 40 mg Tab take 1 tablet (40M G) by mouth every evening - Active Procedures Procedure Date Antiplatelet Therapy Prescribed 011 Use Of CCHIT Certified EMR Most Recent Systolic BP < 140 1 Most Recent Diastolic BP < 90 1 Lipid Profile Not Performed LDL Not Performed Pt Screened/Identified Tobacco User, Pt Counseled Offic/outpt E&[facility] Advance Directives Directive Yes / No Effective Date File Name Resuscitation Not Answered N/A N/A Life Support Not Answered N/A N/A Intubation Not Answered N/A N/A Antibiotics Not Answered N/A N/A IV Fluid Support Not Answered N/A N/A Tube Feed Not Answered N/A N/A Other Directive N/A N/A WARNING:The information contained in this section is historical and is provided for information only and does not constitute a legal document or any assurance that the information is still accurate. Please verify the information with the gibbons of the legal document before using it for clinical purposes. Encounters Encounter Description Practice Location Reason(s) For Visit Diagnoses Date Provider Providers Copied on Encounter Offic/outpt [facility], [address], [place], [place], [facility], [place] CVA [place] Tobacco AbuseCAD - [place] VesselHistory Of PTCA/Coronary AtherectomyBen ign HypertensionHy percholesterol emia IIa 201 1 Jahaira Gregorio [address] [facility] [address], [address], [facility], [place], [place], [facility], . tel:[phone] Referring Provider: Petra Rosas MD, [address] , [place], [address]. tel:[phone] Family History Family Member Type Diagnosis Age At Onset Father Problem (finding) Father Problem (finding) Myocardial infarction ( Cause Of ) Payers Payer name Insurance type Covered alliance party ID Authoriza tion(s) Medicare [address] [place] [id number] IDPA [id number] Social History Type Description Quantity Date Captured Comments Alcohol Use Details No Caffeine Use Details Unknown Tobacco Use Status Smoking Status No Information Sex Male Vital Signs Date / Time: Height Weight BMI Pulse Rate Blood Pressure Temperature Respiratory Rate Body Surface Area Head Circumference Head Circ. Percentile Wt./Jeremy. Percentile BMI percentile Pulse Ox Inhaled Ox 1:47 PM 67.00 in 68.180 kg (150.00 lbs) 23.6 0 kg/m eter (2) 91 /min 100/78 mm[Hg] 97 % Chief Complaint And Reason For Visit No [...]
--- OUTSIDE RECORDS SUMMARY | 2024-08-11 05:10 | XMS_ITS | Continuity of Care Document ---
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 Name Role Phone Bethel Leon DO Unavailable [...] MERGE BASIC METABOLIC PANEL(BMP) ROUTINE VENIPUNCTURE OFFICE [id number] BODY MASS INDEX DOCD SYST BP GE 130 - 139MM HG DIAST BP 80-89 MM HG Pt inelig neg scrn depres CBC, INC PLATELETS AND DIFFERENTIAL COMPREHEN METABOLIC PANEL CMP 1 BRAIN NATRIURETIC PEPTIDE (BNP) Apr-20-2 021 THYROID STIMULATION HORMONE(TSH) 2020 ROUTINE VENIPUNCTURE OFFICE [id number] BODY MASS INDEX DOCD SYST BP LT 130 MM HG DIAST BP 80-89 MM HG CBC, INC PLATELETS AND DIFFERENTIAL COMPREHEN METABOLIC PANEL CMP BRAIN NATRIURETIC PEPTIDE (BNP) ROUTINE VENIPUNCTURE Chest Xray, 2 Views OFFICE [id number] BODY MASS INDEX DOCD SYST BP GE 130 - 139MM HG DIAST BP 80-89 MM HG Kept Appointment No Charge Encounter Apr CBC, INC PLATELETS AND DIFFERENTIAL COMPREHEN METABOLIC PANEL CMP LIPID PANEL ROUTINE VENIPUNCTURE OFFICE [id number] BODY MASS INDEX DOCD SYST BP LT 130 MM HG DIAST BP < 80 MM HG PULSE OXIMETRY, MULTIPLE DSCHRG MED/CURRENT MED MERGE OFFICE [id number]-[id number] BODY MASS INDEX DOCD SYST BP LT [...] FLU VACC 4 MIRYAM 0.5mL DOSAGE OFFICE [id number] BODY MASS INDEX DOCD SYST BP LT 130 MM HG DIAST BP 80-89 MM HG TELEPHONE E&M BY A PHYSICIAN; 01-28 LILLIAN ESTEE TELEPHONE E&M BY A PHYSICIAN; 01-28 LILLIAN ESTEE OFFICE PMILV-MVG-SJOEKLTH OFFICE [id number]-[id number] Depression screen annual Clin depression screen doc CBC, INC PLATELETS AND DIFFERENTIAL COMPREHEN METABOLIC PANEL CMP 9 HEMOGLOBIN A1C HGA1C, GLYCO LIPID PANEL THYROID STIMULATION HORMONE(TSH) 2018 URINALYSIS, REFLEX (UA) DRUG TEST (ANY NUMBER OF DRUG CLASSES) N ROUTINE VENIPUNCTURE [place] OFFICE [id number] SYST BP LT 130 MM HG DIAST [...] Diagnoses Date Provider Providers Copied on Encounter [facility], [address], [place], [place], [address] , tel: [phone] [facility] No Information 5 Marcelle Hugo. [address] [place] [address], [id number], [place]. tel:[phone] [facility], [address], [place], [place], [address] , [place] tel: [phone] [facility] No Information 1 Marcelle Hugo. [address] [place] [address], [id number], [place]. tel:[phone] Referring Provider: Bethel richardson, [address] [place] [address], [address] . tel:[phone] [facility], [address], [place], [place], [address] , [place] tel: [phone] [facility] No Information 1 Marcelle Hugo. [address] [place] [address], [id number], [place]. tel:[phone] [facility], [address], [place], [place], [address] , [place] tel: [phone] [facility] No Information 1 Marcelle Hugo. [address] [place] [address], [id number], [place]. tel:[phone] [facility], [address], [place], [place], [address] , tel: [phone] [facility] No Information 1 Marcelle Hugo. [address] [place] [address], [id number], . tel:[phone] [facility], [address], [place], [place], [address] , tel: [phone] [facility] No Information 1 Christa Friedman. [address] [place] [address], [id number], . tel:[phone] [facility], [address], [place], [place], [address] , tel: [phone] [facility] No Information 1 Marcelle Hugo. [address] [place] [address], [id number], [place]. tel:[phone] [facility], [address], [place], [place], [address] , tel: [phone] [facility] No Information 1 Mesfinsam Tracey. [address] [place] [address], [id number], [place]. tel:[phone] OFFICE DWTII-KVJ-KCQ SALMA [facility], [address], [place], [place], [address] , tel: [phone] [facility] Major depressive disorder (chief complaint)Hea rt failure (chief complaint)oth er (chief complaint)Chr onic Conditions (chief complaint) Chronic respiratory failure with hypoxiaChroni c HFpEFNicotine dependence, cigarettes, uncomplicated Polyosteoarth ritis, unspecifiedAt risk for polypharmacyB karie mass index (BMI) 26.0-26.9, adultMajor depressive disorder, recurrent, in partial remission 1 Marcelle Hugo. [address] [place] [address], [id number], [place]. tel:[phone] Referring Provider: Bethel richardson, [address] [place] [address], [address] . tel:[phone] [facility], [address], [place], [place], [address] , tel: [phone] [facility] No Information 1 Marcelle Hugo. [address] [place] [address], [id number], . tel:[phone] OFFICE APDXJ-PFJ-VUG SALMA [facility], [address], [place], [place], [address] , tel: [phone] [facility] acute visit (chief complaint)Chr onic Conditions (chief complaint) Emphysema, unspecifiedCh ronic HFpEFPolyoste oarthritis, unspecifiedMu scle weakness (generalized) Major depressive disorder, recurrent, in partial remissionBipo lar disorder, unspecifiedWe ight lossFecal urgencyChroni c respiratory failure with hypoxia Jun-2 1 Marcelle Hugo. [address] [place] [address], [id number], . tel:[phone] Referring Provider: Bethel richardson, [address] [place] [address], [address] . tel:[phone] [facility], [address], [place], [place], [address] , tel:[phone] [facility] No Information 1 Marcelle Hugo. [address] [place] [address], [id number], [place]. tel:[phone] [facility], [address], [place], [place], [address] , [place] tel:[phone] [facility] No Information 0 1 Marcelle Hugo. [address] [place] [address], [id number], [place]. tel:[phone] OFFICE VYFBO-BIJ-CIK SALMA [facility], [address], [place], [place], [address] , tel:[phone] [facility] acute visit (chief complaint)Chr onic Conditions (chief complaint) Chronic obstructive pulmonary disease, unspecifiedLo w back painChronic pain syndromeAcute diastolic (congestive) heart failureBody mass index (BMI) 26.0-26.9, adult 1 Marcelle Hugo. [address] [place] [address], [id number], [place]. tel:[phone] Referring Provider: Bethel richardson, [address] [place] [address], [address] . tel:[phone] [facility], [address], [place], [place], [address] , tel: [phone] [facility] No Information 1 Marcelle Hugo. [address] [place] [address], [id number], [place]. tel:[phone] [facility], [address], [place], [place], [address] , [place] tel: [phone] [facility] No Information 1 Marcelle Hugo. [address] [place] [address], [id number], [place]. [phone] [facility], [address], [place], [place], [address] , [place] tel: [phone] [facility] No Information 1 Marcelle Hugo. [address] [place] [address], [id number], [place]. tel:[phone] [facility], [address], [place], [place], [address] , [place] tel: [phone] [facility] o2 tank (chief complaint) No Information 1 Marcelle Hugo. [address] [place] [address], [id number], [place]. tel:[phone] Referring Provider: Bethel richardson, [address] [place] [address], [address] . tel:[phone] OFFICE EILVU-SPR-NOA [facility], [address], [place], [place], [address] , tel: [phone] [facility] Emphysema (chief complaint)Chr onic pain syndrome (chief complaint)Hx of acute pancreatitis (chief complaint)oth er (chief complaint)Chr onic Conditions (chief complaint) Body mass index (BMI) 27.0-27.9, adultEmphysem a, unspecifiedCh ronic obstructive pulmonary disease, unspecifiedNi cotine dependence, cigarettes, uncomplicated Bipolar disorder, unspecifiedCh ronic pain syndromePolyo steoarthritis , unspecifiedAt herosclerotic heart disease of [place] coronary artery without angina pectorisMixed hyperlipidemi aHypoxemiaBod y mass index (BMI) 26.0-26.9, adult 1 Marcelle Hugo. [address] [place] [address], [id number], [place]. tel:[phone] Referring Provider: Bethel richardson, [address] [place] [address], [address] . tel:[phone] [facility], [address], [place], [place], [address] , [place] tel: [phone] [facility] No Information 1 Marcelle Hugo. [address] [place] [address], [id number], [place]. tel:[phone] OFFICE BLEFU-XCH-PMS [facility], [address], [place], [place], [address] , [place] tel: [phone] [facility] Hosp. 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 [address] [place] [address], [place], [address], [place]. [phone] Referring Provider: Marsha Brock, [address] [place] [address], [place], [address] . tel:[phone] [facility], [address], [place], [place], [address] , tel: [phone] [facility] No Information 0 Marcelle Hugo. [address] [place] [address], [id number], [place]. [phone] Referring Provider: Bethel richardson, [address] [place] [address], [place], [address] . tel:[phone] [facility], [address], [place], [place], [address] , tel: [phone] [facility] No Information 0 Marcelle Hugo. [address] [place] [address], [id number], [place]. tel:[phone] [facility], [address], [place], [place], [address] , tel: [phone] [facility] Essential hypertensionA cute pancreatitis, unspecified complication status, unspecified pancreatitis typeMixed hyperlipidemi a 0 Christa Gaylin. [address] [place] [address], [place], [address], [place]. tel:[phone] Referring Provider: Bethel richardson, [address] [place] [address], [address] . tel:[phone] Transitional Care- First 7 Days Of Discharge [facility], [address], [place], [place], [address] , tel: [phone] [facility] pancreatitis (chief complaint)Chr onic Conditions (chief complaint) Body mass index (BMI) 24.0-24.9, adultAcute pancreatitis, unspecified complication status, unspecified pancreatitis typeAKI (acute kidney injury)Elevat ed LFTsPulmonary emphysema, unspecified emphysema typeIngrown toenail of both feetEssential hypertension 0 Marjorie Tracey. [address] [place] [address], [place], [place], [id number], [place]. tel:[phone] Referring Provider: Bethel richardson, [address] [place] [address], [place], [address] . tel:[phone] [facility], [address], [place], [place], [address] , tel: [phone] [facility] No Information 0 Marcelle Hugo. [address] [place] [address], [id number], [place]. tel:[phone] Referring Provider: Bethel richardson, [address] [place] [address], [place], [address] . tel:[phone] OFFICE EQGCJ-CKR-NPC SALMA [facility], [address], [place], [place], [address] , tel: [phone] [facility] acute problem (chief complaint)Chr onic Conditions (chief complaint) Chronic obstructive pulmonary disease, unspecifiedNi cotine dependence, cigarettes, uncomplicated Mixed hyperlipidemi aAtherosclero tic heart disease of [place] coronary artery without angina pectorisFibro myalgiaGastro -esophageal reflux disease without esophagitisMa kobe depressive disorder, recurrent, moderatePolyo steoarthritis , unspecified 0 Marcelle Hugo. [address] [place] [address], [id number], [place]. tel:[phone] Referring Provider: Bethel richardson, [address] [place] [address], [place], [address] . tel:[phone] [facility], [address], [place], [place], [address] , [place] tel: [phone] [facility] Chronic obstructive pulmonary disease, unspecified 0 Marcelle Hugo. [address] [place] [address], [place], [id number], [place]. tel:[phone] TELEPHONE E&M BY A PHYSICIAN; 11-20 MINUTES [facility], [address], [place], [place], [address] , [place] tel: [phone] [facility] Telehealth (chief complaint) Chronic obstructive pulmonary disease, unspecifiedDe pendence on wheelchair 0 Marcelle Hugo. [address] [place] [address], [place], [place], [id number], [place]. tel:[phone] Referring Provider: Bethel richardson, [address] [place] [address], [address] . tel:[phone] TELEPHONE E&M BY A PHYSICIAN; 11-20 MINUTES [facility], [address], [place], [place], [address] , [place] tel: [phone] [facility] Chronic obstructive pulmonary disease, unspecified 0 Marcelle Hugo. [address] [place] [address], [place], [id number], [place]. tel:[phone] Referring Provider: Bethel richardson, [address] [place] [address], [place], [address] . tel:[phone] [facility], [address], [place], [place], [address] , [place] tel: [phone] [facility] Chronic obstructive pulmonary disease, unspecifiedAt hscl heart disease of [place] coronary artery w/o ang pctrs 0 Marcelle Hugo. [address] [place] [address], [place], [place], [id number], [place]. tel:[phone] [facility], [address], [place], [place], [address] , [place] tel: [phone] [facility] Chronic obstructive pulmonary disease, unspecified Fe- 0 Marcelle Hugo. [address] [place] [address], [id number], [place]. tel:[phone] OFFICE BNEOL-RGU-OKA [facility], [address], [place], [place], [address] , tel: [phone] [facility] Mattress and Trapeze (chief complaint)Chr onic Conditions (chief complaint) Low back painChronic pain syndromeChron ic obstructive pulmonary disease, unspecifiedFi bromyalgiaDep endence on wheelchairMus brianda weakness (generalized) 0 Marcelle Hugo. [address] [place] [address], [id number], [place]. tel:[phone] Referring Provider: Bethel richardson, [address] [place] [address], [address] . tel:[phone] OFFICE JXSYU-BVS-CDK [facility], [address], [place], [place], [address] , tel: [phone] [facility] 1 Month (chief complaint)Chr onic Conditions (chief complaint) Dependence on wheelchairLow back painChronic pain syndromeNicot ine dependence, cigarettes, uncomplicated Chronic obstructive pulmonary disease, unspecified Dec-2 6-201 9 Marcelle Hugo. [address] [place] [address], [id number], [place]. tel:[phone] Referring Provider: Bethel richardson, [address] [place] [address], [address] . tel:[phone] [facility], [address], [place], [place], [address] , tel: [phone] [facility] Low back pain Dec-0 2-201 9 Marcelle Hugo. [address] [place] [address], [id number], [place]. tel:[phone] OFFICE TTXZB-MPU-GJV SALMA [facility], [address], [place], [place], [address] , tel: [phone] [facility] Chronic Pain (chief complaint)Chr onic Conditions (chief complaint) Low back painChronic pain syndromeDepen dence on wheelchairChr onic obstructive pulmonary disease, unspecifiedNi cotine dependence, cigarettes, uncomplicated [facility] (current) use of opiate analgesicMixe d hyperlipidemi aGastro-esoph ageal reflux disease without esophagitisPo lyosteoarthri tis, unspecified 9 Marcelle Hugo. [address] [place] [address], [id number], [place]. tel:[phone] Referring Provider: Bethel richardson, [address] [place] [address], [address] . tel:[phone] [facility], [address], [place], [place], [address] , tel: [phone] [facility] Chronic obstructive pulmonary disease, unspecifiedCh ronic pain syndromeLow back painDependenc e on wheelchairPer roxy history of other endocrine, nutritional and metabolic diseaseFecal urgencyAthero sclerotic heart disease of [place] coronary artery without angina pectorisMild epistaxisCell ulitis of finger, rightNeed for influenza vaccination 8 Marcelle Hugo. [address] [place] [address], [id number], [place]. tel:[phone] Referring Provider: Bethel richardson, [address] [place] [address], [address] . tel:[phone] [facility], [address], [place], [place], [address] , tel: [phone] [facility] follow up (chief complaint)Chr onic Conditions (chief complaint) Atherosclerot ic heart disease of [place] coronary artery without angina pectorisLow back painChronic pain syndromeFibro myalgiaMixed hyperlipidemi aGastro-esoph ageal reflux disease without esophagitisPo lyosteoarthri tis, unspecifiedTo bacco useChronic obstructive pulmonary disease, unspecified Marcelle Hugo. [address] [place] [address], [id number], . tel:[phone] Referring Provider: Bethel richardson, [address] [place] [address], [address] . tel:[phone] [facility], [address], [place], [place], [address] , tel: [phone] [facility] No Information Marcelle Hugo. [address] [place] [address], [id number], . tel:[phone] [facility], [address], [place], [place], [address] , tel: [phone] [facility] Chronic pain syndromePain of right hip jointChronic sinusitis, unspecified locationTobac co useChronic obstructive pulmonary disease, unspecified COPD typeGeneraliz ed osteoarthriti s Marcelle Hugo. [address] [place] [address], [id number], . tel:[phone] Referring Provider: Bethel richardson, [address] [place] [address], [address] . tel:[phone] Family History Family Member Type Diagnosis Age At Onset Mother Problem (finding) Obesity Mother Problem (finding) hypertension Father Problem (finding) Cardiovascular disease Mother Problem (finding) Diabetes mellitus Mother Problem (finding) hypercholesterolemia Mother Problem (finding) osteoarthritis Immunizations Vaccine Date Status Comments Fluzone Quad, split virus, 0.5mL dosage administered Source: New Immuniza tion Record Flublok, quadrivalent, preservative free, 0.5mL dosage administered Source: Other Regist ry Fluzone Quad, preservative free, split virus, 0.5mL dosage administered Source: New Immuniza tion Record Payers Payer name Insurance type Covered alliance party ID Authoradalberto morataya(s) [employer] MDCR PPO PLANS [id number] [employer] [id number] MEDICARE [facility] [id number] [place] [employer] [facility] [id number] Social History Type Description Quantity Date Captured Comments Alcohol Use Details Unknown Caffeine Use Details Unknown Tobacco Use Status No Information Smoking Status No Information Sex Male Sexual Orientation Straight or heterosexual [...] and counseling completed Referral Referred To: NIKI [id number] Ordered: Chest Xray, 2 Views ordered Referral Referred To: Light Weight Manual Wheelchair Ordered: Referrals: Light Weight Manual Wheelchair Appointment date/timeframe: 07/08/2020 ordered Referral Referred To: Portable Oxygen Concentrator NIKI [id number] Ordered: Referrals: Portable Oxygen Concentrator Appointment date/timeframe: 05/26/2020 ordered Referral Referred To: Samuel Jiménez Ordered: Referrals: Podiatry. Samuel Jiménez. Evaluation/diagnostic/treatment - Level 3 Appointment date/timeframe: 05/26/2020 ordered Referral Referred To: Shen Minor MD [address] [facility]
[address] [place], [phone] Ordered: Referrals: Pulmonology. Shen Minor MD. Evaluation/diagnostic/treatment - Level 3 ordered Referral Referred To: Home Care [id number] Ordered: Referrals: Home Care. Location: [facility]. Evaluate and treat - Level 2 ordered Referral Referred To: Nebulizer Ordered: Referrals: Referrals: Nebulizer ordered Referral Referred To: Nebulizer Ordered: Referrals: Nebulizer ordered Referral Referred To: Occupational Therapy [facility] [facility] [address] [place], [id number] [phone] Ordered: Referrals: Occupational Therapy. Location: [facility]. Evaluation/diagnostic/treatment - Level 3 ordered Referral Referred To: Physical Therapy [address] [facility] [place], [phone] Ordered: Referrals: Physical Therapy. Location: [facility] Physical Therapy. 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 but states that he is unable to care for himself the rest of the timehe was resistant to fdc care in the past because he did not want to sacrifice all of his income, but he states that this is what he needs to do now for his health and well beingMid back pain x2 daysBilateral hip pain, worse in rightRadiating down legsrelatively well controlled on current medicationsPrefers to stay at [facility] Denies swelling in lower extremitiesShortness of breath worse in the morningsIncreased urination Has not been taking furosemide for awhileWould like to know if he should restart [...] with new home care worker, P[facility] for [facility] 03/03 [facility] 03/04Admitted due to altered mental status/encephalopathyhistory of [...] hospital, pt has been taking all at pa, will continue as bp is stableAKI: cr [...] other f/u planned acute problem Requests being olinda sumner for COVID. States he is having sinus issues. Easily chilled but denies fever. Shortness of breath with mild exertion. Denies chest tightness or wheezing.Ran out of Vraylar about 3-4 weeks ago. States he has been feeling depressed since.comes in with new aide Natalie Chronic Conditions *See Chronic Conditions [facility] Telehealth This visit was c ompleted via [...] the morning. Chronic Conditions *See Chronic Conditions [facility] Chronic Conditions *See Chronic Conditions [facility] 1 Month Here for a one m [facility] follow up. Patient states he hasn't [...] nose. Also states he needs a good client experience specialist and psychiatrist. Chronic Conditions *See Chronic Conditions [facility] Chronic Pain Here today for c hronic pain. Also patient would like something for his right elbow to not use it as much.pt comes back into my care. was seen by home care - Kristi Figueroa as well as [facility] SHOE LINING FITTER Ami Rich. did not like [facility] because they wanted to order CT for lung cancer screening and he was being threatened to be fired. since he has been seeing Crystal, he has been on TID hydrocodone and [...] Information Instructions Date Instruction Additional Infor mation at this time we will continue the [...] trouble affording the medications, you can call [phone] as they may be able to provide [...] acute steve nges Related to Weight loss We will continue alberto lify and mirtazepine Related to Bipolar disorder, unspecified At this time we will continue the same medications and we may restart low dose furosemide. WStatus: Meeting treatment plan goals. Goals: Your goal is to check for edema or swelling in your legs. Barriers: No barriers to goal achievement have been identified.We will work on seeing if we can have you admitted to [facility] in [place] Related to Chronic HFpEF We will continue the same inhalers and nebulizer treatments at this time. You should call if there are any changes in your lung function such as: increased cough from baseline, increased sputum production or increased shortness of breath. Related to Emphysema, unspecified At this time I would like you to continue use of a cane or walker at all times Related to Muscle weakness (generalized) Continue current pain medication s Related to [...] Major depressive disorder, recurrent, in partial remission continue use of adult diapers Re lated [...] months ago Related to Low back pain At this time we will check labs and we will continue furosemide 20mg a day. We will plan to order an echocardiogram to evaluate your heart function. We will plan to follow up in 3 months as scheduled, sooner if needed Related to Acute diastolic (congestive) heart failure We will continue the same inhalers and [...] Related to Chronic obstructive pulmonary disease, unspecified Dietary management e ducation, guidance, and counseling Related to Body mass index (BMI) 26.0-26.9, adult Please work on a hea rt healthy, balanced diet Related to Body mass index (BMI) 27.0-27.9, adult At this time we will work on ordering an oxygen concentrator to use with exertion Related to Hypoxemia You are tolerating m edications without any adverse effects. At this time we will continue current regimen. Related to Atherosclerotic heart disease of [place] coronary artery without angina pectoris Continue rosuvastatin Related to Mixed hyperlipidemia We will continue the same inhalers and [...] trouble affording the medications, you can call [phone] as they may be able to provide some at a low to no cost. Related to Nicotine dependence, cigarettes, uncomplicated At this time we will continue current medications and we will continue to work on decreasing duloxetine and pregabalin Related to Bipolar disorder, unspecified At this time we will continue hydrocodone Related to Chronic pain syndrome At this time we will continue current medications and we will order a manual wheelchair Related to Polyosteoarthritis, unspecified Giving encouragement to exercise Related to Body mass index (BMI) 27.0-27.9, adult Dietary management e ducation, guidance, and counseling Related to Body mass index (BMI) 27.0-27.9, adult continue on rosuvastatin Related to Atherosclerotic heart disease of [place] coronary artery without angina pectoris no change in other m edicationscall with any worsening of symptoms Related to Bipolar disorder, unspecified work on smoking less I recommend you quit smoking. If you have trouble affording the medications, you can call [phone] may be able to provide some at [...] send you to the lung doctor at [facility] [address] [place] to schedule an appointment [...] regimen. 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 If you have trouble affording the medications, you can call [phone] as they may be able to provide [...] pulmonary disease, unspecified Continue follow up w [facility] for chair maintenance. Related [...] trouble affording the medications, you can call [phone] as they may be able to provide [...] continue ce lebrex Related to Polyosteoarthritis, unspecified Please take all medi cations as prescribed. We will check liver function & lipid panel today. Please call if you develop myalgias. Related to Mixed hyperlipidemia I recommend you quit smoking. If you have trouble affording the medications, you can call [phone] as they may be able to provide [...] to Chronic obstructive pulmonary disease, unspecified Continue use of wheelchair Relat ed to Dependence on wheelchair We will check urine drug screen today Related to [facility] (current) use of opiate analgesic As above, will obtai n records. Will [...] this time. Related to Polyosteoarthritis, unspecified Continue omeprazole. Related to Gastro-esophageal reflux disease without esophagitis Continue simvastatin Related to Mixed hyperlipidemia Continue duloxetine and gabapent in. Related to Fibromyalgia Will continue curren t regimen. Patient is to talk to insurance about why things are not getting covered. Will discuss getting hospital bed in the future. Related to Low back pain At this time, will c ontinue gabapentin and duloxetine. Related to Chronic pain syndrome Continue current reg imen. Patient is to have cardiology send notes. 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
--- OUTSIDE RECORDS SUMMARY | 2024-11-10 13:39 | XMS_ITS | Clinical Summary ---
Author Organization [facility] Tabatha briseno Address [address] [place] [phone] Phone Care Team Providers Care Strip Machine Operator Name Role Phone Unavailable Primary Care Provider [...] Active Problems Problem Noted Date Diagnosed Date Retention of urine 11/06/2024 Stage 3 chronic kidney disease 09/29/2024 Hypertensive renal disease 09/29/2024 Resolved Problems Problem Noted Date Diagnosed Date Resolved Date Acute nontraumatic kidney injury 09/29/2024 11/06/2024 Hyperkalemia 09/29/2024 11/06/2024 Anemia in chronic kidney disease 09/29/2024 11/06/2024 Hyperlipidemia 09/29/2024 11/06/2024 Encounters Date Type Department Care Team Description 09/30/2024 2:00 PM CDT Office Visit [facility] [address] [facility] 1 [place] [address] Ron Shane MD Retention of urine, not [...] Care Team (Late st Contact Info) Description 11/11/2024 11:40 AM CDT Office Visit [facility] [address] [facility] 1 [place] [address] Ron Shane MD [address] [id number] Health Maintenance Due Date Last Done Comments Pneumococcal PPSV23/PCV13 65 + Years / High and Highest Risk (1 of 5 - PCV) 1977 Influenza Vaccine (#1) 2024 Insurance [employer] MEDICARE [facility]
--- OUTSIDE RECORDS SUMMARY | 2024-11-10 13:39 | XMS_ITS | Encounter Summary ---
Author Organization [facility] Address [facility] [place] [address] Care Team Providers Care Field Marketing Lead Name Role Phone Ino Tracy MD Unavailable Adeel Jones MD Primary Care Provider [phone] None, Provider Primary Care Provider Unavaila Ria Barnes MD Primary Care Provider [phone] Encounter Details Date Type Department Care Team (Late st Contact Info) Description 09/25/2023 Abstract [facility] [address] Tash Nava MA Social History Tobacco Use Types Packs/Day Years Used Date Smoking Tobacco: Former Cigarettes 0.5 50 Q uit: 06/04/2023 Smokeless Tobacco: Never Comments:Patient smoking 2-3 cigarettes a day 09/03/2023. Alcohol Use Standard Drinks/Week Comments No 0 (1 standard drink = 0.6 oz pur e alcohol) [facility] Utilities Answer Date Recorded In the [...] Never 06/18/2023 How often do you attend amish or confucianism serv ices? Never 06/18/2023 Do you belong to any clubs o r organizations such as amish groups, unions, fraternal or athletic groups, or [...] Recorded Patient Health Questionnaire-2 Score 0 08/13/2023 [employer] [place] of Occupat ional Health - Occupational Stress [...] any time in the past 12 m [facility], were you homeless or [...] Care Team (Late st Contact Info) Description 03/17/2025 10:30 AM METAL PLATER Office Visit [facility], [address] [place], [place] [phone] Ivory Loaiza APRN [facility]. [address] [place], [place] [id number] documented as of this encounter Goals Goal Patient Goal Type Associated Problems Recent Progress Patient-Stated? Author Discharge Patient/family verbalizes understanding regarding the need for SNF placement General No Kati Calhoun, MANAGER CHANGE Monitor - able to maintain pain control [...] Out 01/15/2024 01/15/2024 01/15/2024 1:30 AM METAL PLATER COVID-19 Confirmed 01/15/2024 01/15/2024 12:33 AM METAL PLATER COVID-19 Rule Out 02/22/2024 02/22/2024 02/22/2024 10:15 AM METAL PLATER COVID-19 Rule Out 02/25/2024 02/25/2024 02/25/2024 11:15 AM METAL PLATER documented as of this encounter Care Teams Field Marketing Lead Relationship Specialty Start Date End Date Adeel Jones MD [address] [place] [phone] PCP - General FAMILY PRACTICE 05/19/23 03/09/24 None, Provider, PCP - General UNKNOWN PHYSICIAN SPECIALTY 03/10/24 09/08/24 Ria Topete MD [address] [place] [address] PCP - General INTERNAL MEDICINE 09/09/24 Ino Tracy MD [facility]. [id number] [place] [address] [employer] Marketing Manager INTERVENTIONAL CARDIOLOGY 01/02/18 documented as of this encounter
--- OUTSIDE RECORDS SUMMARY | 2024-11-10 13:40 | XMS_ITS | Clinical Summary ---
Author Organization [facility] Address [address] [place] [address] Care Team Providers Care Grinding Room Inspector Name Role Phone Ino Tracy MD Unavailable Ria Topete MD Primary Care Provider [phone] Allergies Active Allergy Reactions Criticality Noted Date Comments Aspirin Nausea and Vomiting 06/20/2018 Cephalexin Hives 06/20/2018 Lisinopril Cough,Other (see comment) 09/09/2024 LOW BP Penicillin V Anaphylaxis High 06/20/2018 Medications vitamin D3 (CHOLECALCIFEROL) 25 mcg tablet Take [...] total) by mouth nightly at bedtime. Active ipratropium-albut stacy (DUONEB) 0.5-2.5 (3) MG/3ML Solution Take 3 mLs by nebulization every 4 (four) hours as needed (shortness of breath). 360 mL 05/30/19 24 Active atorvastatin (LIPITOR) 80 MG tablet Take 1 tablet (80 mg total) by mouth nightly at bedtime. 30 tablet 06/21/19 24 Active HUMALOG KWIKPEN 100 UNIT/ML injection (PEN) Inject 2 Units into the skin 3 (three) times daily before meals. 08/22/19 24 Active albuterol sulfate HFA (VENTOLIN HFA) 108 (90 Base) MCG/ACT inhalerIndication s:Chronic obstructive pulmonary disease, unspecified COPD type (CMS/HCC HHS/HCC) Inhale 2 puffs into the lungs every 6 (six) hours as needed for Wheezing. 18 g 5 12/18/19 24 Active busPIRone (BUSPAR) 10 MG tabletIndications :Paranoid schizophrenia (CMS/HCC HHS/HCC) Take 1 tablet (10 [...] TDD 60 capsule 2 12/18/19 24 Active clopidogrel (PLAVIX) 75 MG tabletIndications :Hyperlipidemia, [...] for Nausea. 20 tablet 02/08/20 24 Active LORazepam (ATIVAN) 0.5 MG tabletIndications :Anxiety Take 1 tablet (0.5 mg total) by mouth 2 (two) times daily as needed for Anxiety. 10 tablet 02/26/20 24 Active aspirin EC 81 MG tablet Take 1 tablet (81 mg total) by mouth daily. Active ferrous sulfate EC 325 (65 Fe) MG tablet Take 1 tablet (325 mg total) by mouth daily. Active pantoprazole EC (PROTONIX) 20 MG tablet Take 1 tablet (20 mg total) by mouth daily. 04/10/19 25 Active traMADol (ULTRAM) 50 MG tablet Take 1 tablet (50 mg total) by mouth every 6 (six) hours as needed. 08/23/19 25 Active ARIPiprazole (ABILIFY) 10 MG tablet Take 1 tablet (10 mg total) by mouth daily. 03/30/19 25 026 Active traZODone (DESYREL) 100 MG tablet Take 2 tablets (200 mg total) by mouth nightly at bedtime. 07/08/19 25 Active Active Problems Problem Noted Date Diagnosed Date Acute on chronic renal failure 09/12/2024 Bipolar I disorder, most rec ent episode depressed ([facility]) 03/19/2024 Diastolic heart failure ([facility]) 2024 Paresis of lower extremity ([facility]) 11/2024 Sepsis ([facility]) 02/22/2024 COVID-19 01/15/2024 Erectile dysfunction, unspecified [...] 30.9 in adult 07/09/2023 Diabetic peripheral neuropathy ([facility]) 07/09/2023 Hyperlipidemia, mixed 06/26/2023 COPD (chronic obstructive pu lmonary disease) ([facility]) 06/19/2023 NSTEMI (non-ST elevated myoc ardial infarction) ([facility]) 05/27/2023 Acute respiratory failure with hypoxia ([facility]) 05/19/2023 Pancreatitis ([facility]) 05/06/2021 COPD exacerbation ([facility]) 09/25/2020 Chronic respiratory failure with hypoxia ([facility]) 06/28/2020 Atherosclerosis of aorta 01/06/2020 Moderate episode of recurrent major depressive d isorder 09/25/2018 History of stroke 09/25/2018 Paranoid schizophrenia ([facility]) 019 Tobacco user 01/16/2018 Anxiety 10/08/2017 Rheumatoid arthritis ([facility]) 8 Trochanteric bursitis of right hip 09/23/2017 Bipolar disorder ([facility]) 09/23/2017 Gastroesophageal reflux disease without esophagi tis 02/21/2017 Essential hypertension 02/15/2017 Hernia, inguinal 02/15/2017 Diabetes mellitus ([facility]) 02/15/2017 Fibromyalgia 02/15/2017 Chronic pain syndrome 02/15/2017 Arteriosclerosis of coronary artery 02/15/2017 Encounters Date Type Department Care Team Description 09/21/2024 Scan [facility] Scanned, [facility] 09/14/2024 Telephone [facility] [address] [address] Sisi Woods MD Information (Provider Request) 09/13/2024 Travel 09/12/2024 8:28 PM CDT - 09/18/2024 10:15 AM CDT Hospital Encounter [facility] [place] [address] Marie Lester MD Alexander, Kaci M, DO McHale, Sara A, MD Lamonica, Kandace C, MD Simpson, Stephanie L, Discharge Disposition: Half-Way Facility 09/09/2024 2:00 PM CDT Office Visit [facility] [address] [place] [address] Sisi Woods MD CHF; Coronary Artery Disease [...] from your doctor or pharmacy? Never 01/15/2024 [facility] Utilities Answer Date Recorded In the past 12 months has th e electric, gas, oil, or water company [...] Never 01/15/2024 How often do you attend zoroastrianism or anabaptism serv ices? Never 01/15/2024 Do you belong to any clubs o r organizations such as zoroastrianism groups, unions, fraternal or athletic groups, or [...] Recorded Patient Health Questionnaire-2 Score 0 12/31/2023 [facility] - Occupational Stress [...] place to sleep or slept in a prison (including now)? No 05/27/2023 Housing Stability Vital Sign Answer Shahab e Recorded In the last 12 months, was t here a time when you were not able to pay the mortgage or rent on time? No 09/13/2024 In the past 12 months, how m any times have you moved where you were living? 2 09/13/2024 At any time in the past 12 m [facility], were you homeless or living in a prison (including now)? No 09/13/2024 Sex and Gender [...] 09/12/2024 9:00 PM CDT Plan of Treatment Upcoming Encounters Date Type Department Care Team (Late st Contact Info) Description 03/17/2025 10:30 AM BRICK WASHER Office Visit [facility] [address] [place], [place] [id number] Ivory Loaiza APRN [facility]. [address] [place], [place] [id number] Health Maintenance Due Date Last Done Comments ASCVD Statin 1960 Kidney Health Evaluation 1960 Diabetes: Retinopathy Eye Exam 1976 DTaP, Tdap and Td Vaccines (1 - Tdap) 1977 Zoster Vaccines (1 of 2) 2008 RSV Immunization or 60+ Years (1 - Risk 60-74 years 1-dose series) 2018 Annual Medicare Wellness Visit 2023 COVID-19 Vaccine ( season) 2023 12/18/2021, 11/02/2020, 08/03/2020 PHQ-2 (Physician Smith) 03/11/2024 12/31/2023 Hemoglobin A1C 05/11/2024 11/12/2023, 06/0 06/2023, 05/27/2023, Additional history exists ASCVD LDL 09/23/2024 09/24/2023, 060 06/2023, 05/27/2023, Additional history exists Lipid Panel 09/23/2024 09/24/2023, 06/0 06/2023, 05/27/2023, Additional history exists Lung Cancer Screening 03/25/2025 03/25/2024 , 02/25/2024, [...] at home upon discharge Lifestyle [place] superintendent pressure Procedure Name Priority Date/Time Associated Diagnosis Comments [...] CHEST WO CON STAT 02/25/2024 3:02 PM BRICK WASHER HEMOGLOBIN, GLYCOSYLATED Routine 11/12/2023 11:24 AM CDT [...] of7 resultswithin the time period is included. WBC 9.17 4.5 - 11.0 x10'3/uL 09/18/2024 7:39 AM CDT [facility] RBC 3.64(L) 4.70 - 6.10 x10'6/uL 09/18/2024 7:39 AM CDT [facility] HGB 11.0(L) 14.0 - 18.0 G/DL 09/18/2024 7:39 AM CDT [facility] HCT 33.5(L) 43.0 - 54.0 % 09/18/2024 7:39 AM CDT [facility] MCV 92.0 80.0 - 94.0 FL 09/18/2024 7:39 AM CDT [facility] MCH 30.2 27.0 - 31.0 PG 09/18/2024 7:39 AM CDT [facility] MCHC 32.8 32.0 - 36.0 G/DL 09/18/2024 7:39 AM CDT [facility] RDW 12.4 11.5 - 14.5 % 09/18/2024 7:39 AM CDT [facility] PLT 163 130 - 400 x10'3/uL 09/18/2024 7:39 AM CDT [facility] MPV 10.3 9.3 - 12.2 FL 09/18/2024 7:39 AM CDT [facility] DIFFERENTIAL TYPE AUTOMATED DIFFERENTIAL 09/18/2024 7:39 AM CDT [facility] NEUTROPHILS % 72.7 % 09/18/2024 7:39 AM CDT [facility] LYMPHOCYTES % 17.4 % 09/18/2024 7:39 AM CDT [facility] MONOCYTES % 6.3 % 09/18/2024 7:39 AM CDT [facility] EOSINOPHILS 2.6 % 09/18/2024 7:39 AM CDT [facility] BASOPHILS 0.8 % 09/18/2024 7:39 AM CDT [facility] IMMATURE GRANS % 0.2 % 09/19/19 7:39 AM CDT [facility] ABS. NEUTROPHILS 6.66 1.80 - 7.70 x10'3/uL 09/18/2024 7:39 AM CDT [facility] ABS. LYMPHOCYTES 1.60 1.00 - 4.80 x10'3/uL 09/18/2024 7:39 AM CDT [facility] ABS. MONOCYTES 0.58 0.30 - 0.82 x10'3/uL 09/18/2024 7:39 AM CDT [facility] ABS. EOSINOPHILS 0.24 0.04 - 0.54 x10'3/uL 09/18/2024 7:39 AM CDT [facility] ABS. BASOPHILS 0.07 0.01 - 0.08 x10'3/uL 09/18/2024 7:39 AM CDT [facility] ABS. IMMATURE GRANULOCYTES 0.02 0.00 - 0.49 x10'3/uL 09/18/2024 7:39 AM CDT [facility] 09/18/2024 7:06 AM CDT us Shana Ugalde DO LABORATORY Final Res ult [facility] [address] [place] [address], [place] [phone] * (ABNORMAL) BASIC METABOLIC PANEL (09/18/2024 5:57 AM CDT) Only the most recent of5 resultswithin the time period is included. GLUCOSE 195(H) 70 - 99 MG/DL 09/18/2024 7:12 AM CDT [facility] BUN 15 7 - 18 MG/DL 09/18/2024 7:12 AM CDT [facility] CREATININE S/P/B 0.59(L) 0.7 - 1.3 MG/DL 09/18/2024 7:12 AM CDT [facility] SODIUM S/P/B 136 136 - 145 MMOL/L 09/18/2024 7:12 AM CDT [facility] POTASSIUM S/P/B 3.6 3.5 - 5.1 MMOL/L 09/18/2024 7:12 AM CDT [facility] CHLORIDE S/P/B 105 97 - 115 MMOL/L 09/18/2024 7:12 AM CDT [facility] CO2 25.9 21 - 32 MMOL/L 09/18/2024 7:12 AM CDT [facility] CALCIUM S/P/B 8.7 8.5 - 10.1 MG/DL 09/18/2024 7:12 AM CDT [facility] ANION GAP 5.1 2 - 10 MMOL/L 09/18/2024 7:12 AM CDT [facility] BUN CREATININE RATIO 25.3 6 - 26 09/18/2024 7:12 AM T [facility] GFR ESTIMATE >90 >90 ML/MIN/1.7 3 M2 09/18/2024 7:12 AM T [facility] Comment: NOTE: eGFR is not calculated for patients <18 years of age or gender unknown. This is an estimated GFR calculation using the new CKD EPI creatinine equation without race and so does not require a correction factor for race. This estimated GFR should not be used for calculating drug doses. 09/18/2024 5:57 AM CDT us Shana Ugalde DO LABORATORY Final Res ult [facility] [address] [place] [address], * (ABNORMAL) POCT glucose (09/17/2024 11:17 AM CDT) Only the most recent of20 resultswithin the time period is included. GLUCOSE POC 124(H) 70 - 99 mg/dL 09/17/2024 11:18 AM CDT [facility] 09/17/2024 11:1 7 AM CDT Shana Ugalde DO POCT ORDERABLES - DEVICE Final Result [address] [address], * OCCULT BLOOD, FECES (09/14/2024 8:32 PM CDT) OCCULT BLOOD FECAL NEGATIVE NEGATIVE 09/14/2024 9:44 PM CDT [facility] STOOL SPECIMEN / Unknown 09/14/2024 8:32 PM CDT Kristi Melgar CLINICAL TRIAL EDUCATOR BODY FLUIDS AND STOOLS ORDE RABLES Final Result [facility] [address] [place] [address], * (ABNORMAL) POTASSIUM, SERUM (09/14/2024 1:54 PM CDT) POTASSIUM S/P/B 5.3(H) 3.5 - 5.1 MMOL/L 09/14/2024 2:26 PM CDT [facility] 09/14/2024 1:54 PM CDT us Jo Tucker MD LABORATORY Final Resu lt [facility] [address] [place] [address], * ECG 12 lead (09/14/2024 9:53 AM CDT) 09/14/2024 9:53 AM CDT Narrative [facility] - 09/15/2024 1:16 PM CDT [address] Test Date: 2024-09-14 Pat Name: LUIS ALBERTO GARBER Department: 40 Room: [id number] Gender: Male Deputy Prosecuting Attorney: James rn : 1960 Requested By: JO TUCKER Order Number: [id number] Reading MD: Carlos Ku Measurements Intervals [place] Rate: 61 P: 19 OR: 171 QRS: 103 QRSD: 148 T: 18 QT: 389 QTc: 393 Interpretive Statements SINUS RHYTHM MARKED RIGHT AXIS DEVIATION [QRS AXIS > 100] RIGHT BUNDLE BRANCH BLOCK [120+ ms QRS DURATION, UPRIGHT V1, 40+ ms S IN I/aVL/V4/V5/V6] Compared to ECG 02/23/2024 10:45:20 No significant changes Procedure Note Carlos Ku MD - 09/15/[address] Test Date: 2024-09-14 Pat Name: LUIS ALBERTO GARBER Department: 40 Room: [id number] Gender: Male Deputy Prosecuting Attorney: James thomas : 1960 Requested By: JO TUCKER Order Number: [id number] Reading MD: Carlos Ku Measurements Intervals [place] Rate: 61 P: 19 OR: 171 QRS: 103 QRSD: 148 T: 18 QT: 389 QTc: 393 Interpretive Statements SINUS RHYTHM MARKED RIGHT AXIS DEVIATION [QRS AXIS > 100] RIGHT BUNDLE BRANCH BLOCK [120+ ms QRS DURATION, UPRIGHT V1, 40+ ms S IN I/aVL/V4/V5/V6] Compared to ECG 02/23/2024 10:45:20 No significant changes us Jo Tucker MD ECG ORDERABLES Final Resu lt [facility] ([facility] * (ABNORMAL) COMPREHENSIVE METABOLIC PANEL (09/13/2024 6:45 AM CDT) Only the most recent of2 resultswithin the time period is included. GLUCOSE 80 70 - 99 MG/DL 09/13/2024 7:42 AM CDT [facility] BUN 58(H) 7 - 18 MG/DL 09/13/2024 7:42 AM CDT [facility] CREATININE S/P/B 4.86(H) 0.7 - 1.3 MG/DL 09/13/2024 7:42 AM CDT [facility] SODIUM S/P/B 139 136 - 145 MMOL/L 09/13/2024 7:42 AM CDT [facility] POTASSIUM S/P/B 5.4(H) 3.5 - 5.1 MMOL/L 09/13/2024 7:42 AM CDT [facility] CHLORIDE S/P/B 111 97 - 115 MMOL/L 09/13/2024 7:42 AM CDT [facility] CO2 24.4 21 - 32 MMOL/L 09/13/2024 7:42 AM CDT [facility] CALCIUM S/P/B 9.6 8.5 - 10.1 MG/DL 09/13/2024 7:42 AM CDT [facility] BILIRUBIN TOTAL S/P/B 0.3 0.2 - 1.2 MG/DL 09/13/2024 7:42 AM T [facility] Comment: THIS ASSAY IS NOT RECOMMENDED FOR PATIENTS UNDERGOING TREATMENT WITH ELTROMBOPAG DUE TO THE POTENTIAL FOR FALSELY ELEVATED RESULTS. TOTAL PROTEIN S/P/B 6.4 6.4 - 8.2 G/DL 09/13/2024 7:42 AM T [facility] ALBUMIN S/P/B 2.9(L) 3.4 - 5.0 G/DL 09/13/2024 7:42 AM T [facility] AST 13(L) 15 - 37 U/L 09/13/2024 7:42 AM [facility] ALT 23 16 - 60 U/L 09/13/2024 7:42 AM [facility] ALKALINE PHOSPHATASE S/P/B 127 50 - 136 U/L 09/13/2024 7:42 AM [facility] ANION GAP 3.6 2 - 10 MMOL/L 09/13/2024 7:42 AM [facility] BUN CREATININE RATIO 11.9 6 - 26 09/13/2024 7:42 AM [facility] A/G RATIO 0.8(L) 1.0 - 2.0 RATIO 09/13/2024 7:42 AM [facility] GFR ESTIMATE 12(L) >90 ML/MIN/1.7 3 M2 09/13/2024 7:42 AM [facility] Comment: NOTE: eGFR is not calculated for patients <18 years of age or gender unknown. This is an estimated GFR calculation using the new CKD EPI creatinine equation without race and so does not require a correction factor for race. This estimated GFR should not be used for calculating drug doses. 09/13/2024 6:45 AM CDT us Kristi Melgar CLINICAL TRIAL EDUCATOR LABORATORY Final Resul t [facility] [address] [place] [address], [place] [phone] * SODIUM URINE RANDOM (09/13/2024 1:44 AM CDT) NA RANDOM (U) 60 MMOL/L 09/13/2024 5:45 AM CDT [facility] Comment: NOTE: The reference range and other method performance specifications have not been determined for chemistry testing in this type of body fluid. Results should be integrated into clinical context for interpretation. URINE SPECIMEN / Unknown 09/13/2024 1:44 AM CDT us Amara Herr MD URINE ORDERABLES Final Result Performing Organization Address City/[facility]/ZIP Co de Phone Number [facility] [address] [place] [address], [place] [phone] * URINALYSIS (09/13/2024 1:44 AM CDT) SPECIMEN TYPE URINE CLEAN CATCH 09/13/2024 3:38 AM CDT [facility] COLOR (U) LIGHT YELLOW 09/13/2024 4:07 AM CDT [facility] TRANSPARENCY CLEAR 09/13/2024 4:07 AM CDT [facility] SPECIFIC GRAVITY (U) 1.012 1.001 - 1.030 09/13/2024 4:07 AM CDT [facility] U PH 6.0 5.0 - 9.0 09/13/2024 4:07 AM CDT [facility] LEUKOCYTES (U) NEGATIVE NEGATIVE 09/13/2024 4:07 AM CDT [facility] NITRITES NEGATIVE NEGATIVE 09/13/2024 4:07 AM CDT [facility] PROTEIN RANDOM (U) NEGATIVE <30 MG/DL 09/13/2024 4:07 AM CDT [facility] GLUCOSE (U) NORMAL NORMAL MG/DL 09/13/2024 4:07 AM CDT [facility] KETONES MG/DL (U) NEGATIVE NEGATIVE MG/DL 09/13/2024 4:07 AM CDT [facility] UROBILINOGEN NORMAL NORMAL MG/DL 09/13/2024 4:07 AM CDT [facility] BILIRUBIN (U) NEGATIVE NEGATIVE MG/DL 09/13/2024 4:07 AM CDT [facility] BLOOD (U) NEGATIVE NEGATIVE 09/13/2024 4:07 AM CDT [facility] URINE SPECIMEN OBTAINED BY CLEAN CATCH PROCEDURE / Unknown 09/13/2024 1:44 AM CDT us Kristi Melgar CLINICAL TRIAL EDUCATOR URINE ORDERABLES Final Resu lt [facility] [address] [place] [address], [place] [phone] * CT ABD+PEL WO CON (09/13/2024 1:15 [...] 1:16 AM Narrative 09/13/2024 1:27 AM CDT [address] [address] Examination: CT abdomen and pelvis without IV [...] Procedure Note Dandre Tai MD - 09/13/[address] [place] [address] Examination: CT abdomen and pelvis without IV [...] By: Dandre Tai MD, 09/13/2024 1:16 AM us Kristi Melgar CLINICAL TRIAL EDUCATOR CT Final Resul t * (ABNORMAL) PRO-BRAIN NATRIURETIC PEPTIDE (09/12/2024 10:15 PM CDT) PRO-B TYPE NATRIURETIC PEPTIDE 484(H) <125 PG/ML 09/12/2024 11:09 PM CDT [facility] Comment: CUT POINTS ESTABLISHED BY INTERNATIONAL [...] 09/12/2024 10:1 5 PM CDT Kristi Melgar CLINICAL TRIAL EDUCATOR LABORATORY Final Resul t [facility] [address] [place] [address], [place] [phone] * (ABNORMAL) PARTIAL THROMBOPLASTIN TIME,PTT (09/12/2024 10:15 PM CDT) PTT 24.4(L) 25.1 - 36.5 SEC 09/12/2024 11:06 PM CDT [facility] 09/12/2024 10:1 5 PM CDT Kristi Melgar CLINICAL TRIAL EDUCATOR LABORATORY Final Resul t [facility] [address] [place] [address], [place] [phone] * PROTIME/INR, VENOUS (09/12/2024 10:15 PM CDT) PROTIME 11.3 10.2 - 12.9 SEC 09/12/2024 11:06 PM CDT [facility] INR 1.0 09/12/2024 11:06 PM CDT [facility] Comment: Recommended INR Therapeutic Goals: 2.0-3.0 Routine Therapy 2.5-3.5 Mechanical Prosthetic Valves (High Risk) 09/12/2024 10:1 5 PM CDT Kristi Melgar APRN LABORATORY Final Resul t Performing Organization Address [facility] Co de Phone Number [facility] [address] [place] [address], [place] [phone] * TROPONIN, QUANT (09/12/2024 10:15 PM CDT) [facility] TROPONIN I HIGH SENSITIVITY 16 <79 ng/L 09/12/2024 10:47 PM CDT [facility] Comment: HIGH DOSES OF BIOTIN, TROPONIN-SPECIFIC AUTOANTIBODIES, AND ANTIBODY THERAPY CONTAINING HAMA MAY INTERFERE WITH THIS TEST RESULT. CORRELATION TO CLINICAL HISTORY AND PRESENTATION RECOMMENDED. 09/12/2024 10:1 5 PM CDT Kristi Esther Melgar APRN LABORATORY Final Resul t Performing Organization Address City/[facility]/ZIP Co de Phone Number [facility] [address] [place] [address], [place] [phone] * MAGNESIUM (09/12/2024 10:15 PM CDT) [facility] MAGNESIUM 2.3 1.8 - 2.4 MG/DL 09/12/2024 11:09 PM CDT [facility] 09/12/2024 10:1 5 PM CDT us Kristi Melgar CLINICAL TRIAL EDUCATOR LABORATORY Final Resul t [facility] [address] [place] [address], [place] [phone] * CK (CPK) (09/12/2024 10:15 PM CDT) CPK 181 35 - 232 U/L 09/12/2024 11:09 PM CDT [facility] 09/12/2024 10:1 5 PM CDT us Kristi Melgar CLINICAL TRIAL EDUCATOR LABORATORY Final Resul t Performing Organization Address City/[facility] Co de Phone Number [facility] [address] [place] [address], [place] [phone] * XR CHEST PORTABLE (09/12/2024 9:50 PM CDT) Anatomical Region Laterality Modality Chest Radiographic Anna ging 09/13/2024 1:10 AM CDT Impressions 09/13/2024 1:13 AM CDT IMPRESSION: No acute chest disease identified. Referred By: OCHOA GRAY Interpreted By: Dandre Tai MD, 09/13/2024 1:10 AM Narrative 09/13/2024 1:13 AM CDT [address] [address] Examination: XR CHEST PORTABLE Exam time: 09/12/2024 9:32 PM Clinical history: Dyspnea. Comparison: Radiographs 02/25/2024 and 02/22/2024. Technique: AP image of the chest. Findings: The heart appears normal in size. Coronary artery stents are noted. Calcifications are present within the thoracic aorta. No vascular congestion or sizable pleural effusion. No consolidative airspace opacities or pneumothorax. Procedure Note Dandre Tai MD - 09/13/2024 [facility] [address] [place], [place] [address] Examination: XR CHEST PORTABLE Exam time: 09/12/2024 [...] Tai MD, 09/13/2024 1:10 AM Kristi Melgar CLINICAL TRIAL EDUCATOR GENERAL IMAGING Final Resul t * CT CHEST WO CON (02/25/2024 3:02 PM BRICK WASHER) Anatomical Region Laterality Modality Chest Computed Tomogra phy 02/25/2024 3:43 PM BRICK WASHER Impressions 02/25/2024 4:02 PM BRICK WASHER IMPRESSION:===== 1. Increasing but minimal left pleural [...] 02/25/2024 3:43 PM Narrative 02/25/2024 4:02 PM BRICK WASHER [facility] [address] [place], [place] [address] EXAMINATION: CT Chest without contrast EXAM DATE/TIME: 02/25/2024 2:57 PM REASON FOR EXAM: abnormal cxr COMPARISON: [facility] x[facility]ray [facility] and multiple exams for 02/22/2024 TECHNIQUE: [...] Note Luis Alberto Stewart MD - 02/25/2024 [facility] [address] [place], [place] [address] EXAMINATION: CT Chest without contrast EXAM DATE/TIME: [...] A1C (BACK OFFICE) (11/12/2023 11:24 AM CDT) [facility] HGB A1C 6.6 % [facility] 11/12/2023 11:2 4 AM CDT Adeel Jones MD LABORATORY Final Result [facility] [address] [place] [address], * LIPID PANEL (09/24/2023) [facility] CHOLESTEROL 120 HDL 30 TRIGLYCERIDES 175 LDL (CALCULATED) 55 09/24/2023 us Default History Genericprovider LABORATORY Final Result * HEPATITIS C ANTIBODY ([facility] ONLY) (08/13/2023 11:56 AM CDT) Pathologist [facility] [place] HEPATITIS C AB NON-REACTI VE NON-REACT SRINIVASAN 08/13/2023 9:58 PM CDT [facility] Comment: ANTIBODIES TO HCV NOT DETECTED. DOES NOT EXCLUDE THE POSSIBILITY OF EXPOSURE TO HCV. 08/13/2023 11:5 6 AM CDT Adeel Jones MD LABORATORY Final Result [facility] [address] [place] [address], [id number] from Last 3 Months or Most Recently Relevant to Health Maintenance Insurance MEDICAID [facility] Advance Directives Documents on File Type Date Recorded Patient Floor Representative Expl anation Advance Directives and Living Will [...] 10:15 PM 06/21/2023 2:07 PM Care Teams Grinding Room Inspector Relationship Specialty [place] [address] [place] [id number] PCP - General INTERNAL MEDICINE 09/09/24 Ino Tracy MD [facility]. [id number] [place] [address] [place] [employer]st INTERVENTIONAL CARDIOLOGY 01/02/18
[2024-11-10 13:41] LABS: Hematocrit 36.3 % (37.0-46.0); Hemoglobin 11.6 g/dL (12.4-15.3); Mean Corpuscular HGB Conc 32.0 g/dL (32-36); Mean Corpuscular Hemoglobin 30.9 pg (27.0-31.0); Mean Corpuscular Volume 96.8 fL (78.0-102.0); Platelet Count Result 209 K/mm3 (150-420); Red Blood Count 3.75 M/mm3 (4.70-6.10); White Blood Count 10.8 K/mm3 (4.8-10.8)
[2024-11-10 14:15] LABS: Albumin Level 3.9 g/dL (3.5-5.1); Anion Gap 7 mmol/L (4-12); Blood Urea Nitrogen 14 mg/dL (9-20); Calcium 10.5 mg/dL (8.4-10.2); Carbon Dioxide 29 mmol/L (22-30); Chloride 103 mmol/L (98-107); Estimated Glomerular Filt Rate > 60; Glucose 205 mg/dL (65-110); Osmolality Calculated 294 mOsm/kg (285-295); Potassium 4.8 mmol/L (3.4-5.0); Sodium 139 mmol/L (137-145)
== END 2024-11-10 13:26 | disposition home or self-care (01) ==
LOC: CHSLAB 13:28
DX: M79.7 Fibromyalgia (principal); M06.9 Rheumatoid arthritis, unspecified; G89.29 Other chronic pain; I51.9 Heart disease, unspecified; N18.9 Chronic kidney disease, unspecified
CPT/HCPCS: 36415; 80069; 85027

== ENCOUNTER 2025-02-07 20:29 | Emergency (ER) | payer MEDICARE, MEDICAID, SELFPAY ==
[2025-02-07] VITALS (11 sets, daily range): BP systolic 128–151; BP diastolic 69–79; PULSE 65–81; RESP 14–20; TEMP 36.6; O2SAT 95–99
--- NOTE | ~2025-02-07 | XR_ITS ---
Examination: XR chest 1V portable Clinical History: SOB/HX OF COPD AND CHF Comparison: 09/12/2024 Technique: Portable AP Findings: Heart size normal. No focal airspace consolidation or pulmonary edema. Emphysema and mild interstitial changes. No acute bony abnormality. IMPRESSION: 1. No acute cardiopulmonary findings given portable technique. Reviewed, dictated and finalized at location R. K DROPPER
--- OUTSIDE RECORDS SUMMARY | 2025-02-07 20:31 | XMS_ITS | Clinical Summary ---
Author Organization [facility] Address [address] [place] [address] Care Team Providers Care Collection Card Clerk Name Role Phone Ino Tracy MD Unavailable Ria Topete MD Primary Care Provider [phone] Allergies Active Allergy Reactions Criticality Noted Date [...] renal failure 09/12/2024 Bipolar I disorder, most recent episode depresse d 03/19/2024 Diastolic heart failure 03/19/2024 Paresis of lower extremity 03/19/2024 Sepsis 02/22/2024 COVID-19 01/15/2024 Erectile dysfunction, unspecified erectile [...] 30.9 in adult 07/09/2023 Diabetic peripheral neuropathy 07/09/2023 Hyperlipidemia, mixed 06/26/2023 COPD (chronic obstructive pulmonary disease) 12/2023 NSTEMI (non-ST elevated myocardial infarction) 0 05/27/2023 Acute respiratory failure with hypoxia Pancreatitis 05/06/2021 COPD exacerbation 09/25/2020 Chronic respiratory failure with hypoxia 021 Atherosclerosis of aorta 01/06/2020 Moderate episode of recurrent major depressive d isorder 09/25/2018 History of stroke 09/25/2018 Paranoid schizophrenia 06/05/2018 Tobacco user 01/16/2018 Anxiety 10/08/2017 Rheumatoid arthritis 10/07/2017 Trochanteric bursitis of right hip 09/23/2017 Bipolar disorder 09/23/2017 Gastroesophageal reflux disease without esophagi tis 02/21/2017 Essential hypertension 02/15/2017 Hernia, inguinal 02/15/2017 Diabetes mellitus 02/15/2017 Fibromyalgia 02/15/2017 Chronic pain syndrome 02/15/2017 Arteriosclerosis of coronary artery 02/15/2017 Immunizations Immunization Administration Dates Next Due Fluzone [...] from your doctor or pharmacy? Never 01/15/2024 [facility] Utilities Answer Date Recorded In the past 12 months has e [place], [place], or water [employer] threatened to shut off services in your [...] No 09/13/2024 Social Connection and Isolation Panel Answer Date Recorded In a typical week, how many times do you talk on the phone with family, friends, or neighbors? Twice a week 01/15/2024 How often do you get together with friends or re latives? Never 01/15/2024 How often do you attend buddhist or judaism serv ices? Never 01/15/2024 Do you belong [...] Recorded Patient Health Questionnaire-2 Score 0 12/31/2023 [facility] - Occupational Stress Questionnaire Answer Date Recorded [...] any time in the past 12 m [facility], were you homeless or living [...] st Contact Info) Description 03/17/2025 10:30 AM OCULAR CARE TECHNICIAN Office Visit [facility], [address] [place], [place] [id number] Ivory Loaiza APRN [facility]. [address] [place] [address] Health Maintenance Due Date Last Done Comments ASCVD Statin 1958 Kidney Health Evaluation 1958 Diabetes: Retinopathy Eye Exam 1976 DTaP, Tdap and Td Vaccines (1 - Tdap) 1977 Zoster Vaccines (1 of 2) 2008 RSV Immunization or 60+ Years (1 - Risk 60-74 years 1-dose series) 2018 Annual Medicare Wellness Visit 2023 PHQ-2 (Physician [place]) 03/11/2024 12/31/2023 Hemoglobin A1C 05/11/2024 11/12/2023, 06/0 06/2023, 05/27/2023, Additional history exists ASCVD LDL 09/23/2024 09/24/2023, 06/0 06/2023, 05/27/2023, Additional history exists Lipid Panel 09/23/2024 09/24/2023, 06/0 06/2023, 05/27/2023, Additional history exists COVID-19 Vaccine ( season) 2024 12/18/2021, 11/02/2020, 08/03/2020 Influenza Adult (#1) 2024 11/21/2023, 12/15/2019, 11/18/2018, Additional history exists Lung Cancer Screening 03/25/2025 03/25/2024 , 02/25/2024, 02/22/2024, Additional history exists Colorectal Cancer Screening FIT/FOBT (1 Year) 09/14/2025 09/14/2024 Pneumococcal Vaccine: 50+ Years Completed 07/09/2023 Hepatitis C Completed 08/13/2023 AAA SCREENING Completed 09/13/2024, 03/11, 03/25/2024, Additional history exists Hepatitis A Vaccines Aged Out No long er eligible based on patient's age to complete this topic Meningococcal B Vaccine Aged Out No l [...] at home upon discharge Lifestyle Reno Morrow, manager msw Procedure Name Priority Date/Time Associated Diagnosis Comments HC OCCULT BLOOD FECAL DIAG Routine 09/14/2024 8:[address] ABD+PEL WO CON STAT 09/13/2024 1:[address] CHEST WO CON STAT 02/25/2024 3:02 PM OCULAR CARE TECHNICIAN HEMOGLOBIN, GLYCOSYLATED Routine 11/12/2023 11:24 AM CDT Type 2 diabetes mellitus with stage 3b chronic kidney disease, with long-term current use of insulin LIPID PANEL Routine 09/24/2023 HEPATITIS C ANTIBODY Routine 08/13/2023 11:56 AM CDT Encounter for hepatitis C screening test for low risk patient from Last 3 Months or Most Recently Relevant to Health Maintenance Results * OCCULT BLOOD, FECES (09/14/2024 8:32 PM CDT) OCCULT BLOOD FECAL NEGATIVE NEGATIVE 09/14/2024 9:44 PM CDT [facility] STOOL SPECIMEN / Unknown 09/14/2024 8:32 PM CDT Kristi Melgar JAVA MANAGER BODY FLUIDS AND STOOLS VANDANA TAVERAS Final Result [facility] [address] [place] [address], [place] [phone] * CT ABD+PEL WO CON (09/13/2024 1:15 [...] 1:16 AM Narrative 09/13/2024 1:27 AM CDT [address] [address] Examination: CT abdomen and pelvis without IV [...] Procedure Note Dandre Tai MD - 09/13/2024 [facility] [address] [place], [place] [address] Examination: CT abdomen and pelvis without IV [...] nonemergent findings as above. Referred By: OCHOA RGAY Interpreted By: Dandre Tai MD, 09/13/2024 1:16 AM us Kristi Melgar JAVA MANAGER CT Final Resul t * CT CHEST WO CON (02/25/2024 3:02 PM OCULAR CARE TECHNICIAN) Anatomical Region Laterality Modality Chest Computed Tomogra phy 02/25/2024 3:43 PM OCULAR CARE TECHNICIAN Impressions 02/25/2024 4:02 PM OCULAR CARE TECHNICIAN IMPRESSION:===== 1. Increasing but minimal left pleural [...] 02/25/2024 3:43 PM Narrative 02/25/2024 4:02 PM OCULAR CARE TECHNICIAN [address] [address] EXAMINATION: CT Chest without contrast EXAM DATE/TIME: 02/25/2024 2:57 PM REASON FOR EXAM: abnormal cxr COMPARISON: Chest x-ray from [facility] and multiple exams for 02/22/2024 TECHNIQUE: [...] Procedure Note Don Stewart MD - 02/25/[address] [address] EXAMINATION: CT Chest without contrast EXAM DATE/TIME: 02/25/2024 2:57 PM REASON FOR EXAM: abnormal cxr COMPARISON: Chest x-ray from [facility] and multiple exams for02/22/2024 TECHNIQUE: Computed [...] MD LABORATORY Final Result Performing Organization Address City/[facility] Co de Phone Number GREGORY MENDEZ [address] [place] [address], * LIPID PANEL (09/24/2023) Pathologist [facility] CHOLESTEROL 120 HDL 30 TRIGLYCERIDES 175 LDL (CALCULATED) 55 09/24/2023 Default History Genericprovider LABORATORY Final Result * HEPATITIS C ANTIBODY ([facility] ONLY) (08/13/2023 11:56 AM CDT) Pathologist [facility] HEPATITIS C AB NON-REACTI VE NON-REACT SRINIVASAN 08/13/2023 9:58 PM CDT [facility] Comment: ANTIBODIES TO HCV NOT DETECTED. DOES NOT EXCLUDE THE POSSIBILITY OF EXPOSURE TO HCV. 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 [address] [address] Nigel Bulk Clerk INTERVENTIONAL CARDIOLOGY 01/02/18
--- OUTSIDE RECORDS SUMMARY | 2025-02-07 20:31 | XMS_ITS | Patient Health Record ---
Author Organization [facility] [employer] Address [address] [facility] [address] [place] [address] Care Team Providers Care Possum Trapper Name Role Phone Junaid Painter Unavailable [phone] Reason For Referral No Information Medications Medication [...] Inhaler Inhalation Active Melatonin *Pick strength-form from [employer] for eRX* Active Fluticasone Propionate Diskus 50 MCG/ACT Aerosol Powder Breath Activated Inhalation *Reorder from [employer] for eRx and Interaction Alerts* Active Sulfamethoxazole-Trimet [...] Date Medicare-I l Medicare [address] [place] [address] [id number] LUIS ALBERTO DENNY Self - patient is the insured Medicaid-I l Medicaid [address] [address] [place] [address] [id number] LUIS ALBERTO DENNY Self - patient is the insured
--- NOTE | 2025-02-07 20:33 | ED.CHESTPAIN ---
HPI - Chest Pain General Chief Complaint: Chest Pain Stated Complaint: CHEST PAIN Time Seen by Provider: 02/07/25 20:33 Source: patient Mode of arrival: wheelchair Limitations: no limitations History of Present Illness HPI narrative: Patient is a 64-year-old male from the snf [place] the street with shortness of breath and chest pain this evening. He has been having complaints for the past week at the nursing facility. Tonight they called EMS. He came with same chest pain which is on the left chest side. MD complaint: chest pain, chest heaviness, chest discomfort and other (And associated shortness of breath) Pertinent past history: coronary artery disease and other (COPD, CHF) Onset (ago): week(s) (One) Timing of current episode: episodic Prior episodes: Yes Onset: during rest, during exertion and awoke with symptoms Pain location: left chest Pain radiation: none Severity: moderate Pain scale (0-10): 5 Quality: sharp Relieving factors: nothing Exacerbating factors: exertion, inspiration, palpation and movement Context: other (Patient having continued shortness of breath for the past week and new onset chest pain to the left side of the parasternal area) Associated symptoms: other (None) Treatment prior to arrival: none Risk Factors Coronary artery disease risk factors: diabetes, smoking history, hyperlipidemia and hypertension 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 Related Data Home Medications ?Medication ?Instructions ?Recorded ?Confirmed ?Last Taken ?Type albuterol 90 mcg-budesonide 80 2 inh inhalation 6XD PRN shortness 07/19/24 11/17/24 Unknown History mcg/actuation HFA aerosol inhaler of breath (Airsupra) aripiprazole 10 mg tablet (Abilify) 10 mg PO DAILY 07/19/24 11/17/24 Unknown History aspirin 81 mg tablet,delayed 81 mg PO DAILY 07/19/24 11/17/24 Unknown History release (Ecotrin Low Strength) atorvastatin 80 mg tablet (Lipitor) 80 mg PO DAILY 07/19/24 11/17/24 Unknown History buspirone 10 mg tablet 10 mg PO BID 07/19/24 11/17/24 Unknown History clopidogrel 75 mg tablet 75 mg PO DAILY 07/19/24 11/17/24 Unknown History duloxetine 20 mg capsule,delayed 20 mg PO DAILY 07/19/24 11/17/24 Unknown History release (Cymbalta) duloxetine 60 mg capsule,delayed 60 mg PO DAILY 07/19/24 11/17/24 Unknown History release (Cymbalta) ferrous sulfate 325 mg (65 mg 325 mg PO DAILY 07/19/24 11/17/24 Unknown History iron) tablet (Feosol) fluticasone fur. 200 mcg-umeclid 1 inh inhalation DAILY 07/19/24 11/17/24 Unknown History 62.5 mcg-vilant 25 mcg inhalat.powder (Trelegy Ellipta) fluticasone propionate 50 2 spray intranasal DAILY 07/19/24 11/17/24 Unknown History mcg/actuation nasal spray,suspension (24 Hour Allergy Relief) furosemide 40 mg tablet 40 mg PO BID 07/19/24 11/17/24 Unknown History gabapentin 600 mg tablet 1,200 mg PO TID 07/19/24 11/17/24 Unknown History glipizide 10 mg tablet 10 mg PO DAILY 07/19/24 11/17/24 Unknown History insulin glargine 100 unit/mL (3 18 unit subcut QPM 07/19/24 11/17/24 Unknown History mL) subcutaneous pen (Basaglar KwikPen U-100 Insulin) insulin lispro 100 unit/mL 4 unit subcut QACBREAK 07/19/24 11/17/24 Unknown History subcutaneous solution (Humalog U-100 Insulin) isosorbide dinitrate 30 mg tablet 30 mg PO DAILY 07/19/24 11/17/24 Unknown History latanoprost 0.005 % eye drops 1 drp EACH EYE QPM 07/19/24 11/17/24 Unknown History lisinopril 10 mg tablet 10 mg PO DAILY 07/19/24 11/17/24 Unknown History loratadine 10 mg tablet (Allergy 10 mg PO DAILY 07/19/24 11/17/24 Unknown History Relief (loratadine)) lorazepam 0.5 mg tablet (Ativan) 0.5 mg PO Q12H PRN anxiety 07/19/24 11/17/24 Unknown History pantoprazole 20 mg tablet,delayed 20 mg PO QAM 07/19/24 11/17/24 Unknown History release roflumilast 500 mcg tablet 500 mcg PO DAILY 07/19/24 11/17/24 Unknown History (Daliresp) tizanidine 4 mg tablet 4 mg PO DAILY 07/19/24 11/17/24 Unknown History tramadol 50 mg tablet 50 mg PO Q6H PRN pain 07/19/24 11/17/24 Unknown History trazodone 100 mg tablet 200 mg PO HS 07/19/24 11/17/24 Unknown History Allergies Allergy/AdvReac Type Severity Reaction Status Date / Time cephalexin Allergy Mild Unknown Verified 02/07/25 20:40 Penicillins Allergy Mild Unknown Verified 02/07/25 20:40 oxycodone (From OxyContin) AdvReac Mild Fainting Verified 02/07/25 20:40 Review of Systems Review of Systems: All systems reviewed & are unremarkable except as noted in HPI and below Constitutional: Constitutional: Reports no additional constitutional complaints Eyes: Eyes: Reports no additional eye complaints ENT: Reports system reviewed and no additional complaints, except as documented Cardiovascular: Cardiovascular: Reports no additional cardiovascular complaints Respiratory: Respiratory: Reports no additional respiratory complaints Gastrointestinal: Gastrointestinal: Reports no additional gastrointestinal complaints Genitourinary: Genitourinary: Reports no additional male genitourinary complaints Musculoskeletal: Musculoskeletal: Reports no additional musculoskeletal complaints Integumentary/Breasts: Skin/Breast: Reports system reviewed and no additional complaints, except as docu Neurologic: Reports system reviewed and no additional complaints, except as documented Psychiatric: Psychiatric: Reports no additional psychiatric complaints Endocrine: Endocrine: Reports no additional endocrine complaints Hematologic/Lymphatic: Hematologic/Lymphatic: Reports no additional hematologic/lymphatic complaints Allergic/Immunologic: Allergic/Immunologic: Reports no additional allergic/immunologic complaints PMFSH Past Medical History Medical History Rheumatoid arthritis Dyslipidemia Diabetes mellitus COPD (chronic obstructive pulmonary disease) Hypertension Bipolar 1 disorder Social History Social History Smoking status: Never smoker Exam Const: General: healthy appearing, no acute distress and alert Nutritional Appearance: well nourished Orientation/consciousness: patient oriented x3 Limitations: no limitations HENMT: Head: normal to inspection Ears: external ears normal Face/Nose/Sinus: Normal external nose present Eyes: Conjunctivae: conjunctivae normal and conjunctival abnormality Pupils: Equal, round and reactive pupils present EOM: EOMs intact bilaterally Neck: Neck: normal visual inspection, no lymphadenopathy and no meningeal signs Chest: Chest palpation & inspection: normal inspection of the chest, normal inspection of the chest, tenderness and No Pacemaker present Resp: Effort & Inspection: normal respiratory effort Auscultation: clear to auscultation bilaterally Cardio: Rate: regular rate Rhythm: regular rhythm Heart sounds: no murmurs GI: Inspection: non-distended GI Palp: No Soft to palpation and No Tenderness to palpation present (GI) Auscultation: normal bowel sounds : General: Yes bladder normal to palpation Back/Spine/Pelvis: Back: no CVA tenderness Skin: General skin exam: normal color Rashes: no rashes Wounds: no wounds Neuro: General: patient oriented x3, moves all extremities and no meningeal signs Extrem: General: normal to inspection, no clubbing, cyanosis or edema and no pedal edema Psych: Mental Status: mental status grossly normal Affect: normal affect Attitude: cooperative Course Vital Signs Vital signs: Vital Signs Temperature 36.6 C 02/07/25 20:30 Pulse Rate 74 02/07/25 20:30 Respiratory Rate 20 02/07/25 20:30 Blood Pressure 134/76 02/07/25 20:30 Pulse Oximetry 98 02/07/25 20:30 Oxygen Delivery Nasal Cannula 02/07/25 20:30 Oxygen Flow Rate 3 02/07/25 20:30 Temperature 36.6 C 02/07/25 20:30 Pulse Rate 69 02/08/25 00:01 Respiratory Rate 16 02/08/25 00:01 Blood Pressure 139/82 02/08/25 00:01 Pulse Oximetry 98 02/08/25 00:01 Oxygen Delivery Nasal Cannula 02/08/25 00:01 Oxygen Flow Rate 3 02/08/25 00:01 MDM - Chest Pain MDM Narrative Medical decision making narrative: Patient is a 64-year-old male with chest pain and shortness of breath this evening with known CHF and COPD. We will do a cardiopulmonary workup at this time. Lab Data Attestation: I reviewed the patient's lab results. 02/07/25 20:57 02/07/25 20:57 Labs: Lab Results 02/07/25 02/07/25 02/07/25 Range/Units 20:55 20:57 21:21 WBC 9.8 (4.8-10.8) K/mm3 RBC 3.75 L (4.70-6.10) M/mm3 Hgb 11.4 L (12.4-15.3) g/dL Hct 35.1 L (37.0-46.0) % MCV 93.6 (78.0-102.0) fL MCH 30.4 (27.0-31.0) pg MCHC 32.5 (32-36) g/dL RDW 12.5 (11.6-14.4) % Plt Count 212 (150-420) K/mm3 MPV 10.5 (8.7-11.0) fl Immature Gran % (Auto) 0.3 H (0.0-0.0) % Neut % (Auto) 71.6 H (50.0-70.0) % Lymph % (Auto) 18.6 (18.0-42.0) % Noble % (Auto) 6.9 (2.0-11.0) % Eos % (Auto) 1.8 (1.0-6.0) % Baso % (Auto) 0.8 (0.0-1.0) % Lymph # (Auto) 1.83 (1.10-4.50) K/mm3 Noble # (Auto) 0.68 (0.10-0.90) K/mm3 Eos # (Auto) 0.18 (0.02-0.50) K/mm3 Baso # (Auto) 0.08 (0.00-0.10) K/mm3 Abs Immat Gran (auto) 0.03 H (0.00-0.00) K/mm3 Absolute Neuts (auto) 7.03 (1.70-7.20) K/mm3 Absolute Nucleated RBC 0.00 (0.00-0.00) K/mm3 Nucleated RBC % 0.0 (0-0.0) % PT 10.8 (9.50-12.1) Seconds INR 1.0 APTT 23.5 L (23.9-30.70) Sec D-Dimer 0.29 (0.19-0.50) mg/L Sodium 140 (137-145) mmol/L Potassium 4.4 (3.4-5.0) mmol/L Chloride 102 (98-107) mmol/L Carbon Dioxide 27 (22-30) mmol/L Anion Gap 11 (4-12) mmol/L BUN 20 (9-20) mg/dL Creatinine 1.26 (0.7-1.3) mg/dL Estim Creat Clear Calc 50 ml/min Estimated GFR 57 L (59 - ) Glucose 201 H (65-110) mg/dL Calculated Osmolality 298 H (285-295) mOsm/kg Calcium 10.7 H (8.4-10.2) mg/dL Total Bilirubin 0.1 L (0.2-1.3) mg/dL AST 22 (17-59) U/L ALT 18 (6-50) U/L Alkaline Phosphatase 122 (38-126) U/L Troponin I < 0.012 (0.000-0.034) ng/mL NT-Pro-B Natriuret Pep 138 H (19.9-100) pg/mL Total Protein 7.0 (6.3-8.2) g/dL Albumin 4.2 (3.5-5.1) g/dL Lipase 199 (23-300) U/L Urine Color Yellow (Yellow) Urine Appearance Clear (Clear) Urine pH 5.5 (5.0-8.0) Ur Specific Tornado 1.020 (1.010-1.020) Urine Protein Negative (Negative) Urine Glucose (UA) 3+ H (Negative) Urine Ketones Trace H (Negative) Ur Blood (Man) Negative (Negative) Urine Nitrate Negative (Negative) Urine Bilirubin Negative (Negative) Urine Urobilinogen 0.2 (0.2-1.0) mg/dL Leukocyte Esterase Rfl Negative (Negative) KINGA/UL Influenza A (RT-PCR) Negative (Negative) Influenza B (RT-PCR) Negative (Negative) RSV (RT-PCR) Negative (Negative) SARS-CoV-2 RNA (RT-PCR) Negative (Negative) 02/07/25 Range/Units 23:05 WBC (4.8-10.8) K/mm3 RBC (4.70-6.10) M/mm3 Hgb (12.4-15.3) g/dL Hct (37.0-46.0) % MCV (78.0-102.0) fL MCH (27.0-31.0) pg MCHC (32-36) g/dL RDW (11.6-14.4) % Plt Count (150-420) K/mm3 MPV (8.7-11.0) fl Immature Gran % (Auto) (0.0-0.0) % Neut % (Auto) (50.0-70.0) % Lymph % (Auto) (18.0-42.0) % Noble % (Auto) (2.0-11.0) % Eos % (Auto) (1.0-6.0) % Baso % (Auto) (0.0-1.0) % Lymph # (Auto) (1.10-4.50) K/mm3 Noble # (Auto) (0.10-0.90) K/mm3 Eos # (Auto) (0.02-0.50) K/mm3 Baso # (Auto) (0.00-0.10) K/mm3 Abs Immat Gran (auto) (0.00-0.00) K/mm3 Absolute Neuts (auto) (1.70-7.20) K/mm3 Absolute Nucleated RBC (0.00-0.00) K/mm3 Nucleated RBC % (0-0.0) % PT (9.50-12.1) Seconds INR APTT (23.9-30.70) Sec D-Dimer (0.19-0.50) mg/L Sodium (137-145) mmol/L Potassium (3.4-5.0) mmol/L Chloride (98-107) mmol/L Carbon Dioxide (22-30) mmol/L Anion Gap (4-12) mmol/L BUN (9-20) mg/dL Creatinine (0.7-1.3) mg/dL Estim Creat Clear Calc ml/min Estimated GFR (59 - ) Glucose (65-110) mg/dL Calculated Osmolality (285-295) mOsm/kg Calcium (8.4-10.2) mg/dL Total Bilirubin (0.2-1.3) mg/dL AST (17-59) U/L ALT (6-50) U/L Alkaline Phosphatase (38-126) U/L Troponin I < 0.012 (0.000-0.034) ng/mL NT-Pro-B Natriuret Pep (19.9-100) pg/mL Total Protein (6.3-8.2) g/dL Albumin (3.5-5.1) g/dL Lipase (23-300) U/L Urine Color (Yellow) Urine Appearance (Clear) Urine pH (5.0-8.0) Ur Specific Tornado (1.010-1.020) Urine Protein (Negative) Urine Glucose (UA) (Negative) Urine Ketones (Negative) Ur Blood (Man) (Negative) Urine Nitrate (Negative) Urine Bilirubin (Negative) Urine Urobilinogen (0.2-1.0) mg/dL Leukocyte Esterase Rfl (Negative) KINGA/UL Influenza A (RT-PCR) (Negative) Influenza B (RT-PCR) (Negative) RSV (RT-PCR) (Negative) SARS-CoV-2 RNA (RT-PCR) (Negative) Imaging Data Attestation: I personally reviewed and interpreted this imaging study as follows: Radiologist's impression: Chest x-ray pending final Radiology reading shows bilateral infiltrates of pneumonia ECG Data EKG #1: Attestation: I personally reviewed and interpreted this ECG as follows: ECG completion date: 02/07/25 ECG completion time: 21:58 EKG Interpretation: normal rate, sinus rhythm, no ectopy, ST depression, widened QRS (IVCD), normal QT and right axis Discharge Plan Discharge Clinical Impression: Atypical chest pain, Acute exacerbation of chronic obstructive pulmonary disease Pneumonia Qualifiers: Pneumonia type: due to unspecified organism Laterality: bilateral Lung location: unspecified part of lung Qualified Code(s): J18.9 - Pneumonia, unspecified organism Patient Disposition: Home Condition: Improved Instructions: Antibiotic Form, COPD (Chronic Obstructive Pulmonary Disease) (DC), Bacterial Pneumonia (DC) Patient Language: Djiboutian Prescriptions: New levofloxacin 500 mg tablet 500 mg PO DAILY 7 Days Qty: 7 0RF methylprednisolone [Medrol (Ehsan)] 4 mg tablets,dose pack See Rx Instructions .ROUTE .COMPLEX Qty: 21 0RF Rx Instructions: orally per package directions No Action Airsupra 90-80 mcg/actuation HFA aerosol inhaler 2 inh inhalation 6XD PRN (Reason: shortness of breath) aripiprazole [Abilify] 10 mg tablet 10 mg PO DAILY aspirin [Ecotrin Low Strength] 81 mg tablet,delayed release (DR/EC) 81 mg PO DAILY atorvastatin [Lipitor] 80 mg tablet 80 mg PO DAILY buspirone 10 mg tablet 10 mg PO BID clopidogrel 75 mg tablet 75 mg PO DAILY duloxetine [Cymbalta] 20 mg capsule,delayed release(DR/EC) 20 mg PO DAILY duloxetine [Cymbalta] 60 mg capsule,delayed release(DR/EC) 60 mg PO DAILY ferrous sulfate [Feosol] 325 mg (65 mg iron) tablet 325 mg PO DAILY fluticasone propionate [24 Hour Allergy Relief] 50 mcg/actuation spray,suspension 2 spray intranasal DAILY Rx Instructions: administer into each nostril furosemide 40 mg tablet 40 mg PO BID gabapentin 600 mg tablet 1,200 mg PO TID glipizide 10 mg tablet 10 mg PO DAILY insulin lispro [Humalog U-100 Insulin] 100 unit/mL solution 4 unit subcut QACBREAK Patient Comments: BEFORE MEALS HOLD IF BS LESS THAN 100 insulin glargine [Basaglar KwikPen U-100 Insulin] 100 unit/mL (3 mL) insulin pen 18 unit subcut QPM isosorbide dinitrate 30 mg tablet 30 mg PO DAILY Rx Instructions: allow nitrate-free interval of 12-14 hrs per 24-hr period latanoprost 0.005 % drops 1 drp EACH EYE QPM lisinopril 10 mg tablet 10 mg PO DAILY loratadine [Allergy Relief (loratadine)] 10 mg tablet 10 mg PO DAILY lorazepam [Ativan] 0.5 mg tablet 0.5 mg PO Q12H PRN (Reason: anxiety) pantoprazole 20 mg tablet,delayed release (DR/EC) 20 mg PO QAM roflumilast [Daliresp] 500 mcg tablet 500 mcg PO DAILY tizanidine 4 mg tablet 4 mg PO DAILY tramadol 50 mg tablet 50 mg PO Q6H PRN (Reason: pain) trazodone 100 mg tablet 200 mg PO HS Trelegy Ellipta 200-62.5-25 mcg blister with device 1 inh inhalation DAILY tramadol 50 mg tablet 50 mg PO Q8H PRN (Reason: pain) Qty: 20 0RF Rx Instructions: 1-2 tabs per dose Follow-up/Referrals: HernánRia M.D. [Primary Care Provider] Time of Disposition: 00:23
--- NOTE | 2025-02-07 20:34 | ECG_ITS ---
Test Date: 2025-02-07 20:43:53 Measurements Intervals [place] Rate: 75 P: 14 AR: 169 QRS: 79 QRSD: 114 T: 5 QT: 361 QTc: 405 Interpretive Statements SINUS RHYTHM INTRAVENTRICULAR CONDUCTION DELAY NONSPECIFIC T-WAVE ABNORMALITY- INFERIOR LEADS BASELINE ARTIFACT- I, II, AVR, V3 BORDERLINE ECG Compared to ECG 09/12/2024 12:11:07 RIGHT BUNDLE BRANCH BLOCK NO LONGER PRESENT Electronically Signed On 02-08-2025 06:02:36 DAIRY BACTERIOLOGIST by Capo Johnston D.O.
[2025-02-07] MEDS: IPRATROPIUM 0.5 MG/ALBUTEROL SULFATE 2.5 MG (BASE) AMPUL.NEB 3 ML INHALATION (20:51)
--- OUTSIDE RECORDS SUMMARY | 2025-02-07 21:05 | XMS_ITS | Clinical Summary ---
Author Organization [facility] Address [address] [place] [address] Care Team Providers Care Refractive Surgeon Name Role Phone Ino Tracy MD Unavailable Ria Topete MD Primary Care Provider [phone] Allergies Active Allergy Reactions Criticality Noted Date [...] from your doctor or pharmacy? Never 01/15/2024 [facility] Utilities Answer Date Recorded In the past 12 months has e [employer], [employer], or water [facility] threatened to shut off services in your [...] Never 01/15/2024 How often do you attend nondenominational or mu-ism serv ices? Never 01/15/2024 Do you belong to any clubs o r organizations such as nondenominational groups, unions, fraternal or athletic groups, or [...] Recorded Patient Health Questionnaire-2 Score 0 12/31/2023 [facility] - Occupational Stress Questionnaire Answer Date Recorded [...] any time in the past 12 m [facility], were you homeless or living in a detention (including now)? No 09/13/2024 Sex and Gender [...] st Contact Info) Description 03/17/2025 10:30 AM PSYCHIATRIC NURSING AIDE Office Visit [facility] [address] [place], [place] [id number] Ivory Loaiza APRN [facility]. [address] [place] [address] Health Maintenance Due Date Last Done Comments ASCVD Statin 1960 Kidney Health Evaluation 1960 Diabetes: Retinopathy Eye Exam 1976 DTaP, Tdap and Td Vaccines (1 - Tdap) 1977 Zoster Vaccines (1 of 2) 2008 RSV Immunization or 60+ Years (1 - Risk 60-74 years 1-dose series) 2018 Annual Medicare Wellness Visit 2023 PHQ-2 (Physician Schriever) 03/11/2024 12/31/2023 Hemoglobin A1C 05/11/2024 11/12/2023, 06/0 [...] at home upon discharge Lifestyle [place], extern Procedure Name Priority Date/Time Associated Diagnosis Comments HC OCCULT BLOOD FECAL DIAG Routine 09/14/2024 8:[address] ABD+PEL WO CON STAT 09/13/2024 1:[address] CHEST WO CON STAT 02/25/2024 3:02 PM PSYCHIATRIC NURSING AIDE HEMOGLOBIN, GLYCOSYLATED Routine 11/12/2023 11:24 AM CDT [...] FECAL NEGATIVE NEGATIVE 09/14/2024 9:44 PM CDT [facility] STOOL SPECIMEN / Unknown 09/14/2024 8:32 PM CDT Kristi Melgar BOTTLER BODY FLUIDS AND STOOLS VANDANA TAVERAS Final Result [facility] [address] [place] [address], [place] [phone] * CT ABD+PEL WO CON (09/13/2024 1:15 [...] 1:16 AM Narrative 09/13/2024 1:27 AM CDT [address] [address] Examination: CT abdomen and pelvis without IV [...] Procedure Note Dandre Tai MD - 09/13/2024 [facility] [address] [place], [place] [address] Examination: CT abdomen and pelvis without IV [...] MD, 09/13/2024 1:16 AM us Kristi Melgar BOTTLER CT Final Resul t * CT CHEST WO CON (02/25/2024 3:02 PM PSYCHIATRIC NURSING AIDE) Anatomical Region Laterality Modality Chest Computed Tomogra phy 02/25/2024 3:43 PM PSYCHIATRIC NURSING AIDE Impressions 02/25/2024 4:02 PM PSYCHIATRIC NURSING AIDE IMPRESSION:===== 1. Increasing but minimal left pleural [...] 02/25/2024 3:43 PM Narrative 02/25/2024 4:02 PM PSYCHIATRIC NURSING AIDE [address] [address] EXAMINATION: CT Chest without contrast EXAM DATE/TIME: 02/25/2024 2:57 PM REASON FOR EXAM: abnormal cxr COMPARISON: Chest x-ray from [facility] and multiple exams for 02/22/2024 [...] Procedure Note Don Stewart MD - 02/25/[address] [address] EXAMINATION: CT Chest without contrast EXAM DATE/TIME: 02/25/2024 2:57 PM REASON FOR EXAM: abnormal cxr COMPARISON: Chest x-ray from [facility] and multiple exams for02/22/2024 TECHNIQUE: [...] MD LABORATORY Final Result Performing Organization Address City/[facility] Co de Phone Number GREGORY MENDEZ [address] [place] [address], * LIPID PANEL (09/24/2023) Pathologist [facility] [place] CHOLESTEROL 120 HDL 30 TRIGLYCERIDES 175 LDL (CALCULATED) 55 09/24/2023 Default History Genericprovider LABORATORY Final Result * HEPATITIS C ANTIBODY ([facility] ONLY) (08/13/2023 11:56 AM CDT) Pathologist [facility] [place] HEPATITIS C AB NON-REACTI VE NON-REACT SRINIVASAN 08/13/2023 9:58 PM CDT [facility] Comment: ANTIBODIES TO HCV NOT DETECTED. DOES NOT EXCLUDE THE POSSIBILITY OF EXPOSURE TO HCV. 08/13/2023 11:5 6 AM CDT Adeel Jones MD LABORATORY Final Result Performing Organization Address [facility] Co de Phone Number [facility] [address] [place] [address], [id number] from Last 3 Months or Most Recently Relevant to Health Maintenance Insurance MEDICAID [facility] MEDICARE Advance Directives Documents on File Type Date Recorded Patient Director Vaccine Expl anation Advance Directives and Living Will [...] 10:15 PM 06/21/2023 2:07 PM Care Teams Refractive Surgeon Relationship Specialty [place] [address] [place] [id number] PCP - General INTERNAL MEDICINE 09/09/24 Ino Tracy MD [facility]. [address] [address] Nigel Night Auditor INTERVENTIONAL CARDIOLOGY 01/02/18
[2025-02-07 21:09] LABS: Hematocrit 35.1 % (37.0-46.0); Hemoglobin 11.4 g/dL (12.4-15.3); Immature Granulocyte Percent A 0.3 % (0.0-0.0); Lymphocytes Absolute Auto 1.83 K/mm3 (1.10-4.50); Mean Corpuscular HGB Conc 32.5 g/dL (32-36); Mean Corpuscular Hemoglobin 30.4 pg (27.0-31.0); Mean Corpuscular Volume 93.6 fL (78.0-102.0); Nucleated Red Blood Cells Absolute Auto 0.00 K/mm3 (0.00-0.00); Nucleated Red Blood Cells Perc 0.0 % (0-0.0); Platelet Count Result 212 K/mm3 (150-420); Red Blood Count 3.75 M/mm3 (4.70-6.10); White Blood Count 9.8 K/mm3 (4.8-10.8)
[2025-02-07 21:15] LABS: Alanine Aminotransferase 18 U/L (6-50); Albumin Level 4.2 g/dL (3.5-5.1); Alkaline Phosphatase 122 U/L (38-126); Anion Gap 11 mmol/L (4-12); Aspartate Amino Transferase 22 U/L (17-59); Bilirubin,Total 0.1 mg/dL (0.2-1.3); Blood Urea Nitrogen 20 mg/dL (9-20); Calcium 10.7 mg/dL (8.4-10.2); Carbon Dioxide 27 mmol/L (22-30); Chloride 102 mmol/L (98-107); Estimated CRCL calculation 50 ml/min; Estimated Glomerular Filt Rate 57; Glucose 201 mg/dL (65-110); Osmolality Calculated 298 mOsm/kg (285-295); Potassium 4.4 mmol/L (3.4-5.0); Sodium 140 mmol/L (137-145); Total Protein 7.0 g/dL (6.3-8.2)
[2025-02-07 21:17] LABS: INR 1.0; Partial Thromboplastin Time 23.5 Sec (23.9-30.70); Prothrombin Time 10.8 Seconds (9.50-12.1)
[2025-02-07 21:27] LABS: NT Pro B Type Natriuretic Pept 138 pg/mL (19.9-100)
[2025-02-07 21:32] LABS: Lipase 199 U/L (23-300); Troponin I < 0.012 ng/mL (0.000-0.034)
[2025-02-07 21:46] LABS: Influenza A QL RT-PCR Negative (Negative); Influenza B QL RT-PCR Negative (Negative); RSV RNA, RT-PCR Negative (Negative); SARS-CoV-2 RNA PCR Negative (Negative)
[2025-02-07 21:50] LABS: Add Urine Microscopic? NO; Appearance Urine Clear (Clear); Glucose Urine UA 3+ (Negative); Leukocyte Esterase Ur Negative LEU/UL (Negative); Nitrate Urine Negative (Negative); Specific Grav Ur 1.020 (1.010-1.020)
--- NOTE | 2025-02-07 22:33 | PC.NURSE ---
Pt informed on 2 hr trop level draw and POC. Pt resting and lights dimmed, call busby at side. VSS
[2025-02-07] MEDS: MAG HYDROX/AL HYDROX/SIMETH 30 ML UDC PO (23:02)
[2025-02-07 23:32] LABS: Troponin I < 0.012 ng/mL (0.000-0.034)
[2025-02-08 00:01] VITALS: BP 139/82; PULSE 69; RESP 16; O2SAT 98
--- NOTE | 2025-02-08 00:07 | PC.NURSE ---
Pt sleeping, no distress noted, VSS.
--- NOTE | 2025-02-08 00:19 | PC.NURSE ---
POC discussed w/ pt and d/c back to [facility]. Report called to RN and they will bring w/c to take pt back home.
[2025-02-08] MEDS: levoFLOXacin TAB 500 MG, levoFLOXacin TAB 250 MG 750 MG PO (00:24)
[2025-02-08 00:34] VITALS: BP 133/82; PULSE 74; RESP 20; TEMP 36.6; O2SAT 98
== END 2025-02-08 00:34 | disposition home or self-care (01) ==
PROVIDERS: Emergency Provider Emergency Medicine; PCP Internal Medicine
DX: J44.1 Chronic obstructive pulmonary disease with (acute) exacerbation (principal); J18.9 Pneumonia, unspecified organism; R07.89 Other chest pain; I25.10 Atherosclerotic heart disease of native coronary artery without angina pectoris; J44.9 Chronic obstructive pulmonary disease, unspecified; I11.0 Hypertensive heart disease with heart failure; I50.9 Heart failure, unspecified; E11.9 Type 2 diabetes mellitus without complications; M06.9 Rheumatoid arthritis, unspecified; Z20.822 Contact with and (suspected) exposure to COVID-19
CPT/HCPCS: 36415; 71045; 80053; 81003; 83690; 83880; 84484; 85025; 85380; 85610; 85730; 87637; 93005; 94640; 96374; 99284; A9270; J2919

== ENCOUNTER 2025-02-09 02:11 | Emergency (ER) | payer MEDICARE, MEDICAID, SELFPAY ==
--- NOTE | ~2025-02-09 | XR_ITS ---
XR chest 1V portable 02/09/2025 02:51 Indication: Hyperglycemia Procedure: AP portable chest Comparison: 02/07/2025 Findings: Heart size normal. Small right pleural effusion. Right basilar atelectasis. No focal pneumonia, edema or pneumothorax. Healed right clavicular fracture. No acute osseous abnormality. Scattered calcified granulomas bilaterally. Impression: 1: Small right pleural effusion. Reviewed, dictated and finalized at location I. [employer]CT MANAGER MEDICAL DEVICE Impression: 1: Small right pleural effusion.
[2025-02-09 02:11] VITALS: O2SAT 95
[2025-02-09 02:12] VITALS: BP 145/81; PULSE 80; RESP 16; TEMP 36.3; O2SAT 95
--- OUTSIDE RECORDS SUMMARY | 2025-02-09 02:27 | XMS_ITS | Clinical Summary ---
Author Organization [facility] briseno Address [address] [place] [phone] Phone Care Team Providers Care Brim Pouncer Machine Operator Name Role Phone Unavailable Primary Care Provider Unavailabl e Allergies Active Allergy Reactions Criticality Noted Date Comments Aspirin 09/29/2024 Cephalexin 09/29/2024 Lisinopril 09/29/2024 Penicillins 09/29/2024 Medications ARIPiprazole (ABILIFY) 10 MG tablet Take 10 [...] (one) time each day with breakfast Active Insulin Lispro (HUMALOG IJ) Inject 4 Units as directed in the morning and 4 Units at noon and 4 Units in the evening. Active Ipratropium-Albu terol (DUONEB IN) Inhale every 6 (six) hours if needed Active isosorbide mononitrate (IMDUR) 30 MG 24 hr tablet Take 30 mg by mouth 1 (one) time each day Active latanoprost (XALATAN) 0.005 % ophthalmic solution 1 drop every night Active LORazepam (ATIVAN) 0.5 MG tablet Take [...] Active traZODone (DESYREL) 100 MG tablet Take 150 mg by mouth every night Active insulin [...] use, clean tip and replace cap. Active Albuterol-Budeso nide 90-80 MCG/ACT aerosol Inhale 2 puffs every 4 (four) hours if needed Active doxazosin (CARDURA) 1 MG tablet Take 1 mg by mouth every night Active tamsulosin (Flomax) 0.4 MG 24 hr capsule Take 0.4 mg by mouth 1 (one) time each day Active gabapentin (NEURONTIN) 300 MG capsule Take 300 mg by mouth in the morning and 300 mg in the evening and 300 mg before bedtime. Active Active Problems Problem Noted Date Diagnosed Date Retention of urine 11/06/2024 Stage 3 chronic kidney disease 09/29/2024 Hypertensive renal disease 09/29/2024 Resolved Problems Problem Noted Date Diagnosed Date Resolved Date Acute nontraumatic kidney injury 09/29/2024 11/06/2024 Hyperkalemia 09/29/2024 11/06/2024 Anemia in chronic kidney disease 09/29/2024 11/06/2024 Hyperlipidemia 09/29/2024 11/06/2024 Encounters Date Type Department Care Team Description 11/11/2024 11:40 AM CDT Office Visit [facility] [address] [facility] [address] [place] [address] Ron Shane MD Hypercalcemia (Primary Dx); Chronic kidney disease, not otherwise specified; Retention of urine, not otherwise specified; Hypertensive renal disease from Last 3 Months Family History Medical History Relation Comments Heart attack Maternal Grandmother COPD Mother Heart attack Mother Sleep apnea Mother Heart attack Paternal Grandfather Relation Status Comments Maternal Grandmother Alive Mother Paternal Grandfather Alive Social History Tobacco Use Types Packs/Day Years Used Date Smoking Tobacco: Former Cigarettes Smokeless Tobacco: Never Tobacco Cessation:Counseling Given: Not Answered Alcohol Use Standard Drinks/Week Comments Never 0 (1 standard drink = 0.6 oz pur e alcohol) Sex and Gender Information Value Date Recorded Sex Assigned at Not on file Legal Sex Male 8:00 AM MDT Gender Identity Not on file Sexual Orientation Not on file Last Filed Vital Signs Vital Sign Reading Time Taken Comments Blood Pressure 131/80 11/11/2024 11:46 AM CDT Pulse 67 11/11/2024 11:46 AM CDT Temperature - - Respiratory Rate - - Oxygen Saturation - - Inhaled Oxygen Concentration - - Weight 83.9 kg (185 lb) 11/11/2024 11:46 AM CDT Height 172.7 cm (5' 8) 11/11/2024 11:46 AM CDT Body Mass Index 28.13 11/11/2024 11:46 AM CDT Plan of Treatment Health Maintenance Due Date Last Done Comments Diabetic Foot Exam 1968 Ophthalmology Exam 1968 Pneumococcal PPSV23/PCV13 65 + Years / High and Highest Risk (1 of 5 - PCV) 1977 COVID-19 Vaccine (3 - season) 2024, 08/03/2020 Influenza Vaccine (#1) 2024 0, 11/18/2018, 02/27/2018 Insurance [employer] MEDICARE [facility]
--- OUTSIDE RECORDS SUMMARY | 2025-02-09 02:27 | XMS_ITS | Clinical Summary ---
Author Organization [facility] Address [address] [place] [address] Care Team Providers Care Senior Health Physics Technician Name Role Phone Ino Tracy MD Unavailable Ria Topete MD Primary Care Provider [phone] Allergies Active Allergy Reactions Criticality Noted Date [...] from your doctor or pharmacy? Never 01/15/2024 [facility] Utilities Answer Date Recorded In the past 12 months has e [employer], [employer], or water [employer] threatened to shut off services in your [...] Never 01/15/2024 How often do you attend scientology or scientologist serv ices? Never 01/15/2024 Do you belong to any clubs o r organizations such as scientology groups, unions, fraternal or athletic groups, or [...] Health Questionnaire-2 Score 0 12/31/2023 [facility] - Occupational Stress Questionnaire Answer [...] time in the past 12 m [facility], were you homeless or living in a residential (including now)? No 09/13/2024 Sex and Gender [...] st Contact Info) Description 03/17/2025 10:30 AM DOFFER Office Visit [facility], [address] [place], [place] [phone] Ivory Loaiza APRN [facility]. 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 Procedure Name Priority Date/Time Associated Diagnosis Comments HC OCCULT BLOOD FECAL DIAG Routine 09/14/2024 8:[address] ABD+PEL WO CON STAT 09/13/2024 1:[address] CHEST WO CON STAT 02/25/2024 3:02 PM DOFFER HEMOGLOBIN, GLYCOSYLATED Routine 11/12/2023 11:24 AM CDT [...] FECAL NEGATIVE NEGATIVE 09/14/2024 9:44 PM CDT [facility] STOOL SPECIMEN / Unknown 09/14/2024 8:32 PM CDT Kristi Melgar EYEGLASS LENS GENERATOR BODY FLUIDS AND STOOLS VANDANA TAVERAS Final Result [facility] [address] [place] [address], [place] [phone] * CT ABD+PEL WO CON (09/13/2024 1:15 [...] 1:16 AM Narrative 09/13/2024 1:27 AM CDT [address] [address] Examination: CT abdomen and pelvis without IV [...] Procedure Note Dandre Tai MD - 09/13/2024 [facility] [address] [place], [place] [address] Examination: CT abdomen and pelvis without IV [...] MD, 09/13/2024 1:16 AM us Kristi Melgar EYEGLASS LENS GENERATOR CT Final Resul t * CT CHEST WO CON (02/25/2024 3:02 PM DOFFER) Anatomical Region Laterality Modality Chest Computed Tomogra phy 02/25/2024 3:43 PM DOFFER Impressions 02/25/2024 4:02 PM DOFFER IMPRESSION:===== 1. Increasing but minimal left pleural [...] 02/25/2024 3:43 PM Narrative 02/25/2024 4:02 PM DOFFER [address] [address] EXAMINATION: CT Chest without contrast EXAM DATE/TIME: 02/25/2024 2:57 PM REASON FOR EXAM: abnormal cxr COMPARISON: Chest x-ray from [facility] and multiple exams for 02/22/2024 TECHNIQUE: [...] Procedure Note Don Stewart MD - 02/25/[address] [address] EXAMINATION: CT Chest without contrast EXAM DATE/TIME: 02/25/2024 2:57 PM REASON FOR EXAM: abnormal cxr COMPARISON: Chest x-ray from [facility] and multiple exams for02/22/2024 TECHNIQUE: Computed [...] MD LABORATORY Final Result Performing Organization Address City/[facility] Co de Phone Number GREGORY MENDEZ [address] [place] [address], * LIPID PANEL (09/24/2023) Pathologist [facility] CHOLESTEROL 120 HDL 30 TRIGLYCERIDES 175 LDL (CALCULATED) 55 09/24/2023 Default History Genericprovider LABORATORY Final Result * HEPATITIS C ANTIBODY ([facility] ONLY) (08/13/2023 11:56 AM CDT) Pathologist [facility] HEPATITIS C AB NON-REACTI VE NON-REACT SRINIVASAN 08/13/2023 9:58 PM CDT [facility] Comment: ANTIBODIES TO HCV NOT DETECTED. DOES NOT EXCLUDE THE POSSIBILITY OF EXPOSURE TO HCV. 08/13/2023 11:5 6 AM CDT Adeel Jones MD LABORATORY Final Result Performing Organization Address [facility] Co de Phone Number [facility] [address] [place] [address], [id number] from Last 3 Months or Most Recently Relevant to Health Maintenance Insurance MEDICAID [facility] MEDICARE Advance Directives Documents on File Type Date Recorded Patient Scanner Operator Expl anation Advance Directives and Living [...] 10:15 PM 06/21/2023 2:07 PM Care Teams Senior Health Physics Technician Relationship Specialty [place] [address] [place] [id number] PCP - General INTERNAL MEDICINE 09/09/24 Ino Tracy MD [facility]. [address] [address] Nigel Small Engine Mechanic INTERVENTIONAL CARDIOLOGY 01/02/18
--- OUTSIDE RECORDS SUMMARY | 2025-02-09 02:27 | XMS_ITS | Patient Health Record ---
Author Organization [facility] [employer] Address [address] [facility] [address] [place] [address] Care Team Providers Care Building Code Inspector Name Role Phone Junaid Painter Unavailable [phone] Reason For Referral No Information Medications Medication [...] Inhaler Inhalation Active Melatonin *Pick strength-form from [employer] for eRX* Active Fluticasone Propionate Diskus 50 MCG/ACT Aerosol Powder Breath Activated Inhalation *Reorder from [employer] for eRx and Interaction Alerts* Active Sulfamethoxazole-Trimet [...] Date Medicare-I l Medicare [address] [place] [address] [id number] LUIS ALBERTO DENNY Self - patient is the insured Medicaid-I l Medicaid [address] [address] [place] [address] [id number] LUIS ALBERTO DENNY Self - patient is the insured
--- NOTE | 2025-02-09 02:37 | ED.GENADULT ---
HPI - General Adult General Chief complaint: Recheck/Abnormal Lab/Rx Stated complaint: blood sugar Source: patient and EMS Mode of arrival: EMS History of Present Illness HPI narrative: 64 years old white male came from correction with elevated blood glucose. Patient is telling me that he was diagnosed of pneumonia in our facility 24 hours ago and was discharged on levofloxacin 500 mg once a day for 7 days. Patient declined to take insulin at the correction and insist come to our emergency room. He denies any fever, chills, nausea, vomiting, chest pain or shortness of breath. History of COPD on chronic 3 L oxygen by nasal cannula Related Data Home Medications ?Medication ?Instructions ?Recorded ?Confirmed ?Last Taken ?Type albuterol 90 mcg-budesonide 80 2 inh inhalation 6XD PRN shortness 07/19/24 11/17/24 Unknown History mcg/actuation HFA aerosol inhaler of breath (Airsupra) aripiprazole 10 mg tablet (Abilify) 10 mg PO DAILY 07/19/24 11/17/24 Unknown History aspirin 81 mg tablet,delayed 81 mg PO DAILY 07/19/24 11/17/24 Unknown History release (Ecotrin Low Strength) atorvastatin 80 mg tablet (Lipitor) 80 mg PO DAILY 07/19/24 11/17/24 Unknown History buspirone 10 mg tablet 10 mg PO BID 07/19/24 11/17/24 Unknown History clopidogrel 75 mg tablet 75 mg PO DAILY 07/19/24 11/17/24 Unknown History duloxetine 20 mg capsule,delayed 20 mg PO DAILY 07/19/24 11/17/24 Unknown History release (Cymbalta) duloxetine 60 mg capsule,delayed 60 mg PO DAILY 07/19/24 11/17/24 Unknown History release (Cymbalta) ferrous sulfate 325 mg (65 mg 325 mg PO DAILY 07/19/24 11/17/24 Unknown History iron) tablet (Feosol) fluticasone fur. 200 mcg-umeclid 1 inh inhalation DAILY 07/19/24 11/17/24 Unknown History 62.5 mcg-vilant 25 mcg inhalat.powder (Trelegy Ellipta) fluticasone propionate 50 2 spray intranasal DAILY 07/19/24 11/17/24 Unknown History mcg/actuation nasal spray,suspension (24 Hour Allergy Relief) furosemide 40 mg tablet 40 mg PO BID 07/19/24 11/17/24 Unknown History gabapentin 600 mg tablet 1,200 mg PO TID 07/19/24 11/17/24 Unknown History glipizide 10 mg tablet 10 mg PO DAILY 07/19/24 11/17/24 Unknown History insulin glargine 100 unit/mL (3 18 unit subcut QPM 07/19/24 11/17/24 Unknown History mL) subcutaneous pen (Basaglar KwikPen U-100 Insulin) insulin lispro 100 unit/mL 4 unit subcut QACBREAK 07/19/24 11/17/24 Unknown History subcutaneous solution (Humalog U-100 Insulin) isosorbide dinitrate 30 mg tablet 30 mg PO DAILY 07/19/24 11/17/24 Unknown History latanoprost 0.005 % eye drops 1 drp EACH EYE QPM 07/19/24 11/17/24 Unknown History lisinopril 10 mg tablet 10 mg PO DAILY 07/19/24 11/17/24 Unknown History loratadine 10 mg tablet (Allergy 10 mg PO DAILY 07/19/24 11/17/24 Unknown History Relief (loratadine)) lorazepam 0.5 mg tablet (Ativan) 0.5 mg PO Q12H PRN anxiety 07/19/24 11/17/24 Unknown History pantoprazole 20 mg tablet,delayed 20 mg PO QAM 07/19/24 11/17/24 Unknown History release roflumilast 500 mcg tablet 500 mcg PO DAILY 07/19/24 11/17/24 Unknown History (Daliresp) tizanidine 4 mg tablet 4 mg PO DAILY 07/19/24 11/17/24 Unknown History tramadol 50 mg tablet 50 mg PO Q6H PRN pain 07/19/24 11/17/24 Unknown History trazodone 100 mg tablet 200 mg PO HS 07/19/24 11/17/24 Unknown History Allergies Allergy/AdvReac Type Severity Reaction Status Date / Time cephalexin Allergy Mild Unknown Verified 02/09/25 02:23 Penicillins Allergy Mild Unknown Verified 02/09/25 02:23 oxycodone (From OxyContin) AdvReac Mild Fainting Verified 02/09/25 02:23 Review of Systems Review of Systems: All systems reviewed & are unremarkable except as noted in HPI and below PMFSH Past Medical History Medical History Rheumatoid arthritis Dyslipidemia Diabetes mellitus COPD (chronic obstructive pulmonary disease) Hypertension Bipolar 1 disorder Social History Social History Smoking status: Never smoker Exam Narrative: General appearance: Well-developed, well-nourished Skin: Normal color Head: Normocephalic, nontraumatic Eyes: Clear conjunctiva ENT: Oropharynx normal, ears normal, nose normal Neck: Supple, nontender Chest and respiratory: Airway patent, no respiratory distress, no accessory muscle use few scattered dry rales and rhonchi bilaterally Heart: Regular rate/rhythm Abdomen: Soft, nontender, no organomegaly, quiet bowel sounds Vascular: Normal peripheral pulses, normal capillary refill. Musculoskeletal: Normal range of motion, nontender back Neurologic: Alert and oriented ?3, BREADING MACHINE TENDER is normal as tested, no gross motor deficit Course Vital Signs Vital signs: Vital Signs Temperature 36.3 C L 02/09/25 02:12 Pulse Rate 80 02/09/25 02:12 Respiratory Rate 16 02/09/25 02:12 Blood Pressure 145/81 H 02/09/25 02:12 Pulse Oximetry 95 02/09/25 02:12 Oxygen Delivery Nasal Cannula 02/09/25 02:12 Oxygen Flow Rate 3 02/09/25 02:12 Temperature 36.3 C L 02/09/25 02:12 Pulse Rate 80 02/09/25 02:12 Respiratory Rate 16 02/09/25 02:12 Blood Pressure 145/81 H 02/09/25 02:12 Pulse Oximetry 95 02/09/25 02:12 Oxygen Delivery Nasal Cannula 02/09/25 02:12 Oxygen Flow Rate 3 02/09/25 02:12 [facility] MDM Narrative Medical decision making narrative: Patient came to the ED with elevated blood glucose Vital signs are stable Physical examination showing scattered rhonchi and dry rales bilaterally, 3 L oxygen by nasal cannula otherwise insignificant Differential diagnosis hyperglycemia secondary to noncompliance with medication, noncompliance with diabetic diet, infection Blood workup today includes CBC, CMP showed creatinine 1.4, glucose 404, calcium 11.0 which has been elevated in the last few months. Urine analysis showed Chest x-ray showed no acute cardiopulmonary. Diagnosis diabetic hyperglycemia Patient was advised to follow diet and medicine regimen for hyperglycemia. The pt was discharged to home.the pt,s condition upon discharge was fair,education was provided to the pt in reference to the final impression,discharge study results,treatment,prognosis and need for follow up . Differential Diagnosis Differential Diagnosis: As above Lab Data [facility] Lab Attestation statement: I personally reviewed the patient's lab results. Labs: Lab Results 02/09/25 02/09/25 Range/Units 02:14 02:48 POC Capillary Glucose > 450 H 411 H (65-105) mg/dl Imaging Data My impression: Chest x-ray showed no acute abnormality Radiologist's impression: Chest Critical Care Time Critical Care Time Critical Care Time: No Discharge Plan Discharge Clinical Impression: Hyperglycemia due to diabetes mellitus, Hypercalcemia, Non-compliance Patient Disposition: NH Skilled Nursing/Asst Living Condition: Stable Instructions: Hypercalcemia (ED), Diabetic Hyperglycemia (ED) Additional Instructions: Return if symptoms are worsening , call your family physician for appointment, take Tylenol as as needed for aches and pain, continue home medications. Repeat calcium level in 5 days. Patient Language: Afghan Prescriptions: No Action Airsupra 90-80 mcg/actuation HFA aerosol inhaler 2 inh inhalation 6XD PRN (Reason: shortness of breath) aripiprazole [Abilify] 10 mg tablet 10 mg PO DAILY aspirin [Ecotrin Low Strength] 81 mg tablet,delayed release (DR/EC) 81 mg PO DAILY atorvastatin [Lipitor] 80 mg tablet 80 mg PO DAILY buspirone 10 mg tablet 10 mg PO BID clopidogrel 75 mg tablet 75 mg PO DAILY duloxetine [Cymbalta] 20 mg capsule,delayed release(DR/EC) 20 mg PO DAILY duloxetine [Cymbalta] 60 mg capsule,delayed release(DR/EC) 60 mg PO DAILY ferrous sulfate [Feosol] 325 mg (65 mg iron) tablet 325 mg PO DAILY fluticasone propionate [24 Hour Allergy Relief] 50 mcg/actuation spray,suspension 2 spray intranasal DAILY Rx Instructions: administer into each nostril furosemide 40 mg tablet 40 mg PO BID gabapentin 600 mg tablet 1,200 mg PO TID glipizide 10 mg tablet 10 mg PO DAILY insulin lispro [Humalog U-100 Insulin] 100 unit/mL solution 4 unit subcut QARACHEL Patient Comments: BEFORE MEALS HOLD IF BS LESS THAN 100 insulin glargine [Basaglar KwikPen U-100 Insulin] 100 unit/mL (3 mL) insulin pen 18 unit subcut QPM isosorbide dinitrate 30 mg tablet 30 mg PO DAILY Rx Instructions: allow nitrate-free interval of 12-14 hrs per 24-hr period latanoprost 0.005 % drops 1 drp EACH EYE QPM lisinopril 10 mg tablet 10 mg PO DAILY loratadine [Allergy Relief (loratadine)] 10 mg tablet 10 mg PO DAILY lorazepam [Ativan] 0.5 mg tablet 0.5 mg PO Q12H PRN (Reason: anxiety) pantoprazole 20 mg tablet,delayed release (DR/EC) 20 mg PO QAM roflumilast [Daliresp] 500 mcg tablet 500 mcg PO DAILY tizanidine 4 mg tablet 4 mg PO DAILY tramadol 50 mg tablet 50 mg PO Q6H PRN (Reason: pain) trazodone 100 mg tablet 200 mg PO HS Trelegy Ellipta 200-62.5-25 mcg blister with device 1 inh inhalation DAILY tramadol 50 mg tablet 50 mg PO Q8H PRN (Reason: pain) Qty: 20 0RF Rx Instructions: 1-2 tabs per dose levofloxacin 500 mg tablet 500 mg PO DAILY 7 Days Qty: 7 0RF methylprednisolone [Medrol (Ehsan)] 4 mg tablets,dose pack See Rx Instructions .ROUTE .COMPLEX Qty: 21 0RF Rx Instructions: orally per package directions Follow-up/Referrals: Hernán,Gertrude Rollins [Primary Care Provider]
[2025-02-09 03:00] LABS: Hematocrit 35.3 % (37.0-46.0); Hemoglobin 11.5 g/dL (12.4-15.3); Immature Granulocyte Percent A 0.4 % (0.0-0.0); Lymphocytes Absolute Auto 1.90 K/mm3 (1.10-4.50); Mean Corpuscular HGB Conc 32.6 g/dL (32-36); Mean Corpuscular Hemoglobin 30.3 pg (27.0-31.0); Mean Corpuscular Volume 93.1 fL (78.0-102.0); Nucleated Red Blood Cells Absolute Auto 0.00 K/mm3 (0.00-0.00); Nucleated Red Blood Cells Perc 0.0 % (0-0.0); Platelet Count Result 204 K/mm3 (150-420); Red Blood Count 3.79 M/mm3 (4.70-6.10); White Blood Count 14.2 K/mm3 (4.8-10.8)
[2025-02-09] MEDS: INSULIN HUMAN REGULAR (*BKC) 1,000 UNITS/10 ML VIAL 13 UNITS IV PUSH (03:00)
[2025-02-09 03:02] LABS: HCO3 VBG 22.4 mEq/l (24.0-30.0); PCO2 VBG 35.6 mmHg (42.0-48.0); PO2 VBG 64.8 mmHg (35.0-45.0); pH VBG 7.42 (7.33-7.43)
[2025-02-09 03:26] LABS: Alanine Aminotransferase 21 U/L (6-50); Albumin Level 4.2 g/dL (3.5-5.1); Alkaline Phosphatase 113 U/L (38-126); Anion Gap 11 mmol/L (4-12); Aspartate Amino Transferase 19 U/L (17-59); Bilirubin,Total 0.2 mg/dL (0.2-1.3); Blood Urea Nitrogen 30 mg/dL (9-20); Calcium 11.0 mg/dL (8.4-10.2); Carbon Dioxide 26 mmol/L (22-30); Chloride 99 mmol/L (98-107); Estimated CRCL calculation 45 ml/min; Estimated Glomerular Filt Rate 51; Glucose 404 mg/dL (65-110); Liters per Minute 3.0 LPM; Magnesium 2.0 mg/dL (1.6-2.3); Osmolality Calculated 305 mOsm/kg (285-295); Potassium 4.4 mmol/L (3.4-5.0); Sodium 136 mmol/L (137-145); Total Protein 6.9 g/dL (6.3-8.2)
[2025-02-09 03:43] LABS: Add Urine Microscopic? NO; Appearance Urine Clear (Clear); Glucose Urine UA 3+ (Negative); Leukocyte Esterase Ur Negative LEU/UL (Negative); Nitrate Urine Negative (Negative); Specific Grav Ur 1.015 (1.010-1.020)
[2025-02-09 04:10] VITALS: BP 140/85; PULSE 79; RESP 19; TEMP 36.3; O2SAT 98
--- NOTE | 2025-02-09 04:12 | PC.NURSE ---
Spoke to Amy at [facility]> Gave her pt report and told her pt is ready to go back to their facility. She states that she will have someone come get the pt. I reminded her to have them bring an O2 tank for the pt.
== END 2025-02-09 04:58 ==
PROVIDERS: Emergency Provider Emergency Medicine; PCP Internal Medicine
DX: E11.65 Type 2 diabetes mellitus with hyperglycemia (principal); E83.52 Hypercalcemia; J44.9 Chronic obstructive pulmonary disease, unspecified; Z99.81 Dependence on supplemental oxygen; M06.9 Rheumatoid arthritis, unspecified; I10 Essential (primary) hypertension; Z91.199 Patient's noncompliance with other medical treatment and regimen due to unspecified reason
CPT/HCPCS: 36415; 71045; 80053; 81003; 82803; 82948; 83735; 84100; 85025; 96374; 99284; J1815; J7030

== ENCOUNTER 2025-02-10 06:58 | Outpatient (NON) | payer MEDICARE, MEDICAID, SELFPAY ==
--- OUTSIDE RECORDS SUMMARY | 2025-02-10 07:18 | XMS_ITS | Clinical Summary ---
Author Organization [facility] Address [address] [place] [address] Care Team Providers Care Toter Name Role Phone Ino Tracy MD Unavailable Ria Topete MD Primary Care Provider [phone] Allergies Active Allergy Reactions Criticality Noted Date [...] from your doctor or pharmacy? Never 01/15/2024 [facility] Utilities Answer Date Recorded In the past 12 months has e [employer], [employer], or water [employer] threatened to shut off services in your [...] Never 01/15/2024 How often do you attend druze or oriental orthodox serv ices? Never 01/15/2024 Do you belong to any clubs o r organizations such as druze groups, unions, fraternal or athletic groups, or [...] Recorded Patient Health Questionnaire-2 Score 0 12/31/2023 [facility] of Occupat ional [facility] - Occupational Stress Questionnaire Answer [...] place to sleep or slept in a correction (including now)? No 05/27/2023 Housing Stability Vital Sign Answer Shahab e Recorded In the last 12 months, was t here a time when you were not able to pay the mortgage or rent on time? No 09/13/2024 In the past 12 months, how m any times have you moved where you were living? 2 09/13/2024 At any time in the past 12 m [facility], were you homeless or living in a correction (including now)? No 09/13/2024 Sex and Gender [...] st Contact Info) Description 03/17/2025 10:30 AM SECRETARY RECEPTIONIST Office Visit [facility] [address] [place], [place] [id number] Ivory Loaiza APRN [facility]. [address] [place] [address] Health Maintenance Due Date Last Done Comments ASCVD Statin 1958 Kidney Health Evaluation 1958 Diabetes: Retinopathy Eye Exam 1976 DTaP, Tdap and Td Vaccines (1 - Tdap) 1977 Zoster Vaccines (1 of 2) 2008 RSV Immunization or 60+ Years (1 - Risk 60-74 years 1-dose series) 2018 Annual Medicare Wellness Visit 2023 PHQ-2 (Physician [place]) 03/11/2024 12/31/2023 Hemoglobin A1C 05/11/2024 11/12/2023, 06/0 [...] at home upon discharge Lifestyle [place], special education para professional Procedure Name Priority Date/Time Associated Diagnosis Comments HC OCCULT BLOOD FECAL DIAG Routine 09/14/2024 8:[address] ABD+PEL WO CON STAT 09/13/2024 1:[address] CHEST WO CON STAT 02/25/2024 3:02 PM SECRETARY RECEPTIONIST HEMOGLOBIN, GLYCOSYLATED Routine 11/12/2023 11:24 AM CDT [...] FECAL NEGATIVE NEGATIVE 09/14/2024 9:44 PM CDT [facility] STOOL SPECIMEN / Unknown 09/14/2024 8:32 PM CDT Kristi Melgar OIL REFINERY OPERATOR BODY FLUIDS AND STOOLS VANDANA TAVERAS Final Result [facility] [address] [place] [address], [place] [phone] * CT ABD+PEL WO CON (09/13/2024 1:15 [...] 1:16 AM Narrative 09/13/2024 1:27 AM CDT [address] [address] Examination: CT abdomen and pelvis without IV [...] Procedure Note Dandre Tai MD - 09/13/2024 [facility] [address] [place], [place] [address] Examination: CT abdomen and pelvis without IV [...] MD, 09/13/2024 1:16 AM us Kristi Melgar OIL REFINERY OPERATOR CT Final Resul t * CT CHEST WO CON (02/25/2024 3:02 PM SECRETARY RECEPTIONIST) Anatomical Region Laterality Modality Chest Computed Tomogra phy 02/25/2024 3:43 PM SECRETARY RECEPTIONIST Impressions 02/25/2024 4:02 PM SECRETARY RECEPTIONIST IMPRESSION:===== 1. Increasing but minimal left pleural [...] 02/25/2024 3:43 PM Narrative 02/25/2024 4:02 PM SECRETARY RECEPTIONIST [address] [address] EXAMINATION: CT Chest without contrast EXAM DATE/TIME: 02/25/2024 2:57 PM REASON FOR EXAM: abnormal cxr COMPARISON: Chest x-ray from [facility] and multiple exams for 02/22/2024 [...] Procedure Note Don Stewart MD - 02/25/[address] [address] EXAMINATION: CT Chest without contrast EXAM DATE/TIME: 02/25/2024 2:57 PM REASON FOR EXAM: abnormal cxr COMPARISON: Chest x-ray from [facility] and multiple exams for02/22/2024 TECHNIQUE: [...] MD LABORATORY Final Result Performing Organization Address City/[facility] Co de Phone Number GREGORY MENDEZ [address] [place] [address], * LIPID PANEL (09/24/2023) Pathologist [facility] CHOLESTEROL 120 HDL 30 TRIGLYCERIDES 175 LDL (CALCULATED) 55 09/24/2023 Default History Genericprovider LABORATORY Final Result * HEPATITIS C ANTIBODY ([facility] ONLY) (08/13/2023 11:56 AM CDT) Pathologist [facility] HEPATITIS C AB NON-REACTI VE NON-REACT SRINIVASAN 08/13/2023 9:58 PM CDT [facility] Comment: ANTIBODIES TO HCV NOT DETECTED. DOES NOT EXCLUDE THE POSSIBILITY OF EXPOSURE TO HCV. 08/13/2023 11:5 6 AM CDT Adeel Jones MD LABORATORY Final Result Performing Organization Address [facility] Co de Phone Number [facility] [address] [place] [address], [phone] from Last 3 Months or Most Recently Relevant to Health Maintenance Insurance MEDICAID [facility] MEDICARE Advance Directives Documents on File Type Date Recorded Patient Photovoltaic Fabrication Technician Expl anation Advance Directives and Living [...] 10:15 PM 06/21/2023 2:07 PM Care Teams Toter Relationship Specialty [place] [address] [place] [address] PCP - General INTERNAL MEDICINE 09/09/24 Ino Tracy MD [facility]. [address] [address] Nigel Modeling Analyst INTERVENTIONAL CARDIOLOGY 01/02/18
--- OUTSIDE RECORDS SUMMARY | 2025-02-10 07:18 | XMS_ITS | Clinical Summary ---
Author Organization [facility] Address [address] [place] [phone] Phone Care Team Providers Care Farmworker [employer] Producing Farm Name Role Phone Unavailable Primary Care Provider [...] Description 11/11/2024 11:40 AM CDT Office Visit [facility] [address] [facility] [address] [place] [address] Ron Shane MD Hypercalcemia (Primary Dx); Chronic [...] 0, 11/18/2018, 02/27/2018 Insurance [employer] MEDICARE [facility]
--- OUTSIDE RECORDS SUMMARY | 2025-02-10 07:18 | XMS_ITS | Encounter Summary ---
Author Organization [facility] Address [facility] [place] [address] Care Team Providers Care Cordwood Cutter Name Role Phone Ino Tracy MD Unavailable Adeel Jones MD Primary Care Provider [phone] None, Provider Primary Care Provider Unavaila Ria Barnes MD Primary Care Provider [phone] Encounter Details Date Type Department Care Team (Late st Contact Info) Description 09/25/2023 [facility] [address] Tash Nava MA Social History Tobacco Use [...] No 07/10/2023 Social Connection and Isolation Panel Answer Date Recorded In a typical week, how many times do you talk on the phone with family, friends, or neighbors? Twice a week 06/18/2023 How often do you get together with friends or re latives? Never 06/18/2023 How often do you attend pentecostal or holiness serv ices? Never 06/18/2023 Do you belong to any clubs o r organizations such as pentecostal groups, unions, fraternal or athletic groups, or [...] Recorded Patient Health Questionnaire-2 Score 0 08/13/2023 [facility] of Occupat ional Health - Occupational Stress [...] place to sleep or slept in a mcc (including now)? No 05/27/2023 Housing Stability Vital Sign Answer Shahab e Recorded In the last 12 months, was t here a time when you were not able to pay the mortgage or rent on time? No 07/10/2023 In the past 12 months, how m any times have you moved where you were living? 2 07/10/2023 At any time in the past 12 m [facility], were you homeless or living in a mcc (including now)? No 07/10/2023 Sex and Gender [...] Author Status No 07/10/2023 1:54 PM Elena Carvajal, EZEQUIEL Active * Do you have serious difficulty walking or climbing stairs? Answer Date of Assessment Author Status Yes 07/10/2023 1:54 PM Elena Carvajal, EZEQUIEL Active * Do you have difficulty dressing or bathing? Answer Date of Assessment Author Status No 07/10/2023 1:54 PM Elena Carvajal, EZEQUIEL Active * Because of a physical, mental, or emotional condition, do you have difficulty doing errands alone such as visiting a doctor's office or shopping? Answer Date of Assessment Author Status No 07/10/2023 1:54 PM Elena Carvajal, EZEQUIEL Active documented as of this encounter Mental Status * Because of a physical, mental, or emotional condition, do you have serious difficulty concentrating, remembering, or making decisions? Answer Entry Date Author Status No 07/10/2023 1:54 PM Elena Carvajal, EZEQUIEL Active documented in this encounter Plan of Treatment Upcoming Encounters Date Type Department Care Team (Late st Contact Info) Description 03/17/2025 10:30 AM FBI INVESTIGATOR Office Visit [facility] [address] [place], [place] [phone] Ivory Loaiza APRN [facility]. [address] [place], [place] [id number] documented as of this encounter Goals Goal Patient Goal Type Associated Problems Recent Progress Patient-Stated? Author Discharge Patient/family verbalizes understanding regarding the need for SNF placement General No Kati Calhoun, SPORTS BOOK BOARD ATTENDANT Monitor - able to maintain pain control [...] Rule Out 01/15/2024 01/15/2024 01/15/2024 1:30 AM FBI INVESTIGATOR COVID-19 Confirmed 01/15/2024 01/15/2024 12:33 AM FBI INVESTIGATOR COVID-19 Rule Out 02/22/2024 02/22/2024 02/22/2024 10:15 AM FBI INVESTIGATOR COVID-19 Rule Out 02/25/2024 02/25/2024 02/25/2024 11:15 AM FBI INVESTIGATOR documented as of this encounter Care Teams Cordwood Cutter Relationship Specialty Start Date End Date Adeel Jones MD [address] [place] [phone] PCP - General FAMILY PRACTICE 05/19/23 03/09/24 None, Provider, PCP - General UNKNOWN PHYSICIAN SPECIALTY 03/10/24 09/08/24 Ria Topete MD [address] [place] [address] PCP - General INTERNAL MEDICINE 09/09/24 Ino Tracy MD [facility]. [id number] [place] [address] [place] Corporate Counselor INTERVENTIONAL CARDIOLOGY 01/02/18 documented as of this encounter
--- OUTSIDE RECORDS SUMMARY | 2025-02-10 07:19 | XMS_ITS | Patient Health Record ---
Author Organization [facility] Address [address] [facility] [address] [place] [address] Care Team Providers Care Audio Technician Name Role Phone Junaid Painter Unavailable [phone] Reason For Referral No Information Medications Medication [...] Inhaler Inhalation Active Melatonin *Pick strength-form from [employer] for eRX* Active Fluticasone Propionate Diskus 50 MCG/ACT Aerosol Powder Breath Activated Inhalation *Reorder from [employer] for eRx and Interaction Alerts* Active Sulfamethoxazole-Trimet [...] Date Medicare-I l Medicare [address] [place] [address] [id number] LUIS ALBERTO DENNY Self - patient is the insured Medicaid-I l Medicaid [address] [address] [place] [address] [id number] LUIS ALBERTO DENNY Self - patient is the insured
[2025-02-10 07:38] LABS: Hematocrit 36.0 % (37.0-46.0); Hemoglobin 11.6 g/dL (12.4-15.3); Immature Granulocyte Percent A 0.3 % (0.0-0.0); Lymphocytes Absolute Auto 2.35 K/mm3 (1.10-4.50); Mean Corpuscular HGB Conc 32.2 g/dL (32-36); Mean Corpuscular Hemoglobin 30.4 pg (27.0-31.0); Mean Corpuscular Volume 94.5 fL (78.0-102.0); Nucleated Red Blood Cells Absolute Auto 0.00 K/mm3 (0.00-0.00); Nucleated Red Blood Cells Perc 0.0 % (0-0.0); Platelet Count Result 202 K/mm3 (150-420); Red Blood Count 3.81 M/mm3 (4.70-6.10); White Blood Count 9.6 K/mm3 (4.8-10.8)
[2025-02-10 07:42] LABS: Add Urine Microscopic? NO; Appearance Urine Clear (Clear); Glucose Urine UA 1+ (Negative); Leukocyte Esterase Ur Negative LEU/UL (Negative); Nitrate Urine Negative (Negative); Specific Grav Ur 1.020 (1.010-1.020)
[2025-02-10 07:51] LABS: Albumin Level 3.6 g/dL (3.5-5.1); Anion Gap 9 mmol/L (4-12); Blood Urea Nitrogen 27 mg/dL (9-20); Calcium 10.4 mg/dL (8.4-10.2); Carbon Dioxide 25 mmol/L (22-30); Chloride 105 mmol/L (98-107); Estimated Glomerular Filt Rate 55; Glucose 123 mg/dL (65-110); Osmolality Calculated 294 mOsm/kg (285-295); Potassium 4.3 mmol/L (3.4-5.0); Sodium 139 mmol/L (137-145)
[2025-02-10 08:07] LABS: MALB Creatinine Ratio 36.8 mg/g (0-30)
[2025-02-11 12:08] LABS: Albumin 2.8 g/dL (2.9-4.4); Alpha-1-Globulin 0.2 g/dL (0.0-0.4); Alpha-2-Globulin 0.9 g/dL (0.4-1.0); Gamma Globulin 0.7 g/dL (0.4-1.8)
[2025-02-12 09:38] LABS: Parathyroid Intact 86.5 pg/mL (14.5-75.2)
[2025-02-12 12:08] LABS: Immunoglobulin A, Qn 410 mg/dL (61-437); Immunoglobulin G, Qn 732 mg/dL (603-1613); Immunoglobulin M, Qn 51 mg/dL (20-172)
== END 2025-02-10 06:59 | disposition home or self-care (01) ==
PROVIDERS: Visit Provider Internal Medicine Nephrology
DX: E83.52 Hypercalcemia (principal); N18.9 Chronic kidney disease, unspecified
CPT/HCPCS: 36415; 80069; 81003; 82043; 82784; 83970; 84155; 84165; 85025; 86334

== ENCOUNTER 2025-02-18 22:26 | Emergency (ER) | payer MEDICARE, MEDICAID, SELFPAY ==
[2025-02-18] VITALS (12 sets, daily range): BP systolic 142–154; BP diastolic 80–85; PULSE 87–91; RESP 17–25; TEMP 36.8; O2SAT 96–99
--- NOTE | ~2025-02-18 | XR_ITS ---
EXAMINATION: XR chest 1V portable DATE: 02/18/2025 22:40 INDICATION: Chest pain TECHNIQUE: A single frontal view of the chest was obtained. COMPARISON: February 09, 2025 FINDINGS: Tiny right-sided pleural effusion appears improved or resolved. Mild bibasilar atelectatic changes with possible small infiltrates not excluded. Mid and upper lung diaz clear. Heart size normal. Bones appear intact. IMPRESSION: 1. Portable chest x-ray with mildly improved appearance of the right lung base; small infiltrates may be present. Reviewed, dictated and finalized at location A. CRM DEVELOPER
--- NOTE | ~2025-02-18 | CT_ITS ---
EXAMINATION: CT chest abdomen pelvis w con DATE: 02/18/2025 23:46 INDICATION: Chest pain. Right upper quadrant abdominal pain. TECHNIQUE: Computed tomography (CT) of the chest, abdomen, and pelvis was performed with 100 mL Omnipaque 350 intravenous contrast. Automated exposure control and iterative reconstruction technique were employed. The dose-length product was 1390.20 mGy-cm. COMPARISON: Chest CT 07/19/2024 FINDINGS: CHEST CT: There is mild emphysema. The lungs demonstrate mild atelectasis. Calcified bilateral lung nodules and calcified hilar lymph nodes are consistent with old granulomatous disease. There is a stable 5 mm nodule in right lower lobe, likely benign. No pleural effusion. The heart size is normal. There are coronary artery calcifications. There is a trace pericardial effusion. There is a small sliding hiatal hernia. There is mild thoracic spondylosis. ABDOMEN/PELVIS CT: The liver and gallbladder are normal. Calcifications in the spleen are consistent with old granulomatous disease. There are calcifications in the pancreas, and the pancreatic duct is dilated to 7 mm, consistent with chronic pancreatitis. The adrenal glands are normal. There is cortical thinning of the kidneys. The prostate is mildly enlarged. There is a left inguinal hernia containing fat. The bladder is markedly distended. There are no dilated loops of bowel. The appendix is normal. There are no pathologically enlarged lymph nodes. There is no free intraperitoneal fluid. There is calcified atherosclerosis of the aorta and many of the other arteries. There is mild lumbar spondylosis. IMPRESSION: 1. Mild emphysema. 2. Small sliding hiatal hernia. 3. Left inguinal hernia containing fat. Reviewed, dictated and finalized at location E. STAT ASSEMBLER
--- NOTE | 2025-02-18 22:34 | ECG_ITS ---
Test Date: 2025-02-18 22:31:27 Measurements Intervals [facility] [place] Rate: 91 P: 46 CO: 158 QRS: 97 QRSD: 142 T: 37 QT: 369 QTc: 455 Interpretive Statements SINUS RHYTHM RIGHT AXIS DEVIATION RIGHT BUNDLE BRANCH BLOCK BASELINE ARTIFACT- I, II, AVL ABNORMAL ECG Compared to ECG 02/07/2025 20:43:53 Right bundle-branch block now present Electronically Signed On 02-19-2025 06:20:13 METAL ROASTER by Capo Johnston D.O.
--- OUTSIDE RECORDS SUMMARY | 2025-02-18 22:59 | XMS_ITS | Encounter Summary ---
Author Organization [facility] Address [facility] [place] [address] Care Team Providers Care Recruiter Manager Name Role Phone Ino Tracy MD Unavailable Adeel Jones MD Primary Care Provider [phone] None, Provider Primary Care Provider Unavaila Ria Barnes MD Primary Care Provider [phone] Encounter Details Date Type Department Care Team (Late st Contact Info) Description 09/25/2023 Abstract [facility] [address] Tash Nava MA Social History Tobacco Use Types Packs/Day Years Used Date Smoking Tobacco: Former Cigarettes 0.5 50 Q uit: 06/04/2023 Smokeless Tobacco: Never Comments:Patient smoking 2-3 cigarettes a day 09/03/2023. Alcohol Use Standard Drinks/Week Comments No 0 (1 standard drink = 0.6 oz pur e alcohol) [facility] Utilities Answer Date Recorded In the past [...] Never 06/18/2023 How often do you attend restorationist or church serv ices? Never 06/18/2023 Do you belong to any clubs o r organizations such as restorationist groups, unions, fraternal or athletic groups, or [...] Recorded Patient Health Questionnaire-2 Score 0 08/13/2023 [facility] of Occupat ional Health - Occupational Stress [...] place to sleep or slept in a alf (including now)? No 05/27/2023 Housing Stability Vital Sign Answer Shahab e Recorded In the last 12 months, was t here a time when you were not able to pay the mortgage or rent on time? No 07/10/2023 In the past 12 months, how m any times have you moved where you were living? 2 07/10/2023 At any time in the past 12 m [facility], were you homeless or living in a alf (including now)? No 07/10/2023 Sex and Gender [...] st Contact Info) Description 03/17/2025 10:30 AM SENIOR HEALTH EDUCATOR Office Visit [facility] [facility], [address] [place], [place] [id number] Ivory Loaiza APRN Three [facility]. [address] [place], [place] [id number] documented as of this encounter Goals Goal Patient Goal Type Associated Problems Recent Progress Patient-Stated? Author Discharge Patient/family verbalizes understanding regarding the need for SNF placement General No Kati Calhoun, JUNIOR ELECTRICAL ENGINEER Monitor - able to maintain pain control [...] Rule Out 01/15/2024 01/15/2024 01/15/2024 1:30 AM SENIOR HEALTH EDUCATOR COVID-19 Confirmed 01/15/2024 01/15/2024 12:33 AM SENIOR HEALTH EDUCATOR COVID-19 Rule Out 02/22/2024 02/22/2024 02/22/2024 10:15 AM SENIOR HEALTH EDUCATOR COVID-19 Rule Out 02/25/2024 02/25/2024 02/25/2024 11:15 AM SENIOR HEALTH EDUCATOR documented as of this encounter Care Teams Recruiter Manager Relationship Specialty Start Date End Date Adeel Jones MD [address] [place] [phone] PCP - General FAMILY PRACTICE 05/19/23 03/09/24 None, Provider, PCP - General UNKNOWN PHYSICIAN SPECIALTY 03/10/24 09/08/24 Ria Topete MD [address] [place] [address] PCP - General INTERNAL MEDICINE 09/09/24 Ino Tracy MD [facility]. [address] [place] [address] Dozier Advertising Operations Manager INTERVENTIONAL CARDIOLOGY 01/02/18 documented as of this encounter
--- OUTSIDE RECORDS SUMMARY | 2025-02-18 22:59 | XMS_ITS | Clinical Summary ---
Author Organization [facility] Address [address] [place] [phone] Phone Care Team Providers Care Butter Maker Name Role Phone Unavailable Primary Care Provider [...] kidney disease 09/29/2024 11/06/2024 Hyperlipidemia 09/29/2024 11/06/2024 Family History Medical History Relation Comments Heart [...] - PCV) 1977 COVID-19 Vaccine (3 - 2024- season) 2024, 08/03/2020 Influenza Vaccine (#1) 2024 , 11/18/2018, 02/27/2018 Insurance [employer] MEDICARE [facility]
[2025-02-18] MEDS: KETOROLAC 30 MG/ML VIAL (*BKC) IV PUSH (23:00)
--- OUTSIDE RECORDS SUMMARY | 2025-02-18 23:00 | XMS_ITS | Clinical Summary ---
Author Organization [facility] Address [address] [place] [address] Care Team Providers Care Script Manager Name Role Phone Ino Tracy MD Unavailable Ria oTpete MD Primary Care Provider [phone] Allergies Active Allergy Reactions Criticality Noted Date [...] from your doctor or pharmacy? Never 01/15/2024 [facility] Utilities Answer Date Recorded In the past 12 months has e [employer], [employer], or water ipvive threatened to shut off services in your [...] Never 01/15/2024 How often do you attend judaism or confucianism serv ices? Never 01/15/2024 Do you belong to any clubs o r organizations such as judaism groups, unions, fraternal or athletic groups, or [...] Recorded Patient Health Questionnaire-2 Score 0 12/31/2023 [facility] of Occupat ional [facility] - Occupational Stress Questionnaire Answer Date Recorded [...] place to sleep or slept in a care home (including now)? No 05/27/2023 Housing Stability Vital Sign Answer Shahab e Recorded In the last 12 months, was t here a time when you were not able to pay the mortgage or rent on time? No 09/13/2024 In the past 12 months, how m any times have you moved where you were living? 2 09/13/2024 At any time in the past 12 m [facility], were you homeless or living in a care home (including now)? No 09/13/2024 Sex and Gender [...] st Contact Info) Description 03/17/2025 10:30 AM STONE GLUER Office Visit [facility], [address] [place], [place] [phone] Ivory Loaiza APRN Three [facility]. [address] [place] [address] Health Maintenance Due Date Last Done Comments ASCVD Statin 1958 Kidney Health Evaluation 1958 Diabetes: Retinopathy Eye Exam 1976 DTaP, Tdap and Td Vaccines (1 - Tdap) 1977 Zoster Vaccines (1 of 2) 2008 RSV Immunization or 60+ Years (1 - Risk 60-74 years 1-dose series) 2018 Annual Medicare Wellness Visit 2023 PHQ-2 (Physician [place]) 03/11/2024 12/31/2023 Hemoglobin A1C 05/11/2024 11/12/2023, 06/0 [...] at home upon discharge Lifestyle Reno Morrow, apartment community manager Procedure Name Priority Date/Time Associated Diagnosis Comments HC OCCULT BLOOD FECAL DIAG Routine 09/14/2024 8:[address] ABD+PEL WO CON STAT 09/13/2024 1:[address] CHEST WO CON STAT 02/25/2024 3:02 PM STONE GLUER HEMOGLOBIN, GLYCOSYLATED Routine 11/12/2023 11:24 AM CDT [...] FECAL NEGATIVE NEGATIVE 09/14/2024 9:44 PM CDT [facility] STOOL SPECIMEN / Unknown 09/14/2024 8:32 PM CDT Kristi Melgar PREPRESS OPERATOR BODY FLUIDS AND STOOLS VANDANA TAVERAS Final Result [facility] [address] [place] [address], [place] [phone] * CT ABD+PEL WO CON (09/13/2024 1:15 [...] 1:16 AM Narrative 09/13/2024 1:27 AM [address]T [address] [address] Examination: CT abdomen and pelvis without IV [...] Procedure Note Dandre Tai MD - 09/13/2024 [facility] [address] [place], [place] [address] Examination: CT abdomen and pelvis without IV [...] MD, 09/13/2024 1:16 AM us Kristi Melgar PREPRESS OPERATOR CT Final Resul t * CT CHEST WO CON (02/25/2024 3:02 PM STONE GLUER) Anatomical Region Laterality Modality Chest Computed Tomogra phy 02/25/2024 3:43 PM STONE GLUER Impressions 02/25/2024 4:02 PM STONE GLUER IMPRESSION:===== 1. Increasing but minimal left pleural [...] 02/25/2024 3:43 PM Narrative 02/25/2024 4:02 PM STONE GLUER [address] [address] EXAMINATION: CT Chest without contrast EXAM DATE/TIME: 02/25/2024 2:57 PM REASON FOR EXAM: abnormal cxr COMPARISON: Chest x-ray from [facility] and multiple exams for 02/22/2024 TECHNIQUE: Computed [...] Procedure Note Don Stewart MD - 02/25/[address] [address] EXAMINATION: CT Chest without contrast EXAM DATE/TIME: 02/25/2024 2:57 PM REASON FOR EXAM: abnormal cxr COMPARISON: Chest x-ray from [facility] and multiple exams for02/22/2024 TECHNIQUE: Computed tomography [...] MD LABORATORY Final Result Performing Organization Address [facility] Co de Phone Number GREGORY MENDEZ [address] [place] [address], * LIPID PANEL (09/24/2023) Pathologist [facility] CHOLESTEROL 120 HDL 30 TRIGLYCERIDES 175 LDL (CALCULATED) 55 09/24/2023 Default History Genericprovider LABORATORY Final Result * HEPATITIS C ANTIBODY ([facility] ONLY) (08/13/2023 11:56 AM CDT) Pathologist [facility] HEPATITIS C AB NON-REACTI VE NON-REACT SRINIVASAN 08/13/2023 9:58 PM CDT [facility] Comment: ANTIBODIES TO HCV NOT DETECTED. DOES NOT EXCLUDE THE POSSIBILITY OF EXPOSURE TO HCV. 08/13/2023 11:5 6 AM CDT Adeel Jonse MD LABORATORY Final Result Performing Organization Address [facility] Co de Phone Number [facility] [address] [place] [address], [phone] from Last 3 Months or Most Recently Relevant to Health Maintenance Insurance MEDICAID [facility] MEDICARE Advance Directives Documents on File Type Date Recorded Patient Milk Bottler Expl anation Advance Directives and Living Will [...] 10:15 PM 06/21/2023 2:07 PM Care Teams Script Manager Relationship Specialty [place] [address] [place] [id number] PCP - General INTERNAL MEDICINE 09/09/24 Ino Tracy MD [facility]. [address] [address] Nigel Decker Operator INTERVENTIONAL CARDIOLOGY 01/02/18
--- OUTSIDE RECORDS SUMMARY | 2025-02-18 23:00 | XMS_ITS | Patient Health Record ---
Author Organization [facility] As [employer] Address [address] [facility] [address] [place] [address] Care Team Providers Care Precision Assembler Bench Name Role Phone Junaid Painter Unavailable [phone] Reason For Referral No Information Medications Medication [...] Inhaler Inhalation Active Melatonin *Pick strength-form from [employer] for eRX* Active Fluticasone Propionate Diskus 50 MCG/ACT Aerosol Powder Breath Activated Inhalation *Reorder from [employer] for eRx and Interaction Alerts* Active Sulfamethoxazole-Trimet [...] Date Medicare-I l Medicare [address] [place] [address] [id number] LUIS ALBERTO DENNY Self - patient is the insured Medicaid-I l Medicaid [address] [address] [place] [id number] LUIS ALBERTO DENNY Self - patient is the insured
[2025-02-18 23:04] LABS: Hematocrit 34.5 % (37.0-46.0); Hemoglobin 11.4 g/dL (12.4-15.3); Immature Granulocyte Percent A 0.4 % (0.0-0.0); Lymphocytes Absolute Auto 1.38 K/mm3 (1.10-4.50); Mean Corpuscular HGB Conc 33.0 g/dL (32-36); Mean Corpuscular Hemoglobin 30.6 pg (27.0-31.0); Mean Corpuscular Volume 92.5 fL (78.0-102.0); Nucleated Red Blood Cells Absolute Auto 0.00 K/mm3 (0.00-0.00); Nucleated Red Blood Cells Perc 0.0 % (0-0.0); Platelet Count Result 180 K/mm3 (150-420); Red Blood Count 3.73 M/mm3 (4.70-6.10); White Blood Count 7.6 K/mm3 (4.8-10.8)
[2025-02-18 23:17] LABS: Alanine Aminotransferase 20 U/L (6-50); Albumin Level 4.0 g/dL (3.5-5.1); Alkaline Phosphatase 112 U/L (38-126); Anion Gap 9 mmol/L (4-12); Aspartate Amino Transferase 20 U/L (17-59); Bilirubin,Total 0.4 mg/dL (0.2-1.3); Blood Urea Nitrogen 19 mg/dL (9-20); Calcium 10.7 mg/dL (8.4-10.2); Carbon Dioxide 24 mmol/L (22-30); Chloride 104 mmol/L (98-107); Estimated Glomerular Filt Rate > 60; Glucose 224 mg/dL (65-110); Lipase 222 U/L (23-300); Osmolality Calculated 293 mOsm/kg (285-295); Potassium 4.1 mmol/L (3.4-5.0); Sodium 137 mmol/L (137-145); Total Protein 6.8 g/dL (6.3-8.2)
[2025-02-18 23:19] LABS: INR 1.0; Partial Thromboplastin Time 27.0 Sec (23.9-30.70); Prothrombin Time 11.3 Seconds (9.50-12.1)
[2025-02-18 23:28] LABS: NT Pro B Type Natriuretic Pept 114 pg/mL (19.9-100); Troponin I < 0.012 ng/mL (0.000-0.034)
[2025-02-19] VITALS (15 sets, daily range): BP systolic 142–160; BP diastolic 82–93; PULSE 73–91; RESP 14–21; TEMP 36.9; O2SAT 95–99
[2025-02-19 02:04] LABS: Troponin I < 0.012 ng/mL (0.000-0.034)
--- NOTE | 2025-02-19 02:30 | ED.CHESTPAIN ---
HPI - Chest Pain General Chief Complaint: Chest Pain Stated Complaint: chest pain Time Seen by Provider: 02/18/25 22:33 Source: patient and EMS Mode of arrival: EMS Limitations: no limitations History of Present Illness HPI narrative: This is a 64-year-old male with history of CAD GERD hypertension hyperlipidemia presents with some right-sided chest pain epigastric rates it at about 6/10 comes and goes with no nausea or vomiting no shortness of breath no diaphoresis does have some mid abdominal pain epigastric breath no fever chills no diarrhea constipation. MD complaint: chest discomfort Pertinent past history: coronary artery disease Onset (ago): hour(s) Timing of current episode: episodic Prior episodes: Yes Onset: during rest Pain location: right chest Related Data Home Medications ?Medication ?Instructions ?Recorded ?Confirmed ?Last Taken ?Type albuterol 90 mcg-budesonide 80 2 inh inhalation 6XD PRN shortness 07/19/24 11/17/24 Unknown History mcg/actuation HFA aerosol inhaler of breath (Airsupra) aripiprazole 10 mg tablet (Abilify) 10 mg PO DAILY 07/19/24 11/17/24 Unknown History aspirin 81 mg tablet,delayed 81 mg PO DAILY 07/19/24 11/17/24 Unknown History release (Ecotrin Low Strength) atorvastatin 80 mg tablet (Lipitor) 80 mg PO DAILY 07/19/24 11/17/24 Unknown History buspirone 10 mg tablet 10 mg PO BID 07/19/24 11/17/24 Unknown History clopidogrel 75 mg tablet 75 mg PO DAILY 07/19/24 11/17/24 Unknown History duloxetine 20 mg capsule,delayed 20 mg PO DAILY 07/19/24 11/17/24 Unknown History release (Cymbalta) duloxetine 60 mg capsule,delayed 60 mg PO DAILY 07/19/24 11/17/24 Unknown History release (Cymbalta) ferrous sulfate 325 mg (65 mg 325 mg PO DAILY 07/19/24 11/17/24 Unknown History iron) tablet (Feosol) fluticasone fur. 200 mcg-umeclid 1 inh inhalation DAILY 07/19/24 11/17/24 Unknown History 62.5 mcg-vilant 25 mcg inhalat.powder (Trelegy Ellipta) fluticasone propionate 50 2 spray intranasal DAILY 07/19/24 11/17/24 Unknown History mcg/actuation nasal spray,suspension (24 Hour Allergy Relief) furosemide 40 mg tablet 40 mg PO BID 07/19/24 11/17/24 Unknown History gabapentin 600 mg tablet 1,200 mg PO TID 07/19/24 11/17/24 Unknown History glipizide 10 mg tablet 10 mg PO DAILY 07/19/24 11/17/24 Unknown History insulin glargine 100 unit/mL (3 18 unit subcut QPM 07/19/24 11/17/24 Unknown History mL) subcutaneous pen (Basaglar KwikPen U-100 Insulin) insulin lispro 100 unit/mL 4 unit subcut QACBREAK 07/19/24 11/17/24 Unknown History subcutaneous solution (Humalog U-100 Insulin) isosorbide dinitrate 30 mg tablet 30 mg PO DAILY 07/19/24 11/17/24 Unknown History latanoprost 0.005 % eye drops 1 drp EACH EYE QPM 07/19/24 11/17/24 Unknown History lisinopril 10 mg tablet 10 mg PO DAILY 07/19/24 11/17/24 Unknown History loratadine 10 mg tablet (Allergy 10 mg PO DAILY 07/19/24 11/17/24 Unknown History Relief (loratadine)) lorazepam 0.5 mg tablet (Ativan) 0.5 mg PO Q12H PRN anxiety 07/19/24 11/17/24 Unknown History pantoprazole 20 mg tablet,delayed 20 mg PO QAM 07/19/24 11/17/24 Unknown History release roflumilast 500 mcg tablet 500 mcg PO DAILY 07/19/24 11/17/24 Unknown History (Daliresp) tizanidine 4 mg tablet 4 mg PO DAILY 07/19/24 11/17/24 Unknown History tramadol 50 mg tablet 50 mg PO Q6H PRN pain 07/19/24 11/17/24 Unknown History trazodone 100 mg tablet 200 mg PO HS 07/19/24 11/17/24 Unknown History Allergies Allergy/AdvReac Type Severity Reaction Status Date / Time cephalexin Allergy Mild Unknown Verified 02/19/25 00:59 Penicillins Allergy Mild Unknown Verified 02/19/25 00:59 oxycodone (From OxyContin) AdvReac Mild Fainting Verified 02/19/25 00:59 Review of Systems Review of Systems: All systems reviewed & are unremarkable except as noted in HPI and below PMFSH Past Medical History Medical History Rheumatoid arthritis Dyslipidemia Diabetes mellitus COPD (chronic obstructive pulmonary disease) Hypertension Bipolar 1 disorder Social History Social History Smoking status: Never smoker Exam Const: General: no acute distress Nutritional Appearance: well nourished Orientation/consciousness: patient oriented x3 Limitations: no limitations Neck: Neck: normal visual inspection, no lymphadenopathy and no meningeal signs Chest: Chest palpation & inspection: normal inspection of the chest Resp: Effort & Inspection: normal respiratory effort Auscultation: clear to auscultation bilaterally Cardio: Rate: regular rate Rhythm: regular rhythm GI: GI Palp: Yes Soft to palpation Auscultation: normal bowel sounds : General: Yes bladder normal to palpation Back/Spine/Pelvis: Back: no CVA tenderness Skin: General skin exam: normal color Rashes: no rashes Neuro: General: patient oriented x3, moves all extremities, no meningeal signs and no focal motor deficits Extrem: General: normal to inspection Psych: Mental Status: mental status grossly normal Course Course Emergency Course: Medical decision making narrative: The patient was evaluated by myself in the emergency department. History obtained from the patient is an independent historian physical exam performed with his binders. EKG showed normal sinus rhythm with a right bundle branch block no ST or T changes CT scan of the chest abdomen pelvis showed no acute abnormalities resume her chronic pancreatitis. Labs were unremarkable with negative troponins x2. Patient received a 30mg IV Toradol and after reassessment pain level has improved. Repeat assessment: Patient doing well on repeat exam with no acute distress Symptoms stable since arrival to the emergency room and have improved chest pain Vitals are stable Patient agrees with scar chapman after shared medical decision-making and agrees with discharge. All questions answered to the patient's satisfaction Follow up with primary within next 3 to 5 days. Vital Signs Vital signs: Vital Signs Temperature 36.8 C 02/18/25 22:26 Pulse Rate 89 02/18/25 22:26 Respiratory Rate 19 02/18/25 22:26 Blood Pressure 151/82 H 02/18/25 22:26 Pulse Oximetry 98 02/18/25 22:26 Oxygen Delivery Nasal Cannula 02/18/25 22:26 Oxygen Flow Rate 2 02/18/25 22:26 Temperature 36.9 C 02/19/25 03:30 Pulse Rate 73 02/19/25 03:30 Respiratory Rate 20 02/19/25 03:30 Blood Pressure 160/91 H 02/19/25 03:30 Pulse Oximetry 95 02/19/25 03:30 Oxygen Delivery Nasal Cannula 02/19/25 03:30 Oxygen Flow Rate 2 02/19/25 03:30 MDM Differential Diagnosis Differential Diagnosis: Atypical chest pain/GERD Lab Data 02/18/25 23:01 02/18/25 23:01 Labs: Lab Results 02/18/25 02/19/25 Range/Units 23:01 01:38 WBC 7.6 (4.8-10.8) K/mm3 RBC 3.73 L (4.70-6.10) M/mm3 Hgb 11.4 L (12.4-15.3) g/dL Hct 34.5 L (37.0-46.0) % MCV 92.5 (78.0-102.0) fL MCH 30.6 (27.0-31.0) pg MCHC 33.0 (32-36) g/dL RDW 12.4 (11.6-14.4) % Plt Count 180 (150-420) K/mm3 MPV 10.0 (8.7-11.0) fl Immature Gran % (Auto) 0.4 H (0.0-0.0) % Neut % (Auto) 68.4 (50.0-70.0) % Lymph % (Auto) 18.2 (18.0-42.0) % [place] % (Auto) 9.4 (2.0-11.0) % Eos % (Auto) 2.4 (1.0-6.0) % Baso % (Auto) 1.2 H (0.0-1.0) % Lymph # (Auto) 1.38 (1.10-4.50) K/mm3 [place] # (Auto) 0.71 (0.10-0.90) K/mm3 Eos # (Auto) 0.18 (0.02-0.50) K/mm3 Baso # (Auto) 0.09 (0.00-0.10) K/mm3 Abs Immat Gran (auto) 0.03 H (0.00-0.00) K/mm3 Absolute Neuts (auto) 5.20 (1.70-7.20) K/mm3 Absolute Nucleated RBC 0.00 (0.00-0.00) K/mm3 Nucleated RBC % 0.0 (0-0.0) % PT 11.3 (9.50-12.1) Seconds INR 1.0 APTT 27.0 (23.9-30.70) Sec D-Dimer 0.50 (0.19-0.50) mg/L Sodium 137 (137-145) mmol/L Potassium 4.1 (3.4-5.0) mmol/L Chloride 104 (98-107) mmol/L Carbon Dioxide 24 (22-30) mmol/L Anion Gap 9 (4-12) mmol/L BUN 19 (9-20) mg/dL Creatinine 1.12 (0.7-1.3) mg/dL Estim Creat Clear Calc Not Reportable Estimated GFR > 60 (59 - ) Glucose 224 H (65-110) mg/dL Calculated Osmolality 293 (285-295) mOsm/kg Calcium 10.7 H (8.4-10.2) mg/dL Total Bilirubin 0.4 (0.2-1.3) mg/dL AST 20 (17-59) U/L ALT 20 (6-50) U/L Alkaline Phosphatase 112 (38-126) U/L Troponin I < 0.012 < 0.012 (0.000-0.034) ng/mL NT-Pro-B Natriuret Pep 114 H (19.9-100) pg/mL Total Protein 6.8 (6.3-8.2) g/dL Albumin 4.0 (3.5-5.1) g/dL Lipase 222 (23-300) U/L Imaging Data Radiologist's impression: ITS Impressions Chest/Abdomen/Pelvis CT 02/19/25 07:19 IMPRESSION: 1. Mild emphysema. 2. Small sliding hiatal hernia. 3. Left inguinal hernia containing fat. Chest X-Ray 02/19/25 07:47 IMPRESSION: 1. Portable chest x-ray with mildly improved appearance of the right lung base; small infiltrates may be present. Critical Care Time Critical Care Time Critical Care Time: No Discharge Plan Discharge Clinical Impression: Chronic GERD, Atypical chest pain Patient Disposition: NH Detention/Asst Living Condition: Stable Instructions: Antibiotic Form, Chest Pain (ED), GERD (Gastroesophageal Reflux Disease) (ED) Additional Instructions: Advised patient to continue current medical regimen and advised to increase his pantoprazole to40mg daily. Patient Language: Guamanian Prescriptions: New pantoprazole 40 mg tablet,delayed release (DR/EC) 40 mg PO QAM Qty: 30 0RF No Action Airsupra 90-80 mcg/actuation HFA aerosol inhaler 2 inh inhalation 6XD PRN (Reason: shortness of breath) aripiprazole [Abilify] 10 mg tablet 10 mg PO DAILY aspirin [Ecotrin Low Strength] 81 mg tablet,delayed release (DR/EC) 81 mg PO DAILY atorvastatin [Lipitor] 80 mg tablet 80 mg PO DAILY buspirone 10 mg tablet 10 mg PO BID clopidogrel 75 mg tablet 75 mg PO DAILY duloxetine [Cymbalta] 20 mg capsule,delayed release(DR/EC) 20 mg PO DAILY duloxetine [Cymbalta] 60 mg capsule,delayed release(DR/EC) 60 mg PO DAILY ferrous sulfate [Feosol] 325 mg (65 mg iron) tablet 325 mg PO DAILY fluticasone propionate [24 Hour Allergy Relief] 50 mcg/actuation spray,suspension 2 spray intranasal DAILY Rx Instructions: administer into each nostril furosemide 40 mg tablet 40 mg PO BID gabapentin 600 mg tablet 1,200 mg PO TID glipizide 10 mg tablet 10 mg PO DAILY insulin lispro [Humalog U-100 Insulin] 100 unit/mL solution 4 unit subcut QACBREAK Patient Comments: BEFORE MEALS HOLD IF BS LESS THAN 100 insulin glargine [Basaglar KwikPen U-100 Insulin] 100 unit/mL (3 mL) insulin pen 18 unit subcut QPM isosorbide dinitrate 30 mg tablet 30 mg PO DAILY Rx Instructions: allow nitrate-free interval of 12-14 hrs per 24-hr period latanoprost 0.005 % drops 1 drp EACH EYE QPM lisinopril 10 mg tablet 10 mg PO DAILY loratadine [Allergy Relief (loratadine)] 10 mg tablet 10 mg PO DAILY lorazepam [Ativan] 0.5 mg tablet 0.5 mg PO Q12H PRN (Reason: anxiety) pantoprazole 20 mg tablet,delayed release (DR/EC) 20 mg PO QAM roflumilast [Daliresp] 500 mcg tablet 500 mcg PO DAILY tizanidine 4 mg tablet 4 mg PO DAILY tramadol 50 mg tablet 50 mg PO Q6H PRN (Reason: pain) trazodone 100 mg tablet 200 mg PO HS Trelegy Ellipta 200-62.5-25 mcg blister with device 1 inh inhalation DAILY tramadol 50 mg tablet 50 mg PO Q8H PRN (Reason: pain) Qty: 20 0RF Rx Instructions: 1-2 tabs per dose levofloxacin 500 mg tablet 500 mg PO DAILY 7 Days Qty: 7 0RF methylprednisolone [Medrol (Ehsan)] 4 mg tablets,dose pack See Rx Instructions .ROUTE .COMPLEX Qty: 21 0RF Rx Instructions: orally per package directions Follow-up/Referrals: Hernán,Gertrude Rollins [Primary Care Provider] Stand Alone Forms: Long-Term Discharge Time of Disposition: 02:38
== END 2025-02-19 03:30 ==
PROVIDERS: Emergency Provider Emergency Medicine; PCP Internal Medicine
DX: K21.9 Gastro-esophageal reflux disease without esophagitis (principal); R07.89 Other chest pain; I25.10 Atherosclerotic heart disease of native coronary artery without angina pectoris; I10 Essential (primary) hypertension; E78.5 Hyperlipidemia, unspecified; M06.9 Rheumatoid arthritis, unspecified; E11.9 Type 2 diabetes mellitus without complications; J44.9 Chronic obstructive pulmonary disease, unspecified
CPT/HCPCS: 36415; 71045; 71260; 74177; 80053; 83690; 83880; 84484; 85025; 85380; 85610; 85730; 93005; 96374; 99284; J1885; Q9967